=== PATIENT | female | born 1950 | race Caucasian/White ===

== ENCOUNTER 2022-06-04 13:02 | Outpatient (CLI) | payer MEDICARE, BC, SELFPAY ==
[2022-06-04 14:19] LABS: Chloride* 103 mmol/L (96-114)
[2022-06-04 14:20] LABS: Potassium* 5.5 mmol/L (3.6-5.1); Sodium* 141 mmol/L (135-149)
[2022-06-04 14:22] LABS: Cholesterol* 243 mg/dL (90-199); Creatinine* 0.8 mg/dL (0.5-1.5); Estimated Glomerular Filt Rate 78 ml/min
[2022-06-04 14:23] LABS: Blood Urea Nitrogen* 19 mg/dL (7-30); Calcium* 9.5 mg/dL (8.4-10.6); Carbon Dioxide* 29 mmol/L (20-32); Glucose* 107 mg/dL (60-115); HDL Cholesterol* 45 mg/dL (>=50); LDL Cholesterol Calculated 171 mg/dL (<100); Triglycerides* 137 mg/dL (40-149)
[2022-06-04 14:39] LABS: Vitamin D 25 Hydroxy* < 13 ng/mL (30-80)
== END 2022-06-04 13:03 | disposition home or self-care (01) ==
PROVIDERS: PCP Family Medicine; Visit Provider Family Medicine
DX: Z00.00 Encounter for general adult medical examination without abnormal findings (principal); E55.9 Vitamin D deficiency, unspecified; I10 Essential (primary) hypertension; E78.5 Hyperlipidemia, unspecified; F41.9 Anxiety disorder, unspecified; R73.09 Other abnormal glucose; M17.0 Bilateral primary osteoarthritis of knee
CPT/HCPCS: 80048; 80061; 82306

== ENCOUNTER 2023-04-15 13:49 | Outpatient (CLI) | payer BC, SELFPAY ==
--- NOTE | 2023-04-15 14:00 | CRLHL7_ITS ---
For Patients: As a result of the Century Cures Act, medical imaging exams and procedure reports are released immediately into your electronic medical record. You may view this report before your referring provider. If you have questions, please contact your health care provider. DXA BONE MINERAL DENSITY STUDY Reason for exam: Asymptomatic menopausal state. Current height (in): 64. Weight (lb): 230. Menopause age: 56. Ethnicity: White. 1. Have you had a previous hip or vertebral fracture? No. 2. Have you had any fractures during your adult life which did not result from significant trauma (e.g., auto accident)? No. 3. Did either of your parents have a hip fracture? No. 4. Do you smoke? No. 5. Have you ever taken Glucocorticoids? No. 6. Do you have rheumatoid arthritis? No. 7. Do you have secondary osteoporosis? No. 8. Do you drink 3 or more alcoholic drinks per day? No. 9. Are you being treated for osteoporosis? No. 10. Have you ever taken any of the following medications: Actonel, Evista, Fosamax, Miacalcin, Reclast, Boniva, Forteo, HRT (i.e., estrogen/hormone therapy), Protelos, Prolia, Vitamin D, Calcium, other ??? please specify. ANSWER: Yes, vitamin D. 11. Do you have any of the following medical conditions: Anorexia or bulimia, asthma or emphysema, end stage renal disease, hyperparathyroidism, any seizure disorders, cancer, inflammatory bowel diseases, hysterectomy, other ??? please specify. ANSWER: Yes, hysterectomy. 12. What was your maximum height (inches)? 64.5. 13. Do you perform weight bearing exercise regularly? No. 14. Do you regularly consume dairy products? Yes. 15. Do you drink caffeinated beverages? Yes. If female: 16. At what age did your period start? 13. 17. Are you premenopausal? No. 18. How many full-term pregnancies have you had? 3. 19. Have you ever missed your period for more than 6 months in a row (not including or menopause)? No. TECHNIQUE: Bone mineral density study was performed using the [employer]. FINDINGS: The results of the study expressed as bone mineral density (BMD) are as follows: Lumbar spine L1 to L2: BMD: 1.156 g/cm2. T-score: 1.6. Z-score: 3.8 Neck Left: BMD: 0.975 g/cm2. T-score: 1.1. Z-score: 3.2 Right: BMD: 0.883 g/cm2. T-score: 0.3. Z-score: 2.3 Total Left: BMD: 1.034 g/cm2. T-score: 0.8. Z-score: 2.5 Right: BMD: 0.870 g/cm2. T-score: -0.6. Z-score: 1.1 IMPRESSION: Normal bone density. Michael Patel M.D. Diagnostic Radiologist [email or web address] NAOMY/chucky jj/Dictated by: Michael Patel MD @ 04/15/2023 3:34:00 PM (Electronically Signed)
== END 2023-04-15 13:50 | disposition home or self-care (01) ==
LOC: RAD 13:51
PROVIDERS: PCP Family Medicine; Visit Provider Family Medicine
DX: Z78.0 Asymptomatic menopausal state (principal)
CPT/HCPCS: 77080

== ENCOUNTER 2023-04-27 15:15 | Outpatient (RCR) | payer BC, SELFPAY | END 2023-08-25 23:59 | disposition home or self-care (01) | PROVIDERS: PCP Family Medicine; Visit Provider Orthopaedic Surgery | DX: M17.11 Unilateral primary osteoarthritis, right knee (principal); Z96.651 Presence of right artificial knee joint; M25.561 Pain in right knee; Z51.89 Encounter for other specified aftercare; M25.661 Stiffness of right knee, not elsewhere classified | CPT/HCPCS: 97110; 97161 ==

== ENCOUNTER 2023-06-10 12:56 | Outpatient (CLI) | payer BC, SELFPAY ==
--- NOTE | 2023-06-10 13:00 | CRLHL7_ITS ---
For Patients: As a result of the Century Cures Act, medical imaging exams and procedure reports are released immediately into your electronic medical record. You may view this report before your referring provider. If you have questions, please contact your health care provider. INDICATION: Cholesteatoma. TECHNIQUE: Noncontrast CT images acquired through the temporal bones. COMPARISON: CT brain 11/03/2021. FINDINGS: Right side: The external auditory canal is widely patent and contains minimal soft tissue attenuation suggestive of cerumen. The tympanic membrane is faintly visualized. The middle ear cavity is clear. The ossicles and scutum are intact. No evidence for otosclerosis. Normal morphology of the inner ear structures. No semicircular canal dehiscence. The mastoid air cells are clear. Left Side: The external auditory canal is widely patent. Mild tympanic membrane thickening. Moderate opacification of the epitympanum, including Prussak`s space. Lobulated soft tissue attenuation severely opacifies the mastoid antrum. There is mild opacification of the mesotympanum, including the sinus tympani. The scutum is blunted. No ossicular erosion. No evidence for otosclerosis. Normal morphology of the inner ear structures. No semicircular canal dehiscence. The mastoid air cells are underpneumatized and partially opacified. IMPRESSION: Left Side: 1. Moderate opacification of the epitympanum, including Prussak space. Lobulated soft tissue attenuation severely opacifies the mastoid antrum. The scutum is blunted. This constellation of findings is highly concerning for cholesteatoma. 2. The mastoid air cells are underpneumatized and partially opacified. 3. Mild tympanic membrane thickening. Right side: 1. Unremarkable. Please note that all CT scans at this facility use dose modulation, iterative reconstruction, and/or weight-based dosing when appropriate to reduce radiation dose to as low as reasonably achievable. Dictated by Filiberto Rocha MD @ 06/10/2023 8:12:55 PM (Electronically Signed)
== END 2023-06-10 12:57 | disposition home or self-care (01) ==
PROVIDERS: PCP Family Medicine; Visit Provider Otolaryngology
DX: H71.90 Unspecified cholesteatoma, unspecified ear (principal)
CPT/HCPCS: 70480

== ENCOUNTER 2023-08-11 13:47 | Outpatient (RCR) | payer BC, SELFPAY ==
--- NOTE | 2023-08-12 07:42 | PT.OPEX ---
PT [place] [facility] Eval PT [facility] Outpatient Eval Start: 08/11/23 08:42 Freq: Status: Active Protocol: Document 08/11/23 08:42 AMS (Rec: 08/11/23 16:52 AMS [id number]) E-signed By Inna Johnson PT Physical Therapy Outpatient Evaluation Insurance Information Recert Due Date 11/04/23 Insurance Name Medicare B,Other; See Comments Insurance Information/Comments [employer] Secure Medical Diagnosis Right knee osteoarthritis Presence of artificial knee joint Right total knee replacement 08/18/23 pre-op only Treating Diagnosis Right knee pain Muscle weakness Difficulty walking Referring MD Davis Subjective Subjective Caron is a new patient in my office today. She is a pleasant 73yr old female. Previous Dr. Gee patient. Referred to me by Dr. Townsend . Presents with pain in both knees. She is accompanied by her daughter. She reports anterior pain in both knees right equals left for the past several years. Her knees are fine when she sits. However she has pain when she walks. She has modified her activities and tried over-the- counter medications. She has not had an injections or therapy. She does not have diabetes, does not smoke cigarettes and is not on blood thinners. She is a Latter day. -Dr. Davsi, , confirmed by patient Patient reports to physical therapy one week prior to right TKA surgery. Per EMR, pt attended two sessions of physical therapy in April for her knee, and her knee surgery was rescheduled from 05/19/23 to 08/18/23. It was rescheduled one other time as well. She states she isn't sure she will have it next week either, as she just had ear surgery last week and is feeling nauseous since then. She is going to go talk to orthopedics after today's session about this. Additionally, her daughter will be available appliance parts counter clerk to assist her after surgery, but not dental services director. She just moved to [place] from [place], but she thinks she could ask some friends and neighbors about staying with her after surgery. Her first choice would be to be placed [place] a [place] [facility] [place] after surgery, and she is not worried about the cost that may be associated with this. She plans to call and investigate this possibility. See pre-op note for home set up details. She does own a two -wheeled walker as well and a cane. Patient's right knee has been worsening in terms of pain for several years. Denies previous injury or numbness/ tingling. She localizes pain to the anterior knee and states it is worse when walking, standing, and performing ADLs around her apartment. X-rays showed advanced osteoarthritis. Her baseline mobility is modified independent with 4WW for all but short distances due to quick fatigue, lumbar stenosis , and knee pain. 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 Functional limitations/ aggravating factors include all weightbearing activities. Not currently exercising. She will be doing her post-op PT in [place] closer to home. PMHx significant for knee arthroscopy on left side, fibromyalgia, heart murmur, hyperlipidemia, hypertension, and pre-diabetes. Pain Comments 7/10 at worst 0/10 at rest with sitting Date of Last Physician Visit 08/10/23 Date of Surgery (If applicable) 08/18/23 Current Work Status Retired Precautions Treatment Precautions/Contraindications Pre-diabetes, hyperlipidemia, hypertension, lumbar stenosis, Hx of pre-cancerous lesion of uterus w/ hysterectomy, heart murmur, fibromyalgia Weight Bearing Status Weight Bear as Tolerated Objective Other/Pertinent Objective Knee ROM L 0-0-115 R 0-0-98* pain end range Hip ROM Not assessed due to intolerance to supine position Strength: Hip flexors: R 4/5 L 4/5 Knee extensors: R 4/5 L 4/5 Gait/balance: Ambulates with increased genu varum on right, decreased angie, antalgic gait on right, flexed forward posture, mild postural sway/ instability. Pt did not bring her 4WW this visit. Palpation/joint mobility: Mild TTP over medial joint line, palpable cyst behind knee ( known by Dr. Davis) Swelling/observation: Increased genu varum R > L, no visible swelling Assessment Assessment/Impression Patient is a 73 year old female presenting for pre- operative visit prior to right total knee arthroplasty scheduled for 08/18/23. Notably, pt may be rescheduling this surgery a third time. Per patient report , she will also be having a cyst removed from behind her right knee potentially. Upon assessment, patient demonstrates decreased knee ROM, decreased proximal hip force output, and antalgic gait pattern. These impairments lead to difficulties with walking short distances, squatting, getting in and out of bed, climbing stairs, standing for longer periods, and sleeping. Patient's baseline function is ambulation with 4WW for all but short distances, as she did not bring it today. Patient will be seen post operatively in [place] to reassess impairments that will be addressed with skilled care. Caron would greatly benefit from skilled PT in order to progress strength, ROM, and ambulation post operatively in order to perform all household and work duties without significant difficulty or discomfort. Primary Functional Limitations walking short distances, squatting, getting in and out of bed, climbing stairs, standing for longer periods, and sleeping Plan of Care Rehabilitation Potential Good Physical Therapy Goals After pre-op visit: ALL MET ? Patient will be independent with HEP ? Patient will verbalize knowledge of stair navigation and proper sequencing ? Patient will have knowledge on home adaptations and use of assistive devices post operatively ? Patient will have knowledge of edema management Coordination/Communication With Referral Source Treatment Plan/Direct Interventions Therapeutic Exercises Frequency/Duration Frequency/duration: ? 1x visit prior to surgery on 08/18/23. Patient will start outpatient PT s/p TKA on in [place]. Patient Will Be Discharged From Therapy Completion of LTG(s), Independent w/HEP, Independently Progressing Evaluation Billing Untimed Code Treatment Minutes 25 Complexity Moderate Certification Information Initial Certification Date 08/11/23 Ending Certification Date 11/04/23 Provider Signature Shows Agreement With POC & Medical Necessity Physician Signature & Date Requested Please Sign/Date Here Physician Comment/Change : Physician NPI Number #
== END 2023-08-21 16:18 | disposition home or self-care (01) ==
PROVIDERS: PCP Family Medicine; Visit Provider Orthopaedic Surgery
DX: M17.11 Unilateral primary osteoarthritis, right knee (principal); Z96.651 Presence of right artificial knee joint; Z51.89 Encounter for other specified aftercare
CPT/HCPCS: 97110; 97162

== ENCOUNTER 2023-08-19 15:16 | Inpatient (IN) | payer BC, SELFPAY ==
[2023-08-18] VITALS (23 sets, daily range): BP systolic 97–171; BP diastolic 47–101; PULSE 57–73; RESP 14–21; TEMP 35.9–36.8; O2SAT 90–98; BMI 39.4
[2023-08-18] MEDS: SODIUM CHLORIDE 0.9 % (FLUSH) 10 ML SYRINGE IVF (11:00)
[2023-08-18] MEDS: LACTATED RINGERS 1000 ML 1,000 ML 100 ML IV ×2 (11:00→12:12)
[2023-08-18] MEDS: ACETAMINOPHEN 500 MG TABLET 1000 MG PO ×3 (11:05→23:12)
[2023-08-18] MEDS: OXYCODONE (CR) 10 MG TAB.ER.12H PO (11:05)
[2023-08-18] MEDS: CELECOXIB 200 MG CAPSULE PO (11:05)
[2023-08-18] MEDS: fentaNYL 100 MCG/2 ML inj IVP (11:43)
[2023-08-18] MEDS: MIDAZOLAM HCL 1 MG/ML inj IVP (11:43)
[2023-08-18] MEDS: TRANEXAMIC ACID 100 MG/ML INJ 1000 MG IV (12:11)
[2023-08-18] MEDS: CEFAZOLIN 2 GM INJ IVP (12:11)
--- NOTE | 2023-08-18 12:33 | P.NB_ITS ---
Nerve Block Nerve Block Time Seen by Provider: 11:44 Date Seen: 08/18/23 Type of block requested by surgeon for post-operative analgesia: adductor canal Side: right Time out performed: Yes Verification of patient name: Yes Verification of date of : Yes Site marking: site marked Name of person performing procedure: Sahil Continuous monitoring Was continuous monitoring of O2 sat, B/P, cardiac catheterization technician, recorded every 15 minutes?: Yes Procedure Checklist: sterile prep, needles and gloves Ultrasound guided. Images saved: Yes Medications given in 5ml increments after negative aspiration: Ropivicaine %: 0.5 mL: 20 Needle gauge: 20 Decadron (mg): 10 Precedex (mcg): 25 Patient tolerated procedure well: Yes Additional comments: Needle noted adjacent to nerve Block Charges Block Charge (with Pro Fee): Femoral Nerve Use of Ultrasound Machine for Block: Yes- US Guidance/pain block
--- NOTE | 2023-08-18 12:34 | W.PM.NB ---
Nerve Block Nerve Block Time Seen by Provider: 11:44 Date Seen: 08/18/23 Type of block requested by surgeon for post-operative analgesia: geniculars Side: right Time out performed: Yes Verification of patient name: Yes Verification of date of : Yes Site marking: site marked Name of person performing procedure: Sahil Continuous monitoring Was continuous monitoring of O2 sat, B/P, naval architect, recorded every 15 minutes?: Yes Procedure Checklist: sterile prep, needles and gloves Medications given in 5ml increments after negative aspiration: Ropivicaine %: 0.5 mL: 9 Needle gauge: 25 Patient tolerated procedure well: Yes Block Charges Block Charge (with Pro Fee): Genicular Nerve Block Use of Ultrasound Machine for Block: No
--- NOTE | 2023-08-18 12:34 | W.ANESCHARGE ---
Anesthesia Charges Start Date/Time Anesthesia Start Date: 08/18/23 Anesthesia Start Time: 11:56 Stop Date/Time Anesthesia Stop Date: 08/18/23 Anesthesia Stop Time: 14:05 Summary Extremes of Age - Over 70 or under 1: MDA
--- NOTE | 2023-08-18 13:25 | CRLHL7_ITS ---
For Patients: As a result of the Cures Act, medical imaging exams and procedure reports are released immediately into your electronic medical record. You may view this report before your referring provider. If you have questions, please contact your health care provider. Indication: post op TKA Technique: Two views right knee Findings/Impression: Hardware from a right total knee arthroplasty is in satisfactory position. Bone alignment is normal. No sign of acute fracture. Postop changes are within normal limits. Dictated by Michael Patel MD @ 08/19/2023 8:23:02 AM (Electronically Signed)
--- NOTE | 2023-08-18 13:31 | PM.ORPRC ---
Procedure Note Date of procedure: 08/18/23 Procedure: PREOPERATIVE DIAGNOSIS: Right knee osteoarthritis POSTOPERATIVE DIAGNOSIS: Right knee osteoarthritis NAME OF OPERATION: Right total knee arthroplasty SURGEON: Narciso Davis MD TUBE BENDER HAND: STAN Benito ANESTHESIA: Spinal ESTIMATED BLOOD LOSS: 0 mL COMPLICATIONS: None SPECIMENS: None DRAINS: None PREOPERATIVE ANTIBIOTICS: Ancef 2 grams, antibiotic impregnated cement IMPLANTS: 1. J&J Attune #4 revision posterior stabilized femur with a 14 mm x 50 mm cemented stem 2. #4 fixed-bearing revision tibia with a 14 mm x 50 mm cemented stem 3. #4 posterior stabilized, 5 mm fixed-bearing standard polyethylene 4. 35 patella INDICATIONS: The patient is a 73-year-old with a longstanding history of severe, unrelenting right knee pain secondary to end-stage (grade IV) right knee osteoarthritis. Despite appropriate nonoperative management, including activity modification, anti-inflammatories, [id number] pain medication, bracing, physical therapy, and injections they continue to have pain and disability. Operative intervention was offered. The risks, benefits and expected outcomes were discussed in detail. These included but were not limited to: Infection, bleeding, injury to blood vessel or nerve, venous thromboembolism. All questions were answered to their satisfaction. Use of an dental assistant teacher was necessary throughout the case for patient positioning and safety, soft tissue retraction, and closure. A modifier 22 should be added to this case. The patient's weight of 104 kg with a BMI of 39.4 kg/meter squared and a 50 mm layer of adipose over the extensor mechanism made exposure difficult. This required the use of stems on both side of the construct and more than doubled the time typically required to complete the case. PROCEDURE: Spinal anesthesia was administered. The patient was placed supine on the operating table. The dental assistant teacher made sure the patient was positioned appropriately. The lower extremity was prepped and draped in the usual sterile fashion. The limb was exsanguinated with the Herrera bandage. The pneumatic tourniquet was inflated to 300 mmHg. A standard anterior incision was made with the knee in flexion. Subcutaneous dissection was sharply taken through fascial layer #1. Full-thickness medial and lateral flaps were elevated. The dental assistant teacher retracted the soft tissues and protected them throughout the case. A standard medial parapatellar approach was made. The patella was everted. The infrapatellar fat pad was preserved. The menisci and cruciate ligaments were sharply d?brided. Marginal osteophytes were d?brided with the rongeur. The drill was used to penetrate the femoral canal. The canal was aspirated and irrigated with pulse lavage. The intramedullary femoral guide was placed for a 5-degree valgus cut, removing 10 mm off the distal femur. The saw was used to make the cut. Whitesides line and the trans epicondylar axis were marked. The femoral sizing guide was pinned onto the distal femur. Three degrees of external rotation nicely parallels the transepicondylar axis. Pins were placed for posterior referencing. The four-in-one cutting guide was pinned onto the distal femur. The anterior, posterior, and chamfer cuts were made. The dental assistant teacher protected the collateral ligaments. The revision femoral trial was placed. The box cuts were made. The drill was used x2. The stemmed, boxed trial was placed and was an excellent fit. Attention was then turned to the proximal tibia. The extramedullary tibial guide was placed for a neutral varus/valgus cut with 5 degrees of posterior slope, removing 2 mm based off the medial tibial surface. The dental assistant teacher protected the collateral ligaments and the neurovascular bundle. The saw was used to make the cut. Trial components were placed. The knee was nicely balanced in both flexion and extension. The trial components were removed. The tray was placed in appropriate rotation, parallel to our tibial cutting pins. It was pinned by the dental assistant teacher and the drill x2 was used. The stemmed tibial trial was placed. The punch was used. The tray was removed. The punch was used again. Attention was then turned to the patella. [place] patellar thickness was 21.5 mm. The lobster claw resection guide was used with the 7.5 mm grazyna. The saw was used to make the cut. Drill holes were made by the dental assistant teacher. The trial was placed and was an excellent fit. Cancellous surfaces were irrigated with pulse lavage and thoroughly dried by the dental assistant teacher. We cemented the tibial component, then the femoral component. We impacted the 5 mm polyethylene onto the tibial tray. The knee was brought into full extension. We then cemented the patellar component. Excessive cement was removed. The cement was allowed to harden. The knee was taken through a range of motion and was found to be nicely balanced in both flexion and extension. The patella tracks centrally. The dental assistant teacher did a three minute dilute Betadine solution soak. The dental assistant teacher irrigated the wound with 3 liters of normal saline via pulse lavage. The dental assistant teacher reapproximated the extensor mechanism with #1 Vicryl in an interrupted [id number] fashion. The dental assistant teacher then ran the extensor mechanism with a #1 PDO Stratafix. The dental assistant teacher closed the subcutaneous tissues with a 3-0 Stratafix and the skin with a running 3-0 Stratafix in a subcuticular fashion. Glue was used to seal the skin. The dental assistant teacher placed a dry dressing, SUJIT stocking, and Polar Care. Sponge and needle counts were correct x2. The patient tolerated the procedure well. There were no apparent complications. They were carefully transferred to the hospital bed and taken to the postanesthesia care unit in satisfactory condition. PLAN: The patient will be mobilized with physical therapy. Aspirin will be used for DVT prophylaxis. They will be discharged to home once medically appropriate.
--- NOTE | 2023-08-18 14:07 | W.ANESCHARGE ---
Anesthesia Charges Start Date/Time Anesthesia Start Date: 08/18/23 Anesthesia Start Time: 11:56 Stop Date/Time Anesthesia Stop Date: 08/18/23 Anesthesia Stop Time: 14:05
--- NOTE | 2023-08-18 14:54 | SUR.PHASEI ---
patient met discharge criteria per anesthesia
[2023-08-18] MEDS: LACTATED RINGERS 1000 ML 1,000 ML 75 ML IV (16:17)
[2023-08-18] MEDS: CEFAZOLIN 2 GM in 0.9 % SODIUM CHLORIDE Mini-bag 100 ML IVPB (18:05)
--- NOTE | 2023-08-18 18:15 | PC.SOCIAL ---
Discharge planning: workers compensation administrator spoke with dtdaiana Saini who requested short term rehab placement in a facility in [facility] or [place]. Left message for [facility], Called [facility] in [place] and faxed information for evaluation. Faxed information to [facility] in [place]. At this time, only the face sheet and Pre-op H&P is available to fax. workers compensation administrator to follow up tomorrow with additional PT/OT and hospitalist note for assessment for admit to [place] [facility] [place] [facility].
--- NOTE | 2023-08-18 18:21 | PC.NURSE ---
PATIENT PLEASANT AND COOPERATIVE, ALERT AND ORIENTED, UP A1 WITH WALKER AND BELT, SLIGHT BUCKLE OF RIGHT KNEE NOTED, DRESSING TO RIGHT KNEE CDI, TOLERATING REGULAR DIET NO NAUSEA NOTED, DECLINING PAIN IN RIGHT KNEE, DTR PRESENT AT BEDSIDE AND VERY SUPPORTIVE.
--- NOTE | 2023-08-18 19:05 | PM.IMCN1 ---
Date of Consult Patient: [facility] Patient Consult date: 08/18/23 Requesting Physician: Orthopedics Primary Care Provider: Michael Townsend MD Consult Narrative Reason for consult: Postop medical management Narrative: Caron Mittal is a 73 year old female seen in consultation for medical problems following surgery. Consultation is requested by Dr. Davis for management after uncomplicated right total knee arthroplasty today. Patient reports generally doing fairly well postoperatively. She specifically denies nausea or knee pain. Her block is just wearing off when I see her. Preoperatively she reports generally doing well. There were no significant issues identified under preop physical. Patient, family and other providers have suggested that she would benefit from [facility] facility for rehab following surgery. She lives alone in apartment without stairs. It is not adequately handicapped for her to manage there. She has other disabilities that she thinks will impair her recovery including her other knee arthritis, spinal stenosis, shoulder pain/rotator cuff problems left greater than right, fibromyalgia. Two weeks ago she underwent surgery at [facility] for a cholesteatoma in her left ear. She initially did have some difficulties after that surgery with profound fatigue and sleepiness. She reports no other complications. She is still using antibiotic drops in that ear. Review of Systems Narrative: No recent illness or injury. Ongoing chronic medical problems requiring ongoing management as discussed below. 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 - Presbycusis, unspecified ear (ICD-10) Mixed hyperlipidemia ?E78.2 - Mixed hyperlipidemia (ICD-10) Primary hypertension ?I10 - Essential (primary) hypertension (ICD-10) Pre-diabetes ?R73.03 - Prediabetes (ICD-10) Vitamin D deficiency ?E55.9 - Vitamin D deficiency, unspecified (ICD-10) Spinal stenosis of lumbar region with neurogenic claudication ?M48.062 - Spinal stenosis, lumbar region with neurogenic claudication (ICD-10) Recurrent major depressive disorder (07/26/08) ?F33.9 - Major depressive disorder, recurrent, unspecified (ICD-10) Paroxysmal atrial fibrillation ?I48.0 - Paroxysmal atrial fibrillation (ICD-10) Osteoarthritis of both knees ?M17.0 - Bilateral primary osteoarthritis of knee (ICD-10) Obstructive sleep apnea syndrome ?G47.33 - Obstructive sleep apnea (adult) (pediatric) (ICD-10) History of adenomatous polyp of colon (06/06/10) ?Z86.010 - Personal history of colonic polyps (ICD-10) Surgical History (Updated 08/18/23 @ 19:15 by Hector Elizabeth MD) History of arthroplasty of right knee ?Z96.651 - Presence of right artificial knee joint (ICD-10) History of cholesteatoma ?Z86.69 - Personal history of other diseases of the nervous system and sense organs (ICD-10) Status post total abdominal hysterectomy and bilateral salpingo-oophorectomy (12/2016) ?Z90.710 - Acquired absence of both cervix and uterus (ICD-10) ?Z90.722 - Acquired absence of ovaries, bilateral (ICD-10) ?Z90.79 - Acquired absence of other genital organ(s) (ICD-10) Status post laparoscopic cholecystectomy (1993) ?Z90.49 - Acquired absence of other specified parts of digestive tract (ICD-10) History of suburethral sling procedure (12/01/16) ?Z98.890 - Other specified postprocedural states (ICD-10) History of colonoscopy with polypectomy (11/2019) ?Z98.890 - Other specified postprocedural states (ICD-10) ?Z86.010 - Personal history of colonic polyps (ICD-10) History of arthroscopy of right knee (1995) ?Z98.890 - Other specified postprocedural states (ICD-10) Family History Mother Breast cancer, Onset Age: 45 Maternal Grandmother Breast cancer, Onset Age: 40 Aunt Breast cancer Father Type 2 diabetes mellitus Social History (Updated 08/18/23 @ 19:12 by Hector Elizabeth MD) Narrative: She recently moved to an apartment in [place] from [place]. She moved there to be closer to her daughter and to her who is an assisted living facility there. Her apartment has no stairs but is not otherwise handicap assessable. 3 kids, retired, 2 drinks/months, has Alzheimer's , non-smoker, Sabianism sedentary lifestyle What is your current living situation?: I presently have a place to live Problems where you live: no known problems Problems where you live details: none In the past 12 months, utilities in danger of being shut off: no In past 12 months, lack of transportation kept you from medical appts, meetings, work, or getting things needed for daily living: no In the past 12 mos, have been you worried that your food would run out before you had money to buy more?: never true In the past 12 mos, the food you bought just didn't last and you didn't have money to buy more?: never true Smoking Status: Never smoker How often do you have a drink containing alcohol: monthly or less AUDIT-C Alcohol total score: 1 Non-prescribed substance use: denies use Caffeine: Yes (coffee) How often does anyone, including family, friends and others, physically hurt you: never How often does anyone, including family, friends and others, insult or talk down to you: never How often does anyone, including family, friends and others, threaten you with harm: never How often does anyone, including family, friends and others, scream or curse at you: never Little interest or pleasure in doing things: several days Feeling down, depressed, or hopeless: several days Meds Home Medications and Allergies Home Medications Medication Instructions Recorded Confirmed Type acetaminophen 325 mg tablet 650 mg PO Q6H PRN 08/10/23 08/17/23 History (Tylenol) ciprofloxacin HCl 0.3 % eye drops See Rx Instructions .Route .COMPLEX 08/18/23 08/18/23 History Allergies Allergy/AdvReac Type Severity Reaction Status Date / Time fluoxetine Allergy Intermediate clicking Verified 08/10/23 14:31 in brain sertraline Allergy Mild watery eyes Verified 08/10/23 14:31 Exam Narrative: Exam Narrative: She is alert and appears in no distress. She is oriented to her circumstances. Oropharynx with small airway. Neck is supple without mass or adenopathy. Respirations are clear to auscultation. Cardiovascular: S1, S2, regular rate and rhythm. No murmur gallop or rub. Abdomen: Bowel sounds active. Abdomen is soft without tenderness or mass. She is just beginning to regain sensation and motion and strength in her lower extremities bilaterally. Intact pedal pulses. Const: Vital Signs, click to edit/add: Vital Signs - 24 hr 08/18/23 11:28 08/18/23 11:43 08/18/23 11:49 Temperature 97.8 F 97.8 F Pulse Rate 61 66 59 L Pulse Rate [Left P ulse Oximeter] Respiratory Rate 16 16 16 Blood Pressure 171/68 H 151/69 H 137/66 Blood Pressure [Le ft Arm] Pulse Oximetry 98 95 98 Oxygen Delivery Me thod Room Air Nasal Cannula Nasal Cannula Oxygen Flow Rate 2 2 08/18/23 14:00 08/18/23 14:05 08/18/23 14:10 Temperature 97.6 F 97.6 F 97.6 F Pulse Rate 69 64 66 Pulse Rate [Left P ulse Oximeter] Respiratory Rate 16 20 20 Blood Pressure 97/47 L 103/47 L 120/54 L Blood Pressure [Le ft Arm] Pulse Oximetry 97 96 96 Oxygen Delivery Me thod Nasal Cannula OxyMask OxyMask Oxygen Flow Rate 6 6 6 08/18/23 14:15 08/18/23 14:20 08/18/23 14:25 Temperature 97.6 F 97.6 F 97.6 F Pulse Rate 67 69 63 Pulse Rate [Left P ulse Oximeter] Respiratory Rate 20 21 20 Blood Pressure 106/62 120/58 L 125/58 L Blood Pressure [Le ft Arm] Pulse Oximetry 97 95 96 Oxygen Delivery Me thod OxyMask OxyMask Room Air Oxygen Flow Rate 6 6 0 08/18/23 14:30 08/18/23 14:35 08/18/23 14:40 Temperature 97.3 F L 97.3 F L 97.3 F L Pulse Rate 69 68 66 Pulse Rate [Left P ulse Oximeter] Respiratory Rate 20 20 20 Blood Pressure 142/67 H 145/71 H 139/66 Blood Pressure [Le ft Arm] Pulse Oximetry 92 94 94 Oxygen Delivery Me thod Room Air Room Air Room Air Oxygen Flow Rate 0 0 0 08/18/23 14:40 08/18/23 15:00 08/18/23 15:00 Temperature 96.6 F L Pulse Rate 59 L Pulse Rate [Left P ulse Oximeter] 60 Respiratory Rate 14 16 Blood Pressure Blood Pressure [Le ft Arm] 139/73 141/58 H Pulse Oximetry 92 93 Oxygen Delivery Me thod Room Air Room Air Oxygen Flow Rate 08/18/23 15:15 08/18/23 15:30 08/18/23 15:45 Temperature 97.0 F L Pulse Rate Pulse Rate [Left P ulse Oximeter] 60 57 L 58 L Respiratory Rate 14 16 16 Blood Pressure Blood Pressure [Le ft Arm] 159/77 H 153/73 H 152/101 H Pulse Oximetry 90 92 92 Oxygen Delivery Me thod Room Air Room Air Room Air Oxygen Flow Rate 0 0 0 08/18/23 16:00 08/18/23 16:30 08/18/23 17:00 Temperature 97.0 F L Pulse Rate Pulse Rate [Left P ulse Oximeter] 61 58 L 70 Respiratory Rate 16 16 16 Blood Pressure Blood Pressure [Le ft Arm] 152/76 H 167/83 H 150/78 H Pulse Oximetry 91 90 92 Oxygen Delivery Me thod Room Air Room Air Room Air Oxygen Flow Rate 0 0 0 08/18/23 18:00 Temperature Pulse Rate Pulse Rate [Left P ulse Oximeter] 73 Respiratory Rate 16 Blood Pressure Blood Pressure [Le ft Arm] 127/57 L Pulse Oximetry 92 Oxygen Delivery Me thod Room Air Oxygen Flow Rate 0 Documenting provider has reviewed patient's vital signs: yes Assessment and Plan Assessment and plan (1) History of arthroplasty of right knee: Problem comment: Dr. Davis, without complications, 08/18/2023 Status: Acute (2) Osteoarthritis of both knees: Status: Acute (3) Presbyacusis: Status: Acute (4) Obstructive sleep apnea syndrome: Problem comment: Not using CPAP. It apparently causes her to have nasal congestion and postnasal drainage. Status: Acute (5) Spinal stenosis of lumbar region with neurogenic claudication: Status: Acute (6) Fibromyalgia: Status: Acute (7) Bilateral shoulder pain: Problem comment: Left greater than right which she attributes to rotator cuff injury. Status: Acute (8) Obesity (BMI 30-39.9): Status: Acute (9) Sedentary lifestyle: Status: Acute (10) Need for discharge planning: Problem comment: Patient and family hope she can get rehab at a [facility] facility before returning home. Status: Acute Plan 73-year-old female seen in consultation for management of medical problems following right knee arthroplasty. Patient is generally doing well but is already anticipating a great deal of difficulty with mobility, pain control, rehabilitation. She is expecting and need for [facility] facility to help with these issues for the short term. At this point will provide routine management of pain, therapy, chronic medical management. Further discussion about discharge planning to continue tomorrow. Total time spent today is 60 minutes, 40 minutes in coordination of care and discussing with patient and family and other providers rehab from knee surgery and discharge planning
[2023-08-18] MEDS: OXYCODONE 5 MG TABLET PO (19:11)
[2023-08-18] MEDS: SENNOSIDES 1 TAB TABLET 2 TAB PO (20:25)
[2023-08-18] MEDS: ASPIRIN 81 MG TABLET EC PO (20:25)
[2023-08-18] MEDS: CIPROFLOXACIN 0.3% OPHTH 4 DROP EAR-LEFT (20:26)
[2023-08-19] MEDS: OXYCODONE 5 MG TABLET PO ×4 (02:20→18:57)
[2023-08-19] MEDS: CEFAZOLIN 2 GM in 0.9 % SODIUM CHLORIDE Mini-bag 100 ML IVPB (02:23)
[2023-08-19 03:00] VITALS: BP 140/58; PULSE 65; RESP 16; TEMP 36.6; O2SAT 92
--- NOTE | 2023-08-19 04:32 | PC.NURSE ---
Shift note: Pt is post operative day 1. Doing well ambulating with A1, walker and GB. Pain rated between 3 and 6. Tolerated regular diet very well. Dressing appears clean and dry. Cryocuff applied. Pt is hard of hearing. Had adequate sleep.
[2023-08-19] MEDS: ACETAMINOPHEN 500 MG TABLET 1000 MG PO ×4 (05:18→23:45)
[2023-08-19 06:55] LABS: Basophils Percent Auto 0.1 % (0.0-3.0); Hematocrit 32.2 % (33.0-51.0); Hemoglobin* 10.1 gm/dL (12.0-16.0); Immature Granulocytes Pct Auto 0.4 %; Lymphocytes Percent Auto 9.4 % (20-44); Mean Corpuscular HGB Conc 31 gm/dL (32-36); Mean Corpuscular Hemoglobin 30 pg (26-34); Mean Corpuscular Volume 94 fL (80-100); Monocytes Percent Auto 6.8 % (0.0-11.0); Neutrophils Percent Auto 83.3 % (42.0-72.0); Platelet Count* 230 K/uL (140-440); RDW Coefficient of Variation % 13.3 % (11.5-15.5); Red Blood Count 3.41 m/uL (4.00-5.20); White Blood Count* 12.83 K/uL (4.50-11.00)
[2023-08-19 07:00] VITALS: BP 143/60; PULSE 71; RESP 16; TEMP 36.2; O2SAT 95
[2023-08-19 07:04] LABS: Slide Review Reflex No
[2023-08-19 07:15] LABS: Prothrombin Time 14.9 Seconds
[2023-08-19 07:16] LABS: Potassium* 4.2 mmol/L (3.6-5.1); Sodium* 138 mmol/L (135-149)
[2023-08-19 07:18] LABS: Creatinine* 0.7 mg/dL (0.5-1.5); Est. Creatinine Clearance* 42.62; Estimated Glomerular Filt Rate 91 ml/min
[2023-08-19 07:19] LABS: Blood Urea Nitrogen* 13 mg/dL (7-30)
--- NOTE | 2023-08-19 08:21 | P.ORPN_ITS ---
Subjective Subjective Time Seen by Provider: 07:10 Date Seen: 08/19/23 Principal diagnosis: Status post right knee replacement Interval history: Caron is comfortable is morning. She wishes to go to a [facility] postoperatively. Electric Dolly Operator is assisting her. Ortho Exam Narrative Exam Narrative: Alert and oriented x3. Patient is in no acute distress. Converses without labored breathing. Hearing is grossly intact. Ambulates with a walker. Examination of the right knee shows the dressing is intact. No erythema or warmth or sign of infection. Mild ecchymosis. CMS intact right lower extremity. Bilateral calves are soft and nontender. Const Vital Signs, click to edit/add: Vital Signs - 24 hr 08/18/23 11:28 08/18/23 11:43 08/18/23 11:49 Temperature 97.8 F 97.8 F Pulse Rate 61 66 59 L Pulse Rate [Left Pulse Oximeter] Respiratory Rate 16 16 16 Blood Pressure 171/68 H 151/69 H 137/66 Blood Pressure [Left Arm] Pulse Oximetry 98 95 98 Oxygen Delivery Method Room Air Nasal Cannula Nasal Cannula Oxygen Flow Rate 2 2 08/18/23 14:00 08/18/23 14:05 08/18/23 14:10 Temperature 97.6 F 97.6 F 97.6 F Pulse Rate 69 64 66 Pulse Rate [Left Pulse Oximeter] Respiratory Rate 16 20 20 Blood Pressure 97/47 L 103/47 L 120/54 L Blood Pressure [Left Arm] Pulse Oximetry 97 96 96 Oxygen Delivery Method Nasal Cannula OxyMask OxyMask Oxygen Flow Rate 6 6 6 08/18/23 14:15 08/18/23 14:20 08/18/23 14:25 Temperature 97.6 F 97.6 F 97.6 F Pulse Rate 67 69 63 Pulse Rate [Left Pulse Oximeter] Respiratory Rate 20 21 20 Blood Pressure 106/62 120/58 L 125/58 L Blood Pressure [Left Arm] Pulse Oximetry 97 95 96 Oxygen Delivery Method OxyMask OxyMask Room Air Oxygen Flow Rate 6 6 0 08/18/23 14:30 08/18/23 14:35 08/18/23 14:40 Temperature 97.3 F L 97.3 F L 97.3 F L Pulse Rate 69 68 66 Pulse Rate [Left Pulse Oximeter] Respiratory Rate 20 20 20 Blood Pressure 142/67 H 145/71 H 139/66 Blood Pressure [Left Arm] Pulse Oximetry 92 94 94 Oxygen Delivery Method Room Air Room Air Room Air Oxygen Flow Rate 0 0 0 08/18/23 14:40 08/18/23 15:00 08/18/23 15:00 Temperature 96.6 F L Pulse Rate 59 L Pulse Rate [Left Pulse Oximeter] 60 Respiratory Rate 14 16 Blood Pressure Blood Pressure [Left Arm] 139/73 141/58 H Pulse Oximetry 92 93 Oxygen Delivery Method Room Air Room Air Oxygen Flow Rate 08/18/23 15:15 08/18/23 15:30 08/18/23 15:45 Temperature 97.0 F L Pulse Rate Pulse Rate [Left Pulse Oximeter] 60 57 L 58 L Respiratory Rate 14 16 16 Blood Pressure Blood Pressure [Left Arm] 159/77 H 153/73 H 152/101 H Pulse Oximetry 90 92 92 Oxygen Delivery Method Room Air Room Air Room Air Oxygen Flow Rate 0 0 0 08/18/23 16:00 08/18/23 16:30 08/18/23 17:00 Temperature 97.0 F L Pulse Rate Pulse Rate [Left Pulse Oximeter] 61 58 L 70 Respiratory Rate 16 16 16 Blood Pressure Blood Pressure [Left Arm] 152/76 H 167/83 H 150/78 H Pulse Oximetry 91 90 92 Oxygen Delivery Method Room Air Room Air Room Air Oxygen Flow Rate 0 0 0 08/18/23 18:00 08/18/23 19:00 08/18/23 20:00 Temperature 98.2 F 98.2 F Pulse Rate Pulse Rate [Left Pulse Oximeter] 73 70 66 Respiratory Rate 16 16 16 Blood Pressure Blood Pressure [Left Arm] 127/57 L 152/70 H 152/74 H Pulse Oximetry 92 94 94 Oxygen Delivery Method Room Air Room Air Room Air Oxygen Flow Rate 0 0 0 08/18/23 23:00 08/18/23 23:00 08/19/23 03:00 Temperature 98 F 98 F Pulse Rate Pulse Rate [Left Pulse Oximeter] 67 65 Respiratory Rate 16 16 Blood Pressure Blood Pressure [Left Arm] 133/62 140/58 H Pulse Oximetry 92 92 92 Oxygen Delivery Method Room Air Room Air Oxygen Flow Rate 0 0 08/19/23 07:00 08/19/23 07:00 Temperature 97.2 F L Pulse Rate Pulse Rate [Left Pulse Oximeter] 71 Respiratory Rate 16 Blood Pressure Blood Pressure [Left Arm] 143/60 H Pulse Oximetry 95 95 Oxygen Delivery Method Room Air Oxygen Flow Rate Assessment and Plan Assessment and plan (1) History of arthroplasty of right knee: Problem details: Dr. Davis, without complications, 08/18/2023 Status: Acute Assessment and Plan: Plan for discharge is today to [facility] when she meets discharge criteria. DVT prophylaxis includes aspirin 81 mg twice daily x1 month, Hi stockings x1 month may remove for 1 hr per day, frequent ambulation Remove dressing in 1 week. Observe wound and phone Orthopedics with any questions or concerns Return to clinic in 1 week for a wound check Return to clinic in 6 weeks with surgeon Minimize narcotic use. Wean off and discontinue soon as possible. Activities as tolerated. No strenuous activity. Outpatient physical therapy when discharged from [facility]. OT and PT daily at [facility]. Ice and elevate the operative extremity. No restriction on ice. Orthopedic meds will be sent to her pharmacy once her [facility] is known. (2) Presbyacusis: Status: Acute (3) Obstructive sleep apnea syndrome: Problem details: Not using CPAP. It apparently causes her to have nasal congestion and postnasal drainage. Status: Acute (4) Spinal stenosis of lumbar region with neurogenic claudication: Status: Acute (5) Fibromyalgia: Status: Acute (6) Bilateral shoulder pain: Problem details: Left greater than right which she attributes to rotator cuff injury. Status: Acute (7) Obesity (BMI 30-39.9): Status: Acute (8) Sedentary lifestyle: Status: Acute (9) Need for discharge planning: Problem details: Patient and family hope she can get rehab at a [facility] before returning home. Status: Acute
[2023-08-19] MEDS: ASPIRIN 81 MG TABLET EC PO ×2 (08:44→20:52)
[2023-08-19] MEDS: METOPROLOL SUCCINATE (XL) 50 MG TAB PO (08:45)
[2023-08-19] MEDS: buPROPion XL 150 MG TABLET 300 MG PO (08:45)
[2023-08-19] MEDS: SENNOSIDES 1 TAB TABLET 2 TAB PO ×2 (08:45→20:52)
--- NOTE | 2023-08-19 09:57 | SUR.PREOP ---
TIME?OUT:?1143 08/18/23 PT/RN/MDA?VERIFICATION?OF?SURGICAL?SITE,?PROCEDURE,?AND?CONSENT OBTAINED?PRIOR?TO?INVASIVE?PROCEDURE. all in agreement.
[2023-08-19] MEDS: CIPROFLOXACIN 0.3% OPHTH 4 DROP EAR-LEFT ×2 (10:37→20:53)
[2023-08-19 11:20] VITALS: BP 142/62; PULSE 62; RESP 16; TEMP 36.6; O2SAT 946
--- NOTE | 2023-08-19 13:32 | P.IMPN_ITS ---
Progress Note: A&P Assessment and plan (1) History of arthroplasty of right knee: Problem details: Dr. Davis, without complications, 08/18/2023 Status: Acute (2) Osteoarthritis of right knee: Status: Acute (3) Osteoarthritis of left knee: Status: Acute (4) Fibromyalgia: Status: Acute (5) Bilateral shoulder pain: Problem details: Left greater than right which she attributes to rotator cuff injury. Status: Acute (6) Obesity (BMI 30-39.9): Status: Acute (7) Sedentary lifestyle: Status: Acute (8) Need for discharge planning: Problem details: Patient and family hope she can get rehab at a residential facility before returning home. Status: Acute Plan Continue with therapy evaluation and treatment. Continue to work with r[facility] social services to determine optimal discharge planning. Time Spent With Patient Total time spent: Total time spent today is 20 minutes, all of it in coordination of care and discussing with patient other providers ongoing evaluation management of chronic medical problems and postoperative care Subjective Date Seen: 08/19/23 Interval history: 73-year-old female seen in followup of right knee arthroplasty. Patient reports moderate pain with fair control. She is up walking with a walker with therapy. She reports moving slowly but effectively with this. Still contemplating residential facility for rehab prior to returning home. Exam Narrative: Exam Narrative: She is alert and appears in no distress. Ambulating in the hallway with therapy. Breathing is unlabored. Const: Vital Signs, click to edit/add: Vital Signs - 24 hr 08/18/23 14:00 08/18/23 14:05 08/18/23 14:10 Temperature 97.6 F 97.6 F 97.6 F Pulse Rate 69 64 66 Pulse Rate [Left P ulse Oximeter] Respiratory Rate 16 20 20 Blood Pressure 97/47 L 103/47 L 120/54 L Blood Pressure [Le ft Arm] Pulse Oximetry 97 96 96 Oxygen Delivery Me thod Nasal Cannula OxyMask OxyMask Oxygen Flow Rate 6 6 6 08/18/23 14:15 08/18/23 14:20 08/18/23 14:25 Temperature 97.6 F 97.6 F 97.6 F Pulse Rate 67 69 63 Pulse Rate [Left P ulse Oximeter] Respiratory Rate 20 21 20 Blood Pressure 106/62 120/58 L 125/58 L Blood Pressure [Le ft Arm] Pulse Oximetry 97 95 96 Oxygen Delivery Me thod OxyMask OxyMask Room Air Oxygen Flow Rate 6 6 0 08/18/23 14:30 08/18/23 14:35 08/18/23 14:40 Temperature 97.3 F L 97.3 F L 97.3 F L Pulse Rate 69 68 66 Pulse Rate [Left P ulse Oximeter] Respiratory Rate 20 20 20 Blood Pressure 142/67 H 145/71 H 139/66 Blood Pressure [Le ft Arm] Pulse Oximetry 92 94 94 Oxygen Delivery Me thod Room Air Room Air Room Air Oxygen Flow Rate 0 0 0 08/18/23 14:40 08/18/23 15:00 08/18/23 15:00 Temperature 96.6 F L Pulse Rate 59 L Pulse Rate [Left P ulse Oximeter] 60 Respiratory Rate 14 16 Blood Pressure Blood Pressure [Le ft Arm] 139/73 141/58 H Pulse Oximetry 92 93 Oxygen Delivery Me thod Room Air Room Air Oxygen Flow Rate 08/18/23 15:15 08/18/23 15:30 08/18/23 15:45 Temperature 97.0 F L Pulse Rate Pulse Rate [Left P ulse Oximeter] 60 57 L 58 L Respiratory Rate 14 16 16 Blood Pressure Blood Pressure [Le ft Arm] 159/77 H 153/73 H 152/101 H Pulse Oximetry 90 92 92 Oxygen Delivery Me thod Room Air Room Air Room Air Oxygen Flow Rate 0 0 0 08/18/23 16:00 08/18/23 16:30 08/18/23 17:00 Temperature 97.0 F L Pulse Rate Pulse Rate [Left P ulse Oximeter] 61 58 L 70 Respiratory Rate 16 16 16 Blood Pressure Blood Pressure [Le ft Arm] 152/76 H 167/83 H 150/78 H Pulse Oximetry 91 90 92 Oxygen Delivery Me thod Room Air Room Air Room Air Oxygen Flow Rate 0 0 0 08/18/23 18:00 08/18/23 19:00 08/18/23 20:00 Temperature 98.2 F 98.2 F Pulse Rate Pulse Rate [Left P ulse Oximeter] 73 70 66 Respiratory Rate 16 16 16 Blood Pressure Blood Pressure [Le ft Arm] 127/57 L 152/70 H 152/74 H Pulse Oximetry 92 94 94 Oxygen Delivery Me thod Room Air Room Air Room Air Oxygen Flow Rate 0 0 0 08/18/23 23:00 08/18/23 23:00 08/19/23 03:00 Temperature 98 F 98 F Pulse Rate Pulse Rate [Left P ulse Oximeter] 67 65 Respiratory Rate 16 16 Blood Pressure Blood Pressure [Le ft Arm] 133/62 140/58 H Pulse Oximetry 92 92 92 Oxygen Delivery Me thod Room Air Room Air Oxygen Flow Rate 0 0 08/19/23 07:00 08/19/23 07:00 08/19/23 11:20 Temperature 97.2 F L 97.8 F Pulse Rate Pulse Rate [Left P ulse Oximeter] 71 62 Respiratory Rate 16 16 Blood Pressure Blood Pressure [Le ft Arm] 143/60 H 142/62 H Pulse Oximetry 95 95 946 H Oxygen Delivery Me thod Room Air Room Air Oxygen Flow Rate Documenting provider has reviewed patient's vital signs: yes Labs Labs: Laboratory Results - last 24 hr 08/19/23 06:12 WBC 12.83 H RBC 3.41 L Hgb 10.1 L Hct 32.2 L MCV 94 MCH 30 MCHC 31 L RDW Coeff of [place]ona 13.3 Plt Count 230 Neut % (Auto) 83.3 H Lymph % (Auto) 9.4 L [place] % (Auto) 6.8 Eos % (Auto) 0.0 Baso % (Auto) 0.1 Neut # (Auto) 10.70 H Lymph # (Auto) 1.20 [place] # (Auto) 0.90 Eos # (Auto) 0.00 Baso # (Auto) 0.00 Abs Immat Gran (auto) 0.10 Imm/Tot Granulo (auto) 0.4 INR 1.10 Sodium 138 Potassium 4.2 BUN 13 Creatinine 0.7 Estimated Creat Clear 42.62 Estimated GFR 91
--- NOTE | 2023-08-19 14:22 | PC.SOCIAL ---
Discharge planning. Follow up phone calls to the following SNF's for possible placement. 1. [facility])- Phone call to Carissa in admissions at [phone]. Requested updated fax number for [facility]. [facility] requests updated MD progress note and therapy notes. There is openings for rehab. Faxed information to [phone]. 2. [facility] [place])- Phone call to Christa in admissions at [phone]. There are openings. [facility] requests updated MD progress note and therapy notes. Faxed information to [phone]. 3. [facility]- No openings. Phone call to pt and provided her with an update on placement. Social work will follow up as needed.
[2023-08-19 14:59] VITALS: BP 102/82; PULSE 64; RESP 20; TEMP 36.7; O2SAT 95
--- NOTE | 2023-08-19 18:28 | PC.NURSE ---
Shift note [id number]: Patient's pain to R knee has been controlled with rest, cryo cuff, scheduled Tylenol and PRN throughout the shift today. LS Clear and Bowel sounds active x 4. VSS and patient has been afebrile. She has been transferring with assist of 1 using FWW and gait belt and did ambulate in hallway this afternoon. Patient hard of hearing at baseline. Patient has been continent of bladder. Dressing covering surgical incision to anterior R knee noted to be clean, dry and intact with CMS to RLE noted to be intact. Patient has been using call light appropriately and is awaiting discharge to SNF for rehab. Patient is aware she will not be discharging today. No N/V or c/o CP throughout the shift. Patient alert & oriented x 4 and has been ambulating to and from bathroom for toileting. TEDs and bilateral plexipulses worn.
[2023-08-19 19:00] VITALS: BP 113/54; PULSE 68; RESP 20; TEMP 36.6; O2SAT 96
[2023-08-19] MEDS: SODIUM CHLORIDE 0.9 % (FLUSH) 10 ML SYRINGE 5 ML IVF (20:52)
[2023-08-19 23:00] VITALS: BP 125/39; PULSE 66; RESP 20; TEMP 37; O2SAT 92; O2SAT 96
[2023-08-20] VITALS (7 sets, daily range): BP systolic 124–162; BP diastolic 55–83; PULSE 20–77; RESP 16–20; TEMP 36.6–36.9; O2SAT 90–97
[2023-08-20] MEDS: OXYCODONE 5 MG TABLET PO ×4 (01:49→19:54)
--- NOTE | 2023-08-20 04:35 | PC.NURSE ---
Shift note: Pt is doing well with ambulation with A1, walker and GB. Move slow but able to keep balance and stability. 1 time Oxycodone was given at 0140for pain level of 7. Alert and oriented and hard of hearing. Pt had adequate sleep ands vitally stable.
[2023-08-20 06:36] LABS: Hematocrit 29.8 % (33.0-51.0); Hemoglobin* 9.3 gm/dL (12.0-16.0); Red Blood Count 3.11 m/uL (4.00-5.20); White Blood Count* 9.82 K/uL (4.50-11.00)
[2023-08-20 06:37] LABS: Basophils Absolute Auto 0.02 K/uL (0.00-0.30); Basophils Percent Auto 0.2 % (0.0-3.0); Eosinophils Absolute Auto 0.18 K/uL (0.00-0.50); Eosinophils Percent Auto 1.8 % (0.0-7.0); Immature Granulocytes Abs Auto 0.03 K/uL (0.00-0.30); Immature Granulocytes Pct Auto 0.3 %; Lymphocytes Absolute Auto 3.21 K/uL (0.90-2.90); Lymphocytes Percent Auto 32.7 % (20-44); Mean Corpuscular HGB Conc 31 gm/dL (32-36); Mean Corpuscular Hemoglobin 30 pg (26-34); Mean Corpuscular Volume 96 fL (80-100); Monocytes Percent Auto 9.8 % (0.0-11.0); Neutrophils Absolute Auto 5.42 K/uL (1.7-7.0); Neutrophils Percent Auto 55.2 % (42.0-72.0); Platelet Count* 197 K/uL (140-440); RDW Coefficient of Variation % 13.7 % (11.5-15.5); Slide Review Reflex No
[2023-08-20 07:00] LABS: Sodium* 139 mmol/L (135-149)
[2023-08-20 07:03] LABS: Creatinine* 0.8 mg/dL (0.5-1.5); Est. Creatinine Clearance* 42.62; Estimated Glomerular Filt Rate 77 ml/min
[2023-08-20 07:04] LABS: Blood Urea Nitrogen* 15 mg/dL (7-30)
[2023-08-20 07:12] LABS: INR 1.04 (0.91-1.10); Prothrombin Time 14.2 Seconds
[2023-08-20] MEDS: ACETAMINOPHEN 500 MG TABLET 1000 MG PO ×3 (07:52→19:55)
--- NOTE | 2023-08-20 08:00 | PM.ORPN ---
Subjective Subjective Time Seen by Provider: 08:00 Date Seen: 08/20/23 Principal diagnosis: Status post right knee replacement Interval history: Caron is comfortable. She is awaiting retirement home facility placement. She is ambulating well with a walker. Ortho Exam Narrative Exam Narrative: Alert and oriented x3. Patient is in no acute distress. Converses without labored breathing. Hearing is grossly intact. Ambulates with a walker. Examination of right lower extremity shows the dressing is intact. No erythema or warmth or sign of infection. Mild edema. Mild effusion. Mild ecchymosis. Calf is soft and nontender. CMS intact right lower extremity. Const Vital Signs, click to edit/add: Vital Signs - 24 hr 08/19/23 11:20 08/19/23 14:59 08/19/23 14:59 Temperature 97.8 F 98.1 F Pulse Rate [Left Pulse Oximeter] 62 64 Respiratory Rate 16 20 Blood Pressure [Left Arm] 142/62 H 102/82 Pulse Oximetry 946 H 95 95 Oxygen Delivery Method Room Air Room Air Oxygen Flow Rate 08/19/23 19:00 08/19/23 23:00 08/19/23 23:00 Temperature 98 F 98.6 F Pulse Rate [Left Pulse Oximeter] 68 66 Respiratory Rate 20 20 Blood Pressure [Left Arm] 113/54 L 125/39 L Pulse Oximetry 96 96 92 Oxygen Delivery Method Room Air Room Air Oxygen Flow Rate 0 08/20/23 03:00 Temperature 97.9 F Pulse Rate [Left Pulse Oximeter] 66 Respiratory Rate 20 Blood Pressure [Left Arm] 131/55 L Pulse Oximetry 92 Oxygen Delivery Method Room Air Oxygen Flow Rate 0 Assessment and Plan Assessment and plan (1) History of arthroplasty of right knee: Problem details: Dr. Davis, without complications, 08/18/2023 Status: Acute Assessment and Plan: Plan for discharge is to retirement facility when administrator social welfare finds placement and when she meets discharge criteria. DVT prophylaxis includes aspirin 81 mg twice daily x1 month, Hi stockings x1 month may remove for 1 hr per day, frequent ambulation Remove dressing in 1 week. Observe wound and phone Orthopedics with any questions or concerns Return to clinic in 1 week for a wound check Return to clinic in 6 weeks with surgeon Minimize narcotic use. Wean off and discontinue soon as possible. Activities as tolerated. No strenuous activity. Outpatient physical therapy after retirement facility discharge Daily OT and PT at retirement facility Ice and elevate the operative extremity. No restriction on ice. Orthopedic medications will be sent to pharmacy once this is known.
[2023-08-20] MEDS: buPROPion XL 150 MG TABLET 300 MG PO (08:31)
[2023-08-20] MEDS: ASPIRIN 81 MG TABLET EC PO ×2 (08:31→19:55)
[2023-08-20] MEDS: CIPROFLOXACIN 0.3% OPHTH 4 DROP EAR-LEFT ×2 (08:33→19:55)
[2023-08-20] MEDS: METOPROLOL SUCCINATE (XL) 50 MG TAB PO (08:33)
[2023-08-20] MEDS: SODIUM CHLORIDE 0.9 % (FLUSH) 10 ML SYRINGE 5 ML IVF ×2 (08:57→19:56)
--- NOTE | 2023-08-20 10:44 | PC.NURSE ---
Patient refused shower this morning when encouraged by both OT and nursing staff. Patient aware she is scheduled to be discharged to [facility] tomorrow.
[2023-08-20] MEDS: MAG HYDROX/ALUMINUM HYD/SIMETH 30 ML ORAL.SUSP PO (10:57)
--- NOTE | 2023-08-20 14:25 | PC.SOCIAL ---
Discharge planning- Received a phone call from Christa in admissions at [facility] in [place] at [phone]. Christa informs that they are able to accept pt for admission for tomorrow (08/21) pending prior authorization from insurance by hospital. Phone call to Meredith Neal at [facility] Utilization Review to provide update. Meredith will submit paperwork for prior authorization. Received a phone call from Meredith informing that insurance authorized 21 days for pt. Insurance authorization # is [id number]. Provided update to charge nurse, admissions worker Christa at [facility], pt, and pt's daughter. Pt's daughter will locate transportation for pt. Received a phone call back from pt's daughter informing that pt's son, Clayton Mittal, will transport pt and he will be at [facility] by 9:00 am. Provided update to charge nurse and Christa at [facility]. Completed preadmission screening. Confirmation #[id number]. Social work will follow up as needed.
--- NOTE | 2023-08-20 19:46 | PC.NURSE ---
Shift note [id number]: Patient's pain has been controlled with ice, rest, repositioning, scheduled Tylenol and PRN Oxycodone throughout the shift. Dressing to R knee surgical incision remains C/D/I. Bowel sounds active x 4 and LS clear to all lobes bilaterally. IV remains SL and patent when flushed. Patient continues to transfer with SBA using FWW and GB. Pt aware that she will be discharging to [facility] tomorrow. She c/o indigestion earlier in the shift though this was treated with PRN Maalox. VSS and pt has been afebrile. Hgb noted to be 9.3 today though pt has had no c/o dizziness or lightheadedness. CMS to RLE remains intact.
[2023-08-21] MEDS: ACETAMINOPHEN 500 MG TABLET 1000 MG PO ×2 (02:12→08:00)
[2023-08-21 02:48] VITALS: BP 162/78; RESP 18; TEMP 36.6; O2SAT 94
[2023-08-21 06:23] LABS: Basophils Absolute Auto 0.03 K/uL (0.00-0.30); Basophils Percent Auto 0.3 % (0.0-3.0); Eosinophils Percent Auto 7.9 % (0.0-7.0); Hematocrit 30.4 % (33.0-51.0); Hemoglobin* 9.6 gm/dL (12.0-16.0); Immature Granulocytes Abs Auto 0.03 K/uL (0.00-0.30); Immature Granulocytes Pct Auto 0.3 %; Lymphocytes Absolute Auto 2.59 K/uL (0.90-2.90); Lymphocytes Percent Auto 25.7 % (20-44); Mean Corpuscular HGB Conc 32 gm/dL (32-36); Mean Corpuscular Hemoglobin 30 pg (26-34); Mean Corpuscular Volume 95 fL (80-100); Monocytes Percent Auto 9.9 % (0.0-11.0); Neutrophils Absolute Auto 5.64 K/uL (1.7-7.0); Neutrophils Percent Auto 55.9 % (42.0-72.0); Platelet Count* 188 K/uL (140-440); RDW Coefficient of Variation % 13.9 % (11.5-15.5); Red Blood Count 3.21 m/uL (4.00-5.20); White Blood Count* 10.09 K/uL (4.50-11.00)
[2023-08-21 06:38] LABS: Potassium* 3.8 mmol/L (3.6-5.1); Sodium* 137 mmol/L (135-149)
[2023-08-21 06:41] LABS: Creatinine* 0.6 mg/dL (0.5-1.5); Est. Creatinine Clearance* 42.62; Estimated Glomerular Filt Rate 94 ml/min
[2023-08-21 06:42] LABS: Blood Urea Nitrogen* 11 mg/dL (7-30)
--- NOTE | 2023-08-21 06:59 | PC.NURSE ---
19-: pleasant and cooperative. SBA with walker. VSS. Dressing to knee CDI, cryocuff on.
[2023-08-21 07:04] LABS: Slide Review Reflex No
[2023-08-21 07:52] VITALS: BP 149/60; PULSE 65; RESP 18; TEMP 36.8; O2SAT 96
[2023-08-21 07:53] VITALS: O2SAT 96
[2023-08-21] MEDS: SENNOSIDES 1 TAB TABLET 2 TAB PO (08:00)
[2023-08-21] MEDS: ASPIRIN 81 MG TABLET EC PO (08:01)
[2023-08-21] MEDS: CIPROFLOXACIN 0.3% OPHTH 4 DROP EAR-LEFT (08:01)
[2023-08-21] MEDS: buPROPion XL 150 MG TABLET 300 MG PO (08:01)
[2023-08-21] MEDS: METOPROLOL SUCCINATE (XL) 50 MG TAB PO (08:05)
--- NOTE | 2023-08-21 08:47 | P.DS_ITS ---
DS: Providers Provider Date Seen: 08/21/23 Date of admission: 08/18/23 10:43 Primary care physician: Michael Townsend MD Admitting Clinician: Narciso Davis MD Attending Physician on discharge: Narciso Davis MD Date of Discharge: 08/21/23 DS: Diagnosis Discharge Diagnosis (1) History of arthroplasty of right knee: Status: Acute Problem details: Dr. Davis, without complications, 08/18/2023 (2) Spinal stenosis of lumbar region with neurogenic claudication: Status: Acute (3) Obesity (BMI 30-39.9): Status: Acute (4) Sedentary lifestyle: Status: Acute (5) Bilateral shoulder pain: Status: Acute Problem details: Left greater than right which she attributes to rotator cuff injury. (6) Fibromyalgia: Status: Acute (7) Osteoarthritis of left knee: Status: Acute (8) Osteoarthritis of right knee: Status: Acute (9) Presbyacusis: Status: Acute (10) Primary hypertension: Status: Acute DS: Summary Hospital Course Hospital Course: 73-year-old female admitted to the hospital for right total knee arthroplasty. Procedures performed on the day of admission by Dr. Davis. There were no operative complications. Postoperatively she has made good progress with pain control and mobility. No postoperative complications. Status at Discharge Functional status at discharge: uses cane/walker Overall status at discharge: patient is progressing back to baseline Time Spent with Patient Time attestation: Total time spent providing and/or coordinating discharge services: Exam Narrative: Exam Narrative: She is alert and appears in no distress. Respirations are unlabored. She ambul ates with a walker fairly well. Trace edema bilaterally Const: Vital Signs, click to edit/add: Vital Signs - 24 hr 08/20/23 11:00 08/20/23 15:00 08/20/23 15:00 Temperature 98.4 F 98.1 F Pulse Rate [Left P ulse Oximeter] 20 L Pulse Rate [Right Dorsalis Pedis] 60 64 Respiratory Rate 18 20 Blood Pressure [Le ft Arm] 124/83 140/56 H Pulse Oximetry 97 90 90 Oxygen Delivery Me thod Room Air Room Air Oxygen Flow Rate 08/20/23 19:00 08/20/23 22:52 08/20/23 23:00 Temperature 98 F 98.3 F Pulse Rate [Left P ulse Oximeter] 70 77 Pulse Rate [Right Dorsalis Pedis] Respiratory Rate 20 18 Blood Pressure [Le ft Arm] 162/68 H 144/60 H Pulse Oximetry 92 91 91 Oxygen Delivery Me thod Room Air Room Air Oxygen Flow Rate 0 0 08/20/23 23:00 08/21/23 02:48 08/21/23 07:52 Temperature 98 F 98.3 F Pulse Rate [Left P ulse Oximeter] 65 Pulse Rate [Right Dorsalis Pedis] Respiratory Rate 18 18 18 Blood Pressure [Le ft Arm] 162/78 H 149/60 H Pulse Oximetry 94 96 Oxygen Delivery Me thod Room Air Room Air Oxygen Flow Rate 08/21/23 07:53 Temperature Pulse Rate [Left P ulse Oximeter] Pulse Rate [Right Dorsalis Pedis] Respiratory Rate Blood Pressure [Le ft Arm] Pulse Oximetry 96 Oxygen Delivery Me thod Oxygen Flow Rate Documenting provider has reviewed patient's vital signs: yes DS: Data Data Completed and Pending Labs on day of discharge: Labs from last 24 hours 08/21/23 06:12 WBC 10.09 RBC 3.21 L Hgb 9.6 L Hct 30.4 L MCV 95 MCH 30 MCHC 32 RDW Coeff of Ramona 13.9 Plt Count 188 Neut % (Auto) 55.9 Lymph % (Auto) 25.7 [place] % (Auto) 9.9 Eos % (Auto) 7.9 H Baso % (Auto) 0.3 Neut # (Auto) 5.64 Lymph # (Auto) 2.59 [place] # (Auto) 1.00 H Eos # (Auto) 0.80 H Baso # (Auto) 0.03 Abs Immat Gran (auto) 0.03 Imm/Tot Granulo (auto) 0.3 INR Pending Sodium 137 Potassium 3.8 BUN 11 Creatinine 0.6 Estimated Creat Clear 42.62 Estimated GFR 94 Discharge Plan Discharge Disposition: [facility] Date of Admission: 08/18/23 10:43 Attending Provider on Discharge: Narciso Davis Consulting Providers: Josephine Piedra; Physician,IN; Ren Gant; David Martin; Shayla Purcell; Philomena Victoria; Sia Mann; Jermaine Christianson; Bere Ruth; Ignacio Rossi; Hector Elizabeth; Mile Sifuentes; Colin Vazquez; Jennifer Loco; Andrea Astorga; Surjit Edwards; Checo Helton; Antony Johnson; Elie Jade; Moses Navas Primary Care Provider: Micahel Townsend Discharge Medications: New sennosides [Senna Lax] 8.6 mg Tablet 17.2 mg PO BID PRN (Reason: constipation) Qty: 100 0RF aspirin [Aspirin Childrens] 81 mg tablet,chewable 81 mg PO BID 30 Days Qty: 60 0RF oxycodone 5 mg Tablet 2.5 - 5 mg PO Q4-6H MDD 6 tabs per day PRN (Reason: Pain) Qty: 42 0RF Rx Instructions: Minimize. Discontinue as soon as possible Continued acetaminophen [Tylenol] 325 mg tablet 650 mg PO Q6H PRN ciprofloxacin HCl 0.3 % drops See Rx Instructions .ROUTE .COMPLEX Patient Comments: [NO ORIGINAL SIG] Rx Instructions: 4 drops to affected EAr twice a day bupropion HCl 300 mg tablet extended release 24 hr 300 mg PO QAM Qty: 90 0RF metoprolol succinate 50 mg tablet extended release 24 hr 50 mg PO DAILY Qty: 90 0RF Changed celecoxib 200 mg capsule 200 mg PO DAILY Qty: 180 3RF Discharge Orders: Discharge Order (Routine); Ordered 08/21/23 Ordered By: Hector Elizabeth Consulting provider completed their portion of the discharge: Yes Activity Level: Activity as Tolerated and No strenuous activity Activity Detail: OT and PT daily at custodial facility Discharge Diet: Regular Follow Up Appointments: Michael Townsend MD [Primary Care Provider] - Forms: MyHealth Info Instructions Admit to: SNF Discharge Potential: Good Length of Stay: <30 days Can use facility standing orders?: Yes Code Status: Full Code TEDs: Bilateral Knee Rehab Potential: Good Therapy: Physical Therapy and Occupational Therapy Therapy Orders: Evaluate and Treat Oxygen: No
[2023-08-21 09:18] LABS: INR 1.06 (0.91-1.10); Prothrombin Time 14.5 Seconds
--- NOTE | 2023-08-21 10:17 | PC.NURSE ---
Discharge note: The patient discharged to [facility] ( [place], [place]) this AM @900 with her son. Discharge paperwork was reviewed with the patient regarding Dressing care and bathing, as well as follow up if needed due to signs of infection. Packet was sent with the patient as well that is to be given to the SNF upon arrival. Nurse to nurse report was given to [facility] prior to the patients arrival. All belongings were sent with the patient as well. Poor appetite... only wanted jello this morning do to malaise.
--- OUTSIDE RECORDS SUMMARY | 2023-08-23 18:39 | XMS_ITS | Continuity of Care Document ---
Author Name Unknown Organization [facility] Address [address] [place] [address] Phone Care Team Providers Care Media Planner Name Role Phone Jem Lemos MD Unavailable Unavailable Allergies, Adverse Reactions, Alerts Substance Reaction Status Criticality DULOXETINE HCL Active No Informatio n SERTRALINE HCL Active No Informatio n FLUOXETINE HCL Active No Informatio n Medications Medication Instructions Dosage Effective Dates (start - stop) Status Comments Vitamin D3 10 mcg (400 unit) tablet - Active ASPIRIN (unknown strength) Not Available - Active METOPROLOL SUCCINATE (unknown strength) Not Available - Active ALEVE (unknown strength) Not Available - Active Procedures Procedure Date Office/Outpatient Visit,[facility] 2019 Office/Outpatient Visit,[facility] 2012 Advance Directives Directive Yes / No Effective Date File Name No Information Encounters Encounter Description Practice Location Reason(s) For Visit Diagnoses Date Provider Providers Copied on Encounter [facility], [address], [place], [place], [id number], [place] tel:[phone] [facility] No Information 0 Mehbod Amir. [facility] [place], [address], [id number] , [place]. [phone] Office/Outpat ient Visit,[facility], [address], [place], [id number], tel:[phone] [facility] No Information 0 Mehbod Amir. [facility], [address], [place], [place], [id number] , [place]. tel:[phone] Referring Provider: Michael Townsend, [facility] [address], [address]. tel:[phone] Office/Outpat ient Visit,[place], [place] [facility], [address], [place], [address], [place] tel:[phone] [facility] Depression 3 Mehbod Amir. [facility], [address], [place], [place], [id number] , [place]. tel:[phone] Family History Family Member Type Diagnosis Age At Onset Problem (finding) Problem (finding) Problem (finding) Problem (finding) Problem (finding) Problem (finding) Problem (finding) Problem (finding) Payers Payer name Insurance type Covered libertarian ID Chuyita galeana(s) [facility] [id number] Medicare [facility] [id number] Social History Type Description Quantity Date Captured Comments Sex Female Smoking Status No Information Chief Complaint And Reason For Visit No Information Reason For Referral Reason For Referral No Information History Of Present Illness Encounter Date Complaint History Of Prese nt Illness No Information Functional Status Date Functional Assessmen t No Information Instructions Date Instruction Additional Infor mation No Information Assessments Type Assessment Date No Information Patient Care Teams Name Effective Dates (start - stop) Status Members No Information
== END 2023-08-21 09:20 | DRG 302 ==
LOC: MEDSURG 08-21 09:03 → SS 08-23 18:38 → MEDSURG 08-23 18:39 → SS 08-23 18:41 → MEDSURG 08-23 18:41
PROVIDERS: Admitting Provider Orthopaedic Surgery; PCP Family Medicine; Visit Provider Orthopaedic Surgery
PROC: 0SRC0J9 Replacement of Right Knee Joint with Synthetic Substitute, Cemented, Open Approach (ICD-10-PCS; CPT 27447; principal; 2023-08-18 12:30)
DX: M17.11 Unilateral primary osteoarthritis, right knee (principal); G89.18 Other acute postprocedural pain; E66.9 Obesity, unspecified; I10 Essential (primary) hypertension; R73.03 Prediabetes; M48.062 Spinal stenosis, lumbar region with neurogenic claudication; G47.33 Obstructive sleep apnea (adult) (pediatric); H91.10 Presbycusis, unspecified ear; M79.7 Fibromyalgia; M25.512 Pain in left shoulder; M25.511 Pain in right shoulder; E78.2 Mixed hyperlipidemia; Z68.39 Body mass index [BMI] 39.0-39.9, adult; I48.0 Paroxysmal atrial fibrillation; F33.9 Major depressive disorder, recurrent, unspecified
CPT/HCPCS: 01402; 36415; 64447; 64454; 73560; 76942; 82565; 84132; 84295; 84520; 85025; 85610; 97110; 97116; 97162; 97165; 97530; 97535; 99100; A9270; C1776; J0690; J1100; J2250; J2405; J2704; J2795; J3010; J7120

== ENCOUNTER 2023-11-02 12:35 | Outpatient (CLI) | payer BC, SELFPAY ==
--- OUTSIDE RECORDS SUMMARY | 2023-11-02 12:40 | XMS_ITS | Clinical Summary ---
Author Name Unknown Organization [facility] Address [address] [place] [address] Care Team Providers Care 911 Emergency Services Dispatcher Name Role Phone Naomi, Gin Stone APRN, C.N.P., D.N.P. Primary Ca re Provider Source Comments Patient records contain information from all sites at [facility]. For routine questions regarding patient records, call [phone] during business hours, M-F 8:00 AM - 5:00 PM Central Time. Record requests for emergency care only can be directed to [phone] at any time.[facility] Allergies Active Allergy Reactions Criticality Noted Date Comments Ciprofloxacin Other (see comments) High 06/17/2023 Duloxetine Rash 07/26/2008 Watery eyes Fluoxetine Rash High 01/20/2007 watery eyes Sertraline Itching Low 06/17/2023 Medications Medication Sig Dispensed Refills Start Date End Date Status aspirin 81 mg chewable tablet Chew 81 mg. 0 04/05/2018 Active metoprolol succinate (TOPROL-XL) 50 mg 24 hr tablet Take 50 mg by mouth daily. 0 Active celecoxib (CeleBREX) 200 mg capsule 0 12/13/2021 Active buPROPion XL (WELLBUTRIN XL) 300 mg 24 hr tablet Take 300 mg by mouth every morning. 0 Active acetaminophen (TYLENOL) 325 mg tablet Take 325 mg by mouth every 4 (four) hours as needed for pain. 0 Active ibuprofen (ADVIL,MOTRIN) 200 mg tablet Take 3 tablets (600 mg total) by mouth every 6 (six) hours as needed for pain. 0 08/03/2023 Active GaviLyte-G 236-22.74-6.74 -5.86 gram solution 0 10/22/2023 Active cholecalciferol (VITAMIN D3) 125 mcg (5,000 Unit) capsule Take 125 mcg by mouth once a week. 0 Active oxyCODONE (ROXICODONE) 5 mg immediate release tabletIndications :Acute Pain Take 1 tablet (5 mg total) by mouth every 4 (four) hours as needed for severe pain or score 7-10 of 10 Indication: Acute Pain. 10 tablet 0 08/03/2023 10/27/2023 Discontinued amoxicillin-pot clavulanate (AUGMENTIN) 875-125 mg per tablet Take 1 tablet by mouth 2 (two) times a day. 14 tablet 0 08/03/2023 10/27/2023 Discontinued cefdinir (OMNICEF) 300 mg capsule Take 1 capsule (300 mg total) by mouth 2 (two) times a day for 10 days. 20 capsule 0 10/03/2023 10/13/2023 Active Problems Problem Noted Date Diagnosed Date Morbid Obesity Body Mass Index 40.0-44.9 Adult 0 10/27/2023 Deficiency Vitamin D 10/27/2023 Obesity Body Mass Index 30-39.9 Adult 10/27/2023 PreDiabetes 10/27/2023 Primary Osteoarthritis Knee Bilateral 10/27/2023 Regurgitation Mitral 10/27/2023 Restless Leg Syndrome 10/27/2023 Insomnia 10/27/2023 Presence Of Right Artificial Knee Joint 08/18/20 23 Cholesteatoma Attic Bilateral 06/30/2023 Fibromyalgia 06/30/2023 Hyperlipidemia Mixed 06/30/2023 Hypertension Essential Primary 06/30/2023 Atrial Fibrillation Paroxysmal 06/25/2013 Overview: Diagnosed 2012, resolved with treatment of ANDERSON and beta stephnaie. Stenosis Spinal Lumbar With Neurogenic Claudicat ion 03/10/2013 Polyp Colon Personal History 06/06/2010 Depression Major Recurrent 07/26/2008 Apnea Sleep Obstructive 07/03/2008 Chronic Fatigue Syndrome 01/20/2007 Resolved Problems Problem Noted Date Diagnosed Date Resolved Date Hyperplasia Endometrial Benign 02/20/2017 10/27/2023 Encounters Date Type Department Care Team Description 10/29/2023 9:29 AM INTELLIGENCE DIRECTOR - 10/29/2023 11:59 PM INTELLIGENCE DIRECTOR Hospital Encounter Department of Radiology in [address] [phone] Gin Salgado APRN C.N.P., D.N.P. Screening Mammogram Breast Cancer Discharge Disposition: Home or Self Care 10/27/2023 3:07 PM INTELLIGENCE DIRECTOR - 10/27/2023 11:59 PM INTELLIGENCE DIRECTOR Hospital Encounter Department of Radiology in [address] [phone] Gin Salgado APRN C.N.P., D.N.P. Change In Bowel Habit Discharge Disposition: Home or Self Care 10/27/2023 2:20 PM INTELLIGENCE DIRECTOR Comprehensive Visit Department of Internal Medicine in [address] [phone] Gin Salgado APRN C.N.P., D.N.P. Change In Bowel Habit (Primary Dx); Polyp Colon Personal History; Screening Cancer Colon; Numbness Hand; Atrial Fibrillation Paroxysmal (HCC); Regurgitation Mitral; Hypertension Essential Primary; Apnea Sleep Obstructive; Chronic Fatigue Syndrome; Insomnia; Restless Leg Syndrome; Depression Major Recurrent (HCC); PreDiabetes Discharge Disposition: Home or Self Care 10/27/2023 Clinical Communication Department of Gastroenterology in [address] [phone] Gin Salgado APRN C.N.P., D.N.P. Colonoscopy 10/15/2023 Nurse Triage Department of Family Medicine, [facility], in [address] [phone] Beti Whitman R.N. Diarrhea 10/05/2023 1:00 PM INTELLIGENCE DIRECTOR Clinical Support Department of Physical Medicine and Rehabilitation in [address] [phone] Narciso Davis M.D. Helmus, Kimberly M, P.T. Aftercare Total Knee Arthroplasty 10/03/2023 12:15 PM INTELLIGENCE DIRECTOR Office Visit Express [facility] in [address] [phone] Andree Hazel P.A.-C. Cystitis Unspecified With Hematuria (Primary Dx) Discharge Disposition: Home or Self Care 10/02/2023 Nurse Triage Department of Internal Medicine in [address] [phone] Priyanka Hsu R.N. Urinary Problem 09/30/2023 10:00 AM INTELLIGENCE DIRECTOR Clinical Support Department of Physical Medicine and Rehabilitation in [address] [phone] Narciso Davis M.D. Diercks, Ellie, P.T.A. Aftercare Total Knee Arthroplasty 09/21/2023 2:30 PM INTELLIGENCE DIRECTOR Clinical Support Department of Physical Medicine and Rehabilitation in [address] [phone] Narciso Davis M.D. Helmus, Kimberly M, P.T. Aftercare Total Knee Arthroplasty 09/09/2023 1:00 PM INTELLIGENCE DIRECTOR Clinical Support Department of Physical Medicine and Rehabilitation in [address] [phone] Narciso Davis M.D. Diercks, Ellie, Caryn.T.A. Aftercare Total Knee Arthroplasty 09/07/2023 3:00 PM INTELLIGENCE DIRECTOR Clinical Support Department of Physical Medicine and Rehabilitation in [address] [phone] Narciso Davis M.D. Helmus, Kimberly M, P.T. Aftercare Total Knee Arthroplasty 09/02/2023 2:30 PM INTELLIGENCE DIRECTOR Clinical Support Department of Physical Medicine and Rehabilitation in [address] [phone] Narciso Davis M.D. Helmus, Kimberly M P.T. Aftercare Total Knee Arthroplasty 08/31/2023 2:30 PM INTELLIGENCE DIRECTOR Comprehensive Visit Department of Physical Medicine and Rehabilitation in [address] [phone] Narciso Davis M.D. Helmus, Kimberly M P.T. Aftercare Total Knee Arthroplasty (Primary Dx) 08/25/2023 9:30 AM INTELLIGENCE DIRECTOR Office Visit Department of Otorhinolaryngology in [place], [place] [address] [place] [phone] Filiberto Rojas M.D. Loss Hearing Sensorineural Asymmetrical (Primary Dx) 08/05/2023 Clinical Communication Department of Otorhinolaryngology in [place], [place] [address] [place] [phone] Filiberto Rojas M.D. 08/04/[address] [phone] Provider, Historical 08/03/2023 11:40 AM CDT - 08/03/2023 4:40 PM CDT Surgery [facility] OR [address] [place] [phone] Filiberto Rojas M.D. TYMPANOMASTOIDECTO MY. 08/03/2023 10:47 AM CDT Anesthesia Event [facility] OR [address] [place] [phone] HandlogRosie akbar M.D. Eneh, Peace N, M.D., M.P.H. 08/03/2023 8:56 AM CDT - 08/03/2023 5:27 PM CDT Hospital Encounter [facility] OR [address] [place] [phone] Filiberto Rojas M.D. Discharge Disposition: Home or Self Care from Last 3 Months Immunizations Name Administration Dates Next Due HZV (ZOSTAVAX) 09/15/2013 Influenza high dose QV(65 years or older) (PF) 1 12/07/2021 Influenza, Unspecified 08/09/2020 SARS-COV-2 (COVID-19) - MODE RNA (12 YEARS AND OLDER) [id number] 10/27/2023 Td Preservative Free (TENIVAC, DECAVAC) 05/08/20 08 Tdap 02/03/2017 Family History Medical History Relation Name Comments Breast cancer Mother Lucille Breast cancer Mother's Sister A few sisters Relation Name Status Comments Mother Lucille Mother's Sister A few sisters Social History Tobacco Use Types Packs/Day Years Used Date Smoking Tobacco: Never Passive Smoke Exposure: Never Smokeless Tobacco: Never Alcohol Use Standard Drinks/Week Comments Yes 0 (1 standard drink = 0.6 oz pure alcohol) Not every week, occassionally a glass of wine, or beer Overall Financial Resource Strain (CARDIA) Answe r Date Recorded How hard is it for you to pa y for the very basics like food, housing, medical care, and heating? Not hard at all 06/29/2023 PHQ-2 Answer Date Recorded PHQ-2 Score 2 10/27/2023 Exercise Vital Sign Answer Date Recorde d On average, how many days pe r week do you engage in moderate to strenuous exercise (like a brisk walk)? 0 days 06/29/2023 On average, how many minutes do you engage in exercise at this level? 0 min 06/29/2023 Hunger Vital Sign Answer Date Recorded Within the past 12 months, y ou worried that your food would run out before you got the money to buy more. Never true 06/29/20 23 Within the past 12 months, t he food you bought just didn't last and you didn't have money to get more. Never true 06/29/2023 PRAPARE - Transportation Answer Date Re corded In the past 12 months, has l ack of transportation kept you from medical appointments or from getting medications? No 06/19 In the past 12 months, has l ack of transportation kept you from meetings, work, or from getting things needed for daily living? No 06/29/2023 Depression Answer Date Recor ded PHQ-9 Total Score (max 27) 2 10/27 Nutrition Answer Date Recorded Nutrition: EVOO Fat Source Unknown 06/29 On average, how many serving s of fruits and vegetables do you eat per day (serving size is equal to 1 cup or approximately the size of a tennis ball)? 0-2 06/29/2023 Dental Answer Date Recorded Dental: Regular Dentist No 06/30/20 Employment Answer Date Recorded Employment status Retired 06/29/2023 Housing Stability Answer Date Recorded What is your living situation today? I have a [facility] place to live 06/29/2023 Sex and Gender Information Value Date Recorded Sex Assigned at Female 06/29/2023 9:11 PM CDT Gender Identity Female 06/29/2023 9:11 PM CDT Sexual Orientation Straight 06/29/2023 9: 11 PM CDT Last Filed Vital Signs Vital Sign Reading Time Taken Comments Blood Pressure 133/82 10/27/2023 2:15 PM INTELLIGENCE DIRECTOR Pulse 70 10/27/2023 2:15 PM INTELLIGENCE DIRECTOR Temperature 35.7 ??C (96.3 ??F) 10/27/2023 2:15 PM CS T Respiratory Rate 15 08/03/2023 4:50 PM CDT Oxygen Saturation 95% 08/03/2023 5:15 PM CDT Inhaled Oxygen Concentration - - Weight 98.9 kg (218 lb 0.6 oz) 10/27/2023 2:15 P M INTELLIGENCE DIRECTOR Height 163 cm (5' 4.17) 10/27/2023 2:15 PM INTELLIGENCE DIRECTOR Body Mass Index 37.22 10/27/2023 2:15 PM INTELLIGENCE DIRECTOR Plan of Treatment Upcoming Encounters Date Type Department Care Team (Latest Contact Info) Description 11/19/2023 11:30 AM INTELLIGENCE DIRECTOR Diagnostic Department of Neurology in [address] [phone] Alex Poole M.D. [address] [place] [phone] Discharge Disposition: Home or Self Care 12/07/2023 4:20 PM INTELLIGENCE DIRECTOR Office Visit Department of Internal Medicine in [address] [phone] Gin Salgado APRN, C.N.P., D.N.P. [address] [place] [phone] Discharge Disposition: Home or Self Care 12/08/2023 2:30 PM INTELLIGENCE DIRECTOR Diagnostic Department of Otorhinolaryngology in [place], [place] [address] [place] [phone] Filiberto Rojas M.D. [address] [place] [phone] Sandra Cloud Au.D. [address] [place] [phone] 12/08/2023 3:15 PM INTELLIGENCE DIRECTOR Office Visit Department of Otorhinolaryngology in [place], [place] [address] [place] [phone] Filiberto Rojas M.D. [address] [place] [phone] Health Maintenance Due Date Last Done Comments Bone Density Scan (Osteoporo sis Screen) 1949 CT Colonography 1949 Cologuard 1950 Colonoscopy 1949 Colorectal Cancer Surveillance 1950 Hepatitis C Screening 1949 Lipid (Cholesterol) Screening 1949 Zoster Vaccines (2 of 3) 11/10/2013 09/15/2013 Pneumococcal vaccine (65+ ye ars) (1 of 1 - PCV) 2014 Influenza Vaccine (#1) 2023 10/06/2022, 2019 Depression Monitoring (PHQ-9) 02/25/2024 10/27/2023 Fasting Glucose for Diabetes Screening 07/31/2024 07/31/2023 Office Visit for Blood Press ure Check / Re-check 10/27/2024 10/27/2023 Visit: Chronic Disease, age 18+ 10/27/2024 Mammogram 10/29/2024 10/29/2023, 12/17, 11/21/2019, Additional history exists DTaP,Tdap,and Td Vaccines (2 - Td or Tdap) 02/03/2027 02/03/2017, 05/08/2008 COVID-19 Vaccine Completed 10/27/2023, 07/2022, 09/10/2021, Additional history exists Fall Risk Screen (Annual) Completed 10/27/2023 Procedures Procedure Name Priority Date/Time Associated Diagnosis Comments BI BREAST SCREENING BILATERAL WITH TOMOSYNTHESIS RAD - Routine (most inpatients and all outpatients) 10/29/2023 11:43 AM INTELLIGENCE DIRECTOR Screening Mammogram Breast Cancer DX ABDOMEN 1 VIEW RAD - Routine (most inpatients and all outpatients) 10/27/2023 3:26 PM INTELLIGENCE DIRECTOR Change In Bowel Habit HC URINALYSIS AUTO WO MICRO STAT 10/03/2023 12:06 PM INTELLIGENCE DIRECTOR URINALYSIS WITH MICROSCOPIC IF INDICATED, U STAT 10/03/2023 12:06 PM INTELLIGENCE DIRECTOR Cystitis Unspecified With Hematuria BACTERIAL CULTURE, AEROBIC + SUSC, URINE STAT 10/03/2023 12:00 PM INTELLIGENCE DIRECTOR Cystitis Unspecified With Hematuria LDA ANE ENDOTRACHEAL AIRWAY Routine 08/03/2023 11:00 AM CDT TYMPANOMASTOIDECTOMY 08/03/2023 10:31 AM CDT Cholesteatoma Attic Bilateral Case Notes APPLICATION SUPPORT LEAD 859, tpu 11 from Last 3 Months Results * BI Breast Screening Bilateral with Tomosynthesis (10/29/2023 11:43 AM INTELLIGENCE DIRECTOR) Anatomical Region Laterality Modality Breast, Breast Imaging RST L OS, Breast Imaging ARZ LOS, Breast Imaging FLA LOS Bilateral Mammography Impressions 10/30/2023 1:31 PM INTELLIGENCE DIRECTOR Negative. RECOMMENDATION: ??Annual Screening Mammogram ASSESSMENT: ??BI-RADS: 1: Negative. Narrative 10/30/2023 1:31 PM INTELLIGENCE DIRECTOR EXAM: ??BI BREAST SCREENING BILATERAL WITH TOMOSYNTHESIS Current study was evaluated with a Computer Aided Detection (CAD) system. INDICATION: ??Screening mammogram. COMPARISON: ??Prior exam(s) were available and reviewed for comparison. DENSITY: ??b. There are scattered areas of fibroglandular density. FINDINGS: ??No mammographic findings of malignancy. Procedure Note Kannan Bauer M.D. - 10/30/2023 EXAM: BI BREAST SCREENING BILATERAL WITH TOMOSYNTHESIS Current study was evaluated with a Computer Aided Detection (CAD) system. INDICATION: Screening mammogram. COMPARISON: Prior exam(s) were available and reviewed for comparison. DENSITY: b. There are scattered areas of fibroglandular density. FINDINGS: No mammographic findings of malignancy. IMPRESSION: Negative. RECOMMENDATION: Annual Screening Mammogram ASSESSMENT: BI-RADS: 1: Negative. Gin Salgado APRN, C.N.P., D.N.P. IMG BI PROCEDURES * DX Abdomen 1 View (10/27/2023 3:26 PM INTELLIGENCE DIRECTOR) Anatomical Region Laterality Modality Abdomen, Abdominal RST LOS, Abdominal ARZ LOS, Abdominal FLA LOS N/A Digital Radiography Impressions 10/27/2023 3:37 PM INTELLIGENCE DIRECTOR Nonobstructive bowel gas pattern. Mild colonic stool burden. Surgical clips right upper quadrant. Slight lumbar curvature with degenerative changes of the spine. The visualized lungs are clear. Narrative 10/27/2023 3:37 PM INTELLIGENCE DIRECTOR EXAM: DX ABDOMEN 1 VIEW Procedure Note Ignacio Smith M.D. - 10/27/2023 EXAM: DX ABDOMEN 1 VIEW IMPRESSION: Nonobstructive bowel gas pattern. Mild colonic stool burden. Surgicalclips right upper quadrant. Slight lumbar curvature with degenerativechanges of the spine. The visualized lungs are clear. Gin Salgado APRN, C.N.P., D.N.P. IMG DIAGNOSTIC IMAGING PROCEDURES * (ABNORMAL) Urinalysis with Microscopic if Indicated (10/03/2023 12:06 PM INTELLIGENCE DIRECTOR) Source Urine, Urine, Midstream 10/03/2023 12:10 PM INTELLIGENCE DIRECTOR RDW[facility] Clarity Turbid(A) Clear 10/03/2023 12:10 PM INTELLIGENCE DIRECTOR R[facility] Color Yellow 10/03/2023 12:10 PM INTELLIGENCE DIRECTOR R[facility] Comment: ----REFERENCE VALUE---- Colorless Yellow Yeny Blood Trace(A) Negative 10/03/2023 12:10 PM INTELLIGENCE DIRECTOR R[facility] Nitrite Positive(A) Negative 10/03/2023 12:10 PM INTELLIGENCE DIRECTOR R[facility] Leukocyte Esterase Moderate(A) Negative 10/03/2023 12:10 PM INTELLIGENCE DIRECTOR RDW[facility] Protein Negative mg/dL 10/03/2023 12:10 PM INTELLIGENCE DIRECTOR RDW[facility] Comment: ----REFERENCE VALUE---- Negative Trace Glucose Negative Negative mg/dL 10/03/2023 12:10 PM INTELLIGENCE DIRECTOR RDWG Ketone Negative Negative mg/dL 10/03/2023 12:10 PM INTELLIGENCE DIRECTOR RDWG Bilirubin Negative Negative 10/03/2023 12:10 PM INTELLIGENCE DIRECTOR RDW[facility] pH 5.5 5.0 - 8.0 10/03/2023 12:10 PM INTELLIGENCE DIRECTOR R[facility] Specific [place] 1.017 1.001 - 1.035 10/03/2023 12:10 PM INTELLIGENCE DIRECTOR RDWG Urobilinogen 0.2 0.2 - 1.0 mg/dL 10/03/2023 12:10 PM INTELLIGENCE DIRECTOR RDWG Urine (Urine, Midstream) 10/03/2023 12:06 PM INTELLIGENCE DIRECTOR 10/03/2023 12:06 PM INTELLIGENCE DIRECTOR Andree Hazel P.A.-C. LAB URINE FARHEEN ROSAS [facility] [address] [facility] [place] [address], [facility] RDWG [facility] [place] [address] [place] [phone] * (ABNORMAL) Microscopic Automated (10/03/2023 12:06 PM INTELLIGENCE DIRECTOR) White Blood Cells >100(A) /hpf 10/03/2023 12:13 PM INTELLIGENCE DIRECTOR RDWG Comment: ----REFERENCE VALUE---- Males: 0-3 Females: 0-10 Unknown: 0-10 Red Blood Cells Occ-2 0 - 2 /hpf 10/03/2023 12:13 PM INTELLIGENCE DIRECTOR R[facility] Hyaline Casts 4-10 /lpf 10/03/2023 12:13 PM INTELLIGENCE DIRECTOR R[facility] Squamous Cells 21-30 /hpf 10/03/2023 12:13 PM INTELLIGENCE DIRECTOR R[facility] Bacteria Present(A) None Seen 10/03/2023 12:13 PM INTELLIGENCE DIRECTOR R[facility] Urine 10/03/2023 12:0 6 PM INTELLIGENCE DIRECTOR 10/03/2023 12:06 PM INTELLIGENCE DIRECTOR Andree Hazel P.A.-C. LAB URINE ORDE RABLES [facility] [address] [place] [address], [facility]DW[facility] [place] [address] [place] [phone] * (ABNORMAL) Bacterial Culture, Aerobic + Susceptibility, Urine (10/03/2023 12:00 PM INTELLIGENCE DIRECTOR) Urine Culture ESCHERICHIA COLI >100,000 cfu/mL (A) 10/05/2023 10:43 AM INTELLIGENCE DIRECTOR ECLR Urine (Urine, Midstream) 10/03/2023 12:00 PM INTELLIGENCE DIRECTOR 10/03/2023 9:12 PM INTELLIGENCE DIRECTOR Comment:Specimen Source Site : Urine Narrative Organism Antibiotic Method Susceptibility Escherichia coli Ampicillin SUSCEPTIBILITY, CARMELITA (MCG/ML) <=2 mcg/mL: Susceptible Escherichia coli Piperacillin + Tazobactam SUSCE PTIBILITY, CARMELITA (MCG/ML) <=4 mcg/mL: Susceptible Escherichia coli Cefazolin SUSCEPTIBILITY, CARMELITA (MCG/ML) <=4 mcg/mL: Susceptible Comment: The interpretation applies to uncomplicated urinary tract infections only. It also applies to these oral cephalosporins: cefuroxime, cephalexin, and cefprozil. Escherichia coli Ceftazidime SUSCEPTIBILITY, CARMELITA (MCG/ML) <=1 mcg/mL: Susceptible Escherichia coli Ceftriaxone SUSCEPTIBILITY, CARMELITA (MCG/ML) <=1 mcg/mL: Susceptible Escherichia coli Cefepime SUSCEPTIBILITY, CARMELITA (MCG/ML) <=1 mcg/mL: Susceptible Escherichia coli Aztreonam SUSCEPTIBILITY, CARMELITA (MCG/ML) <=1 mcg/mL: Susceptible Escherichia coli Ertapenem SUSCEPTIBILITY, CARMELITA (MCG/ML) <=0.5 mcg/mL: Susceptible Escherichia coli Meropenem SUSCEPTIBILITY, CARMELITA (MCG/ML) <=0.25 mcg/mL: Susceptible Escherichia coli Gentamicin SUSCEPTIBILITY, CARMELITA (MCG/ML) <=1 mcg/mL: Susceptible Escherichia coli Tobramycin SUSCEPTIBILITY, CARMELITA (MCG/ML) <=1 mcg/mL: Susceptible Escherichia coli Levofloxacin SUSCEPTIBILITY, CARMELITA (MCG/ML) <=0.12 mcg/mL: Susceptible Escherichia coli Nitrofurantoin SUSCEPTIBILITY, CARMELITA (MCG/ML) <=16 mcg/mL: Susceptible Escherichia coli Trimethoprim + Sulfamethoxazole SUSCEPTIBILITY, CARMELITA (MCG/ML) <=20 mcg/mL: Susceptible Andree Hazel P.A.-C. LAB MICROBIOLO GY - GENERAL ORDERABLES Performing Organization Address City/State/[facility] Co de Phone Number [facility] [address] [place] [address], [facility] ECLR [place] [address] * LDA ANE ENDOTRACHEAL AIRWAY (08/03/2023 11:00 AM CDT) Narrative Joanne Kramer M.B.A., R.N. - 08/03/2023 11:00 AM CDT Joanne Kramer M.B.A., R.N. ? 08/03/2023 11:23 AM Airway Date/Time: 08/03/2023 11:00 AM Performed by: Joanne Kramer M.B.A., R.N. Authorized by: Rebeca Barr M.D., M.P.H. ?? Patient location during procedure: OR / Procedure Area PROCEDURE DETAILS: Mask difficulty assessment: easy mask Final airway type: video laryngoscope Laryngeal Manipulation: no ?? Final best view of glottic structures - Cormack/Lehane Score: grade 1 ETT location: oral VL device: glide scope [place] scope blade size: 3 Tube size: 7 ETT distance at teeth/gum: 20 Oral tube type: standard ETT Cuffed: yes Number of attempt to successful placement: 1 Airway confirmation: bilateral breath sounds, positive ETCO2 and bilateral chest rise Other previous techniques attempted: none PRE PROCEDURE DETAILS: Pre evaluation for airway management: procedure Urgency: elective Preop assessment of probable difficulty: questionable / suspicious difficult airway Preoxygenation: bag valve mask SEDATION / ANESTHESIA Anesthesia method: anesthesia POST PROCEDURE DETAILS: ? Procedure outcome: successful ?? Airway event: no complications Rebeca Barr M.D., M.P.H. ANESTHESIA ORD ERABLES from Last 3 Months Advance Directives For more information, please contact: [phone] Documents on File Type Date Recorded Patient Lab Director Expl anation Advance Directives 08/03/2023 8:40 AM Yeny Mittal HCPOA/ADVOCATE/AGENT/ IMPORT EXPORT CLERK/SURROG ATE Healthcare Agents on File Name Relationship Healthcare Agent Relationship Communication Yeny Jordan Daughter Health Care Agent Clayton Mittal Son First Alternate Health Care Agent Care Teams [address] Emergency Services Dispatcher Relationship Specialty Start Date End Date Gin Salgado APRN, C.N.P., D.N.P. [address] [place] [phone] PCP - General Internal Medicine 10/26/23
--- OUTSIDE RECORDS SUMMARY | 2023-11-02 12:40 | XMS_ITS | Encounter Summary ---
Author Name Unknown Organization [facility] Address [address] [place] [address] Care Team Providers Care Bottle Feeder Name Role Phone Gin Salgado APRN, C.N.P., D.N.P. Primary Ca re Provider Reason for Referral * Outpatient (Routine) - Closed Specialty Diagnoses / Procedures Referred By Kimberly chiang Referred To Contact Diagnoses Screening Mammogram Breast Cancer Procedures BI Breast Screening Bilateral with Tomosynthesis Gin Salgado APRN, C.N.P., D.N.P. [address] [place] [phone] [facility] Region Referral ID Status Reason Start Date Expiration Date Visits Re quested Visits Authorized [id number] Closed 10/26/2023 10/25/2024 1 1 UNT CONSULTANT Reason for Visit * Outpatient (Routine) - Closed Specialty Diagnoses / Procedures Referred By Kimberly chiang Referred To Contact Diagnoses Screening Mammogram Breast Cancer Procedures BI Breast Screening Bilateral with Tomosynthesis Gin Salgado APRN C.N.P., D.N.P. [address] [place] [phone] [facility] Referral ID Status Reason Start Date Expiration Date Visits Re quested Visits Authorized [id number] Closed 10/26/2023 10/25/2024 1 1 Encounter Details Date Type Department Care Team (Latest Contact Info) Description 10/29/2023 9:29 AM ACCOUNT CONSULTANT - 10/29/2023 11:59 PM ACCOUNT CONSULTANT Hospital Encounter Department of Radiology in [place], [place] [address] [place] [phone] Gin Salgado APRN, C.N.P., D.N.P. [address] [place] [phone] Screening Mammogram Breast Cancer Discharge Disposition: Home or Self Care Social History Tobacco Use Types Packs/Day Years [...] your living situation today? I have a [facility] place to live 06/29/2023 Sex and Gender Information Value Date Recorded Sex Assigned at Female 06/29/2023 9:11 PM CDT Gender Identity Female 06/29/2023 9:11 PM CDT Sexual Orientation Straight 06/29/2023 9: 11 PM CDT documented as of this encounter Medications at Time of Discharge Medication Sig Dispensed Refills Start Date End Date acetaminophen (TYLENOL) 325 mg tablet Take 325 mg by mouth every 4 (four) hours as needed for pain. 0 aspirin 81 mg chewable tablet Chew 81 mg. 0 04/05/2018 buPROPion XL (WELLBUTRIN XL) 300 mg 24 hr tablet Take 300 mg by mouth every morning. 0 celecoxib (CeleBREX) 200 mg capsule 0 12/13/2021 cholecalciferol (VITAMIN D3) 125 mcg (5,000 Unit) capsule Take 125 mcg by mouth once a week. 0 GaviLyte-G 236-22.74-6.74 -5.86 gram solution 0 10/22/2023 ibuprofen (ADVIL,MOTRIN) 200 mg tablet Take 3 tablets (600 mg total) by mouth every 6 (six) hours as needed for pain. 0 08/03/2023 metoprolol succinate (TOPROL-XL) 50 mg 24 hr tablet Take 50 mg by mouth daily. 0 documented as of this encounter Plan of Treatment Upcoming Encounters Date Type Department Care Team (Latest Contact Info) Description 11/19/2023 11:30 AM ACCOUNT CONSULTANT Diagnostic Department of Neurology in [place], [place] [address] [place] [phone] Alex Poole M.D. [address] [place] [phone] Discharge Disposition: Home or Self Care 12/07/2023 4:20 PM ACCOUNT CONSULTANT Office Visit Department of Internal Medicine in [place], [place] [address] [place] [phone] Gin Salgado APRN, C.N.P., D.N.P. [address] [place] [phone] Discharge Disposition: Home or Self Care 12/08/2023 2:30 PM ACCOUNT CONSULTANT Diagnostic Department of Otorhinolaryngology in [place], [place] [address] [place] [phone] Filiberto Rojas M.D. [address] [place] [phone] Sandra Cloud Au.D. [address] [place] [phone] 12/08/2023 3:15 PM ACCOUNT CONSULTANT Office Visit Department of Otorhinolaryngology in [place], [place] [address] [place] [phone] Filiberto Rojas M.D. [address] [place] [phone] documented as of this encounter Procedures Procedure Name Priority Date/Time Associated Diagnosis Comments BI BREAST SCREENING BILATERAL WITH TOMOSYNTHESIS RAD - Routine (most inpatients and all outpatients) 10/29/2023 11:43 AM ACCOUNT CONSULTANT Screening Mammogram Breast Cancer documented in this encounter Results * BI Breast Screening Bilateral with Tomosynthesis (10/29/2023 11:43 AM ACCOUNT CONSULTANT) Anatomical Region Laterality Modality Breast, Breast Imaging RST L OS, Breast Imaging ARZ LOS, Breast Imaging FLA LOS Bilateral Mammography Impressions 10/30/2023 1:31 PM ACCOUNT CONSULTANT Negative. RECOMMENDATION: ??Annual Screening Mammogram ASSESSMENT: ??BI-RADS: 1: Negative. Narrative 10/30/2023 1:31 PM ACCOUNT CONSULTANT EXAM: ??BI BREAST SCREENING BILATERAL WITH TOMOSYNTHESIS [...] Salgado APRN, C.N.P., D.N.P. IMG BI PROCEDURES documented in this encounter Visit Diagnoses Diagnosis Screening Mammogram Breast Cancer documented in this encounter Additional Health Concerns Assessment Noted Time PHQ-9 Depression Total Score: 2 10/27/19 2:15 PM ACCOUNT CONSULTANT documented as of this encounter Care Teams Bottle Feeder Relationship Specialty Start Date End Date Gin Salgado APRN, C.N.P., D.N.P. [address] [place] [phone] PCP - General Internal Medicine 10/26/23 documented as of this encounter
--- OUTSIDE RECORDS SUMMARY | 2023-11-02 12:40 | XMS_ITS | Referral Summary ---
Author Name Unknown Organization [facility] Address [address] [place] [address] Care Team Providers Care Pot Press Operator Name Role Phone Gin Salgado APRN C.N.P., D.N.P. Primary Ca re Provider Source Comments Patient records contain information from all sites at [facility]. For routine questions regarding patient records, call [phone] during business hours, M-F 8:00 AM - 5:00 PM Central Time. Record requests for emergency care only can be directed to [phone] at any time.[facility] Encounters Date Type Department Care Team Description 10/29/2023 9:29 AM RUBBER TUBING SPLICER - 10/29/2023 11:59 PM RUBBER TUBING SPLICER Hospital Encounter Department of Radiology in [address] [phone] Gin Salgado APRN C.N.P., D.N.P. Screening Mammogram Breast Cancer Discharge Disposition: Home or Self Care 10/27/2023 Clinical Communication Department of Gastroenterology in [address] [phone] Gin Salgado APRN C.N.P., D.N.P. Colonoscopy 10/27/2023 3:07 PM RUBBER TUBING SPLICER - 10/27/2023 11:59 PM RUBBER TUBING SPLICER Hospital Encounter Department of Radiology in [address] [phone] Gin Salgado APRN C.N.PSaul, D.N.P. Change In Bowel Habit Discharge Disposition: Home or Self Care 10/27/2023 2:20 PM RUBBER TUBING SPLICER Comprehensive Visit Department of Internal Medicine in [address] [phone] Gin Salgado APRN C.N.PSaul, D.N.P. Change In Bowel Habit (Primary Dx); Polyp Colon Personal History; Screening Cancer Colon; Numbness Hand; Atrial Fibrillation Paroxysmal (HCC); Regurgitation Mitral; Hypertension Essential Primary; Apnea Sleep Obstructive; Chronic Fatigue Syndrome; Insomnia; Restless Leg Syndrome; Depression Major Recurrent (HCC); PreDiabetes Discharge Disposition: Home or Self Care 10/15/2023 Nurse Triage Department of Family Medicine, [facility], in [address] [phone] Beti Whitman R.N. Diarrhea 10/05/2023 1:00 PM RUBBER TUBING SPLICER Clinical Support Department of Physical Medicine and Rehabilitation in [address] [phone] Narciso Davis M.D. Helmus, Kimberly M, P.T. Aftercare Total Knee Arthroplasty 10/03/2023 12:15 PM RUBBER TUBING SPLICER Office Visit Express [facility] in [address] [phone] Andree Hazel P.ALorena Cystitis Unspecified With Hematuria (Primary Dx) Discharge Disposition: Home or Self Care 10/02/2023 Nurse Triage Department of Internal Medicine in [address] [phone] Priyanka Hsu R.N. Urinary Problem 09/30/2023 10:00 AM RUBBER TUBING SPLICER Clinical Support Department of Physical Medicine and Rehabilitation in [address] [phone] Narciso Davis M.D. Diercks, Ellie, P.T.Aakash. Aftercare Total Knee Arthroplasty 09/21/2023 2:30 PM RUBBER TUBING SPLICER Clinical Support Department of Physical Medicine and Rehabilitation in [address] [phone] Narciso Davis M.D. Helmus, Kimberly M, P.T. Aftercare Total Knee Arthroplasty 09/09/2023 1:00 PM RUBBER TUBING SPLICER Clinical Support Department of Physical Medicine and Rehabilitation in [address] [phone] Narciso Davis M.D. Diercks, Ellie, P.T.Aakash. Aftercare Total Knee Arthroplasty 09/07/2023 3:00 PM RUBBER TUBING SPLICER Clinical Support Department of Physical Medicine and Rehabilitation in [address] [phone] Narciso Davis M.D. Helmus, Kimberly M, P.T. Aftercare Total Knee Arthroplasty 09/02/2023 2:30 PM RUBBER TUBING SPLICER Clinical Support Department of Physical Medicine and Rehabilitation in [address] [phone] Narciso Davis M.D. Helmus, Kimberly M, P.T. Aftercare Total Knee Arthroplasty 08/31/2023 2:30 PM RUBBER TUBING SPLICER Comprehensive Visit Department of Physical Medicine and Rehabilitation in [address] [phone] Narciso Davis M.D. Helmus, Kimberly M, P.T. Aftercare Total Knee Arthroplasty (Primary Dx) 08/25/2023 9:30 AM RUBBER TUBING SPLICER Office Visit Department of Otorhinolaryngology in [address] [phone] Filiberto Rojas M.D. Loss Hearing Sensorineural Asymmetrical (Primary Dx) 08/05/2023 Clinical Communication Department of Otorhinolaryngology in [address] [phone] Filiberto Rojas M.D. 08/04/2023 Abstract [facility] [address] [place] [phone] Provider, Historical 08/03/2023 10:47 AM CDT [facility] [address] [place] [phone] HandlogtenRosie M.D. Eneh, Peace N, M.D., M.P.H. 08/03/2023 11:40 AM CDT - 08/03/2023 4:40 PM CDT Surgery RST [facility] OR [address] [place] [phone] Filiberto Rojas M.D. TYMPANOMASTOIDECTO MY. 08/03/2023 8:56 AM CDT - 08/03/2023 5:27 PM CDT Hospital En[facility] [address] [place] [phone] Filiberto Rojas M.D. Discharge Disposition: Home or Self Care from Last 3 Months Allergies Active Allergy Reactions Criticality Noted Date [...] Presence Of Right Artificial Knee Joint 08/18/20 Cholesteatoma Attic Bilateral 06/30/2023 Fibromyalgia 06/30/2023 Hyperlipidemia Mixed 06/30/2023 Hypertension Essential Primary 06/30/2023 Atrial Fibrillation Paroxysmal 06/25/2013 Overview: Diagnosed 2012, resolved with treatment of ANDERSON and beta stephanie. Stenosis Spinal Lumbar With Neurogenic Claudicat ion 03/10/2013 Polyp Colon Personal History 06/06/2010 Depression Major Recurrent 07/26/2008 Apnea Sleep Obstructive 07/03/2008 Chronic Fatigue Syndrome 01/20/2007 Resolved Problems Problem Noted Date Diagnosed Date Resolved Date Hyperplasia Endometrial Benign 02/20/2017 10/27/2023 Immunizations Name Administration Dates Next Due HZV (ZOSTAVAX) 09/15/2013 Influenza high dose QV(65 years or older) (PF) 1 12/07/2021 Influenza, Unspecified 08/09/2020 SARS-COV-2 (COVID-19) - MODE RNA (12 YEARS AND OLDER) [id number] 10/27/2023 Td Preservative Free (TENIVAC, DECAVAC) 05/08/20 08 Tdap 02/03/2017 Social History Tobacco Use Types Packs/Day Years [...] your living situation today? I have a [facility] place to live 06/29/2023 Sex and Gender Information Value Date Recorded Sex Assigned at Female 06/29/2023 9:11 PM CDT Gender Identity Female 06/29/2023 9:11 PM CDT Sexual Orientation Straight 06/29/2023 9: 11 PM CDT Last Filed Vital Signs Vital Sign Reading Time Taken Comments Blood Pressure 133/82 10/27/2023 2:15 PM RUBBER TUBING SPLICER Pulse 70 10/27/2023 2:15 PM RUBBER TUBING SPLICER Temperature 35.7 ??C (96.3 ??F) 10/27/2023 2:15 PM CS T Respiratory Rate 15 08/03/2023 4:50 PM CDT Oxygen Saturation 95% 08/03/2023 5:15 PM CDT Inhaled Oxygen Concentration - - Weight 98.9 kg (218 lb 0.6 oz) 10/27/2023 2:15 P M RUBBER TUBING SPLICER Height 163 cm (5' 4.17) 10/27/2023 2:15 PM RUBBER TUBING SPLICER Body Mass Index 37.22 10/27/2023 2:15 PM RUBBER TUBING SPLICER Plan of Treatment Upcoming Encounters Date Type Department Care Team (Latest Contact Info) Description 11/19/2023 11:30 AM RUBBER TUBING SPLICER Diagnostic Department of Neurology in [address] [phone] Alex Poole M.D. [address] [place] [phone] Discharge Disposition: Home or Self Care 12/07/2023 4:20 PM RUBBER TUBING SPLICER Office Visit Department of Internal Medicine in [address] [phone] Gin Salgado APRN, C.N.P., D.N.P. [address] [place] [phone] Discharge Disposition: Home or Self Care 12/08/2023 2:30 PM RUBBER TUBING SPLICER Diagnostic Department of Otorhinolaryngology in [place], [place] [address] [place] [phone] Filiberto Rojas M.D. [address] [place] [phone] Sandra Cloud Au.D. [address] [place] [phone] 12/08/2023 3:15 PM RUBBER TUBING SPLICER Office Visit Department of Otorhinolaryngology in [place], [place] [address] [place] [phone] Filiberto Rojas M.D. [address] [place] [phone] Procedures Procedure Name Priority Date/Time Associated Diagnosis Comments BI BREAST SCREENING BILATERAL WITH TOMOSYNTHESIS RAD - Routine (most inpatients and all outpatients) 10/29/2023 11:43 AM RUBBER TUBING SPLICER Screening Mammogram Breast Cancer DX ABDOMEN 1 VIEW RAD - Routine (most inpatients and all outpatients) 10/27/2023 3:26 PM RUBBER TUBING SPLICER Change In Bowel Habit HC URINALYSIS AUTO WO MICRO STAT 10/03/2023 12:06 PM RUBBER TUBING SPLICER URINALYSIS WITH MICROSCOPIC IF INDICATED, U STAT 10/03/2023 12:06 PM RUBBER TUBING SPLICER Cystitis Unspecified With Hematuria BACTERIAL CULTURE, AEROBIC + SUSC, URINE STAT 10/03/2023 12:00 PM RUBBER TUBING SPLICER Cystitis Unspecified With Hematuria LDA ANE ENDOTRACHEAL AIRWAY Routine 08/03/2023 11:00 AM CDT TYMPANOMASTOIDECTOMY 08/03/2023 10:31 AM CDT Cholesteatoma Attic Bilateral Case Notes CATERING COOK 859, tpu 11 from Last 3 Months Results * BI Breast Screening Bilateral with Tomosynthesis (10/29/2023 11:43 AM RUBBER TUBING SPLICER) Anatomical Region Laterality Modality Breast, Breast Imaging RST L OS, Breast Imaging ARZ LOS, Breast Imaging FLA LOS Bilateral Mammography Impressions 10/30/2023 1:31 PM RUBBER TUBING SPLICER Negative. RECOMMENDATION: ??Annual Screening Mammogram ASSESSMENT: ??BI-RADS: 1: Negative. Narrative 10/30/2023 1:31 PM RUBBER TUBING SPLICER EXAM: ??BI BREAST SCREENING BILATERAL WITH TOMOSYNTHESIS [...] DX Abdomen 1 View (10/27/2023 3:26 PM RUBBER TUBING SPLICER) Anatomical Region Laterality Modality Abdomen, Abdominal RST LOS, Abdominal ARZ LOS, Abdominal FLA LOS N/A Digital Radiography Impressions 10/27/2023 3:37 PM RUBBER TUBING SPLICER Nonobstructive bowel gas pattern. Mild colonic stool burden. Surgical clips right upper quadrant. Slight lumbar curvature with degenerative changes of the spine. The visualized lungs are clear. Narrative 10/27/2023 3:37 PM RUBBER TUBING SPLICER EXAM: DX ABDOMEN 1 VIEW Procedure Note Ignacio Smith M.D. - 10/27/2023 EXAM: DX ABDOMEN 1 VIEW IMPRESSION: Nonobstructive bowel gas pattern. Mild colonic stool burden. Surgicalclips right upper quadrant. Slight lumbar curvature with degenerativechanges of the spine. The visualized lungs are clear. Gary Forman APRNN.PSaul, ChaceNSaulP. IMG DIAGNOSTIC IMAGING PROCEDURES * (ABNORMAL) Urinalysis with Microscopic if Indicated (10/03/2023 12:06 PM RUBBER TUBING SPLICER) Source Urine, Urine, Midstream 10/03/2023 12:10 PM RUBBER TUBING SPLICER RDWG Clarity Turbid(A) Clear 10/03/2023 12:10 PM RUBBER TUBING SPLICER RDW[facility] Color Yellow 10/03/2023 12:10 PM RUBBER TUBING SPLICER RDWG Comment: ----REFERENCE VALUE---- Colorless Yellow Yeny Blood Trace(A) Negative 10/03/2023 12:10 PM RUBBER TUBING SPLICER RDWG Nitrite Positive(A) Negative 10/03/2023 12:10 PM RUBBER TUBING SPLICER RDWG Leukocyte Esterase Moderate(A) Negative 10/03/2023 12:10 PM RUBBER TUBING SPLICER RDWG Protein Negative mg/dL 10/03/2023 12:10 PM RUBBER TUBING SPLICER RDWG Comment: ----REFERENCE VALUE---- Negative Trace Glucose Negative Negative mg/dL 10/03/2023 12:10 PM RUBBER TUBING SPLICER RDWG Ketone Negative Negative mg/dL 10/03/2023 12:10 PM RUBBER TUBING SPLICER RDWG Bilirubin Negative Negative 10/03/2023 12:10 PM RUBBER TUBING SPLICER RDW[facility] pH 5.5 5.0 - 8.0 10/03/2023 12:10 PM RUBBER TUBING SPLICER RDW[facility] Specific [place] 1.017 1.001 - 1.035 10/03/2023 12:10 PM RUBBER TUBING SPLICER RDWG Urobilinogen 0.2 0.2 - 1.0 mg/dL 10/03/2023 12:10 PM RUBBER TUBING SPLICER RDWG Urine (Urine, Midstream) 10/03/2023 12:06 PM RUBBER TUBING SPLICER 10/03/2023 12:06 PM RUBBER TUBING SPLICER Andree Hazel P.A.-C. LAB URINE ORDE RALPH Performing Organization Address [facility] Co de Phone Number [facility] [address] [facility] [place] [address], [facility] RDWG [facility] in [place] [phone] * (ABNORMAL) Microscopic Automated (10/03/2023 12:06 PM RUBBER TUBING SPLICER) White Blood Cells >100(A) /hpf 10/03/2023 12:13 PM RUBBER TUBING SPLICER RDW[facility] Comment: ----REFERENCE VALUE---- Males: 0-3 Females: 0-10 Unknown: 0-10 Red Blood Cells Occ-2 0 - 2 /hpf 10/03/2023 12:13 PM RUBBER TUBING SPLICER RDWG Hyaline Casts 4-10 /lpf 10/03/2023 12:13 PM RUBBER TUBING SPLICER RDWG Squamous Cells 21-30 /hpf 10/03/2023 12:13 PM RUBBER TUBING SPLICER RDWG Bacteria Present(A) None Seen 10/03/2023 12:13 PM RUBBER TUBING SPLICER RDW[facility] Urine 10/03/2023 12:0 6 PM RUBBER TUBING SPLICER 10/03/2023 12:06 PM RUBBER TUBING SPLICER Andree Hazel P.A.-C. LAB URINE ORDIsra ROSAS Performing Organization Address [facility] Co de Phone Number [facility] [address] [place] [phone], [facility] RDWG [facility] in [address] [phone] * (ABNORMAL) Bacterial Culture, Aerobic + Susceptibility, Urine (10/03/2023 12:00 PM RUBBER TUBING SPLICER) Urine Culture ESCHERICHIA COLI >100,000 cfu/mL (A) 10/05/2023 10:43 AM RUBBER TUBING SPLICER ECLR Urine (Urine, Midstream) 10/03/2023 12:00 PM RUBBER TUBING SPLICER 10/03/2023 9:12 PM RUBBER TUBING SPLICER Comment:Specimen Source Site : Urine Narrative Organism [...] P.A.-C. LAB MICROBIOLO GY - GENERAL ORDERABLES [facility] [address] [place] [phone], [facility] ECLR [facility] in [address] [address] * LDA ANE ENDOTRACHEAL AIRWAY (08/03/2023 11:00 [...] ETT location: oral VL device: glide scope [place] scope blade size: 3 Tube size: 7 [...] Advance Directives For more information, please contact: [phone] Documents on File Type Date Recorded Patient Mirror Framer Expl anation Advance Directives 08/03/2023 8:40 AM Yeny Mittal HCPOA/ADVOCATE/AGENT/ COAL INSPECTOR/SURROG ATE Healthcare Agents on File Name Relationship Healthcare Agent Relationship Communication Yeny Jordan Daughter Health Care Agent Clayton Mittal Son First Alternate Health Care Agent Care Teams Pot Press Operator Relationship Specialty Start Date End Date Gin Salgado APRN, C.N.P., D.N.P. [address] [place] [phone] PCP - General Internal Medicine 10/26/23
--- OUTSIDE RECORDS SUMMARY | 2023-11-02 12:40 | XMS_ITS ---
Author Name Unknown Organization [facility] Address [address] [place] [address] Care Team Providers Care Sales Market Leader Name Role Phone Unavailable Unavailable Unavailable Surgery Details Not on file Complications Check Surgery Details section. Procedure Estimated Blood Loss Check Surgery Details section. Procedure Findings Check Surgery Details section. Procedure Specimens Taken Check Surgery Details section.
--- OUTSIDE RECORDS SUMMARY | 2023-11-02 12:41 | XMS_ITS | Encounter Summary ---
Author Name Unknown Organization [facility] Address [address] [place] [address] Care Team Providers Care Administrative Officer Name Role Phone Unavailable Primary Care Provider Unavailabl e Reason for Visit * Physical Therapy (Routine) - Closed Specialty Diagnoses / Procedures Referred By Kimberly chiang Referred To Contact Diagnoses Aftercare Total Knee Arthroplasty Procedures PT Ongoing treatment Narciso Davis M.D. [address] [place] [address] [facility] Region Referral ID Status Reason Start Date Expiration Date Visits Re quested Visits Authorized [id number] Closed 08/31/2023 10/18/2023 99 99 Encounter Details Date Type Department Care Team (Latest Contact Info) Description 10/05/2023 1:00 PM SEAFOOD FARMER Clinical Support Department of Physical Medicine and Rehabilitation in [address] [phone] Narciso Davis M.D. [address] [place] [address] Marily Grey PSaulT. [address] [place] [phone] Aftercare Total Knee Arthroplasty Social History Tobacco Use Types Packs/Day Years Used Date Smoking Tobacco: Never Smokeless Tobacco: Never Alcohol Use Standard Drinks/Week Comments Yes 0 (1 standard drink = 0.6 oz pure alcohol) Not every week, occassionally a glass of wine, or beer Overall Financial Resource Strain (CARDIA) Answe r Date Recorded How hard is it for you to pa y for the very basics like food, housing, medical care, and heating? Not hard at all 06/29/2023 Exercise Vital Sign Answer Date Recorde d [...] money to buy more. Never true 06/29/20 Within the past 12 months, t he [...] things needed for daily living? No 06/29/2023 Nutrition Answer Date Recorded Nutrition: EVOO Fat [...] your living situation today? I have a [facility] place to live 06/29/2023 Sex and Gender Information Value Date Recorded Sex Assigned at Female 06/29/2023 9:11 PM CDT Gender Identity Female 06/29/2023 9:11 PM CDT Sexual Orientation Straight 06/29/2023 9: 11 PM CDT documented as of this encounter Progress Notes * Marily Grey, P.T. - 10/05/2023 1:00 PM CST Physical Therapy Outpatient Treatment Note SUBJECTIVE Patient's Name: Caron Mittal Referring Provider: Narciso Davis M.D. Visit Diagnosis: 1. Aftercare Total Knee Arthroplasty Payor: [facility] / Plan: [facility] SECURE BLUE DUAL HMO / Product Type: HMO / PT Next Certification Date: 11/23/23 [facility] Visit Count: 7 POC: 08/31/23-11/23/23 Clinical Impression: Patient presents to physical therapy with signs and symptoms consistent with s/p right TKA. Impairments: decreased quad strength, edema, decreased knee flexion/extension ROM, impaired gait Functional deficits: standing, walking, stairs, lifting leg limiting community ambulation, household activities, getting in/out of bed and car, dressing and bathing Patient comments: Patient reports decreased back and leg pain compared to last week when she experienced flare up of pain after going to the chiropractor for her back pain. She is able to walk aroundher home without gait aide, but does continue to use a walker in the community because she feels unsteady. States that she has not been working on her HEP as much as previously after flare up of symptoms, but now is resuming her exercises as she was before. She had a follow up with her surgeon and he was very pleased with her ROM and mobility. OBJECTIVE Pain Assessment Pain Assessment: 0-10 Numeric Pain Intensity Scale Pain Score: 1 Gait: Demonstrates step through heel-toe gait with front wheeled walker Strength: Demonstrates good quad activation with sufficient strength to perform SLR but fatigues quickly Knee ROM: 0-123 degrees TREATMENT Treatment today consisted of: Therapeutic Exercise: Therapeutic Exercise: Performed with the intent to improve strength and endurance, range of motion,flexibility, joint mobility, joint stability, and/or reduce edema/lymphedema. Therapist is present,providing one-on-one verbal and tactile cues for correct completion of exercises, facilitation of appropriate muscle activation/ recruitment and patient safety. Reviewed supine towel assisted knee flexion stretch 10 sec x 10 reps Encouraged patient to continue to perform step ups and step downs at home Reviewed sit back squat Reviewed extension stretch Manual therapy: Grade III-IV AP tibia on femur joint mobilizations into flexion in sitting Home Exercise Program/Education: Seated knee flexion stretch 10 sec x 10 reps, 3x/day Seated or supine knee extension stretch 3x/day Supine SLR x 10-15 reps, 2x/day Squats x 10-15 reps, 1x/day Step up 2 x 10-15 reps, 1x/day Step down 2 x 10-15 reps, 1x/day Patient reports fair HEP compliance. Assessment Clinical Impression: Knee ROM remains excellent. Quad strength improving. Patient feels unsteady due to exacerbation of back pain and is therefore using a walker just in the community for safety. Patient has met all goals and is appropriate to continue with independent HEP after today. Functional Goals and Timeframes: PT Goal #1: Patient will be able to ambulate community and household distances without gait aide PT Goal #1 Date: 11/23/23 PT Goal #1 Status: Achieved PT Goal #2: Patient will be able to get in/out of bed and the car without difficulty PT Goal #2 Date: 11/23/23 PT Goal #2 Status: Achieved PT Goal #3: Patient will demonstrate at least 0-115 degrees of knee ROM PT Goal #3 Date: 11/23/23 PT Goal #3 Status: Achieved PT Goal #4: Patient will be independent with HEP PT Goal #4 Date: 11/23/23 PT Goal #4 Status: Achieved Plan Plan: Discontinue PT Plan for next session: No further appointments scheduled. Patient's chart will be held open for 1 month, if we do not hear from her within that time she will be discharged from therapy. Patient encouraged to contact therapist with questions or concerns. Time Spent with Patient Therapeutic Interventions Manual Therapy (min): 8 min Therapeutic Exercise (min): 15 min Time Tracking Total Timed Units (min): 23 min Total Treatment Time (min): 23 min OOD FARMER documented in this encounter Plan of Treatment Upcoming Encounters Date Type Department Care Team (Latest Contact Info) Description 11/19/2023 11:30 AM SEAFOOD FARMER Diagnostic Department of Neurology in [address] [phone] Alex Poole M.D. [address] [place] [phone] Discharge Disposition: Home or Self Care 12/07/2023 4:20 PM SEAFOOD FARMER Office Visit Department of Internal Medicine in [place], [place] [address] [place] [phone] Gin Salgado APRN, C.N.P., D.N.P. [address] [place] [phone] Discharge Disposition: Home or Self Care 12/08/2023 2:30 PM SEAFOOD FARMER Diagnostic Department of Otorhinolaryngology in [place], [place] [address] [place] [phone] Filiberto Rojas M.D. [address] [place] [phone] Sandra Cloud Au.D. [address] [place] [phone] 12/08/2023 3:15 PM SEAFOOD FARMER Office Visit Department of Otorhinolaryngology in [place], [place] [address] [place] [phone] Filiberto Rojas M.D. [address] [place] [phone] documented as of this encounter Visit Diagnoses Diagnosis Aftercare Total Knee Arthroplasty documented in this encounter
--- OUTSIDE RECORDS SUMMARY | 2023-11-02 12:41 | XMS_ITS | Encounter Summary ---
Author Name Unknown Organization [facility] Address [address] [place] [address] Care Team Providers Care Motel Front Desk Clerk Name Role Phone Unavailable Primary Care Provider Unavailabl e Reason for Visit * Reason Onset Date Comments Diarrhea 10/15/2023 Encounter Details Date Type Department Care Team (Late st Contact Info) Description 10/15/2023 Nurse Triage Department of Family Medicine, [facility], in [place], [place] [address] [place] [phone] Beti Whitman R.N. [address] [place] [phone] Diarrhea Social History Tobacco Use Types Packs/Day Years [...] your living situation today? I have a [facility] place to live 06/29/2023 Sex and Gender Information Value Date Recorded Sex Assigned at Female 06/29/2023 9:11 PM CDT Gender Identity Female 06/29/2023 9:11 PM CDT Sexual Orientation Straight 06/29/2023 9: 11 PM CDT documented as of this encounter Miscellaneous Notes * Telephone Encounter - Beti Whitman R.N. - 10/15/2023 11:39 AM PROPOSAL ANALYST Chief Complaint / Reason for Call Patient is a 73 y.o. female calling regarding Diarrhea. Assessment Concern: Has been experiencing loose stools since 09/30. Around that time was also seen and diagnosed with UTI and started on antibiotic. UTI symptoms improved. Continues to have loose stools, sometimes they are smaller in size, but this morning has gone 8 times already. Denies any other symptoms. States she had contacted her PCP office and they recommended that she be seen today. Has been tryinga liquid diet as well to see if that helps, but has not made a difference. Calling to request: Appointment The recommended disposition is See a health care provider within 24 hours (overriding See a health care provider within 4 hours). Patient was warm transferred toShannan Patient Appointment Table Assembler at the clinic forfurther assistance. and If clinic appointment is not available in the next 24 hours, caller is advised to be seen in urgent care. Reason for Disposition [1] SEVERE diarrhea (e.g., 7 or more times / day more than normal) AND [2] age > 60 years Protocols used: Luouolab-[id number]-AY Care Advice Patient/Caregiver understands and will follow care advice?: Yes, able to teach back CALL BACK IF: * You become worse OSAL ANALYST documented in this encounter Plan of Treatment Upcoming Encounters Date Type Department Care Team (Latest Contact Info) Description 11/19/2023 11:30 AM PROPOSAL ANALYST Diagnostic Department of Neurology in [address] [phone] Alex Poole M.D. [address] [place] [phone] Discharge Disposition: Home or Self Care 12/07/2023 4:20 PM PROPOSAL ANALYST Office Visit Department of Internal Medicine in [address] [phone] Gin Salgado APRN, C.N.P., D.N.P. [address] [place] [phone] Discharge Disposition: Home or Self Care 12/08/2023 2:30 PM PROPOSAL ANALYST Diagnostic Department of Otorhinolaryngology in [place], [place] [address] [place] [phone] Filiberto Rojas M.D. [address] [place] [phone] Sandra Cloud Au.D. [address] [place] [phone] 12/08/2023 3:15 PM PROPOSAL ANALYST Office Visit Department of Otorhinolaryngology in [place], [place] [address] [place] [phone] Filiberto Rojas M.D. [address] [place] [phone] documented as of this encounter Visit Diagnoses Not on filedocumented in this encounter
--- OUTSIDE RECORDS SUMMARY | 2023-11-02 12:41 | XMS_ITS | Encounter Summary ---
Author Name Unknown Organization [facility] Address [address] [place] [address] Care Team Providers Care Gang Bore Operator Name Role Phone Gin Salgado APRN, C.N.P., D.N.P. Primary Ca re Provider Reason for Referral * Outpatient (Routine) - Authorized Specialty Diagnoses / Procedures Referred By Kimberly chiang Referred To Contact Community Internal Medicine Diagnoses Atrial Fibrillation Paroxysmal (HCC) Gin Salgado APRN, C.N.P., D.N.P. [address] [place] [phone] [facility] Referral ID Status Reason Start Date Expiration Date V isits Requested Visits Authorized [id number] Authorized 10/27/2023 10/26/2026 1 1 D SALES MANAGER * Outpatient (Routine) - Authorized Specialty Diagnoses / Procedures Referred By Kimberly chiang Referred To Contact Cardiovascular Diseases / Cardiovascular Disease Diagnoses Atrial Fibrillation Paroxysmal (HCC) Regurgitation Mitral Gin Salgado APRN, C.N.P., D.N.P. [address] [place] [phone] [facility] Region Referral ID Status Reason Start Date Expiration Date V isits Requested Visits Authorized [id number] Authorized 10/27/2023 10/26/2024 1 1 D SALES MANAGER * Cardiovascular-Diagnostic (Routine) - Pending Review Specialty Diagnoses / Procedures Referred By Contac t Referred To Contact Diagnoses Regurgitation Mitral Procedures Echo Transthoracic (TTE) Gin Salgado APRN, C.N.P., D.N.P. [address] [place] [address] [facility] Referral ID Status Reason Start Date Expiration Date V isits Requested Visits Authorized [id number] Pending Review 10/27/2023 10/26/2024 1 1 D SALES MANAGER * Outpatient (Routine) - Authorized Specialty Diagnoses / Procedures Referred By Contac t Referred To Contact Diagnoses Numbness Hand Procedures EMG Gin Salgado APRN, C.N.P., D.N.P. [address] [place] [phone] [facility] Region Referral ID Status Reason Start Date Expiration Date V isits Requested Visits Authorized [id number] Authorized 10/27/2023 10/26/2024 1 1 D SALES MANAGER * Outpatient (Routine) - Closed Specialty Diagnoses / Procedures Referred By Contac t Referred To Contact Diagnoses Diarrhea Procedures DX Abdomen 1 View Gin Salgado APRN C.N.P., D.N.P. [address] [place] [address] [facility] Region Referral ID Status Reason Start Date Expiration Date Visits Re quested Visits Authorized [id number] Closed 10/27/2023 10/26/2024 1 1 D SALES MANAGER * Outpatient (Routine) - Pending Review Specialty Diagnoses / Procedures Referred By Contac t Referred To Contact Diagnoses Screening Cancer Colon Polyp Colon Personal History Procedures Colonoscopy Gin Salgado APRN, C.N.P., D.N.P. [address] [place] [phone] [facility] Referral ID Status Reason Start Date Expiration Date V isits Requested Visits Authorized [id number] Pending Review 10/27/2023 10/26/2024 1 1 D SALES MANAGER Reason for Visit * Reason Comments Establish Care Annual Exam * Appointment Request (Routine) - Closed Specialty Diagnoses / Procedures Referred By Contac t Referred To Contact [facility] Referral ID Status Reason Start Date Expiration Date Visits Re quested Visits Authorized [id number] Closed 10/26/2023 10/25/2024 1 1 Encounter Details Date Type Department Care Team (Latest Contact Info) Description 10/27/2023 2:20 PM FIELD SALES MANAGER Comprehensive Visit Department of Internal Medicine in [address] [phone] Gin Salgado APRN, C.N.P., D.N.P. [address] [place] [phone] Change In Bowel Habit (Primary Dx); Polyp Colon Personal History; Screening Cancer Colon; Numbness Hand; Atrial Fibrillation Paroxysmal (HCC); Regurgitation Mitral; Hypertension Essential Primary; Apnea Sleep Obstructive; Chronic Fatigue Syndrome; Insomnia; Restless Leg Syndrome; Depression Major Recurrent (HCC); PreDiabetes Discharge Disposition: Home or Self Care Social [...] your living situation today? I have a [facility] place to live 06/29/2023 Sex and Gender Information Value Date Recorded Sex Assigned at Female 06/29/2023 9:11 PM CDT Gender Identity Female 06/29/2023 9:11 PM CDT Sexual Orientation Straight 06/29/2023 9: 11 PM CDT documented as of this encounter Last Filed Vital Signs Vital Sign Reading Time Taken Comments Blood Pressure 133/82 10/27/2023 2:15 PM FIELD SALES MANAGER Pulse 70 10/27/2023 2:15 PM FIELD SALES MANAGER Temperature 35.7 ??C (96.3 ??F) 10/27/2023 2:15 PM CS T Respiratory Rate - - Oxygen Saturation - - Inhaled Oxygen Concentration - - Weight 98.9 kg (218 lb 0.6 oz) 10/27/2023 2:15 P M FIELD SALES MANAGER Height 163 cm (5' 4.17) 10/27/2023 2:15 PM FIELD SALES MANAGER Body Mass Index 37.22 10/27/2023 2:15 PM FIELD SALES MANAGER documented in this encounter Progress Notes * Gin Salgado APRN, C.N.P., D.N.P. - 10/27/2023 2:20 PM CST SUBJECTIVE CHIEF COMPLAINT/REASON FOR VISIT Establish Care and Annual Exam. HISTORY OF PRESENT ILLNESS Caron is a very pleasant 73 y.o. female who presents for evaluation of Establish Care and Annual Exam. Caron is here today to establish care with a new primary care provider. she previously received care from [place] . Acute concerns: Oriental orthodox. Wants documentation that she does not want blood products Caron has concerns today about diarrhea Onset: 10/18/2023 Progression: frequency has decreased Number of bowel movements daily: 3-4 times daily Consistency of bowel movements: Soft, rarely watery Current diet: Has been trying a liquid diet. Triggers: Treatments tried: Fluid status: No issues with this Recent antibiotics: Was on Augmentin in July Last colonoscopy: Did prep for colonoscopy on Thursday. Prep was not successful so she had to cancel.Has an appointment next Thursday for a colonoscopy in [place]. Previous work up: remote history of several polyps removed. History of diarrhea: None Family history of GI disorders: Status post cholecystectomy: yes Associated symptoms- Fevers: None Blood in the stool: None Abdominal pain/cramping: None Weight loss: has los a few lbs Numbness: In both hands. Left worse than right. Was intermittent but now is more constant. Was triggered by sleeping. Left had feels weaker. Not dropping things. She has a lot of neck issues. Chronic conditions: Atrial Fibrillation -Paroxysmal. Diagnosed in 2012. Was seen by Cardiology at a line on. She had been admitted to the hospital with an episode of atrial fibrillation at the age of 63. Converted aftershort time with monitoring. Patient has a known history of atrial fibrillation that has been stable. We reviewed symptoms/treatments today Heart rate: 70 Palpitations/symptoms of tachycardia: has symptoms off and on. Shortness of breath/chest pain: No new symptoms Rate/rhythm control: Metoprolol Anticoagulation: None Bleeding: EKG: Last EKG showed NSR with 1st degree AV block [id number]: 3 today [id number] VASc Risk Age: 65-74 Sex: Female History of CHF: No History of Hypertension: Yes Previous Symptoms of TIA or Stroke: No Vascular Disease History: No History of Diabetes: No [id number] Vasc Score: 3 Last Echo: 2016. Showed moderate mitral valve regurgitation Bmd: done 06/29/2018 Hypertension Blood pressure today: BP 133/82 (BP Location: Left arm, Patient Position: Sitting, Cuff Size: Regular) Medication adherence: metoprolol Renal function: Normal 07/31/2023 Depression/anxiety Medications: Wellbutrin Side effects: Mood symptoms: Chronic pain: On Celebrex Sleep apnea CPAP: Not using. Did not tolerate the masks. Frequently wakes up gasping Impaired fasting blood sugar Fasting blood sugar/A1c: 79 Diet: Exercise: BMI: Body mass index is 37.22 kg/m??. Barriers: Health maintenance needs: Colon cancer screening: History of polyps. Due for repeat colonoscopy Mammogram: Scheduled 10/29/2023 - history of breast cancer SOCIAL HISTORY Denies tobacco use. No concern for excessive alcohol use. Lives independently ALLERGIES/CONTRAINDICATIONS Allergies Allergen Reactions Ciprofloxacin Other (see comments) Fluoxetine Rash watery eyes Duloxetine Rash Watery eyes Sertraline Itching REVIEW OF SYSTEMS REVIEW OF SYSTEMS Pertinent positives as per HPI. Otherwise, comprehensive review of systems performed and negative. OBJECTIVE VITAL SIGNS BP 133/82 (BP Location: Left arm, Patient Position: Sitting, Cuff Size: Regular) Pulse 70 Temp (!) 35.7 ??C (Temporal) Ht 163 cm Wt 98.9 kg BMI 37.22 kg/m?? PHYSICAL EXAMINATION Constitutional General: She is not in acute distress. Appearance: She is well-developed. She is not diaphoretic. HENT Head: Normocephalic and atraumatic. Eyes Pupils: Pupils are equal, round, and reactive to light. Cardiovascular Rate and Rhythm: Normal rate and regular rhythm. Heart sounds: Normal heart sounds. No murmur heard. No friction rub. No gallop. Pulmonary Effort: Pulmonary effort is normal. No respiratory distress. Breath sounds: Normal breath sounds. No wheezing or rales. Musculoskeletal General: Normal range of motion. Cervical back: Normal range of motion. Skin General: Skin is warm and dry. Neurological Mental Status: She is alert and oriented to person, place, and time. Psychiatric Behavior: Behavior normal. ASSESSMENT / PLAN #1 Change In Bowel Habit #2 Polyp Colon Personal History #3 Screening Cancer Colon She reports a change in bowel habits since September. Initially started as diarrhea and loose stools. She was scheduled for colonoscopy a couple of weeks ago. Did the full prep and was having clear stools but developed more formed stools throughout the evening so colonoscopy was ultimately canceled.Reports she has been continuing with a clear liquid diet since then. Continues to have very loose runny stools. Denies any abdominal pain, fevers or signs or symptoms of infection. No blood in the stool. She does have a history of numerous polyps being removed with her last colonoscopy and is long overdue for colon cancer screening. She is primarily concerned about a bowel obstruction. Recommended we get an abdominal x-ray today to assess for stool burden. If she does have significant stool burden it may benefit her to start MiraLax now. She is scheduled for colonoscopy on Thursday in [place] but this may be logistically difficult for her to get to. I put in an order for a colonoscopy herein case she would like to pursue it more locally. - Colonoscopy; Future; Expected date: 10/27/2023 - DX Abdomen 1 View; Future; Expected date: 10/27/2023 #4 Numbness Hand She reports slow progressive numbness developing in her left tips of her fingers primarily to a lesser degree the right. Initially was positional but has become more constant. Reports some minor weakness without dropping things. Has not tried any treatments. Recommended we get an EMG for further evaluation. - EMG; Future; Expected date: 10/27/2023 #5 Atrial Fibrillation Paroxysmal (HCC) Paroxysmal atrial fibrillation diagnosed in 2012 after hospitalization. [place] to be secondary to sleep apnea and at that time she was using her CPAP more regularly. Since then she has stopped using her CPAP. She reports that she has short episodes of feeling like her heart is fluttering but otherwise no tachycardia. Heart rate is in good range today and managed on metoprolol. At the time of initial evaluation for her AFib they did not recommend anticoagulation as she was wearing her CPAP but at this point she has not. We reviewed that are chads 2 Vasc score today is 3 and that she likely wouldbenefit from anticoagulation especially if she is having symptomatic episodes of atrial fibrillation. She is very reluctant to consider anticoagulation and would like to speak with the office admin first. I put in a cardiology referral for her to meet with them. 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 - [facility] office visit (clinic); Future; Expected date: 11/27/2023 #6 Regurgitation Mitral She has a history of mitral regurgitation. Last echocardiogram was done in 2017. Reports she has had a murmur for most of her life. Recommended we get an updated echocardiogram to evaluate for progression of regurgitation. - Echo Transthoracic (TTE); Future; Expected date: 10/27/2023 - Cardiovascular Disease - General cardiology consult (clinic); Future; Expected date: 10/27/2023 #7 Hypertension Essential Primary Blood pressure is in good range today. Continue with current dose of metoprolol. #8 Apnea Sleep Obstructive Reports she would difficulty tolerating several different masks of her CPAP. She does reports she continues to be symptomatic with this. Frequently wakes up gasping. Reports daytime fatigue. She may be willing to retry the CPAP in the future and we will discuss this further future appointments. #9 Chronic Fatigue Syndrome #10 Insomnia #11 Restless Leg Syndrome Reports ongoing chronic fatigue, insomnia restless leg symptoms. Not using her CPAP which I think is a significant trigger. Again we are going to work on potentially getting her back on her CPAP at her next visit. Could consider starting something like gabapentin or Requip in the evening if she hasnot already tried these. She also history of fibromyalgia. Could consider something like Cymbalta especially with her concurrent depression as well. #12 Depression Major Recurrent (HCC) Maintained on Wellbutrin. #13 PreDiabetes Last blood sugar done in July was in normal range. We may want to consider getting an A1c with next set of labs. - SARS-COV-2 (COVID-19) - MODERNA (12 years and older) [id number] Recommended Caron follow up in 1 month. Follow up sooner for any new or worsening symptoms. Caron verbalized understanding of the plan of care and was in agreement. All questions were answered today. Total time spent on visit: 62 minutes D SALES MANAGER documented in this encounter Plan of Treatment Upcoming Encounters Date Type Department Care Team (Latest Contact Info) Description 11/19/2023 11:30 AM FIELD SALES MANAGER Diagnostic Department of Neurology in [address] [phone] Alex Poole M.D. [address] [place] [phone] Discharge Disposition: Home or Self Care 12/07/2023 4:20 PM FIELD SALES MANAGER Office Visit Department of Internal Medicine in [address] [phone] Gin Salgado APRN, C.N.P., D.N.P. [address] [place] [phone] Discharge Disposition: Home or Self Care 12/08/2023 2:30 PM FIELD SALES MANAGER Diagnostic Department of Otorhinolaryngology in [place], [place] [address] [place] [phone] Filiberto Rojas M.D. [address] [place] [phone] Sandra Cloud Au.D. [address] [place] [phone] 12/08/2023 3:15 PM FIELD SALES MANAGER Office Visit Department of Otorhinolaryngology in [place], [place] [address] [place] [phone] Filiberto Rojas M.D. [address] [place] [phone] Scheduled Orders Name Type Priority Associated Diagnoses Order Schedule Colonoscopy GI Routine Screening Cancer Colon Polyp Colon Personal History Expected: 10/27/2023 (Approximate), Expires: 01/25/2025 EMG Neurology Routine Numbness Hand Expected: 10/27/2023 (Approximate), Expires: 01/25/2025 Echo Transthoracic (TTE) Echocardiography Routine Regurgitation Mitral Expected: 10/27/2023 (Approximate), Expires: 01/25/2025 Scheduled Referrals Name Type Priority Associated Diagnoses Orde r Schedule Cardiovascular Disease - General cardiology consult (clinic) Outpatient Referral Routine Atrial Fibrillation Paroxysmal (HCC) Regurgitation Mitral Expected: 10/27/2023 (Approximate), Expires: 01/25/2025 [facility] office visit (clinic) Outpatient Referral Routine Atrial Fibrillation Paroxysmal (HCC) Expected: 11/27/2023 (Approximate), Expires: 01/25/2025 documented as of this encounter Results * DX Abdomen 1 View (10/27/2023 3:26 PM FIELD SALES MANAGER) Anatomical Region Laterality Modality Abdomen, Abdominal RST LOS, Abdominal ARZ LOS, Abdominal FLA LOS N/A Digital Radiography Impressions 10/27/2023 3:37 PM FIELD SALES MANAGER Nonobstructive bowel gas pattern. Mild colonic stool burden. Surgical clips right upper quadrant. Slight lumbar curvature with degenerative changes of the spine. The visualized lungs are clear. Narrative 10/27/2023 3:37 PM FIELD SALES MANAGER EXAM: DX ABDOMEN 1 VIEW Procedure Note Ignacio Smith M.D. - 10/27/2023 EXAM: DX ABDOMEN 1 VIEW IMPRESSION: Nonobstructive bowel gas pattern. Mild colonic stool burden. Surgicalclips right upper quadrant. Slight lumbar curvature with degenerativechanges of the spine. The visualized lungs are clear. Gin Salgado APRN C.N.P., Carlos.N.P. [facility]G DIAGNOSTIC IMAGING PROCEDURES documented in this encounter Visit Diagnoses Diagnosis Change In Bowel Habit- Primary Polyp Colon Personal History Screening Cancer Colon Numbness Hand Atrial Fibrillation Paroxysmal (HCC) Regurgitation Mitral Hypertension Essential Primary Apnea Sleep Obstructive Chronic Fatigue Syndrome Insomnia Restless Leg Syndrome Depression Major Recurrent (HCC) PreDiabetes Change In Bowel Habit documented in this encounter Additional Health Concerns Assessment Noted Time PHQ-9 Depression Total Score: 2 10/27/19 24 2:15 PM FIELD SALES MANAGER documented as of this encounter Care Teams Gang Bore Operator Relationship Specialty Start Date End Date Gin Salgado APRN, C.N.P., D.N.P. [address] [place] [phone] PCP - General Internal Medicine 10/26/23 documented as of this encounter
--- OUTSIDE RECORDS SUMMARY | 2023-11-02 12:41 | XMS_ITS | Encounter Summary ---
Author Name Unknown Organization [facility] Address [address] [place] [address] Care Team Providers Care Thermal Technician Name Role Phone Unavailable Primary Care Provider Unavailabl e Reason for Visit * Physical Therapy (Routine) - Closed Specialty Diagnoses / Procedures Referred By Kimbelry chiang Referred To Contact Diagnoses Aftercare Total Knee Arthroplasty Procedures PT Ongoing treatment Narciso Davis M.D. [address] [place] [address] [facility] Region Referral ID Status Reason Start Date Expiration Date Visits Re quested Visits Authorized [id number] Closed 08/31/2023 10/18/2023 99 99 Encounter Details Date Type Department Care Team (Latest Contact Info) Description 09/07/2023 3:00 PM BIOCHEMICAL DEVELOPMENT ENGINEER Clinical Support Department of Physical Medicine and Rehabilitation in [address] [phone] Narciso Davis M.D. [address] [place] [address] Marily Grey PSaulT. [address] [place] [phone] Aftercare Total Knee Arthroplasty Social History Tobacco [...] your living situation today? I have a [facility] place to live 06/29/2023 Sex and Gender Information Value Date Recorded Sex Assigned at Female 06/29/2023 9:11 PM CDT Gender Identity Female 06/29/2023 9:11 PM CDT Sexual Orientation Straight 06/29/2023 9: 11 PM CDT documented as of this encounter Progress Notes * Marily Grey, P.T. - 09/07/2023 3:00 PM CST Physical Therapy Outpatient Treatment Note SUBJECTIVE Patient's Name: Caron Mittal Referring Provider: Narciso Davis M.D. Visit Diagnosis: 1. Aftercare Total Knee Arthroplasty Payor: [facility] [place] [facility] / Plan: [facility] SECURE BLUE DUAL HMO / Product Type: HMO / PT Next Certification Date: 11/23/23 [facility] Visit Count: 3 POC: 08/31/23-11/23/23 Clinical Impression: Patient presents to physical therapy with signs and symptoms consistent with s/p right TKA. Impairments: decreased quad strength, edema, decreased knee flexion/extension ROM, impaired gait Functional deficits: standing, walking, stairs, lifting leg limiting community ambulation, household activities, getting in/out of bed and car, dressing and bathing Patient comments: Patient reports minimal knee pain today. She did not take any Oxycodone today andreports pain 10/28. She has been compliant with exercises. OBJECTIVE Pain Assessment Pain Assessment: 0-10 Numeric Pain Intensity Scale Pain Score: 1 Gait: Demonstrates step through heel-toe gait with front wheeled walker, decreased stance time and weight shift to right. Strength: Demonstrates good quad activation with sufficient strength to perform SLR Knee ROM: 0-110 degrees TREATMENT Treatment today consisted of: Therapeutic Exercise: Therapeutic Exercise: Performed with the intent to improve strength and endurance, range of motion,flexibility, joint mobility, joint stability, and/or reduce edema/lymphedema. Therapist is present,providing one-on-one verbal and tactile cues for correct completion of exercises, facilitation of appropriate muscle activation/ recruitment and patient safety. NuStep level 3 x 5 minutes for knee ROM Supine SLR x 10 reps Seated end-range knee flexion stretching Supine knee extension with heel prop Blue TB resisted TKE 2 x 15 reps- added to HEP Manual therapy: Manual Therapy: Performed with the intent to improve, joint mobility, soft tissue mobility, pain, neural mobility, and/or edema/lymphedema. Therapist is present, providing one-on-one verbal and tactile cues for correct completion of exercises, application of skilled hands-on techniques and patient safety. Grade III-IV AP tibia on femur joint mobilizations into flexion in sitting Gait training: Single point cane on level surfaces- cues for step through gait, and correct use and sequencing with the cane Home Exercise Program/Education: Seated knee flexion stretch 10 sec x 10 reps, 3x/day Seated LAQ x 10-15 reps, 2x/day Seated or supine knee extension stretch 3x/day Supine quad set 5 sec x 10-15 reps, 3x/day Supine SAQ x 10-15 reps, 2x/day Supine SLR x 10-15 reps, 2x/day Blue TB resisted TKE x 15-20 reps, 1x/day Patient reports good HEP compliance. Assessment Clinical Impression: Knee ROM improved to 0-110 degrees. Quad strength and ambulation improving. Advised patient to progress to cane, but to still use walker for longer distances or icy conditions. Patient demonstrates good understanding of HEP. Patient would benefit from continued skilled therapy to address decreased quad strength, edema, decreased knee flexion/extension ROM, impaired gait. Functional Goals and Timeframes: PT Goal #1: Patient will be able to ambulate community and household distances without gait aide PT Goal #1 Date: 11/23/23 PT Goal #1 Status: Progressing PT Goal #2: Patient will be able to get in/out of bed and the car without difficulty PT Goal #2 Date: 11/23/23 PT Goal #2 Status: Progressing PT Goal #3: Patient will demonstrate at least 0-115 degrees of knee ROM PT Goal #3 Date: 11/23/23 PT Goal #3 Status: Progressing PT Goal #4: Patient will be independent with HEP PT Goal #4 Date: 11/23/23 PT Goal #4 Status: Progressing Plan Plan: Continue with current plan Plan for next session: NuStep, stair knee flexion stretch or supine towel stretch, sit to stand or squat, mobilizations and stretching Time Spent with Patient Therapeutic Interventions Gait Training (min): 4 min Manual Therapy (min): 8 min Therapeutic Exercise (min): 16 min Time Tracking Total Timed Units (min): 28 min Total Treatment Time (min): 28 min HEMICAL DEVELOPMENT ENGINEER documented in this encounter Plan of Treatment Upcoming Encounters Date Type Department Care Team (Latest Contact Info) Description 11/19/2023 11:30 AM BIOCHEMICAL DEVELOPMENT ENGINEER Diagnostic Department of Neurology in [address] [phone] Alex Poole M.D. [address] [place] [phone] Discharge Disposition: Home or Self Care 12/07/2023 4:20 PM BIOCHEMICAL DEVELOPMENT ENGINEER Office Visit Department of Internal Medicine in [address] [phone] Gin Salgado APRN, C.N.P., D.N.P. [address] [place] [phone] Discharge Disposition: Home or Self Care 12/08/2023 2:30 PM BIOCHEMICAL DEVELOPMENT ENGINEER Diagnostic Department of Otorhinolaryngology in [place], [place] [address] [place] [phone] Fiilberto Rojas M.D. [address] [place] [phone] Sandra Cloud Au.D. [address] [place] [phone] 12/08/2023 3:15 PM BIOCHEMICAL DEVELOPMENT ENGINEER Office Visit Department of Otorhinolaryngology in [place], [place] [address] [place] [phone] Filiberto Rojas M.D. [address] [place] [phone] documented as of this encounter Visit Diagnoses Diagnosis Aftercare Total Knee Arthroplasty documented in this encounter
--- OUTSIDE RECORDS SUMMARY | 2023-11-02 12:41 | XMS_ITS | Encounter Summary ---
Author Name Unknown Organization [facility] Address [address] [place] [address] Care Team Providers Care Second Miller Name Role Phone Gin Salgado APRN, C.N.P., D.N.P. Primary Ca re Provider Reason for Visit * Reason Onset Date Comments Colonoscopy 10/27/2023 Encounter Details Date Type Department Care Team (Latest Contact Info) Description 10/27/2023 Clinical Communication Department of Gastroenterology in [place], [place] [address] [place] [phone] Gin Salgado APRN, C.N.P., D.N.P. [address] [place] [phone] Colonoscopy Social History Tobacco Use Types Packs/Day Years [...] your living situation today? I have a [facility] place to live 06/29/2023 Sex and Gender Information Value Date Recorded Sex Assigned at Female 06/29/2023 9:11 PM CDT Gender Identity Female 06/29/2023 9:11 PM CDT Sexual Orientation Straight 06/29/2023 9: 11 PM CDT documented as of this encounter Plan of Treatment Upcoming Encounters Date Type Department Care Team (Latest Contact Info) Description 11/19/2023 11:30 AM REGISTERED NURSE HH CASE MANAGER Diagnostic Department of Neurology in [place], [place] [address] [place] [phone] Alex Poole M.D. [address] [place] [phone] Discharge Disposition: Home or Self Care 12/07/2023 4:20 PM REGISTERED NURSE HH CASE MANAGER Office Visit Department of Internal Medicine in [place], [place] [address] [place] [phone] Gin Salgado APRN, C.N.P., D.N.P. [address] [place] [phone] Discharge Disposition: Home or Self Care 12/08/2023 2:30 PM REGISTERED NURSE HH CASE MANAGER Diagnostic Department of Otorhinolaryngology in [place], [place] [address] [place] [phone] Filiberto Rojas M.D. [address] [place] [phone] Sandra Cluod Au.D. [address] [place] [phone] 12/08/2023 3:15 PM REGISTERED NURSE HH CASE MANAGER Office Visit Department of Otorhinolaryngology in [place], [place] [address] [place] [phone] Filiberto Rojas M.D. [address] [place] [phone] documented as of this encounter Visit Diagnoses Not on filedocumented in this encounter Additional Health Concerns Assessment Noted Time PHQ-9 Depression Total Score: 2 10/27/19 2:15 PM REGISTERED NURSE HH CASE MANAGER documented as of this encounter Care Teams Second Miller Relationship Specialty Start Date End Date Gin Salgado APRN, C.N.P., D.N.P. [address] [place] [phone] PCP - General Internal Medicine 10/26/23 documented as of this encounter
--- OUTSIDE RECORDS SUMMARY | 2023-11-02 12:41 | XMS_ITS | Encounter Summary ---
Author Name Unknown Organization [facility] Address [address] [place] [address] Care Team Providers Care Auto Fleet Manager Name Role Phone Unavailable Primary Care Provider Unavailabl e Reason for Referral * Outpatient (Routine) - Pending Review Specialty Diagnoses / Procedures Referred By Kimberly chiang Referred To Contact Otorhinolaryngology Filiberto Rojas M.D. [address] [place] [phone] [facility] Referral ID Status Reason Start Date Expiration Date V isits Requested Visits Authorized [id number] Pending Review 08/25/2023 08/24/2026 1 1 Scheduling Instructions After audio ENT ANALYST Reason for Visit * Outpatient (Routine) - Closed Specialty Diagnoses / Procedures Referred By Kimberly chiang Referred To Contact Otorhinolaryngology Chantelle Allen M.D. [address] [place] [phone] Filiberto Rojas M.D. [address] [place] [phone] Referral ID Status Reason Start Date Expiration Date Visits Re quested Visits Authorized [id number] Closed 08/03/2023 08/02/2026 1 1 Encounter Details Date Type Department Care Team (Latest Contact Info) Description 08/25/2023 9:30 AM PAYMENT ANALYST Office Visit Department of Otorhinolaryngology in [place], [place] [address] [place] [phone] Filiberto Rojas M.D. [address] [place] [phone] Loss Hearing Sensorineural Asymmetrical (Primary Dx) Social History Tobacco Use Types Packs/Day Years [...] your living situation today? I have a [facility] place to live 06/29/2023 Sex and Gender Information Value Date Recorded Sex Assigned at Female 06/29/2023 9:11 PM CDT Gender Identity Female 06/29/2023 9:11 PM CDT Sexual Orientation Straight 06/29/2023 9: 11 PM CDT documented as of this encounter Consult Notes * Filiberto Rojas M.D. - 08/25/2023 9:30 AM CST Otology/Neurotology Consult Visit CHIEF COMPLAINT/PURPOSE OF VISIT: Follow-up after intact canal wall tympanomastoidectomy without ossicular chain reconstruction HISTORY OF PRESENT ILLNESS: Ms. Caron Mittal is a 73 y.o. female who presents after undergoing left-sided intact canal wall tympanomastoidectomy on 08/03/2023 for cholesteatoma. Postoperatively she has done well without specific concerns. ROS: Pertinent items are noted in HPI; all other review of systems were negative. CURRENT MEDICATIONS: Current Outpatient Medications: acetaminophen (TYLENOL) 325 mg tablet, Take 325 mg by mouth every 4 (four) hours as needed for pain., Disp: , Rfl: amoxicillin-pot clavulanate (AUGMENTIN) 875-125 mg per tablet, Take 1 tablet by mouth 2 (two) timesa day., Disp: 14 tablet, Rfl: 0 aspirin 81 mg chewable tablet, Chew 81 mg., Disp: , Rfl: buPROPion XL (WELLBUTRIN XL) 300 mg 24 hr tablet, Take 300 mg by mouth every morning., Disp: , Rfl: celecoxib (CeleBREX) 200 mg capsule, , Disp: , Rfl: ciprofloxacin (CILOXAN) 0.3 % ophthalmic solution, Administer 4 drops into the left ear 2 (two) times a day for 7 days. Please start these ear drops one week before your follow-up appointment with Dr. Rojas., Disp: 10 mL, Rfl: 0 ibuprofen (ADVIL,MOTRIN) 200 mg tablet, Take 3 tablets (600 mg total) by mouth every 6 (six) hours as needed for pain., Disp: , Rfl: metoprolol succinate (TOPROL-XL) 50 mg 24 hr tablet, Take 50 mg by mouth daily., Disp: , Rfl: oxyCODONE (ROXICODONE) 5 mg immediate release tablet, Take 1 tablet (5 mg total) by mouth every 4 (four) hours as needed for severe pain or score 7-10 of 10 Indication: Acute Pain., Disp: 10 tablet, Rfl: 0 ALLERGIES: Allergies Allergen Reactions Ciprofloxacin Other (see comments) Fluoxetine Rash watery eyes Duloxetine Rash Watery eyes Sertraline Itching PAST MEDICAL HISTORY: Past Medical History: Diagnosis Date Apnea Sleep Obstructive Depressive Disorder Fibromyalgia Hyperlipidemia Obesity Body Mass Index 30-39.9 Adult Sleep Apnea SURGICAL HISTORY: Past Surgical History: Procedure Laterality Date GALLBLADDER SURGERY OOPHORECTOMY, PARTIAL OR TOTAL, UNILATERAL OR BILATERAL;.. TYMPANOMASTOIDECTOMY Left 08/03/2023 Procedure: TYMPANOMASTOIDECTOMY.; Surgeon: Filiberto Rojas M.D.; Location: [facility] SOCIAL HISTORY: Social History Socioeconomic History Marital status: Single Spouse name: Not on file Number of children: Not on file Years of education: Not on file Highest education level: Not on file Occupational History Not on file Tobacco Use Smoking status: Never Smokeless tobacco: Never Substance and Sexual Activity Alcohol use: Yes Comment: Not every week, occassionally a glass of wine, or beer Drug use: Never Sexual activity: Not Currently Partners: Male control/protection: None Other Topics Concern Not on file Social History Narrative Not on file Social Determinants of Health Financial Resource Strain: Low Risk (06/29/2023) Overall Financial Resource Strain (CARDIA) Difficulty of Paying Living Expenses: Not hard at all Food Insecurity: No Food Insecurity (06/29/2023) Hunger Vital Sign Worried About Running Out of Food in the Last Year: Never true Ran Out of Food in the Last Year: Never true Transportation Needs: No Transportation Needs (06/29/2023) PRAPARE - Transportation Lack of Transportation (Medical): No Lack of Transportation (Non-Medical): No Physical Activity: Inactive (06/29/2023) Exercise Vital Sign Days of Exercise per Week: 0 days Minutes of Exercise per Session: 0 min Intimate Partner Violence: Not on file Housing Stability: Low Risk (06/29/2023) Housing Stability Housing: Living Situation: I have a steady place to live FAMILY HISTORY: Family History Problem Relation Age of Onset Breast cancer Mother Breast cancer Mother's Sister PHYSICAL EXAM: General: 73 y.o. year old female, in no acute distress. Ambulates to and from the exam chair without difficulty. Head: Normocephalic atraumatic Eyes: Extraocular muscles are intact. No spontaneous or gaze-evoked nystagmus. Ears: The left ear demonstrates a normal shaped pinnae, the external auditory canal has a small amount of packing that was removed, the tympanic membrane appears intact and the middle ear demonstrates expected postoperative effusion. Cranial nerve examination: House-Brackmann grade 1 of 6 bilaterally Assessment/Plan: 1. Status post left-sided intact canal wall tympanomastoidectomy without ossicular chain reconstruction Ms. Mittal is doing well following surgery. The surgical site is healing well. We discussed postoperative care. Ms. Mittal willl contact us if any signs or symptoms of infection develop and she will will plan to see him back at the 3- month ramin. Based upon operative findings, plan for radiologic second-look using MRI DWI in approximately 18 months to 2 years from date of surgery. I have asked her to have a low threshold to contact us should any questions or concerns arise. I am grateful to have the opportunity to contribute to Ms. Mittal's care. PATIENT EDUCATION Ready to learn, no apparent learning barriers were identified; learning preferences include listening. Explained diagnosis and treatment plan; patient expressed understanding of the content. ENT ANALYST documented in this encounter Plan of Treatment Upcoming Encounters Date Type Department Care Team (Latest Contact Info) Description 11/19/2023 11:30 AM PAYMENT ANALYST Diagnostic Department of Neurology in [address] [phone] Alex Poole M.D. [address] [place] [phone] Discharge Disposition: Home or Self Care 12/07/2023 4:20 PM PAYMENT ANALYST Office Visit Department of Internal Medicine in [address] [phone] Gin Salgado APRN, C.N.P., D.N.P. [address] [place] [phone] Discharge Disposition: Home or Self Care 12/08/2023 2:30 PM PAYMENT ANALYST Diagnostic Department of Otorhinolaryngology in [place], [place] [address] [place] [phone] Filiberto Rojas M.D. [address] [place] [phone] Sandra Cloud Au.D. [address] [place] [phone] 12/08/2023 3:15 PM PAYMENT ANALYST Office Visit Department of Otorhinolaryngology in [place], [place] [address] [place] [phone] Filiberto Rojas M.D. [address] [place] [phone] Scheduled Orders Name Type Priority Associated Diagnoses Orde r Schedule Audiogram Audiology Routine Loss Hearing Sensorineural Asymmetrical Expected: 11/03/2023 (Approximate), Expires: 11/25/2024 Scheduled Referrals Name Type Priority Associated Diagnoses Order Schedule Otorhinolaryngology office visit (clinic) Outpatient Referral Routine Expected: 11/03/2023 (Approximate), Expires: 11/25/2024 documented as of this encounter Visit Diagnoses Diagnosis Loss Hearing Sensorineural Asymmetrical- Primary documented in this encounter
--- OUTSIDE RECORDS SUMMARY | 2023-11-02 12:41 | XMS_ITS | Encounter Summary ---
Author Name Unknown Organization [facility] Address [address] [place] [address] Care Team Providers Care Die Setter Name Role Phone Unavailable Primary Care Provider Unavailabl e Reason for Visit * Reason Onset Date Comments Urinary Problem 10/02/2023 Encounter Details Date Type Department Care Team (Late st Contact Info) Description 10/02/2023 Nurse Triage Department of Internal Medicine in [place], [place] [address] [place] [phone] Priyanka Hsu, RSaulN. Urinary Problem Social History Tobacco Use Types Packs/Day Years [...] your living situation today? I have a [facility] place to live 06/29/2023 Sex and Gender Information Value Date Recorded Sex Assigned at Female 06/29/2023 9:11 PM CDT Gender Identity Female 06/29/2023 9:11 PM CDT Sexual Orientation Straight 06/29/2023 9: 11 PM CDT documented as of this encounter Miscellaneous Notes * Telephone Encounter - Priyanka Hsu R.N. - 10/02/2023 11:17 AM BROADCAST MAINTENANCE ENGINEER Chief Complaint / Reason for Call Patient is a 73 y.o. female calling regarding Urinary Problem. Assessment Concern: bladder infection Cloudy urine with an odor - denies frequency or burning - denies fevers - has history of back pain and has spinal stenosis Present for: 1 week Home cares tried: cranberry juice Calling to request: appointment The recommended disposition is See a health care provider within 24 hours. Patient was provided scheduling phone number, plan of care, and transferred to scheduling per current regional process. If clinic appointment is not available in the next 24 hours, caller is advised to be seen in emergency department or same day clinic. Endpoint: 24 hours. Reason for Visit: Urinarytract infection symptoms . Video Visit: not recommended Reason for Disposition Side (flank) or lower back pain present Protocols used: Urinary Obxqsoeo-DIEFA-WX Care Advice Patient/Caregiver understands and will follow care advice?: Yes, able to teach back PAIN MEDICINES: * For pain relief, you can take either acetaminophen, * They are zmbp-jlj-rwsggrr (OTC) pain drugs. You can buy them at the drugstore. * ACETAMINOPHEN - REGULAR STRENGTH TYLENOL: Take 650 mg (two 325 mg pills) by mouth every 4 to 6 hours as needed. Each Regular Strength Tylenol pill has 325 mg of acetaminophen. The most you should take is 10 pills a day (3,250 mg total). Note: In [place], the maximum is 12 pills a day (3,900 mg total). * ACETAMINOPHEN - EXTRA STRENGTH TYLENOL: Take 1,000 mg (two 500 mg pills) every 6 to 8 hours as needed. Each Extra Strength Tylenol pill has 500 mg of acetaminophen. The most you should take is 6 pills a day (3,000 mg total). Note: In [place], the maximum is 8 pills a day (4,000 mg total). * Use the lowest amount of medicine that makes your pain better. PAIN MEDICINES - EXTRA NOTES AND WARNINGS: * Follow these dosing instructions unless your doctor (or PAINTING MANAGER/PA) has told you to take a different dose. * Acetaminophen is thought to be safer than ibuprofen or naproxen in people over 65 years old. Acetaminophen is in many OTC and prescription medicines. It might be in more than one medicine that you are taking. You need to be careful and not take an overdose. An acetaminophen overdose can hurt the liver. * [employer], the company that makes Tylenol, has different maximum dosage instructions for Tylenol in [place] than in the [place]. [employer], the company that makes Aleve, has different dosage maximum instructions for Aleve in [place] and the [place]. * CAUTION: Do not take acetaminophen if you have liver disease. * CAUTION: Do not take ibuprofen or naproxen if you have stomach problems, kidney disease, are , or have been told by your doctor to avoid this type of anti-inflammatory drug. Do not take ibuprofen or naproxen for more than 7 days without consulting your doctor. If you take blood thinners, ibuprofen and naproxen can increase the risk of bleeding. * Before taking any medicine, read all the instructions on the package. DRINK PLENTY OF LIQUIDS: * Drink plenty of liquids. It is important to stay well-hydrated. * A healthy adult should drink 8 cups (240 ml) or more of liquid each day. * How can you tell if you are drinking enough liquids? The goal is to keep the urine clear or light-yellow in color. If your urine is bright yellow or dark yellow, you are probably not drinking enough liquids. * Caution: Some medical problems require fluid restriction. CALL BACK IF: * Fever occurs * Unable to urinate and bladder feels full * You become worse CARE ADVICE given per Urinary Symptoms (Adult) guideline. DCAST MAINTENANCE ENGINEER documented in this encounter Plan of Treatment Upcoming Encounters Date Type Department Care Team (Latest Contact Info) Description 11/19/2023 11:30 AM BROADCAST MAINTENANCE ENGINEER Diagnostic Department of Neurology in [address] [phone] Alex Poole M.D. [address] [place] [phone] Discharge Disposition: Home or Self Care 12/07/2023 4:20 PM BROADCAST MAINTENANCE ENGINEER Office Visit Department of Internal Medicine in [address] [phone] Gin Salgado APRN, C.N.P., D.N.P. [address] [place] [phone] Discharge Disposition: Home or Self Care 12/08/2023 2:30 PM BROADCAST MAINTENANCE ENGINEER Diagnostic Department of Otorhinolaryngology in [place], [place] [address] [place] [phone] Filiberto Rojas M.D. [address] [place] [phone] Sandra Cloud Au.D. [address] [place] [phone] 12/08/2023 3:15 PM BROADCAST MAINTENANCE ENGINEER Office Visit Department of Otorhinolaryngology in [place], [place] [address] [place] [phone] Filiberto Rojas M.D. [address] [place] [phone] documented as of this encounter Visit Diagnoses Not on filedocumented in this encounter
--- OUTSIDE RECORDS SUMMARY | 2023-11-02 12:41 | XMS_ITS | Encounter Summary ---
Author Name Unknown Organization [facility] Address [address] [place] [address] Care Team Providers Care Slot Key Person Name Role Phone Unavailable Primary Care Provider Unavailabl e Reason for Referral * Physical Therapy (Routine) - Closed Specialty Diagnoses / Procedures Referred By Kimberly chiang Referred To Contact Diagnoses Aftercare Total Knee Arthroplasty Procedures PT Ongoing treatment Narciso Davis M.D. [address] [place] [address] [facility] Referral ID Status Reason Start Date Expiration Date Visits Re quested Visits Authorized [id number] Closed 08/31/2023 10/18/2023 99 99 UNT CONTACT ASSOCIATE Reason for Visit * Appointment Request (Routine) - Closed Specialty Diagnoses / Procedures Referred By Kimberly chiang Referred To Contact Physical Therapy Diagnoses Primary Osteoarthritis Knee Right Arthroplasty Total Knee Replacement Status Post Right Narciso Davis M.D. [address] [place] [address] Referral ID Status Reason Start Date Expiration Date Visits Re quested Visits Authorized [id number] Closed 08/28/2023 08/27/2024 1 1 Encounter Details Date Type Department Care Team (Latest Contact Info) Description 08/31/2023 2:30 PM ACCOUNT CONTACT ASSOCIATE Comprehensive Visit Department of Physical Medicine and Rehabilitation in [address] [place] [phone] Narciso Davis M.D. [address] [place] [address] Marily Grey P.T. [address] [place] [phone] Aftercare Total Knee Arthroplasty (Primary Dx) Social History Tobacco Use Types [...] your living situation today? I have a [facility] place to live 06/29/2023 Sex and Gender Information Value Date Recorded Sex Assigned at Female 06/29/2023 9:11 PM CDT Gender Identity Female 06/29/2023 9:11 PM CDT Sexual Orientation Straight 06/29/2023 9: 11 PM CDT documented as of this encounter Consult Notes * Marily Grey PJoesph. - 08/31/2023 2:30 PM CST Consults Physical Therapy Outpatient Evaluation/Treatment By co-signing this note, the provider certifies the therapy being provided to this patient is reasonable and necessary for the diagnosis or treatment of this patient. SUBJECTIVE Patient's Name: Caron Mittal Referring Provider: Narciso Davis M.D. Visit Diagnosis: 1. Aftercare Total Knee Arthroplasty Reason for Referral: S/p right TKA Onset Date: 08/18/23 Payor: [employer] / Plan: Offsite Care Resources HMO / Product Type: HMO / Vend Visit Count: 1 PERTINENT MEDICAL / SURGICAL HISTORY: Patient Active Problem List Diagnosis Cholesteatoma Attic Bilateral Apnea Sleep Obstructive Atrial Fibrillation Paroxysmal (HCC) Chronic Fatigue Syndrome Depression Major Recurrent (HCC) Fibromyalgia Hyperlipidemia Mixed Hypertension Essential Primary Past Surgical History: Procedure Laterality Date GALLBLADDER SURGERY OOPHORECTOMY, PARTIAL OR TOTAL, UNILATERAL OR BILATERAL;.. TYMPANOMASTOIDECTOMY Left 08/03/2023 Procedure: TYMPANOMASTOIDECTOMY.; Surgeon: Filiberto Rojas M.D.; Location: [facility] Patient presents to outpatient physical therapy for evaluation of symptoms including: S/p right TKA Overall patient reports status is improving . History of Present Illness:Patient underwent right TKA at [facility] with [facility] before discharge home. Pain is well controlled with medication. Her back pain and sciatica is more problematic than her knee following surgery. Aggravating Factors: standing, walking, stairs, lifting leg Relieving Factors: pain medication, ice Previous Treatments: Surgery Prior Function/Occupational Profile: retired Current limitations: community ambulation, dressing, bathing, driving, household activities, getting in/out of car and bed Family/Caregiver Present: No Patient goals:decrease pain, be able to walk Fall Risk (65 and older) Fall in the last 12 months: No Are you fearful of falling?: No OBJECTIVE REVIEW OF SYSTEMS History obtained from chart review and the patient General ROS: negative for - chills, fatigue, fever, hot flashes, malaise, night sweats, sleep disturbance, weight gain, or weight loss PHYSICAL EXAM Pain Assessment Pain Assessment: 0-10 Numeric Pain Intensity Scale Pain Score: 2 Pain Type: Surgical pain Pain Location: Knee Pain Orientation: Right Pain Descriptors: Aching, Shooting, Sharp, Dull Pain Onset: Ongoing Pain Frequency: Constant/continuous Clinical Progression: Gradually improving FOTO will be performed next visit. Observation/Inspection: Patient presents in no acute distress. Range of Motion: Knee flexion 92 degrees actively/100 degrees passively, Knee extension 0 degrees Strength: MMT not performed. Patient demonstrates fair quad activation with active quad set and sufficient strength to perform independent LAQ, SAQ and SLR with mild extensor lag Palpation: not performed Joint Mobility: tibiofemoral hypomobility, patellofemoral hypomobility Ambulation/Balance: Demonstrates step through heel toe gait with front wheeled walker, decreased stance time and weight shift to right, lacks terminal knee extension Special Tests: not performed TREATMENT Treatment today consisted of: Therapeutic Exercise: Therapeutic Exercise: Performed with the intent to improve strength and endurance, range of motion, flexibility, joint mobility, joint stability, and/or reduce edema/lymphedema.Therapist is present, providing one-on-one verbal and tactile cues for correct completion of exercises, facilitation of appropriate muscle activation/ recruitment and patient safety. Seated knee flexion stretch 10 sec x 10 reps, 3x/day Seated LAQ x 10-15 reps, 2x/day Seated or supine knee extension stretch 3x/day Supine quad set 5 sec x 10-15 reps, 3x/day Supine SAQ x 10-15 reps, 2x/day Supine SLR x 10-15 reps, 2x/day Patient is also performing standing hamstring curl and hip abduction at home as instructed by therapist in shelter Patient has compression stockings for edema control. Offered ice pack and Game Ready, however patient declined and will ice at home. Home Exercise Program/Education: as above Assessment Clinical Impression: Patient presents to physical therapy with signs and symptoms consistent with s/p right TKA. Impairments: decreased quad strength, edema, decreased knee flexion/extension ROM, impaired gait Functional deficits: standing, walking, stairs, lifting leg limiting community ambulation, household activities, getting in/out of bed and car, dressing and bathing Rehab Potential: Patient has Good potential to achieve established physical therapy goals within the time frame outlined below, provided active participation in the physical therapy treatment plan and home program. Comorbid Conditions: Arthritis Clinical Presentation: Stable Clinical Decision Making: Low complexity clinical decision making Functional Goals and Timeframes: PT Outpatient Goals PT Goal #1: Patient will be able to ambulate community and household distances without gait aide PT Goal #1 Date: 11/23/23 PT Goal #2: Patient will be able to get in/out of bed and the car without difficulty PT Goal #2 Date: 11/23/23 PT Goal #3: Patient will demonstrate at least 0-115 degrees of knee ROM PT Goal #3 Date: 11/23/23 PT Goal #4: Patient will be independent with HEP PT Goal #4 Date: 11/23/23 Plan Patient was educated regarding evaluative findings, diagnosis, prognosis, potential risks and benefits of rehabilitation interventions. A collaborative effort was used to establish goals and plan of care. The patient was informed of the right to make decisions regarding care, including refusal of examination or treatment or selection of services from another provider if desired. The treatment plan may be progressed or modified based upon the patient's response to treatment. Physical Therapy Attestation Statement: Patient agrees with the plan of care and goals. Treatment Plan: Plan: Plan of care initiated Start of Plan of Care: 08/31/2023 PT Next Certification Date: 11/23/23 Number of Visits:18 visits PT Duration: 84 days PT Frequency: Treatment interventions may include: Treatment/Interventions: Therapeutic exercise, Gait training, Therapeutic modalities as needed, Manual therapy, Self-care/home management, Neuromuscular re-education Plan for next session: NuStep, joint mobilizations and flexion/extension stretching, TKE, stair knee flexion stretch Time Spent with Patient Evaluations PT Eval - Low Complexity: 10 min Therapeutic Interventions Therapeutic Exercise (min): 24 min Time Tracking Total Timed Units (min): 24 min Total Treatment Time (min): 34 min UNT CONTACT ASSOCIATE documented in this encounter Plan of Treatment Upcoming Encounters Date Type Department Care Team (Latest Contact Info) Description 11/19/2023 11:30 AM ACCOUNT CONTACT ASSOCIATE Diagnostic Department of Neurology in [address] [phone] Alex Poole M.D. [address] [place] [phone] Discharge Disposition: Home or Self Care 12/07/2023 4:20 PM ACCOUNT CONTACT ASSOCIATE Office Visit Department of Internal Medicine in [address] [phone] Gin Salgado APRN, C.N.P., D.N.P. [address] [place] [phone] Discharge Disposition: Home or Self Care 12/08/2023 2:30 PM ACCOUNT CONTACT ASSOCIATE Diagnostic Department of Otorhinolaryngology in [place], [place] [address] [place] [phone] Filiberto Rojas M.D. [address] [place] [phone] Sandra Cloud Au.D. [address] [place] [phone] 12/08/2023 3:15 PM ACCOUNT CONTACT ASSOCIATE Office Visit Department of Otorhinolaryngology in [place], [place] [address] [place] [phone] Filiberto Rojas M.D. [address] [place] [phone] documented as of this encounter Visit Diagnoses Diagnosis Aftercare Total Knee Arthroplasty- Primary documented in this encounter
--- OUTSIDE RECORDS SUMMARY | 2023-11-02 12:41 | XMS_ITS | Encounter Summary ---
Author Name Unknown Organization [facility] Address [address] [place] [address] Care Team Providers Care Production Broaching Machine Operator Name Role Phone Unavailable Primary Care Provider Unavailabl e Reason for Visit * Appointment Request (Routine) - Closed Specialty Diagnoses / Procedures Referred By Kimberly t Referred To Contact Express or Urgent Care Referral ID Status Reason Start Date Expiration Date Visits Re quested Visits Authorized [id number] Closed 10/02/2023 10/01/2024 1 1 Encounter Details Date Type Department Care Team (Late st Contact Info) Description 10/03/2023 12:15 PM BOOM STICK WORKER Office Visit Express Care in [place], [place] [address] [place] [phone] Andree Hazel, PSaulASaul-C. [address] [place] [phone] Cystitis Unspecified With Hematuria (Primary Dx) Discharge Disposition: Home or Self Care Social [...] your living situation today? I have a [facility] place to live 06/29/2023 Sex and Gender Information Value Date Recorded Sex Assigned at Female 06/29/2023 9:11 PM CDT Gender Identity Female 06/29/2023 9:11 PM CDT Sexual Orientation Straight 06/29/2023 9: 11 PM CDT documented as of this encounter Patient Instructions * Attachments The following attachments cannot be sent through Care Everywhere. * Urinary Tract Infection and Kidney Infection (Venezuelan) documented in this encounter Progress Notes * Andree Hazel P.A.-C. - 10/03/2023 12:15 PM CST SUBJECTIVE Caron Mittal is a 73 y.o. female who presents to the clinic today with symptoms of cloudy urine, urinary frequency, and urinary urgency for 1 week(s). Symptoms continue despite pushing fluids. Patient denies nausea/vomiting, fever, flank pain or vaginal discharge/bleeding. History of recent UTI:no. No LMP recorded. Patient is postmenopausal. Patient Active Problem List Diagnosis Cholesteatoma Attic Bilateral Apnea Sleep Obstructive Atrial Fibrillation Paroxysmal (HCC) Chronic Fatigue Syndrome Depression Major Recurrent (HCC) Fibromyalgia Hyperlipidemia Mixed Hypertension Essential Primary Current Outpatient Medications Medication Sig Dispense Refill acetaminophen (TYLENOL) 325 mg tablet Take 325 mg by mouth every 4 (four) hours as needed for pain. amoxicillin-pot clavulanate (AUGMENTIN) 875-125 mg per tablet Take 1 tablet by mouth 2 (two) times a day. 14 tablet 0 aspirin 81 mg chewable tablet Chew 81 mg. buPROPion XL (WELLBUTRIN XL) 300 mg 24 hr tablet Take 300 mg by mouth every morning. cefdinir (OMNICEF) 300 mg capsule Take 1 capsule (300 mg total) by mouth 2 (two) times a day for 10days. 20 capsule 0 celecoxib (CeleBREX) 200 mg capsule ibuprofen (ADVIL,MOTRIN) 200 mg tablet Take 3 tablets (600 mg total) by mouth every 6 (six) hours as needed for pain. metoprolol succinate (TOPROL-XL) 50 mg 24 hr tablet Take 50 mg by mouth daily. oxyCODONE (ROXICODONE) 5 mg immediate release tablet Take 1 tablet (5 mg total) by mouth every 4 (four) hours as needed for severe pain or score 7-10 of 10 Indication: Acute Pain. 10 tablet 0 No current facility-administered medications for this visit. Allergies Allergen Reactions Ciprofloxacin Other (see comments) Fluoxetine Rash watery eyes Duloxetine Rash Watery eyes Sertraline Itching ROS: negative other than as above OBJECTIVE There were no vitals taken for this visit. General Appearance: Alert, no distress Heart: Regular rate and rhythm without murmur Lungs: Clear to auscultation with normal respiratory effort Abdomen: Normal bowel sounds. Soft, non-tender. No CVA tenderness. Results from last 7 days Lab Units 10/03/23 1206 URINE SOURCE Urine, Urine, Midstream CLARITY U Turbid* COLOR U Yellow NITRITE U Positive* LEUKOCYTES U2 Moderate* PROTEIN UR mg/dL Negative GLUCOSE U mg/dL Negative KETONES U MG DL2 mg/dL Negative BILIRUBIN U Negative PH URINE 5.5 SPEC GRAV 1.017 UROBILINOGEN U MG/DL mg/dL 0.2 Microbiology Results (last 72 hours) No results found for the last 72 hours. Culture pending: Yes ASSESSMENT / PLAN #1 Cystitis Unspecified With Hematuria - Urinalysis with Microscopic if Indicated - Bacterial Culture, Aerobic + Susceptibility, Urine Other orders - Microscopic Automated - cefdinir (OMNICEF) 300 mg capsule; Take 1 capsule (300 mg total) by mouth 2 (two) times a day for10 days., Starting 10/03/2023, Until 10/13/2023, Normal Side effects of the medication discussed and understood. Discussed need to push fluids. Urine culture is pending and She will be contacted if urine culture is positive or if treatment needs to be changed. She is to recheck if symptoms not resolved in 3 days or sooner if symptoms worsen. STICK WORKER documented in this encounter Plan of Treatment Upcoming Encounters Date Type Department Care Team (Latest Contact Info) Description 11/19/2023 11:30 AM BOOM STICK WORKER Diagnostic Department of Neurology in [address] [phone] Alex Poole M.D. [address] [place] [phone] Discharge Disposition: Home or Self Care 12/07/2023 4:20 PM BOOM STICK WORKER Office Visit Department of Internal Medicine in [address] [phone] Gin Salgado APRN, C.N.P., D.N.P. [address] [place] [phone] Discharge Disposition: Home or Self Care 12/08/2023 2:30 PM BOOM STICK WORKER Diagnostic Department of Otorhinolaryngology in [place], [place] [address] [place] [phone] Filiberto Rojas M.D. [address] [place] [phone] Sandra Cloud Au.D. [address] [place] [phone] 12/08/2023 3:15 PM BOOM STICK WORKER Office Visit Department of Otorhinolaryngology in [place], [place] [address] [place] [phone] Filiberto Rojas M.D. [address] [place] [phone] documented as of this encounter Procedures Procedure Name Priority Date/Time Associated Diagnosis Comments URINALYSIS WITH MICROSCOPIC IF INDICATED, U STAT 10/03/2023 12:06 PM BOOM STICK WORKER Cystitis Unspecified With Hematuria HC URINALYSIS AUTO WO MICRO STAT 10/03/2023 12:06 PM BOOM STICK WORKER BACTERIAL CULTURE, AEROBIC + SUSC, URINE STAT 10/03/2023 12:00 PM BOOM STICK WORKER Cystitis Unspecified With Hematuria documented in this encounter Results * (ABNORMAL) Microscopic Automated (10/03/2023 12:06 PM BOOM STICK WORKER) White Blood Cells >100(A) /hpf 10/03/2023 12:13 PM BOOM STICK WORKER RDWG Comment: ----REFERENCE VALUE---- Males: 0-3 Females: 0-10 Unknown: 0-10 Red Blood Cells Occ-2 0 - 2 /hpf 10/03/2023 12:13 PM BOOM STICK WORKER RDWG Hyaline Casts 4-10 /lpf 10/03/2023 12:13 PM BOOM STICK WORKER RDWG Squamous Cells 21-30 /hpf 10/03/2023 12:13 PM BOOM STICK WORKER RDWG Bacteria Present(A) None Seen 10/03/2023 12:13 PM BOOM STICK WORKER RDWG Urine 10/03/2023 12:0 6 PM BOOM STICK WORKER 10/03/2023 12:06 PM BOOM STICK WORKER Andree Hazel P.A.-C. LAB URINE FARHEEN HUERTATREV[facility] [address] [place] [address], [facility] RDWG [facility] in [place] [address], [place] [phone] * (ABNORMAL) Urinalysis with Microscopic if Indicated (10/03/2023 12:06 PM BOOM STICK WORKER) Source Urine, Urine, Midstream 10/03/2023 12:10 PM BOOM STICK WORKER RDWG Clarity Turbid(A) Clear 10/03/2023 12:10 PM BOOM STICK WORKER RDWG Color Yellow 10/03/2023 12:10 PM BOOM STICK WORKER RDWG Comment: ----REFERENCE VALUE---- Colorless Yellow Yeny Blood Trace(A) Negative 10/03/2023 12:10 PM BOOM STICK WORKER RDWG Nitrite Positive(A) Negative 10/03/2023 12:10 PM BOOM STICK WORKER RDWG Leukocyte Esterase Moderate(A) Negative 10/03/2023 12:10 PM BOOM STICK WORKER RDWG Protein Negative mg/dL 10/03/2023 12:10 PM BOOM STICK WORKER RDWG Comment: ----REFERENCE VALUE---- Negative Trace Glucose Negative Negative mg/dL 10/03/2023 12:10 PM BOOM STICK WORKER RDWG Ketone Negative Negative mg/dL 10/03/2023 12:10 PM BOOM STICK WORKER RDWG Bilirubin Negative Negative 10/03/2023 12:10 PM BOOM STICK WORKER RDWG pH 5.5 5.0 - 8.0 10/03/2023 12:10 PM BOOM STICK WORKER RDWG Specific [place] 1.017 1.001 - 1.035 10/03/2023 12:10 PM BOOM STICK WORKER RDWG Urobilinogen 0.2 0.2 - 1.0 mg/dL 10/03/2023 12:10 PM BOOM STICK WORKER RDWG Urine (Urine, Midstream) 10/03/2023 12:06 PM BOOM STICK WORKER 10/03/2023 12:06 PM BOOM STICK WORKER Andree Hazel P.A.-C. LAB URINE FARHEEN ROSAS [facility] [address] [place] [address], [facility] RDWG [facility] in [place] [address] [place], [place] [phone] * (ABNORMAL) Bacterial Culture, Aerobic + Susceptibility, Urine (10/03/2023 12:00 PM BOOM STICK WORKER) Urine Culture ESCHERICHIA COLI >100,000 cfu/mL (A) 10/05/2023 10:43 AM BOOM STICK WORKER ECLR Urine (Urine, Midstream) 10/03/2023 12:00 PM BOOM STICK WORKER 10/03/2023 9:12 PM BOOM STICK WORKER Comment:Specimen Source Site : Urine Narrative Organism [...] P.A.-C. LAB MICROBIOLO GY - GENERAL ORDERABLES [facility] [address] [place] [address], [facility] ECLR [facility] in [place] [address] [place] [phone] documented in this encounter Visit Diagnoses Diagnosis Cystitis Unspecified With Hematuria- Primary documented in this encounter
--- OUTSIDE RECORDS SUMMARY | 2023-11-02 12:41 | XMS_ITS | Encounter Summary ---
Author Name Unknown Organization [facility] Address [address] [place] [address] Care Team Providers Care Regional Retail Sales Manager Name Role Phone Unavailable Primary Care Provider Unavailabl e Reason for Visit * Physical Therapy (Routine) - Closed Specialty Diagnoses / Procedures Referred By Kimberly chiang Referred To Contact Diagnoses Aftercare Total Knee Arthroplasty Procedures PT Ongoing treatment Narciso [place] M.D. [address] [place] [address] [facility] Region Referral ID Status Reason Start Date Expiration Date Visits Re quested Visits Authorized [id number] Closed 08/31/2023 10/18/2023 99 99 Encounter Details Date Type Department Care Team (Latest Contact Info) Description 09/09/2023 1:00 PM FIBERGLASS BONDING MACHINE TENDER Clinical Support Department of Physical Medicine and Rehabilitation in [place], [place] [address] [place] [phone] Narciso [place] M.D. [address] [place] [address] Aishwarya Fernandez P.T.A. [address] [place] [phone] Aftercare Total Knee Arthroplasty Social History Tobacco [...] your living situation today? I have a [facility] place to live 06/29/2023 Sex and Gender Information Value Date Recorded Sex Assigned at Female 06/29/2023 9:11 PM CDT Gender Identity Female 06/29/2023 9:11 PM CDT Sexual Orientation Straight 06/29/2023 9: 11 PM CDT documented as of this encounter Progress Notes * Aishwarya Fernandez, PSaulT.Aakash. - 09/09/2023 1:00 PM CST Physical Therapy Outpatient Treatment Note SUBJECTIVE Patient's Name: Caron Mittal Referring Provider: Narciso [place] M.D. Visit Diagnosis: 1. Aftercare Total Knee Arthroplasty Payor: [employer] Com / Plan: [employer] SECURE BLUE DUAL HMO / Product Type: HMO / PT Next Certification Date: 11/23/23 [facility] Visit Count: 4 POC: 08/31/23-11/23/23 Clinical Impression: Patient presents to physical therapy with signs and symptoms consistent with s/p right TKA. Impairments: decreased quad strength, edema, decreased knee flexion/extension ROM, impaired gait Functional deficits: standing, walking, stairs, lifting leg limiting community ambulation, household activities, getting in/out of bed and car, dressing and bathing Patient comments: Patient reports minimal knee pain today. Reports overall improvement. She has been compliant with exercises. Has ortho follow up at 4 weeks post op. OBJECTIVE Gait: Demonstrates step through heel-toe gait with front wheeled walker, decreased stance time and weight shift to right. Strength: Demonstrates good quad activation with sufficient strength to perform SLR Knee ROM: 0-116 degrees TREATMENT Treatment today consisted of: Therapeutic Exercise: Therapeutic Exercise: Performed with the intent to improve strength and endurance, range of motion,flexibility, joint mobility, joint stability, and/or reduce edema/lymphedema. Therapist is present,providing one-on-one verbal and tactile cues for correct completion of exercises, facilitation of appropriate muscle activation/ recruitment and patient safety. Sci Fit stepper level 1 x 5 minutes for knee ROM Supine SLR x 10 reps Supine SAQ x 10 reps Seated end-range knee flexion stretching Supine knee extension with heel prop Reviewed Blue TB resisted TKE Sit to stand from 19 x 10 reps without UE push off Home Exercise Program/Education: Seated knee flexion stretch [...] Assessment Clinical Impression: Knee ROM improved to 0-116 degrees. Improvement noted improvement in strength today as well. Patient would benefit from continued skilled therapy [...] 11/23/23 PT Goal #4 Status: Progressing Plan Physical Therapy Attestation Statement: Patient agrees with the plan of care and goals. Plan: Continue with current plan PT Plan Comments: PT POC reviewed and unchanged Plan for next session: NuStep, stair knee flexion stretch or supine towel stretch, squats, mobilizations and stretching Time Spent with Patient Therapeutic Interventions Therapeutic Exercise (min): 23 min Time Tracking Total Timed Units (min): 23 min Total Treatment Time (min): 23 min RGLASS BONDING MACHINE TENDER documented in this encounter Plan of Treatment Upcoming Encounters Date Type Department Care Team (Latest Contact Info) Description 11/19/2023 11:30 AM FIBERGLASS BONDING MACHINE TENDER Diagnostic Department of Neurology in [address] [phone] [place] [phone] Discharge Disposition: Home or Self Care 12/07/2023 4:20 PM FIBERGLASS BONDING MACHINE TENDER Office Visit Department of Internal Medicine in [address] [phone] Gin Salgado APRN, C.N.P., D.N.P. [address] [place] [phone] Discharge Disposition: Home or Self Care 12/08/2023 2:30 PM FIBERGLASS BONDING MACHINE TENDER Diagnostic Department of Otorhinolaryngology in [place], [place] [address] [place] [phone] Filiberto Rojas M.D. [address] [place] [phone] Sandra Cloud Au.D. [address] [place] [phone] 12/08/2023 3:15 PM FIBERGLASS BONDING MACHINE TENDER Office Visit Department of Otorhinolaryngology in [place], [place] [address] [place] [phone] Filiberto Rojas M.D. [address] [place] [phone] documented as of this encounter Visit Diagnoses Diagnosis Aftercare Total Knee Arthroplasty documented in this encounter
--- OUTSIDE RECORDS SUMMARY | 2023-11-02 12:41 | XMS_ITS | Encounter Summary ---
Author Name Unknown Organization [facility] Address [address] [place] [address] Care Team Providers Care Finger Buffs Assembler Name Role Phone Unavailable Primary Care Provider Unavailabl e Reason for Visit * Physical Therapy (Routine) - Closed Specialty Diagnoses / Procedures Referred By Kimberly chiang Referred To Contact Diagnoses Aftercare Total Knee Arthroplasty Procedures PT Ongoing treatment Narciso [place] M.D. [address] [place] [address] [facility] Region Referral ID Status Reason Start Date Expiration Date Visits Re quested Visits Authorized [id number] Closed 08/31/2023 10/18/2023 99 99 Encounter Details Date Type Department Care Team (Latest Contact Info) Description 09/02/2023 2:30 PM BELT BUILDER Clinical Support Department of Physical Medicine and Rehabilitation in [address] [phone] Narciso [place] M.D. [address] [place] [address] Marily Grey PSaulT. [address] [place] [phone] Aftercare Total Knee Arthroplasty Social History Tobacco [...] your living situation today? I have a [facility] place to live 06/29/2023 Sex and Gender Information Value Date Recorded Sex Assigned at Female 06/29/2023 9:11 PM CDT Gender Identity Female 06/29/2023 9:11 PM CDT Sexual Orientation Straight 06/29/2023 9: 11 PM CDT documented as of this encounter Progress Notes * Marily Grey, P.T. - 09/02/2023 2:30 PM CST Physical Therapy Outpatient Treatment Note SUBJECTIVE Patient's Name: Caron Mittal Referring Provider: Narciso [place] M.D. Visit Diagnosis: 1. Aftercare Total Knee Arthroplasty Payor: [facility] [employer] [facility] / Plan: [facility] SECURE BLUE DUAL HMO / Product Type: HMO / PT Next Certification Date: 11/23/23 [facility] Visit Count: 2 POC: 08/31/23-11/23/23 Clinical Impression: Patient presents to physical therapy with signs and symptoms consistent with s/p right TKA. Impairments: decreased quad strength, edema, decreased knee flexion/extension ROM, impaired gait Functional deficits: standing, walking, stairs, lifting leg limiting community ambulation, household activities, getting in/out of bed and car, dressing and bathing Patient comments: Patient reports minimal knee pain today. She had an Ortho follow up in [facility] the doctor was pleased with her progress. She has been compliant with exercises. OBJECTIVE Pain Assessment Pain Assessment: 0-10 Numeric Pain Intensity Scale Pain Score: 2 Gait: Demonstrates step through heel-toe gait with front wheeled walker, decreased stance time and weight shift to right. Strength: Demonstrates good quad activation with sufficient strength to perform SLR Knee ROM: 0-106 degrees TREATMENT Treatment today consisted of: Therapeutic Exercise: Therapeutic Exercise: Performed with the intent to improve strength and endurance, range of motion,flexibility, joint mobility, joint stability, and/or reduce edema/lymphedema. Therapist is present,providing one-on-one verbal and tactile cues for correct completion of exercises, facilitation of appropriate muscle activation/ recruitment and patient safety. NuStep level 1 x 5 minutes for knee ROM Supine SLR x 10 reps Seated end-range knee flexion stretching Supine knee extension with heel prop Manual therapy: Manual Therapy: Performed with the [...] Supine SLR x 10-15 reps, 2x/day Patient reports good HEP compliance. Assessment Clinical Impression: Knee ROM improved to 0-106 degrees. Quad strength and ambulation improving. Heathern demonstrates good understanding of HEP. Patient would [...] for next session: NuStep, stair knee flexion stretch, hamstring and calf stretch, TKE, sit to stand, mobilizations and stretching, gait training with cane Time Spent with Patient Therapeutic Interventions Manual Therapy (min): 8 min Therapeutic Exercise (min): 16 min Time Tracking Total Timed Units (min): 24 min Total Treatment Time (min): 24 min BUILDER documented in this encounter Plan of Treatment Upcoming Encounters Date Type Department Care Team (Latest Contact Info) Description 11/19/2023 11:30 AM BELT BUILDER Diagnostic Department of Neurology in [address] [phone] [place] [phone] Discharge Disposition: Home or Self Care 12/07/2023 4:20 PM BELT BUILDER Office Visit Department of Internal Medicine in [place] [address] [place] [phone] Gin Salgado APRN, C.N.P., D.N.P. [address] [place] [phone] Discharge Disposition: Home or Self Care 12/08/2023 2:30 PM BELT BUILDER Diagnostic Department of Otorhinolaryngology in [place], [place] [address] [place] [phone] Filiberto Rojas M.D. [address] [place] [phone] Sandra Cloud Au.D. [address] [place] [phone] 12/08/2023 3:15 PM BELT BUILDER Office Visit Department of Otorhinolaryngology in [place], [place] [address] [place] [phone] Filiberto Rojas M.D. [address] [place] [phone] documented as of this encounter Visit Diagnoses Diagnosis Aftercare Total Knee Arthroplasty documented in this encounter
--- OUTSIDE RECORDS SUMMARY | 2023-11-02 12:41 | XMS_ITS | Encounter Summary ---
Author Name Unknown Organization [facility] Address [address] [place] [address] Care Team Providers Care Cafeteria Clerk Name Role Phone Unavailable Primary Care Provider Unavailabl e Reason for Visit * Physical Therapy (Routine) - Closed Specialty Diagnoses / Procedures Referred By Kimberly chiang Referred To Contact Diagnoses Aftercare Total Knee Arthroplasty Procedures PT Ongoing treatment Narciso Davis M.D. [address] [place] [address] [facility] Region Referral ID Status Reason Start Date Expiration Date Visits Re quested Visits Authorized [id number] Closed 08/31/2023 10/18/2023 99 99 Encounter Details Date Type Department Care Team (Latest Contact Info) Description 09/30/2023 10:00 AM INCIDENT RESPONSE COORDINATOR Clinical Support Department of Physical Medicine and Rehabilitation in [place], [place] [address] [place] [phone] Narciso Davis M.D. [address] [place] [address] Aishwarya Fernandez P.T.A. [address] [place] [phone] Aftercare Total Knee Arthroplasty Social History Tobacco [...] living situation today? I have a [facility] place to live 06/29/2023 Sex and Gender Information Value Date Recorded Sex Assigned at Female 06/29/2023 9:11 PM CDT Gender Identity Female 06/29/2023 9:11 PM CDT Sexual Orientation Straight 06/29/2023 9: 11 PM CDT documented as of this encounter Progress Notes * Aishwarya Fernandez, PSaulTAna María. - 09/30/2023 10:00 AM CST Physical Therapy Outpatient Treatment Note SUBJECTIVE Patient's Name: Caron Mittal Referring Provider: Narciso Davis M.D. Visit Diagnosis: 1. Aftercare Total Knee Arthroplasty Payor: [employer] / Plan: [employer] SECURE [employer] DUAL HMO / Product Type: HMO / PT Next Certification Date: 11/23/23 [facility] Visit Count: 6 POC: 08/31/23-11/23/23 Clinical Impression: Patient presents to physical therapy with signs and symptoms consistent with s/p right TKA. Impairments: decreased quad strength, edema, decreased knee flexion/extension ROM, impaired gait Functional deficits: standing, walking, stairs, lifting leg limiting community ambulation, household activities, getting in/out of bed and car, dressing and bathing Patient comments: Patient reports some increased knee pain today. Patient also reports a feeling ofbeing unsteady. States she went to the chiropractor and had an adjustment and has been unsteady andmore painful since. States that she has not been working on her HEP as much as previous because of these changes. Has a follow up with surgeon today and will try to return to HEP as tolerated. OBJECTIVE Gait: Demonstrates step through heel-toe gait with front wheeled walker Strength: Demonstrates good quad activation with sufficient strength to perform SLR but fatigues quickly Knee ROM: 0-121 degrees TREATMENT Treatment today consisted of: Therapeutic Exercise: Therapeutic Exercise: Performed with the intent to improve strength and endurance, range of motion,flexibility, joint mobility, joint stability, and/or reduce edema/lymphedema. Therapist is present,providing one-on-one verbal and tactile cues for correct completion of exercises, facilitation of appropriate muscle activation/ recruitment and patient safety. NuStep level 4 x 5 minutes for knee ROM Seated ex: end-range knee flexion stretching active and assisted with end range holds Supine ex: QS x 20, SAQ x 20, SLR x 15 Standing ex: 4 step ups x 10, step downs x 4 with UE support, squats x 5 Home Exercise Program/Education: Seated knee flexion stretch 10 sec x 10 reps, 3x/day Seated LAQ x 10-15 reps, 2x/day Seated or supine knee extension stretch 3x/day Supine quad set 5 sec x 10-15 reps, 3x/day Supine SAQ x 10-15 reps, 2x/day Supine SLR x 10-15 reps, 2x/day Blue TB resisted TKE x 15-20 reps, 1x/day Squats x 10-15 reps, 1x/day Patient reports fair HEP compliance. Assessment Clinical Impression: Knee ROM remains excellent. Decreased gait ability without device and decreased strength since last session. Patient would benefit from continued skilled therapy [...] and unchanged Plan for next session: NuStep, supine towel stretch, squats, steps Time Spent with Patient Therapeutic Interventions Therapeutic Exercise (min): 25 min Time Tracking Total Timed Units (min): 25 min Total Treatment Time (min): 25 min DENT RESPONSE COORDINATOR documented in this encounter Plan of Treatment Upcoming Encounters Date Type Department Care Team (Latest Contact Info) Description 11/19/2023 11:30 AM INCIDENT RESPONSE COORDINATOR Diagnostic Department of Neurology in [address] [phone] [place] [phone] Discharge Disposition: Home or Self Care 12/07/2023 4:20 PM INCIDENT RESPONSE COORDINATOR Office Visit Department of Internal Medicine in [address] [phone] Gin Salgado APRN, C.N.P., D.N.P. [address] [place] [phone] Discharge Disposition: Home or Self Care 12/08/2023 2:30 PM INCIDENT RESPONSE COORDINATOR Diagnostic Department of Otorhinolaryngology in [place], [place] [address] [place] [phone] Filiberto Rojas M.D. [address] [place] [phone] Sandra Cloud Au.D. [address] [place] [phone] 12/08/2023 3:15 PM INCIDENT RESPONSE COORDINATOR Office Visit Department of Otorhinolaryngology in [place], [place] [address] [place] [phone] Filiberto Rojas M.D. [address] [place] [phone] documented as of this encounter Visit Diagnoses Diagnosis Aftercare Total Knee Arthroplasty documented in this encounter
--- OUTSIDE RECORDS SUMMARY | 2023-11-02 12:41 | XMS_ITS | Encounter Summary ---
Author Name Unknown Organization [facility] Address [address] [place] [address] Care Team Providers Care Director Of Research Name Role Phone Gin Salgado APRN, C.N.P., D.N.P. Primary Ca re Provider Reason for Referral * Outpatient (Routine) - Closed Specialty Diagnoses / Procedures Referred By Kimberly chiang Referred To Contact Diagnoses Diarrhea Procedures DX Abdomen 1 View Gin Salgado APRN, C.N.P., D.N.P. [address] [place] [phone] [facility] Region Referral ID Status Reason Start Date Expiration Date Visits Re quested Visits Authorized [id number] Closed 10/27/2023 10/26/2024 1 1 NESS ETHICS PROFESSOR Reason for Visit * Outpatient (Routine) - Closed Specialty Diagnoses / Procedures Referred By Kimberly chiang Referred To Contact Diagnoses Diarrhea Procedures DX Abdomen 1 View Gin Salgado APRN C.N.P., D.N.P. [address] [place] [phone] [facility] Region Referral ID Status Reason Start Date Expiration Date Visits Re quested Visits Authorized [id number] Closed 10/27/2023 10/26/2024 1 1 Encounter Details Date Type Department Care Team (Latest Contact Info) Description 10/27/2023 3:07 PM BUSINESS ETHICS PROFESSOR - 10/27/2023 11:59 PM BUSINESS ETHICS PROFESSOR Hospital Encounter Department of Radiology in [place], [place] [address] [place] [phone] Gin Salgado APRN, C.N.P., D.N.P. [address] [place] [phone] Change In Bowel Habit Discharge Disposition: Home or Self Care Social [...] your living situation today? I have a [facility] place to live 06/29/2023 Sex and [...] (Latest Contact Info) Description 11/19/2023 11:30 AM [facility] Diagnostic Department of Neurology in [address] [phone] Alex Poole M.D. [address] [place] [phone] Discharge Disposition: Home or Self Care 12/07/2023 4:20 PM BUSINESS ETHICS PROFESSOR Office Visit Department of Internal Medicine in [place], [place] [address] [place] [phone] Gin Salgado APRN, C.N.P., D.N.P. [address] [place] [phone] Discharge Disposition: Home or Self Care 12/08/2023 2:30 PM BUSINESS ETHICS PROFESSOR Diagnostic Department of Otorhinolaryngology in [place], [place] [address] [place] [phone] Filiberto Rojas M.D. [address] [place] [phone] Sandra Cloud Au.D. [address] [place] [phone] 12/08/2023 3:15 PM BUSINESS ETHICS PROFESSOR Office Visit Department of Otorhinolaryngology in [place], [place] [address] [place] [phone] Filiberto Rojas M.D. [address] [place] [phone] documented as of this encounter Procedures Procedure Name Priority Date/Time Associated Diagnosis Comments DX ABDOMEN 1 VIEW RAD - Routine (most inpatients and all outpatients) 10/27/2023 3:26 PM BUSINESS ETHICS PROFESSOR Change In Bowel Habit documented in this encounter Results * DX Abdomen 1 View (10/27/2023 3:26 PM BUSINESS ETHICS PROFESSOR) Anatomical Region Laterality Modality Abdomen, Abdominal RST LOS, Abdominal ARZ LOS, Abdominal FLA LOS N/A Digital Radiography Impressions 10/27/2023 3:37 PM BUSINESS ETHICS PROFESSOR Nonobstructive bowel gas pattern. Mild colonic stool burden. Surgical clips right upper quadrant. Slight lumbar curvature with degenerative changes of the spine. The visualized lungs are clear. Narrative 10/27/2023 3:37 PM BUSINESS ETHICS PROFESSOR EXAM: DX ABDOMEN 1 VIEW Procedure Note Ignacoi Smith M.D. - 10/27/2023 EXAM: DX ABDOMEN 1 VIEW IMPRESSION: Nonobstructive bowel gas pattern. Mild colonic stool burden. Surgicalclips right upper quadrant. Slight lumbar curvature with degenerativechanges of the spine. The visualized lungs are clear. Gin Salgado APRN, C.N.P., D.N.P. IMG DIAGNOSTIC IMAGING PROCEDURES documented in this encounter Visit Diagnoses Diagnosis Change In Bowel Habit documented in this encounter Additional Health Concerns Assessment Noted Time PHQ-9 Depression Total Score: 2 10/27/19 2:15 PM BUSINESS ETHICS PROFESSOR documented as of this encounter Care Teams Director Of Research Relationship Specialty Start Date End Date Gin Salgado APRN, C.N.P., D.N.P. [address] [place] [phone] PCP - General Internal Medicine 10/26/23 documented as of this encounter
--- OUTSIDE RECORDS SUMMARY | 2023-11-02 12:41 | XMS_ITS | Encounter Summary ---
Author Name Unknown Organization [facility] Address [address] [place] [address] Care Team Providers Care Industrial Pipefitter Journeyman Name Role Phone Unavailable Primary Care Provider Unavailabl e Reason for Visit * Physical Therapy (Routine) - Closed Specialty Diagnoses / Procedures Referred By Kimberly chiang Referred To Contact Diagnoses Aftercare Total Knee Arthroplasty Procedures PT Ongoing treatment Narciso Davis M.D. [address] [place] [address] [facility] Region Referral ID Status Reason Start Date Expiration Date Visits Re quested Visits Authorized [id number] Closed 08/31/2023 10/18/2023 99 99 Encounter Details Date Type Department Care Team (Latest Contact Info) Description 09/21/2023 2:30 PM REHABILITATION TEAM LEAD Clinical Support Department of Physical Medicine and Rehabilitation in [address] [phone] Narciso Davis M.D. [address] [place] [address] Marily Grey PSaulT. [address] [place] [phone] Aftercare Total Knee Arthroplasty Social History Tobacco [...] living situation today? I have a [facility] place to live 06/29/2023 Sex and Gender Information Value Date Recorded Sex Assigned at Female 06/29/2023 9:11 PM CDT Gender Identity Female 06/29/2023 9:11 PM CDT Sexual Orientation Straight 06/29/2023 9: 11 PM CDT documented as of this encounter Progress Notes * Marily Grey, P.T. - 09/21/2023 2:30 PM CST Physical Therapy Outpatient Treatment Note SUBJECTIVE Patient's Name: Caron Mittal Referring Provider: Narciso Davis M.D. Visit Diagnosis: 1. Aftercare Total Knee Arthroplasty Payor: [facility] [employer] [facility] / Plan: [facility] SECURE BLUE DUAL HMO / Product Type: HMO / PT Next Certification Date: 11/23/23 [facility] Visit Count: 5 POC: 08/31/23-11/23/23 Clinical Impression: Patient presents to physical therapy with signs and symptoms consistent with s/p right TKA. Impairments: decreased quad strength, edema, decreased knee flexion/extension ROM, impaired gait Functional deficits: standing, walking, stairs, lifting leg limiting community ambulation, household activities, getting in/out of bed and car, dressing and bathing Patient comments: Patient reports minimal knee pain today. Reports overall improvement in pain, mobility, strength and walking. She is able to stand for the entire singing portion at her mandaeism service. She is no longer walking with a cane or walker. She is able to go up stairs and up/down curbswithout difficulty. She has been compliant with exercises. Patient was 10 minutes late for appointment, and therefore treatment time was decreased. OBJECTIVE Pain Assessment Pain Assessment: 0-10 Numeric Pain Intensity Scale Pain Score: 1 Gait: Demonstrates step through heel-toe gait with front wheeled walker, decreased stance time and weight shift to right. Strength: Demonstrates good quad activation with sufficient strength to perform SLR Knee ROM: 0-120 degrees TREATMENT Treatment today consisted of: Therapeutic Exercise: Therapeutic Exercise: Performed with the intent to improve strength and endurance, range of motion,flexibility, joint mobility, joint stability, and/or reduce edema/lymphedema. Therapist is present,providing one-on-one verbal and tactile cues for correct completion of exercises, facilitation of appropriate muscle activation/ recruitment and patient safety. NuStep level 4 x 4 minutes for knee ROM Supine towel assisted knee flexion stretch 10 sec x 10 reps Seated end-range knee flexion stretching Manual therapy: Manual Therapy: Performed with the [...] Assessment Clinical Impression: Knee ROM improved to 0-120 degrees. Ambulation improving without gait aide. Quad strength improving. Patient would benefit from continued skilled therapy [...] current plan Plan for next session: NuStep, supine towel stretch, squats, steps, mobilizations and stretching Time Spent with Patient Therapeutic Interventions Manual Therapy (min): 5 min Therapeutic Exercise (min): 12 min Time Tracking Total Timed Units (min): 17 min Total Treatment Time (min): 17 min BILITATION TEAM LEAD documented in this encounter Plan of Treatment Upcoming Encounters Date Type Department Care Team (Latest Contact Info) Description 11/19/2023 11:30 AM REHABILITATION TEAM LEAD Diagnostic Department of Neurology in [address] [phone] Alex Poole M.D. [address] [place] [phone] Discharge Disposition: Home or Self Care 12/07/2023 4:20 PM REHABILITATION TEAM LEAD Office Visit Department of Internal Medicine in [place], [place] [address] [place] [phone] Gin Salgado APRN, C.N.P., D.N.P. [address] [place] [phone] Discharge Disposition: Home or Self Care 12/08/2023 2:30 PM REHABILITATION TEAM LEAD Diagnostic Department of Otorhinolaryngology in [place], [place] [address] [place] [phone] Filiberto Rojas M.D. [address] [place] [phone] Sandra Cloud Au.D. [address] [place] [phone] 12/08/2023 3:15 PM REHABILITATION TEAM LEAD Office Visit Department of Otorhinolaryngology in [place], [place] [address] [place] [phone] Filiberto Rojas M.D. [address] [place] [phone] documented as of this encounter Visit Diagnoses Diagnosis Aftercare Total Knee Arthroplasty documented in this encounter
--- OUTSIDE RECORDS SUMMARY | 2023-11-02 12:42 | XMS_ITS | Encounter Summary ---
Author Name Unknown Organization [facility] Address [address] [place] [address] Care Team Providers Care Utilities Operator Name Role Phone Unavailable Primary Care Provider Unavailabl e Encounter Details Date Type Department Care Team (Late st Contact Info) Description 06/30/2023 Orders Only Preoperative Evaluation Center in [place], [place] [address] [place] [phone] Dean Shields, JUANA, C.N.P., M.S.N. [address] [place] [phone] Preanesthetic Medical Exam (Primary Dx) Social History Tobacco Use Types Packs/Day Years Used Date Smoking Tobacco: Never Assessed Overall Financial Resource Strain (CARDIA) Answe r [...] your living situation today? I have a [facility] place to live 06/29/2023 Sex and Gender Information Value Date Recorded Sex Assigned at Female 06/29/2023 9:11 PM CDT Gender Identity Female 06/29/2023 9:11 PM CDT Sexual Orientation Straight 06/29/2023 9: 11 PM CDT documented as of this encounter Plan of Treatment Upcoming Encounters Date Type Department Care Team (Latest Contact Info) Description 11/19/2023 11:30 AM RETAIL MERCHANDISING SPECIALIST Diagnostic Department of Neurology in [address] [phone] [place] [phone] Discharge Disposition: Home or Self Care 12/07/2023 4:20 PM RETAIL MERCHANDISING SPECIALIST Office Visit Department of Internal Medicine in [address] [phone] Gin Salgado APRN, C.N.P., D.N.P. [address] [place] [phone] Discharge Disposition: Home or Self Care 12/08/2023 2:30 PM RETAIL MERCHANDISING SPECIALIST Diagnostic Department of Otorhinolaryngology in [place], [place] [address] [place] [phone] Filiberto Rojas M.D. [address] [place] [phone] Sandra Cloud Au.D. [address] [place] [place] [phone] 12/08/2023 3:15 PM RETAIL MERCHANDISING SPECIALIST Office Visit Department of Otorhinolaryngology in [place], [place] [address] [place] [phone] Filiberto Rojas M.D. [address] [place] [place] [phone] documented as of this encounter Results * Basic Metabolic Panel (07/31/2023 1:21 PM CDT) [facility] Potassium, S 5.1 3.6 - 5.2 mmol/L 07/31/2023 2:37 PM CDT DTL Sodium, S 140 135 - 145 mmol/L 07/31/2023 2:37 PM CDT DTL Chloride, S 102 98 - 107 mmol/L 07/31/2023 2:37 PM CDT DTL Bicarbonate, S 28 22 - 29 mmol/L 07/31/2023 2:44 PM CDT DTL Anion Gap 10 7 - 15 07/31/2023 2:44 PM CDT DTL BUN (Blood Urea Nitrogen), S 16 6 - 21 mg/dL 07/31/2023 2:37 PM CDT DTL Creatinine 0.95 0.59 - 1.04 mg/dL 07/31/2023 2:37 PM CDT DTL Estimated GFR (eGFR) 63 >=60 mL/min/BSA 07/31/2023 2:37 PM CDT DTL Comment: Estimated GFR calculated using the 2020 CKD_EPI creatinine equation. Calcium, Total, S 9.8 8.8 - 10.2 mg/dL 07/31/2023 2:37 PM CDT DTL Glucose, S 79 70 - 140 mg/dL 07/31/2023 2:37 PM CDT DTL Blood (Blood, Venous) 07/31/2023 1:21 PM CDT 07/31/2023 2:02 PM CDT Gary Carrillo APRNNSaulP., M.S.N. [place] B BLOOD ADD-ON [facility] [address] [place] [address], [facility] DTL [facility] [address] [place] [address] documented in this encounter Visit Diagnoses Diagnosis Preanesthetic Medical Exam- Primary documented in this encounter
--- OUTSIDE RECORDS SUMMARY | 2023-11-02 12:42 | XMS_ITS | Encounter Summary ---
Author Name Unknown Organization [facility] Address [address] [place] [address] Care Team Providers Care Consolidator Name Role Phone Unavailable Primary Care Provider Unavailabl e Reason for Referral * Outpatient (Routine) - Closed Specialty Diagnoses / Procedures Referred By Kimberly chiang Referred To Contact Otorhinolaryngology Diagnoses Cholesteatoma Attic Bilateral Stone Posada M.D. [address] [place] [phone] [facility] Referral ID Status Reason Start Date Expiration Date Visits Re quested Visits Authorized [id number] Closed 06/18/2023 06/17/2024 1 1 Encounter Details Date Type Department Care Team (Latest Contact Info) Description 06/18/2023 [facility] [address] [place] [address] Stone Posada M.D. [address] [place] [phone] Cholesteatoma Attic Bilateral (Primary Dx) Social History Tobacco Use Types Packs/Day Years Used Date Smoking Tobacco: Never Assessed Nutrition Answer Date Recorded Nutrition: EVOO Fat Source Unknown 06/18 Nutrition: Servings of Fruits/Vegetables per Day Not on file 06/18/2023 Dental Answer Date Recorded Dental: Regular Dentist Unknown 06/18/20 23 Sex and Gender Information Value Date Recorded Sex Assigned at Female 06/29/2023 9:11 PM CDT Gender Identity Female 06/29/2023 9:11 PM CDT Sexual Orientation Straight 06/29/2023 9: 11 PM CDT documented as of this encounter Plan of Treatment Upcoming Encounters Date Type Department Care Team (Latest Contact Info) Description 11/19/2023 11:30 AM [facility] Diagnostic Department of Neurology in [address] [phone] Alex Poole M.D. [address] [place] [phone] Discharge Disposition: Home or Self Care 12/07/2023 4:20 PM [facility] Office Visit Department of Internal Medicine in [address] [phone] Gin Salgado APRN, C.N.P., D.N.P. [address] [place] [phone] Discharge Disposition: Home or Self Care 12/08/2023 2:30 PM [facility] Diagnostic Department of Otorhinolaryngology in [place], [place] [address] [place] [phone] Filiberto Rojas M.D. [address] [place] [phone] Sandra Cloud Au.D. [address] [place] [phone] 12/08/2023 3:15 PM [facility] Office Visit Department of Otorhinolaryngology in [place], [place] [address] [place] [phone] Filiberto Rojas M.D. [address] [place] [phone] Scheduled Referrals Name Type Priority Associated Diagnoses Order Schedule Otolaryngology Referral Outpatient Referral Routine Cholesteatoma Attic Bilateral Expected: 06/18/2023 (Approximate), Expires: 09/17/2024 documented as of this encounter Visit Diagnoses Diagnosis Cholesteatoma Attic Bilateral- Primary documented in this encounter
--- OUTSIDE RECORDS SUMMARY | 2023-11-02 12:42 | XMS_ITS | Encounter Summary ---
Author Name Unknown Organization [facility] Address [address] [place] [address] Care Team Providers Care Assessment Director Name Role Phone Unavailable Primary Care Provider Unavailabl e Reason for Visit * Outpatient (Routine) - Closed Specialty Diagnoses / Procedures Referred By Kimberly chiang Referred To Contact Anesthesiology Diagnoses Cholesteatoma Attic Bilateral Filiberto Rojas M.D. [address] [place] [phone] [facility] Referral ID Status Reason Start Date Expiration Date Visits Re quested Visits Authorized [id number] Closed 06/30/2023 06/29/2024 1 1 Encounter Details Date Type Department Care Team (Latest Contact Info) Description 07/31/2023 2:00 PM CDT Comprehensive Visit Preoperative Evaluation Center in [place], [place] [address] [place] [phone] Filiberto Rojas M.D. [address] [place] [address] [phone] Dean Shields APRN, C.N.P., M.S.N. [address] [place] [address] [phone] Preanesthetic Medical Exam (Primary Dx); Cholesteatoma Attic Bilateral; Atrial Fibrillation Paroxysmal (HCC); Hypertension Essential Primary; Hyperlipidemia Mixed; Apnea Sleep Obstructive; Chronic Fatigue Syndrome; Fibromyalgia; Depression Major Recurrent (HCC); Morbid Obesity Body Mass Index 40.0-44.9 Adult (FORMERLY [facility]) Social History Tobacco Use Types Packs/Day Years [...] your living situation today? I have a [facility] place to live 06/29/2023 Sex and Gender Information Value Date Recorded Sex Assigned at Female 06/29/2023 9:11 PM CDT Gender Identity Female 06/29/2023 9:11 PM CDT Sexual Orientation Straight 06/29/2023 9: 11 PM CDT documented as of this encounter Last Filed Vital Signs Vital Sign Reading Time Taken Comments Blood Pressure 125/77 07/31/2023 1:50 PM CDT Pulse 64 07/31/2023 1:50 PM CDT Temperature 36.5 ??C (97.7 ??F) 07/31/2023 1:43 PM CD T Respiratory Rate - - Oxygen Saturation 97% 07/31/2023 1:50 PM CDT Inhaled Oxygen Concentration - - Weight 104 kg (229 lb 0.9 oz) 07/31/2023 1:43 PM CDT Height 156.1 cm (5' 1.46) 07/31/2023 1:43 PM CD T Body Mass Index 42.64 07/31/2023 1:43 PM CDT documented in this encounter H&P Notes * Dean Shields APRN, C.N.P., M.S.N. - 07/31/2023 2:00 PM CDT REASON FOR VISIT: Preoperative Medical Evaluation REFERRING PHYSICIAN: Filiberto Rojas M.D. 08/03/2023: TYMPANOMASTOIDECTOMY; Filiberto Rojas M.D. Surgery Specific Risk Classification: Intermediate Risk SUBJECTIVE HISTORY OF PRESENT ILLNESS Caron Mittal is a 73 y.o. female who is here for preanesthetic medical examination prior to the planned procedure as listed above. REVIEW OF SYSTEMS The following systems were negative: Constitutional, Respiratory, Cardiovascular, Neurological Cardiac Risk Scoring: DASI Calculations Flowsheet Row Comprehensive Visit from 07/31/2023 in Preoperative Evaluation Center in [place], [place] DASI Total Score 15.45 Estimated V02 Peak 16.24 Estimated MET Level 4.64 OBJECTIVE OBJECTIVE PHYSICAL EXAMINATION General/Constitutional Constitutional Assessment: Normal General State of Health: Healthy appearing Airway (HEENT) Mallampati: III TM Distance: >3 FB Neck ROM: Full Mouth Opening: > 3 cm Upper Lip Bite Test: I Dental Assessment: Upper dentures Cardiovascular Rhythm: Regular Rate: Normal Cardiovascular Assessment: Normal Pulmonary Pulmonary Assessment: Clear and non labored Neurological Neurologic Assessment: Alert and oriented X 3 Musculoskeletal MSK Assessment: Normal Gait: Normal Ambulate with: None Psychiatric Psychiatric Assessment: Calm Dermatology Skin Assessment: normal ASSESSMENT / PLAN Anesthesia: Patient denies previous anesthesia related complications. Airway Hx: None available. LAB: Lab Results Component Value Date NA 140 07/31/2023 KSERUM 5.1 07/31/2023 CREATININE 0.95 07/31/2023 EGFR 63 07/31/2023 ECG: ECG 12 Lead Result Date: 07/31/2023 Normal sinus rhythm with 1st degree A-V block Low anterior forces No previous ECGs available Reviewed by ANJELICA Last ECHO: 09/25/17 (Care Everywhere) - 1. Technically limited exam. 2. Grade 1 pattern of LV diastolic filling. 3. Normal left ventricular size, borderline wall thickness, normal global systolic function, calculated EF of 70 %. 4. The mitral valve is sclerotic, moderate mitral regurgitation. #1 Preanesthetic Medical Exam Very pleasant 73-year-old non-smoking female presents for JULIETA with daughter. She denies regular cardiovascular activity. She reports her activity is limited due to knee pain. She utilizes a wheelchair while at [facility] and walker at home. She is able to walk 1 block and climb 1 flight of stairs. Deniescardiopulmonary symptoms at rest or with activity. NPO and medication instructions reviewed with patient. #2 Cholesteatoma Attic Bilateral Surgery scheduled 08/03/23. Please see [facility] notes for details. She was instructed to hold NSAIDs and aspirin containing products. Tylenol okay for pain. #3 Atrial Fibrillation Paroxysmal (HCC) Longstanding history. She reports occasional episodes at night. Managed with metoprolol which she was instructed to take morning of surgery. No anticoagulation. ECG as prescribed above. #4 Hypertension Essential Primary Managed with metoprolol which he was instructed to take morning of surgery. #5 Hyperlipidemia Mixed Managed without medications at this time. #6 Apnea Sleep Obstructive No CPAP due to intolerance. Denies waking. #7 Chronic Fatigue Syndrome #8 Fibromyalgia Diagnosed approximately 39 years ago. Managed with Celebrex which she was instructed to hold 3 daysprior to surgery. #9 Depression Major Recurrent (HCC) Managed with bupropion which she was instructed to continue as prescribed. #10 Morbid Obesity Body Mass Index 40.0-44.9 Adult (HCC) BMI 42.64 with associated hypertension, hyperlipidemia, and obstructive sleep apnea. PATIENT EDUCATION: Reviewed Checklist for Surgical Patients 32993-08 rev 0920. Written and verbal instructions given on medication management before surgery. Reviewed instructions on avoiding aspirin, ibuprofen-containing medications, and supplements one week before surgery. Patient may take ac etaminophen as needed for pain. RECOMMENDATIONS: Patient medically optimized for planned procedure: Yes Further Recommendations: None Caprini Total Score: Caprini not calculated. VTE prophylaxis per surgery provider documented in this encounter Plan of Treatment Upcoming Encounters Date Type Department Care Team (Latest Contact Info) Description 11/19/2023 11:30 AM GAMBLING DEALER Diagnostic Department of Neurology in [address] [phone] Alex Poole M.D. [address] [place] [phone] Discharge Disposition: Home or Self Care 12/07/2023 4:20 PM GAMBLING DEALER Office Visit Department of Internal Medicine in [address] [phone] Gin Salgado APRN, C.N.P., D.N.P. [address] [place] [address] [phone] Discharge Disposition: Home or Self Care 12/08/2023 2:30 PM GAMBLING DEALER Diagnostic Department of Otorhinolaryngology in [place], [place] [address] [place] [phone] Filiberto Rojas M.D. [address] [place] [address] [phone] Sandra Cloud Au.D. [address] [place] [phone] 12/08/2023 3:15 PM GAMBLING DEALER Office Visit Department of Otorhinolaryngology in [place], [place] [address] [place] [phone] Filiberto Rojas M.D. [address] [place] [phone] documented as of this encounter Visit Diagnoses Diagnosis Preanesthetic Medical Exam- Primary Cholesteatoma Attic Bilateral Atrial Fibrillation Paroxysmal (HCC) Hypertension Essential Primary Hyperlipidemia Mixed Apnea Sleep Obstructive Chronic Fatigue Syndrome Fibromyalgia Depression Major Recurrent (HCC) Morbid Obesity Body Mass Index 40.0-44.9 Adult (HCC) documented in this encounter
--- OUTSIDE RECORDS SUMMARY | 2023-11-02 12:42 | XMS_ITS | Encounter Summary ---
Author Name Unknown Organization [facility] Address [address] [place] [address] Care Team Providers Care Information Technology Program Manager Name Role Phone Unavailable Primary Care Provider Unavailabl e Encounter Details Date Type Department Care Team (Latest Contact Info) Description 08/05/2023 Clinical Communication Department of Otorhinolaryngology in [place], [place] [address] [place] [phone] Filiberto Rojas M.D. [address] [place] [phone] Social History Tobacco Use Types Packs/Day Years [...] your living situation today? I have a [facility] place to live 06/29/2023 Sex and Gender Information Value Date Recorded Sex Assigned at Female 06/29/2023 9:11 PM CDT Gender Identity Female 06/29/2023 9:11 PM CDT Sexual Orientation Straight 06/29/2023 9: 11 PM CDT documented as of this encounter Miscellaneous Notes * Telephone Encounter - America Chris - 08/05/2023 8:21 AM CDT Caron calls in today because she has some questions post operatively. She would like to know if it is normal to have some swelling behind her ear? She states that it is pretty puffy but is not warmto the touch. Caron would also like to know if and how she should be cleaning behind her ear because it seems like there is some dried blood. Please call Caron at [phone] to discuss. Last Surgery: 08/03/2023 Tympanomastoidectomy Left Thank you, America documented in this encounter Plan of Treatment Upcoming Encounters Date Type Department Care Team (Latest Contact Info) Description 11/19/2023 11:30 AM MATERNAL CHILD NURSE Diagnostic Department of Neurology in [address] [phone] Alex Poole M.D. [address] [place] [phone] Discharge Disposition: Home or Self Care 12/07/2023 4:20 PM MATERNAL CHILD NURSE Office Visit Department of Internal Medicine in [address] [phone] Gin Salgado APRN, C.N.P., D.N.P. [address] [place] [phone] Discharge Disposition: Home or Self Care 12/08/2023 2:30 PM MATERNAL CHILD NURSE Diagnostic Department of Otorhinolaryngology in [place], [place] [address] [place] [phone] Filiberto Rojas M.D. [address] [place] [phone] Sandra Cloud Au.D. [address] [place] [phone] 12/08/2023 3:15 PM MATERNAL CHILD NURSE Office Visit Department of Otorhinolaryngology in [place], [place] [address] [place] [phone] Filiberto Rjoas M.D. [address] [place] [phone] documented as of this encounter Visit Diagnoses Not on filedocumented in this encounter
--- OUTSIDE RECORDS SUMMARY | 2023-11-02 12:42 | XMS_ITS | Encounter Summary ---
Author Name Unknown Organization [facility] Address [address] [place] [address] Care Team Providers Care Hatchery Helper Name Role Phone Unavailable Primary Care Provider Unavailabl e Reason for Referral * Outpatient (Routine) - Closed Specialty Diagnoses / Procedures Referred By Kimberly chiang Referred To Contact Anesthesiology Diagnoses Cholesteatoma Attic Bilateral Filiberto Rojas M.D. 200 [place] [phone] [facility] Referral ID Status Reason Start Date Expiration Date Visits Re quested Visits Authorized [id number] Closed 06/30/2023 06/29/2024 1 1 Reason for Visit * Outpatient (Routine) - Closed Specialty Diagnoses / Procedures Referred By Kimberly chiang Referred To Contact Otorhinolaryngology Diagnoses Cholesteatoma Attic Bilateral Stone Posada M.D. [address] [place] [phone] [facility] Referral ID Status Reason Start Date Expiration Date Visits Re quested Visits Authorized [id number] Closed 06/18/2023 06/17/2024 1 1 Encounter Details Date Type Department Care Team (Latest Contact Info) Description 06/30/2023 11:00 AM CDT Comprehensive Visit Department of Otorhinolaryngology in [place], [place] [address] [place] [phone] Filiberto Rojas M.D. [address] [place] [phone] Cholesteatoma Attic Bilateral Social History Tobacco Use Types Packs/Day Years [...] your living situation today? I have a [facility] place to live 06/29/2023 Sex and Gender Information Value Date Recorded Sex Assigned at Female 06/29/2023 9:11 PM CDT Gender Identity Female 06/29/2023 9:11 PM CDT Sexual Orientation Straight 06/29/2023 9: 11 PM CDT documented as of this encounter Progress Notes * Colin Alston M.D. - 06/30/2023 11:00 AM CDT Images from the original note were not included. Otology/Neurotology Consult Visit CHIEF COMPLAINT/PURPOSE OF VISIT: Left-sided cholesteatoma HISTORY OF PRESENT ILLNESS: Ms. Caron Mittal is a 73 y.o. female who presents for evaluation of a previously diagnosed left-sided cholesteatoma. She notes that she has had a history of multiple tympanostomy tubes placed in her 20s for unknown reasons. Has not had any otologic issues for several years. She notes that her primary care physician examined her ears this past winter and he removed cerumen from her tympanic membrane which was very uncomfortable. Subsequently developed otorrhea which would intermittently respond to topical drops, was evaluated by local ENT who removed in external auditory canal polyp and was concerned for a cholesteatoma. She is not noticed any significant changes in her hearing. Denies tinnitus, otalgia, active otorrhea, facial weakness, dizziness. Does not wear hearing aids. Has never hadany otologic surgery outside of her prior tympanostomy tube placements. Of note, she does have a knee replacement surgery scheduled for this upcoming July and is concerned that if this issue requires operative intervention, she will likely have to delay her knee replacement as this should be treated first. ROS: Pertinent items are noted in HPI; all other review of systems were negative. CURRENT MEDICATIONS: No current outpatient medications on file. ALLERGIES: Not on File PAST MEDICAL HISTORY: No past medical history on file. SURGICAL HISTORY: No past surgical history on file. SOCIAL HISTORY: Social History Socioeconomic History Marital status: Single Spouse name: Not on file Number of children: Not on file Years of education: Not on file Highest education level: Not on file Occupational History Not on file Tobacco Use Smoking status: Not on file Smokeless tobacco: Not on file Substance and Sexual Activity Alcohol use: Not on file Drug use: Not on file Sexual activity: Not on file Other Topics Concern Not on file Social [...] a steady place to live FAMILY HISTORY: No family history on file. PHYSICAL EXAM: General: 73 y.o. year old female, in no acute distress. Ambulates to and from the exam chair without difficulty. Head: Normocephalic atraumatic Eyes: Extraocular muscles are intact. No spontaneous or gaze-evoked nystagmus. ENT: Right ear demonstrates normal shaped pinna, external auditory canal is patent, and tympanic membrane is intact. Left ear demonstrates normal shaped pinna, external auditory canal is patent, parsflacida retraction pocket with cholesteatoma, and clot along posterior superior external auditory canal obstructing view of entirety of retraction pocket . House-Brackmann grade 1 of 6 bilaterally. Audiogram: Imagin06/10/23 Assessment/Plan: #1. Left-sided primarily epitympanic/antral cholesteatoma I reviewed the relevant anatomy, pathophysiology and natural history of cholesteatoma. We discussedthe benefits and drawbacks of observation, medical management and surgery. After reviewing this, Ms. Mittal wishes to proceed with surgery. We discussed the risks, goals, benefits, alternatives, and team approach. We will select a surgical date and proceed accordingly. She will discuss this with the orthopedic surgeon to determine appropriate timing for her knee replacement surgery, as it will likely need to be delayed until after the surgery. PATIENT EDUCATION Ready to learn, no apparent learning barriers were identified; learning preferences include listening. Explained diagnosis and treatment plan; patient expressed understanding of the content. Associated attestation - Filiberto Rojas M.D. - 07/01/2023 2:53 PM CDT I have personally interviewed and examined Ms. Mittal. I reviewed the history, physical exam findings, and impression of Dr. Colin Alston and agree. documented in this encounter Plan of Treatment Upcoming Encounters Date Type Department Care Team (Latest Contact Info) Description 11/19/2023 11:30 AM CLERICAL ASSISTANT Diagnostic Department of Neurology in [address] [phone] Alex Poole M.D. [address] [place] [phone] Discharge Disposition: Home or Self Care 12/07/2023 4:20 PM CLERICAL ASSISTANT Office Visit Department of Internal Medicine in [address] [phone] Gin Salgado APRN, C.N.P., D.N.P. [address] [place] [phone] Discharge Disposition: Home or Self Care 12/08/2023 2:30 PM CLERICAL ASSISTANT Diagnostic Department of Otorhinolaryngology in [place], [place] [address] [place] [phone] Filiberto Rojas M.D. [address] [place] [phone] Sandra Cloud Au.D. [address] [place] [phone] 12/08/2023 3:15 PM CLERICAL ASSISTANT Office Visit Department of Otorhinolaryngology in [place], [place] [address] [place] [phone] Filiberto Rojas M.D. [address] [place] [phone] Scheduled Referrals Name Type Priority Associated Diagnoses Order Schedule Preoperative Evaluation JULIETA consult (clinic) Outpatient Referral Routine Cholesteatoma Attic Bilateral 1 Occurrences starting 06/30/2023 until 09/29/2024 documented as of this encounter Visit Diagnoses Diagnosis Cholesteatoma Attic Bilateral documented in this encounter
--- OUTSIDE RECORDS SUMMARY | 2023-11-02 12:42 | XMS_ITS | Encounter Summary ---
Author Name Unknown Organization [facility] Address [address] [place] [address] Care Team Providers Care Epic Ambulatory Analyst Name Role Phone Unavailable Primary Care Provider Unavailabl e Encounter Details Date Type Department Care Team (Late st Contact Info) Description 08/04/2023 Abstract [place], [place] [address] [place] [phone] Provider, Historical Social History Tobacco Use Types Packs/Day Years [...] your living situation today? I have a [facility] place to live 06/29/2023 Sex and Gender Information Value Date Recorded Sex Assigned at Female 06/29/2023 9:11 PM CDT Gender Identity Female 06/29/2023 9:11 PM CDT Sexual Orientation Straight 06/29/2023 9: 11 PM CDT documented as of this encounter Plan of Treatment Upcoming Encounters Date Type Department Care Team (Latest Contact Info) Description 11/19/2023 11:30 AM ADMINISTRATION CLERK Diagnostic Department of Neurology in [address] [phone] Alex Poole M.D. 200 [place] [phone] Discharge Disposition: Home or Self Care 12/07/2023 4:20 PM ADMINISTRATION CLERK Office Visit Department of Internal Medicine in [address] [phone] Gin Salgado APRN, C.N.P., D.N.P. [address] [place] [phone] Discharge Disposition: Home or Self Care 12/08/2023 2:30 PM ADMINISTRATION CLERK Diagnostic Department of Otorhinolaryngology in [place], [place] [address] [place] [phone] Filiberto Rojas M.D. [address] [place] [phone] Sandra Cloud Au.D. [address] [place] [address] [phone] 12/08/2023 3:15 PM ADMINISTRATION CLERK Office Visit Department of Otorhinolaryngology in [place], [place] [address] [place] [phone] Filiberto Rojas M.D. [address] [place] [address] [phone] documented as of this encounter Visit Diagnoses Not on filedocumented in this encounter
--- OUTSIDE RECORDS SUMMARY | 2023-11-02 12:42 | XMS_ITS | Encounter Summary ---
Author Name Unknown Organization [facility] Address [address] [place] [address] Care Team Providers Care Manager Photography Name Role Phone Unavailable Primary Care Provider Unavailabl e Reason for Visit * Reason Onset Date Comments Medical Information 06/18/2023 The Departme nt of Otorhinolaryngology (ENT) Encounter Details Date Type Department Care Team (Latest Contact Info) Description 3 Clinical Communication Department of Otorhinolaryngology in [place], [place] [address] [place] [phone] Provider, Unknown Medical Information (The Department of Otorhinolaryngology (ENT)) Social History Tobacco Use Types Packs/Day Years [...] your living situation today? I have a [facility] place to live 06/29/2023 Sex and Gender Information Value Date Recorded Sex Assigned at Female 06/29/2023 9:11 PM CDT Gender Identity Female 06/29/2023 9:11 PM CDT Sexual Orientation Straight 06/29/2023 9: 11 PM CDT documented as of this encounter Plan of Treatment Upcoming Encounters Date Type Department Care Team (Latest Contact Info) Description 11/19/2023 11:30 AM CUTTER BARREL DRUM Diagnostic Department of Neurology in [address] [phone] Alex Poole M.D. [address] [place] [address] [phone] Discharge Disposition: Home or Self Care 12/07/2023 4:20 PM CUTTER BARREL DRUM Office Visit Department of Internal Medicine in [address] [phone] Gin Salgado APRN, C.N.P., D.N.P. [address] [place] [phone] Discharge Disposition: Home or Self Care 12/08/2023 2:30 PM CUTTER BARREL DRUM Diagnostic Department of Otorhinolaryngology in [place], [place] [address] [place] [phone] Filiberto Rojas M.D. [address] [place] [address] [phone] Sandra Cloud Au.D. [address] [place] [address] [phone] 12/08/2023 3:15 PM CUTTER BARREL DRUM Office Visit Department of Otorhinolaryngology in [place], [place] [address] [place] [phone] Filiberto Rojas M.D. [address] [place] [address] [phone] documented as of this encounter Visit Diagnoses Not on filedocumented in this encounter
--- OUTSIDE RECORDS SUMMARY | 2023-11-02 12:42 | XMS_ITS | Encounter Summary ---
Author Name Unknown Organization [facility] Address [address] [place] [address] Care Team Providers Care Landscaper Helper Name Role Phone Unavailable Primary Care Provider Unavailabl e Reason for Visit * Reason Onset Date Comments Referral 06/23/2023 Encounter Details Date Type Department Care Team (Latest Contact Info) Description 06/23/2023 Clinical Communication Department of Otorhinolaryngology in [place], [place] [address] [place] [phone] Prescheduling, Provider Referral Social History Tobacco Use Types Packs/Day Years Used Date Smoking Tobacco: Never Assessed Nutrition Answer Date Recorded Nutrition: EVOO Fat Source Unknown 06/18 Nutrition: Servings of Fruits/Vegetables per Day Not on file 06/18/2023 Dental Answer Date Recorded Dental: Regular Dentist Unknown 06/18/20 Sex and Gender Information Value Date Recorded Sex Assigned at Female 06/29/2023 9:11 PM CDT Gender Identity Female 06/29/2023 9:11 PM CDT Sexual Orientation Straight 06/29/2023 9: 11 PM CDT documented as of this encounter Plan of Treatment Upcoming Encounters Date Type Department Care Team (Latest Contact Info) Description 11/19/2023 11:30 AM PAROLE DIRECTOR Diagnostic Department of Neurology in [place], [place] [address] [place] [phone] Alex Poole M.D. [address] [place] [phone] Discharge Disposition: Home or Self Care 12/07/2023 4:20 PM PAROLE DIRECTOR Office Visit Department of Internal Medicine in [place], [place] [address] [place] [phone] Gin Salgado APRN, C.N.P., D.N.P. [address] [place] [phone] Discharge Disposition: Home or Self Care 12/08/2023 2:30 PM PAROLE DIRECTOR Diagnostic Department of Otorhinolaryngology in [place], [place] [address] [place] [phone] Filiberto Rojas M.D. [address] [place] [phone] Sandra Cloud Au.D. [address] [place] [phone] 12/08/2023 3:15 PM PAROLE DIRECTOR Office Visit Department of Otorhinolaryngology in [place], [place] [address] [place] [phone] Filiberto Rojas M.D. [address] [place] [phone] documented as of this encounter Visit Diagnoses Not on filedocumented in this encounter
--- OUTSIDE RECORDS SUMMARY | 2023-11-02 12:42 | XMS_ITS | Encounter Summary ---
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 [address] [place] [phone] TYMPANOMASTOIDECTOMY. Social History Tobacco Use Types Packs/Day Years [...] your living situation today? I have a [facility] place to live 06/29/2023 Sex and Gender Information Value Date Recorded Sex Assigned at Female 06/29/2023 9:11 PM CDT Gender Identity Female 06/29/2023 9:11 PM CDT Sexual Orientation Straight 06/29/2023 9: 11 PM CDT documented as of this encounter Last Filed Vital Signs Vital Sign Reading Time Taken Comments Blood Pressure 151/75 08/03/2023 4:30 PM CDT Pulse 82 08/03/2023 4:40 PM CDT Temperature 36.9 ??C (98.4 ??F) 08/03/2023 10:12 AM C DT Respiratory Rate 12 08/03/2023 4:40 PM CDT Oxygen Saturation 92% 08/03/2023 4:40 PM CDT Inhaled Oxygen Concentration - - Weight 104 kg (228 lb 9.9 oz) 08/03/2023 10:12 A M CDT Height 163 cm (5' 4.17) 08/03/2023 10:12 AM CDT Body Mass Index 39.03 08/03/2023 10:12 AM CDT documented in this encounter Medications at Time of Discharge [...] celecoxib (CeleBREX) 200 mg capsule 0 12/13/2021 ibuprofen (ADVIL,MOTRIN) 200 mg tablet Take 3 tablets (600 mg total) by mouth every 6 (six) hours as needed for pain. 0 08/03/2023 metoprolol succinate (TOPROL-XL) 50 mg 24 hr tablet Take 50 mg by mouth daily. 0 ciprofloxacin (CILOXAN) 0.3 % ophthalmic solution Administer 4 drops into the left ear 2 (two) times a day for 7 days. Please start these ear drops one week before your follow-up appointment with Dr. Rojas. 10 mL 0 08/03/2023 08/28/2023 amoxicillin-pot clavulanate (AUGMENTIN) 875-125 mg per tablet Take 1 tablet by mouth 2 (two) times a day. 14 tablet 0 08/03/2023 10/27/2023 oxyCODONE (ROXICODONE) 5 mg immediate release tabletIndications:Acut e Pain Take 1 tablet (5 mg total) by mouth every 4 (four) hours as needed for severe pain or score 7-10 of 10 Indication: Acute Pain. 10 tablet 0 08/03/2023 10/27/2023 documented as of this encounter OR Notes * Op Note - Filiberto Rojas M.D. - 08/03/2023 11:30 AM CDT Pre-op Diagnosis Cholesteatoma Attic Bilateral Post-op Diagnosis Cholesteatoma Attic Bilateral A registered nurse first assistant actively participated and was necessary for one or more of the following: opening, exposure and visualization during the case, maintaining hemostasis, wound closure resulting in itssafe and expeditious completion. Findings As expected. Complications None Operative Note Narrative Summary Data: Extent of cholesteatoma: epitympanum, mastoid antrum, mastoid cavity Dehiscence or erosion: incus necrosis but with continuity of chain Reconstruction performed: ossicular chain intact and no reconstruction performed Need for second look procedure: plan for radiologic second-look using MRI DWI in approximately 18months to 2 years from date of surgery Operative Description: Ms. Caron Mittal was brought to the operating room and identified by name and clinic number. After an adequate plane of general endotracheal anesthesia was successfully obtained by the Anesthesia Service, the table was turned and the patient was prepped and draped in the usual fashion for intact canal wall tympanomastoidectomy. Bipolar orbicularis oculi and orbicularis long facial nerve monitoring electrodes were placed for continuous intraoperative seventh nerve monitoring. The ear canal was examined. An ear canal injection was performed using 1% lidocaine 1:100,000 with epinephrine. A canalincision was performed. Next, a postauricular incision was made through skin and subcutaneous tissue and elevated forward in a loose areolar plane. Temporalis fascia was then harvested, pressed and set aside for later use. A musculoperiosteal incision was made to the mastoid cortex and elevated forward in a subperiosteal plane until the ear canal was encountered. A self-retaining retractor was then placed. The ear canal skin was elevated. This granted good exposure of the tympanic membrane. Thetympanomeatal flap was elevated, and the middle ear space was entered. The chorda tympani nerve wasidentified and preserved. The ossicular chain was inspected and was found to be hypermobile, partially eroded, but in continuity. Cholesteatoma was seen filling the epitympanum, antrum, and mastoid. The diseased portion of the tympanic membrane was excised. Next, a cortical mastoidectomy with antrotomy was performed using a combination of cutting and armin drill bits and continuous irrigation. The tegmen mastoideum and the posterior ear canal were thinned without violation. The lateral semicircular canal and the incus were identified. Next, cholesteatoma was systematically removed. After all visible cholesteatoma was removed, we turned our attention towards reconstruction. A conchal cartilage graft was harvested in the usual fashion. Cartilage was cut to size. The fascia graft was laid under the remnant tympanic membrane. The middle ear space was filled with Gelfoam. Additional cartilage grafts were used to reinforce the auto-atticotomy defect. The reconstructed tympanic membrane was laid flat against the posterior ear canal. There was good overlap of the remnant tympanic membraneand fascia graft. Additional Gelfoam was placed lateral to the reconstruction as was Kos-House ointment. The vascular strip was laid flat in the ear canal. The postauricular incision was then closed in anatomical layers. A cotton ball was placed. A head wrap was secured. This marked the end of our procedure. Standard procedural protocols and universal precautions were utilized throughout the entire procedure. Filiberto Rojas M.D. documented in this encounter Miscellaneous Notes * Pre-Procedure Note - Chantelle Allen M.D. - 07/30/2023 3:42 PM CDT Images from the original note were not included. OTORHINOLARYNGOLOGY - HEAD AND NECK SURGERY BRIEFING NOTE Caron Mittal is a 73 y.o. female who has PMH significant for LEFT-sided cholesteatoma who we will perform a left tympanomastoidectomy with possible OCR. Prior otologic surgery: multiple tympanostomy tubes placed in her 20s for unknown reasons PMHx: ANDERSON, atrial fibrillation, depression, fibromyalgia, HTN, HLD Smoking hx: not documented ANESTHESIA - ETT: taped off to the right (opposite of operative site) - Fio2: per anesthesia - Paralysis: no paralysis - Pressors: per anesthesia - Abx: ancef - Decadron: 10 mg - Pt position: supine - Arm tuck: both arms tucked - Bed position: 180 degree turn with feet adjacent to anesthesia machine - Estimated Time: 3 hours NURSING - Jimenes: no - Patient postop status/disposition: outpatient - Meds: 1% lido with 1:100,000 epi - Prep: prep left ear and mastoid region - Special equipment: 2-lead facial nerve monitoring - Closure: 3-0 vicryl pop-offs for deep dermal; 5-0 FAST for skin; vaseline, fluff gauze, kerlix wrap for headwrap - follow-up: 3 week f/up with no audio (ciprodex drops to start 1 week ahead), 3 month f/up with audiogram documented in this encounter Plan of Treatment Upcoming Encounters Date Type Department Care Team (Latest Contact Info) Description 11/19/2023 11:30 AM GLASS INSTALLER Diagnostic Department of Neurology in [address] [phone] Alex Poole M.D. [address] [place] [phone] Discharge Disposition: Home or Self Care 12/07/2023 4:20 PM GLASS INSTALLER Office Visit Department of Internal Medicine in [address] [phone] Gin Salgado APRN, C.N.P., D.N.P. [address] [place] [phone] Discharge Disposition: Home or Self Care 12/08/2023 2:30 PM GLASS INSTALLER Diagnostic Department of Otorhinolaryngology in [place], [place] [address] [place] [phone] Filiberto Rojas M.D. [address] [place] [phone] Sandra Cloud Au.D. [address] [place] [phone] 12/08/2023 3:15 PM GLASS INSTALLER Office Visit Department of Otorhinolaryngology in [place], [place] [address] [place] [phone] Filiberto Rojas M.D. [address] [place] [phone] Scheduled Referrals Name Type Priority Associated Diagnoses Order Schedule Otorhinolaryngology Post Op (clinic) Outpatient Referral Routine Expected: 08/24/2023 (Approximate), Expires: 11/03/2024 documented as of this encounter Procedures Procedure Name Priority Date/Time Associated Diagnosis Comments TYMPANOMASTOIDECTOMY 08/03/2023 10:31 AM CDT Cholesteatoma Attic Bilateral Case Notes [facility], tpu 11 documented in this encounter Visit Diagnoses Diagnosis Cholesteatoma Attic Bilateral- Primary Cholesteatoma Attic Bilateral documented in this encounter Admitting Diagnoses Diagnosis Cholesteatoma Attic Bilateral documented in this encounter Administered Medications Inactive Administered Medications - up to 3 most recent administrations Medication Order MAR Action Action Date Dose Rate Site acetaminophen tablet 1,000 mg (TYLENOL) 1,000 mg, oral, Once as needed, other, If patient has not received in the previous 6 hours, Starting on Thu08/03/23 at 1637, For 1 dose, PACU (only), Oral unless RASS less than -1 or nausea/vomiting. Do not use if given in last 6 hours Given 08/03/2023 4:37 PM CDT 1,000 mg chlorhexidine 0.12 % mouthwash 15 mL (PERIDEX) 15 mL, swish & spit, Once as needed, Chlorhexidine mouthwash (Peridex) should be given if patient did not complete oral care, if completion is greater than 4 hours prior to surgery or procedure start time and they do not have the opportunity to brush their teeth now (or at this time)., Starting on Thu08/03/23 at 0941, For 1 dose, Pre-Op, Instruct patient to swish entire content of Chlorhexidine 0.12% mouthwash (PERIDEX) 15 mL cup for 30 seconds, then spit, swish & spit. If patient is at risk for aspiration, apply Chlorhexidine 0.12% mouthwash to a swab and gently swab the patient's teeth and gums. Ensure swab is not oversaturated. gelatin sponge,absorb-porcine 12-7 mm sponge (GELFOAM) As needed, Starting on Thu08/03/23 at 1246, Intra-Op Given 08/03/2023 12:46 PM CDT 1 each Behind Left Ear ibuprofen tablet 400 mg (MOTRIN) 400 mg, oral, Every 6 hours PRN, moderate pain or score 4-6 of 10, Starting on Thu08/03/23 at 1637, PACU (only), Take with food or milk if GI disturbances occur with use. Given 08/03/2023 4:37 PM CDT 400 mg lidocaine-EPINEPHrine 1 %-1:100,000 injection (XYLOCAINE W/EPI) As needed, Starting on Thu08/03/23 at 1130, Intra-Op Given 08/03/2023 11:30 AM CDT 4.5 mL Behind Left Ear metoprolol tablet 12.5 mg (LOPRESSOR) 12.5 mg, oral, Once as needed, if patient did not take their last scheduled dose of beta stephanie prior to arrival, Starting on Thu08/03/23 at 0941, For 1 dose, Pre-Op, Do not give if patient does not take scheduled beta blockers, if patient is receiving intravenous vasopressors or inotropes, if heart rate is less than 50 beats per minute, if systolic blood pressure is less than 90 mmHg or if diastolic blood pressure is less than 40 mmHg, or if patient has an allergy to metoprolol. polyethylene glycols otic cream As needed, Starting on Thu08/03/23 at 1437, Intra-Op Given 08/03/2023 2:37 PM CDT 1 Application Left Ear sodium chloride 0.9 % injection 10 mL 10 mL, intravenous, As needed, line care, Starting on Thu08/03/23 at 0941, Pre-Op, Peripheral Intravenous Catheter and Rapid Infusion Catheter, prior to blood sampling, post blood transfusion or post blood sampling sodium chloride 0.9 % injection 3 mL 3 mL, intravenous, As needed, line care, Starting on Thu08/03/23 at 0941, Pre-Op, Prior to and following infusion and between multiple consecutive infusions: sodium chloride 0.9 % injection sodium chloride 0.9 % injection 3 mL 3 mL, intravenous, Every 12 hours scheduled, First dose on Thu08/03/23 at 2100, Pre-Op, Peripheral Intravenous Catheter and Rapid Infusion Catheter, when no infusion to maintain patency documented in this encounter Active and Recently Administered Medications Times are shown in CDT. Scheduled Medication Order 08/01/2023 08/02/2023 08/03/2023 acetaminophen tablet 1,000 mg (TYLENOL) 1,000 mg, oral, Once, On Thu08/03/23 at 1030, For 1 dose, Pre-Op 1030 (Not Given - Pr ovider: Brittney Mcclelland R.N. - Reason: Patient/family refused) sodium chloride 0.9 % injection 3 mL 3 mL, intravenous, Every 12 hours scheduled, First dose on Thu08/03/23 at 2100, Pre-Op, Peripheral Intravenous Catheter and Rapid Infusion Catheter, when no infusion to maintain patency Continuous Medication Order 08/01/2023 08/02/2023 08/03/2023 Lactated Ringer's 20 mL/hr, intravenous, Continuous, Starting on Thu08/03/23 at 1500, PACU & Post-Op 1500 (Due) PRN Medication Order 08/01/2023 08/02/2023 08/03/2023 acetaminophen tablet 1,000 mg (TYLENOL) (COMPLETED)(Linked Group 1) 1,000 mg, oral, Once as needed, other, If patient has not received in the previous 6 hours, Starting on Thu08/03/23 at 1637, For 1 dose, PACU (only), Oral unless RASS less than -1 or nausea/vomiting. Do not use if given in last 6 hours 1637 (Given - Provid er: Nehemias Anthony R.N.) chlorhexidine 0.12 % mouthwash 15 mL (PERIDEX) 15 mL, swish & spit, Once as needed, Chlorhexidine mouthwash (Peridex) should be given if patient did not complete oral care, if completion is greater than 4 hours prior to surgery or procedure start time and they do not have the opportunity to brush their teeth now (or at this time)., Starting on Thu08/03/23 at 0941, For 1 dose, Pre-Op, Instruct patient to swish entire content of Chlorhexidine 0.12% mouthwash (PERIDEX) 15 mL cup for 30 seconds, then spit, swish & spit. If patient is at risk for aspiration, apply Chlorhexidine 0.12% mouthwash to a swab and gently swab the patient's teeth and gums. Ensure swab is not oversaturated. fentaNYL injection 25 mcg (SUBLIMAZE) 25 mcg, intravenous, Every 2 min PRN, moderate pain or score 4-6 of 10, severe pain or score 7-10 of 10, Starting on Thu08/03/23 at 1539, PACU (only), Up to maximum total dose of 200 mcg fentaNYL injection 25 mcg (SUBLIMAZE) 25 mcg, intravenous, Every 2 min PRN, For pain 4 or greater (maximum 100 mcg). If max dose of Fentanyl is reached and if pain is greater than 4, discontinue Fentanyl: give Hydromorphone, Starting on Thu08/03/23 at 1637, PACU (only) gelatin sponge,absorb-porcine 12-7 mm sponge (GELFOAM) (CANCELED) As needed, Starting on Thu08/03/23 at 1246, Intra-Op 1246 (Given - Provid er: Olayinka Mukherjee M.D.) granisetron (PF) injection 1 mg (KYTRIL) 1 mg, intravenous, Once as needed, nausea, vomiting, Starting on Thu08/03/23 at 1539, For 1 dose, PACU (only), If patient does not respond to ondansetron or haloperidol. (order of antiemetic administration - ondansetron then haloperidol then granisetron) haloperidol lactate injection 1 mg (HALDOL) 1 mg, intravenous, Every 6 hours PRN, nausea, vomiting, Starting on Thu08/03/23 at 1539, PACU (only), Total of 3 doses in 24 hour period. RASS must be -2 or higher to administer. If nausea and vomiting persists, move to granisteron. (order of antiemetic administration - ondansetron then haloperidol then granisetron) HYDROmorphone (PF) injection 0.2 mg (DILAUDID) 0.2 mg, intravenous, Every 5 min PRN, moderate pain or score 4-6 of 10, severe pain or score 7-10 of 10, Starting on Thu08/03/23 at 1637, PACU (only), Up to maximum total dose of 2 mg ibuprofen tablet 400 mg (MOTRIN) 400 mg, oral, Every 6 hours PRN, moderate pain or score 4-6 of 10, Starting on Thu08/03/23 at 1637, PACU (only), Take with food or milk if GI disturbances occur with use. 1637 (Given - Provid er: Nehemias Anthony R.N.) lidocaine-EPINEPHrine 1 %-1:100,000 injection (XYLOCAINE W/EPI) (CANCELED) As needed, Starting on Thu08/03/23 at 1130, Intra-Op 1130 (Given - Provid er: Chantelle Allen M.D.) metoprolol tablet 12.5 mg (LOPRESSOR) 12.5 mg, oral, Once as needed, if patient did not take their last scheduled dose of beta stephanie prior to arrival, Starting on Thu08/03/23 at 0941, For 1 dose, Pre-Op, Do not give if patient does not take scheduled beta blockers, if patient is receiving intravenous vasopressors or inotropes, if heart rate is less than 50 beats per minute, if systolic blood pressure is less than 90 mmHg or if diastolic blood pressure is less than 40 mmHg, or if patient has an allergy to metoprolol. oxyBUTYnin tablet 5 mg (DITROPAN) 5 mg, oral, Once as needed, If patient is not required to void prior to dismissal, Starting on Thu08/03/23 at 1637, For 1 dose, PACU (only) polyethylene glycols otic cream (CANCELED) As needed, Starting on Thu08/03/23 at 1437, Intra-Op 1437 (Given - Provid er: Filiberto Rojas M.D.) sodium chloride 0.9 % injection 10 mL 10 mL, intravenous, As needed, line care, Starting on Thu08/03/23 at 0941, Pre-Op, Peripheral Intravenous Catheter and Rapid Infusion Catheter, prior to blood sampling, post blood transfusion or post blood sampling sodium chloride 0.9 % injection 3 mL 3 mL, intravenous, As needed, line care, Starting on Thu08/03/23 at 0941, Pre-Op, Prior to and following infusion and between multiple consecutive infusions: sodium chloride 0.9 % injection Linked Groups Order Group 1: acetaminophen tablet 1,000 mg (TYLENOL) (COMPLETED)Jump to med 1,000 mg, oral, Once as needed, other, If patient has not received in the previous 6 hours, Starting on Thu08/03/23 at 1637, For 1 dose, PACU (only), Oral unless RASS less than -1 or nausea/vomiting. Do not use if given in last 6 hours Or acetaminophen injection 1,000 mg (COMPLETED) 1,000 mg, intravenous, at 400 mL/hr, Administer over 15 Minutes, Once as needed, other, If patient has not received in previous 6 hours, Starting on Thu08/03/23 at 1637, For 1 dose, PACU (only), Oral unless RASS less than -1 or nausea/vomiting. Do not use if given in last 6 hours, Restriction Criteria (Pharmacy will review and approve if criteria met): Unable to take or tolerate medications administered via the enteral route or orally (not just NPO) documented in this encounter
--- OUTSIDE RECORDS SUMMARY | 2023-11-02 12:42 | XMS_ITS | Encounter Summary ---
Author Name Unknown Organization [facility] Address [address] [place] [address] Care Team Providers Care Job Site Superintendent Name Role Phone Unavailable Primary Care Provider Unavailabl e Reason for Visit * Appointment Request (Routine) - Closed Specialty Diagnoses / Procedures Referred By Kimberly chiang Referred To Contact Otorhinolaryngology Diagnoses Hearing Exam Referral ID Status Reason Start Date Expiration Date Visits Re quested Visits Authorized [id number] Closed 06/24/2023 06/23/2024 1 1 Encounter Details Date Type Department Care Team (Latest Contact Info) Description 06/30/2023 10:15 AM CDT Diagnostic Department of Otorhinolaryngology in [place], [place] [address] [place] [phone] Sandra Brown Au.D. [address] [place] [phone] Loss Hearing Sensorineural Asymmetrical (Primary Dx); Fullness Ear Left; Loss Hearing Sensorineural Bilateral Social History Tobacco Use Types Packs/Day [...] your living situation today? I have a [facility] place to live 06/29/2023 Sex and Gender Information Value Date Recorded Sex Assigned at Female 06/29/2023 9:11 PM CDT Gender Identity Female 06/29/2023 9:11 PM CDT Sexual Orientation Straight 06/29/2023 9: 11 PM CDT documented as of this encounter Procedure Notes * Sandra Brown Au.D. - 06/30/2023 9:55 AM CDT SUBJECTIVE CHIEF COMPLAINT / REASON FOR VISIT ?? Asymmetric hearing loss, left worse than right, externally evaluated 04/17/2022 ?? Concern for left cholesteatoma per outside MRI 06/10/2023 HISTORY OF PRESENT COMPLAINT Ms. Caron Mittal is a 73 year old patient who presents for an audiogram in conjunction with an otorhinolaryngology consultation accompanied by her daughter. She reports decreased hearing over the last year. She endorses a history of chronic ear infections as a child with P.E. tube placements. She no campos she had a polyp removed from her left ear last summer which temporarily improved her hearing and reduced the aural fullness. She has hearing aids but does not wear them as she does not perceive enough benefit. Today, the patient denied otalgia, otorrhea, tinnitus, vertigo, loudness sensitivity, family history of early onset hearing loss, history of head and/or neck radiation treatment, ototoxic medications, and history of noise exposure. OBJECTIVE See Audiological Evaluation Form ASSESSMENT/PLAN ?? Hearing is stable compared to 04/17/2022 ?? Right ear: mild to moderate sensorineural hearing loss 0.25-6 kHz sloping to severe sensorineural hearing loss at 8 kHz ?? Left ear: moderate to moderately severe sensorineural hearing loss 0.25-3 kHz sloping to profound sensorineural hearing loss through 8 kHz ?? Word recognition ability was assessed using recorded isophoneme stimuli, 20- word lists, and resulted in scores of 95% in the right ear and 80% in the left ear. ?? Tympanograms were Type A (normal) in the right ear and Type B (flat) with normal ear canal volume in the left CARE PLAN ?? Follow up with otorhinolaryngology department as scheduled ?? Resume consistent use of hearing aids. Follow up with local hearing aid provider for routine maintenance and adjustment of hearing aids. ?? Recommended the use of hearing protective devices in noisy environments. ?? Return for repeat audiograms as directed by medical management team, sooner if changes are noticed. documented in this encounter Plan of Treatment Upcoming Encounters Date Type Department Care Team (Latest Contact Info) Description 11/19/2023 11:30 AM ASSISTANT COMMUNITY MANAGER Diagnostic Department of Neurology in [place] [address] [place] [phone] Alex Poole M.D. [facility] [place] [phone] Discharge Disposition: Home or Self Care 12/07/2023 4:20 PM ASSISTANT COMMUNITY MANAGER Office Visit Department of Internal Medicine in [place] [address] [place] [phone] Gin Salgado APRN, C.N.P., D.N.P. [address] [place] [phone] Discharge Disposition: Home or Self Care 12/08/2023 2:30 PM ASSISTANT COMMUNITY MANAGER Diagnostic Department of Otorhinolaryngology in [place], [place] [address] [place] [phone] Filiberto Rojas M.D. [address] [place] [phone] Sandra Cloud Au.D. [address] [place] [phone] 12/08/2023 3:15 PM ASSISTANT COMMUNITY MANAGER Office Visit Department of Otorhinolaryngology in [place], [place] [address] [place] [phone] Filiberto Rojas M.D. [address] [place] [phone] documented as of this encounter Procedures Procedure Name Priority Date/Time Associated Diagnosis Comments AUDIOLOGY EVALUATION 06/30/2023 12:00 AM CDT documented in this encounter Results * AUDIOLOGY EVALUATION (06/30/2023 12:00 AM CDT) 06/30/2023 Sandra Alarcon AUDIOLOGY SERVICES ORDERABLES documented in this encounter Visit Diagnoses Diagnosis Loss Hearing Sensorineural Asymmetrical- Primary Fullness Ear Left Loss Hearing Sensorineural Bilateral documented in this encounter
--- OUTSIDE RECORDS SUMMARY | 2023-11-02 12:42 | XMS_ITS | Encounter Summary ---
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 [address] [place] [phone] Rebeca Barr M.D., M.P.H. [address] [place] [phone] Anesthesia Record Procedure Summary Procedure Name Responsible Anesthesiologist Anesthesia Start Time Anesthesia Stop Time TYMPANOMASTOIDECTOM Y. (Left: Head) Rosie Carter M.D. 08/03/23 1047 08/03/23 1520 Events Date Time Event Comment 08/03/2023 1047 An Start Machine/Equipme nt Checked Infection Precautions Followed Procedure/Site Verified NPO Status Verified Supine Standard ASA Monitors Applied 1053 An Induction 1053 Quick Note Regular cuff, l eft forearm 1056 Quick Note Large cuff, upp er left arm 1100 An Intubation 1101 Turnover to Proceduralist 1124 Anes CS Handoff I, Joanne john, M.B.A., R.N., attest that I have reconciled the controlled substances and that I have reviewed all the significant information with the next anesthesia provider assuming care of this patient. 1130 Proc Start 1155 Anes CS Handoff I, Nery Pitts te, SCHEDULE SUPERVISOR, CANOE INSPECTOR FINAL, attest that I have reconciled the controlled substances and that I have reviewed all the significant information with the next anesthesia provider assuming care of this patient. 1305 Anes CS Handoff I, Joanne john M.B.A., R.N., attest that I have reconciled the controlled substances and that I have reviewed all the significant information with the next anesthesia provider assuming care of this patient. 1428 Quick Note BP switched to leg 1457 Proc Fin 1512 Turnover to ANE Staff 1512 Airway Removal Criteria Met 1512 Extubation/Airway Removed 1512 an stop data 1520 An End I completed my handoff to the receiving staff during which we 1. Identified the patient 2. Identified the responsible provider 3. Reviewed the pertinent medical history 4. Discussed the surgical course 5. Reviewed intra-op anesthesia management and issues during anesthesia 6. Set expectations for post-procedure period 7. Allowed opportunity for questions and acknowledgement of understanding. Meds Name Total fentanyl injection 50 mcg/mL 100 mcg lidocaine 2% (mg) injection 80 mg succinylcholine 20 mg/mL injection 200 m g ePHEDrine PF 5 mg/mL syringe injection 3 5 mg ondansetron 4 mg/2 mL injection 4 mg propofol 10 mg/mL infusion 2,026.3 mg propofol 10 mg/mL injection 130 mg remifentaniL 20 mcg/mL in NaCl 0.9% 250 mL infusion (ULTIVA) 5.06 mg dexAMETHasone (DECADRON) injection 4 mg/ mL 10 mg phenylephrine 20 mg/250 mL infusion 8.17 mg ceFAZolin 4 g phenylephrine bolus from bag 100 mcg Lactated Ringers Free Drip 700 mL lactated ringers free drip 700 mL * Agents No agents on file. * Blood No blood administrations on file. Lines, Drains, and Airways Type Details Placement Removal Peripheral IV Placement Date: 07/19 04/10; Placement Time: 1006; Change Due: 08/10/23; Catheter Size: 20 G; Orientation: Right; Location: Antecubital; Site Prep: Chlorhexidine (Preferred); Technique: Anatomical landmarks; Inserted by: DONAL; Insertion Attempts: 1 08/03/23 1006 by Tommy Garduno T Wound 08/03/23; 1437; Ear; Left 1437 by July Mccurdy RSaulN. ETT Placement Date: 07/19 04/10; Placement Time: 1100 (created via procedure documentation); Mask Ventilation: Easy mask; Technique: Video laryngoscopy; Type: Standard ETT; Single Lumen Tube Size: 7 mm; Cuffed: Yes; Location: Oral; Grade View: Grade 1; Insertion Attempts: 1; Placement Verification: Bilateral breath sounds, Positive ETCO2, Symmetrical chest wall movement; Removal Date: 08/03/23; Removal Time: 1512 08/03/23 1100 by Joanne Kramer, M.B.ASaul, R.N. 08/03/23 1512 by Joanne Kramer, M.B.A., R.N. Indwelling Urinary Catheter Placement Date: 08/03/23; Placement Time: 1119; Inserted by: Aakash Mccurdy RN; Type: Temperature probe; Size: 16 Fr.; Balloon Size: 10 mL; Urine Returned: Yes; Removal Date: 08/03/23; Removal Time: 1308; Removal Reason: Per order 08/03/23 1119 by July Mccurdy R.NSaul 08/03/23 1308 by Sharon Richardson RSaulNSaul Peripheral IV Placement Date: 07/19 04/10; Placement Time: 1122; Catheter Size: 20 G; Orientation: Left; Location: Hand; Removal Date: 08/03/23; Removal Time: 171; Removal Reason: Completion of therapy 08/03/23 1122 by Joanne Kramer, M.B.ASaul, R.NSaul 08/03/23 1713 by Nehemias Anthony RSaulN. documented in this encounter Social History Tobacco Use Types Packs/Day Years [...] your living situation today? I have a [facility] place to live 06/29/2023 Sex and Gender Information Value Date Recorded Sex Assigned at Female 06/29/2023 9:11 PM CDT Gender Identity Female 06/29/2023 9:11 PM CDT Sexual Orientation Straight 06/29/2023 9: 11 PM CDT documented as of this encounter OR Notes * Anesthesia Postprocedure Evaluation - Rosie Carter M.D. - 08/03/2023 4:29 PM CDT Patient: Caron Mittal Procedure Summary Date: 08/03/23 Room / Location: [address] [address] / [facility] in [place], [place] Anesthesia Start: 1047 Anesthesia Stop: 1520 Procedure: TYMPANOMASTOIDECTOMY. 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 Responsible Provider: Rosie Carter M.D. Anesthesia Type: general ASA Status: 3 Anesthesia Type: general Last vitals Vitals Value Taken Time BP 157/66 08/03/23 1520 Temp Pulse 91 08/03/23 1527 Resp 14 08/03/23 1527 SpO2 90 % 08/03/23 1527 Vitals shown include unvalidated device data. Please reference Vitals flowsheet for most recent vital signs. Anesthesia Post Evaluation Patient Disposition: dismissal Cardiovascular status: hemodynamics (HR & BP) acceptable Respiratory status: patent airway with spontaneous effort Temperature: normothermic Oxygen requirements: room air Level of consciousness: awake Pain score: pain adequately controlled and/or at baseline Post Op nausea/vomiting: none Hydration status: euvolemic * Anesthesia Procedure Notes - Joanne Kramer M.B.A., R.N. - 08/03/2023 11:23 AM CDTAssociated Order(s): Airway Airway Date/Time: 08/03/2023 11:00 AM Performed by: Joanne Kramer M.B.A., R.N. Authorized by: Rebeca Barr M.D., M.P.H. Patient location during procedure: OR / Procedure Area PROCEDURE DETAILS: Mask difficulty assessment: easy mask Final airway type: video laryngoscope Laryngeal Manipulation: no Final best view of glottic structures - Cormack/Lehane Score: grade 1 ETT location: oral VL device: glide scope [place] scope blade size: 3 Tube size: 7 [...] ANESTHESIA Anesthesia method: anesthesia POST PROCEDURE DETAILS: Procedure outcome: successful Airway event: no complications * Anesthesia Preprocedure Evaluation - Rebeca Barr M.D., M.P.H. - 08/03/2023 10:37 AM CDT Preprocedure Anesthesia & H&P Assessment Procedure Summary Anesthesia Start Date/Time: 08/03/23 1047 Procedures: TYMPANOMASTOIDECTOMY. (Left: Head) RECONSTRUCTION OSSICLES, PROCEED INDICATED. 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 Location: [place] [address] / [facility] in [place], [place] Providers: Filiberto Rojas M.D. Pertinent components of the patient's history including current problem list, medical history, surgical history, family history, social history, medications and allergies were reviewed. Present illness and pre-op diagnosis were confirmed. The planned surgery / procedure was verified with the patient / legal guardian. The patient's general health condition remains unchanged RELEVANT COMORBID CONDITIONS CV (+) Atrial Fibrillation Paroxysmal (HCC) (+) Hypertension Essential Primary PSYCH (+) Depression Major Recurrent (HCC) Nervous (+) Chronic Fatigue Syndrome Musculoskeletal (+) Fibromyalgia Endocrine/Metabolic (+) Hyperlipidemia Mixed Sleep (+) Apnea Sleep Obstructive OBJECTIVE PHYSICAL EXAMINATION Airway (HEENT) Mallampati: II TM Distance: >3 FB Neck ROM: Full Mouth Opening: >3 cm Cardiovascular Rhythm: Regular Rate: Normal Cardiovascular Assessment: cardiovascular normal Functional Capacity: >4 METS Pulmonary Pulmonary Assessment: Clear and non labored General / Constitutional Constitutional Assessment: Obese Neurological Neurologic Assessment: alert and alert and oriented x 3 Dental Dental Assessment: upper dentures ASSESSMENT / PLAN ANESTHESIA PLAN ASA: 3 Anesthesia Plan: general Mrs Mittal is a 73 yo female, Jehova's witness, with Afib on metoprolol XR, ANDERSON (no CPAP due to nontolerance), HTN (managed with Metoprolol) BP elevated in Preop, and back pain. Plan for GETA with glidescope. Succinylcholine for induction. No long acting paralysis due to facial nerve monitoring TIVA with Prop and Hammad. PONV ppx with dexamethasone and Zofran, prop ggt. Patient seen and allergies reviewed, anesthesia plan and risks discussed directly with patient /legal guardian or through an tape recording machine operator. Risks/Benefits/Alternatives of Blood transfusion discussed with patient / legal guardian, includingan opportunity to ask questions and/or decline some or all transfusion therapies. The patient / legal guardian declined the use of blood products, except for those listed below. Blood Products Consent Exception: We had an extensive discussion about blood transfusion. She has an advance directives in the chart which lists the products she would accept in the case of a life threatening emergency. She does not want any whole blood or blood components (pRBC, Plasma, Platelet, Cryo) or any blood derived factor concentrates. She will accept Albumin, and synthetic factor concentrates. She is okay with Cell Saver if it stays in continuity with her. Her daughter and son are herdecision makers and she is fine with other decisions they make regarding other products. Approval to Proceed: approved for anesthesia documented in this encounter Plan of Treatment Upcoming Encounters Date Type Department Care Team (Latest Contact Info) Description 11/19/2023 11:30 AM CONCRETE FOREMAN Diagnostic Department of Neurology in [place] [address] [place] [phone] Alex Poole M.D. [address] [place] [phone] Discharge Disposition: Home or Self Care 12/07/2023 4:20 PM CONCRETE FOREMAN Office Visit Department of Internal Medicine in [place], [place] [address] [place] [phone] Gin Salgado APRN C.N.P., D.N.P. [address] [place] [phone] Discharge Disposition: Home or Self Care 12/08/2023 2:30 PM CONCRETE FOREMAN Diagnostic Department of Otorhinolaryngology in [place], [place] [address] [place] [phone] Filiberto Rojas M.D. [address] [place] [phone] Sandra Cloud Au.D. [address] [place] [phone] 12/08/2023 3:15 PM CONCRETE FOREMAN Office Visit Department of Otorhinolaryngology in [place], [place] [address] [place] [phone] Filiberto Rojas M.D. [address] [place] [phone] documented as of this encounter Procedures Procedure Name Priority Date/Time Associated Diagnosis Comments LDA ANE ENDOTRACHEAL AIRWAY Routine 08/03/2023 11:00 AM CDT documented in this encounter Results * LDA ANE ENDOTRACHEAL AIRWAY (08/03/2023 11:00 [...] ETT location: oral VL device: glide scope [place] scope blade size: 3 Tube size: 7 [...] Rebeca Barr M.D., M.P.H. ANESTHESIA ORD ERABLES documented in this encounter Visit Diagnoses Not on filedocumented in this encounter Administered Medications Inactive Administered Medications - up to 3 most recent administrations Medication Order MAR Action Action Date Dose Rate Site ceFAZolin injection (ANCEF) intravenous, As needed, Starting on Thu08/03/23 at 1122, Anesthesia Intra-op Given 08/03/2023 2:15 PM CDT 2 g Given 08/03/2023 11:22 AM CDT 2 g dexAMETHasone injection (DECADRON) intravenous, As needed, Starting on Thu08/03/23 at 1122, Anesthesia Intra-op Given 08/03/2023 11:22 AM CDT 10 mg ePHEDrine (PF) injection intravenous, As needed, Starting on Thu08/03/23 at 1116, Anesthesia Intra-op Given 08/03/2023 2:59 PM CDT 5 mg Given 08/03/2023 2:50 PM CDT 5 mg Given 08/03/2023 1:35 PM CDT 5 mg fentaNYL injection (SUBLIMAZE) intravenous, As needed, Starting on Thu08/03/23 at 1327, Anesthesia Intra-op Given 08/03/2023 2:08 PM CDT 50 mcg Given 08/03/2023 1:27 PM CDT 50 mcg Lactated Ringer's intravenous, Continuous Infusion: Per Instructions PRN, Starting on Thu08/03/23 at 1049, Anesthesia Intra-op New Bag 08/03/2023 10:49 AM CDT Lactated Ringer's intravenous, Continuous Infusion: Per Instructions PRN, Starting on Thu08/03/23 at 1118, Anesthesia Intra-op New Bag 08/03/2023 11:18 AM CDT lidocaine (PF) (cardiac) injection intravenous, As needed, Starting on Thu08/03/23 at 1054, Anesthesia Intra-op Given 08/03/2023 10:54 AM CDT 80 mg ondansetron (PF) injection (ZOFRAN) intravenous, As needed, Starting on Thu08/03/23 at 1409, Anesthesia Intra-op Given 08/03/2023 2:09 PM CDT 4 mg phenylephrine 80 mcg/mL in NaCl 0.9% 250 mL infusion intravenous, Continuous Infusion: Per Instructions PRN, Starting on Thu08/03/23 at 1058, Anesthesia Intra-op Rate/Dose Change 08/03/2023 2:40 PM CDT 0.2 mcg/kg/min 15.555 mL/hr Rate/Dose Change 08/03/2023 1:49 PM CDT 0.3 mcg/kg/min 23. 333 mL/hr Rate/Dose Change 08/03/2023 12:00 PM CDT 0.4 mcg/kg/min 31 .11 mL/hr phenylephrine bolus from bag (IRWIN-SYNEPHRINE) intravenous, As needed, Starting on Thu08/03/23 at 1129, Anesthesia Intra-op Given 08/03/2023 11:46 AM CDT 50 mc g Given 08/03/2023 11:29 AM CDT 50 mcg propofol 10 mg/mL infusion (DIPRIVAN) intravenous, Continuous Infusion: Per Instructions PRN, Starting on Thu08/03/23 at 1058, Anesthesia Intra-op Rate/Dose Change 08/03/2023 1:02 PM CDT 90 mcg/kg/min 55.998 mL/hr Rate/Dose Change 08/03/2023 11:46 AM CDT 100 mcg/kg/min 62 .22 mL/hr New Bag 08/03/2023 10:58 AM CDT 125 mcg/kg/min 77.775 m L/hr propofoL injection (DIPRIVAN) intravenous, As needed, Starting on Thu08/03/23 at 1055, Anesthesia Intra-op Given 08/03/2023 10:58 AM CDT 30 mg Given 08/03/2023 10:57 AM CDT 50 mg Given 08/03/2023 10:55 AM CDT 50 mg remifentaniL 20 mcg/mL in NaCl 0.9% 250 mL infusion (ULTIVA) intravenous, Continuous Infusion: Per Instructions PRN, Starting on Thu08/03/23 at 1058, Anesthesia Intra-op Rate/Dose Change 08/03/2023 2:43 PM CDT 0.15 mcg/kg/min 46.665 mL/hr Rate/Dose Change 08/03/2023 2:39 PM CDT 0.18 mcg/kg/min 55 .998 mL/hr New Bag 08/03/2023 10:58 AM CDT 0.2 mcg/kg/min 62.22 mL /hr succinylcholine (PF) injection (ANECTINE) intravenous, As needed, Starting on Thu08/03/23 at 1059, Anesthesia Intra-op Given 08/03/2023 10:59 AM CDT 200 m g documented in this encounter
--- OUTSIDE RECORDS SUMMARY | 2023-11-02 12:42 | XMS_ITS | Encounter Summary ---
Author Name Unknown Organization [facility] Address [address] [place] [address] Care Team Providers Care Power Ballast Machine Operator Name Role Phone Unavailable Primary Care Provider Unavailabl e Reason for Referral * Outpatient (Routine) - Closed Specialty Diagnoses / Procedures Referred By Kimberly chiang Referred To Contact Otorhinolaryngology Chantelle Allen M.D. 200 [place] [address] Filiberto Rojas M.D. 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 [address] [place] [address] Discharge Disposition: Home or Self Care Social [...] your living situation today? I have a st [facility] place to live 06/29/2023 Sex and Gender Information Value Date Recorded Sex Assigned at Female 06/29/2023 9:11 PM CDT Gender Identity Female 06/29/2023 9:11 PM CDT Sexual Orientation Straight 06/29/2023 9: 11 PM CDT documented as of this encounter Last Filed Vital Signs Vital Sign Reading Time Taken Comments Blood Pressure 151/75 08/03/2023 4:30 PM CDT Pulse 78 08/03/2023 5:15 PM CDT Temperature 36.9 ??C (98.4 ??F) 08/03/2023 5:05 PM CD T Respiratory Rate 15 08/03/2023 4:50 PM [...] Bilateral Post-op Diagnosis Cholesteatoma Attic Bilateral A veterinarian assistant actively participated and was necessary for [...] (Latest Contact Info) Description 11/19/2023 11:30 AM CLOTH GRADER Diagnostic Department of Neurology in [address] [phone] Alex Poole M.D. [address] [place] [phone] Discharge Disposition: Home or Self Care 12/07/2023 4:20 PM CLOTH GRADER Office Visit Department of Internal Medicine in [address] [phone] Gin Salgado APRN, C.N.P., D.N.P. [address] [place] [phone] Discharge Disposition: Home or Self Care 12/08/2023 2:30 PM CLOTH GRADER Diagnostic Department of Otorhinolaryngology in [place], [place] [address] [place] [address] Filiberto Rojas M.D. [address] [place] [address] Sandra Cloud Au.D. [address] [place] [address] 12/08/2023 3:15 PM CLOTH GRADER Office Visit Department of Otorhinolaryngology in [place], [place] [address] [place] [address] Filiberto Rojas M.D. 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 Ensure swab is not oversaturated. ibuprofen tablet 400 mg (MOTRIN) 400 mg, oral, Every 6 hours PRN, moderate pain or score 4-6 of 10, Starting on Thu08/03/23 at 1637, PACU (only), Take with food or milk if GI disturbances occur with use. Given 08/03/2023 4:37 PM CDT 400 mg metoprolol tablet 12.5 mg (LOPRESSOR) 12.5 mg, [...] if patient has an allergy to metoprolol. sodium chloride 0.9 % injection 10 mL [...] Pre-Op 1030 (Not Given - Pr ovider: Livia AlfredoN. - Reason: Patient/family refused) sodium chloride 0.9 [...] 6 hours 1637 (Given - Provid er: Livia PayneNSaul) chlorhexidine 0.12 % mouthwash 15 mL (PERIDEX) [...]
--- OUTSIDE RECORDS SUMMARY | 2023-11-02 12:42 | XMS_ITS | Encounter Summary ---
Author Name Unknown Organization [facility] Address [address] [place] [address] Care Team Providers Care Cigarette And Filter Chief Inspector Name Role Phone Unavailable Primary Care Provider Unavailabl e Encounter Details Date Type Department Care Team (Latest Contact Info) Description 07/31/2023 12:56 PM CDT - 07/31/2023 11:59 PM CDT Hospital Encounter Department of Laboratory Medicine and Pathology, [facility] in [place], [place] [address] [place] [phone] Dean Shields, JUANA, C.N.P., M.S.N. [address] [place] [phone] Preanesthetic Medical Exam Discharge Disposition: Home or Self Care Social [...] your living situation today? I have a [facility] place to live 06/29/2023 Sex and [...] 08/03/2023 10/27/2023 documented as of this encounter Plan of Treatment Upcoming Encounters Date Type Department Care Team (Latest Contact Info) Description 11/19/2023 11:30 AM WASHER CARCASS Diagnostic Department of Neurology in [address] [phone] Alex Poole M.D. 200 [place] [phone] Discharge Disposition: Home or Self Care 12/07/2023 4:20 PM WASHER CARCASS Office Visit Department of Internal Medicine in [address] [phone] Gin Salgado, JUANA, C.N.P., D.N.P. [address] [place] [phone] Discharge Disposition: Home or Self Care 12/08/2023 2:30 PM WASHER CARCASS Diagnostic Department of Otorhinolaryngology in [place], [place] [address] [place] [phone] Filiberto Rojas M.D. [address] [place] [phone] Sandra Cloud Au.D. [address] [place] [phone] 12/08/2023 3:15 PM WASHER CARCASS Office Visit Department of Otorhinolaryngology in [place], [place] [address] [place] [phone] Filiberto Rojas M.D. [address] [place] [phone] documented as of this encounter Procedures Procedure Name Priority Date/Time Associated Diagnosis Comments BASIC METABOLIC PANEL, S/P Routine 07/31/2023 1:21 PM CDT Preanesthetic Medical Exam documented in this encounter Results * Basic Metabolic Panel (07/31/2023 1:21 PM CDT) Potassium, S 5.1 3.6 - 5.2 mmol/L [...] CDT 07/31/2023 2:02 PM CDT Gary Carrillo APRNNRandy, M.S.N. [place] BLOOD ADD[facility] 200 [place] [address], [facility] D[facility] 200 [place] [address] documented in this encounter Visit Diagnoses Diagnosis Preanesthetic Medical Exam documented in this encounter
--- OUTSIDE RECORDS SUMMARY | 2023-11-02 12:43 | XMS_ITS | Continuity of Care Document ---
Author Name Unknown Organization [facility] Address [address] [place] [address] Phone Care Team Providers Care Wedding Transportation Driver Name Role Phone Jem Lemos MD Unavailable Unavailable Allergies, Adverse Reactions, Alerts Substance Reaction Status Criticality DULOXETINE HCL Active No Informatio n SERTRALINE HCL Active No Informatio n FLUOXETINE HCL Active No Informatio n Medications Medication Instructions Dosage Effective Dates (start - stop) Status Comments Vitamin D3 10 mcg (400 unit) tablet - Active METOPROLOL SUCCINATE (unknown strength) Not Available - Active ASPIRIN (unknown strength) Not Available - Active ALEVE (unknown strength) Not Available - Active Procedures Procedure Date Office/Outpatient Visit,[facility] 2019 Office/Outpatient Visit,[facility] 2012 Advance Directives Directive Yes / No Effective Date File Name No Information Encounters Encounter Description Practice Location Reason(s) For Visit Diagnoses Date Provider Providers Copied on Encounter [facility], [address], [place], [place], [id number], [place] tel:[phone] [facility] No Information 0 Mehbod Amir. [facility], [address], [id number] , [place]. [phone] Office/Outpat ient Visit,[facility], [address], [place], [id number], tel:[phone] [facility] No Information 0 Mehbod Amir. [facility], [address], [place], [place], [id number] , [place]. tel:[phone] Referring Provider: Michael Townsend, [facility] [address], [address]. tel:[phone] Office/Outpat ient Visit,[place], [place] [facility], [address], [place], [address], [place] tel:[phone] [facility] Depression 3 Mehbod Amir. [facility], [address], [place], [place], [id number] , [place]. tel:[phone] Family History Family Member Type Diagnosis Age At Onset Problem (finding) Problem (finding) Problem (finding) Problem (finding) Problem (finding) Problem (finding) Problem (finding) Problem (finding) Payers Payer name Insurance type Covered alliance party ID Chuyita galeana(s) [facility] [id number] Medicare [facility] BL [id number] 1 Social History Type Description Quantity Date [...]
--- OUTSIDE RECORDS SUMMARY | 2023-11-02 12:43 | XMS_ITS | Clinical Summary ---
Author Name Unknown Organization [facility] Address [place], [place] [address] Care Team Providers Care Distance Education Coordinator Name Role Phone Patricia Lindsey MD Unavailable + Michael Townsend MD Primary Care Provider + Allergies Active Allergy Reactions Criticality Noted Date Comments Ciprofloxacin Other - Describe In Comment Field High 06/17/2023 Duloxetine Other - Describe In Comment Field Watery eyes Fluoxetine Intolerance-Can't Take 01/20/2007 watery eyes Sertraline Itching Low 06/17/2023 Medications Medication Sig Dispensed Refills Start Date End Date Status CPAP autoCPAP, heated humidifier, mask, headgear, filters and tubing. Pressure: 4-15cm/H2O Length of Need: 99 1 Device 0 04/30/2015 Active aspirin chewable 81 mg chewable tablet Take 1 tablet by mouth once daily with a meal. 0 04/05/2018 Active metoprolol succinate (TOPROL XL) 50 mg sustained-release tabletIndications: HTN (hypertension) Take 1 tablet by mouth once daily. 30 tablet 0 10/07/2019 Active buPROPion (WELLBUTRIN XL) 300 mg Extended-Release tablet Take 300 mg by mouth once daily in the afternoon. 0 12/13/2021 Active celecoxib (CELEBREX) 200 mg capsule 0 12/13/2021 Active acetaminophen (TYLENOL) 325 mg tablet Take 2 Tablets (650 mg) by mouth every 4 hours if needed for Pain. Max acetaminophen dose: 4000mg in 24 hrs. 0 08/21/2023 Active ciprofloxacin-hydr ocortisone (CIPRO-HC) 0.2%-1% otic suspension Place 4 Drops into both ears two times daily. 0 08/21/2023 Active oxyCODONE (ROXICODONE) 5 mg immediate release tabletIndications: Acute pain of right knee Take 1 Tablet (5 mg) by mouth every 4 hours if needed for Pain. 15 Tablet 0 08/31/2023 Active Active Problems Patient Care Coordination No te Formatting of this note migh t be different from the original. HF/Structural/Prevention Research Eligibility Review Date: 12/07/19 Upcoming Visit Location: Outreach Age: 69 y.o. 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 Stenosis, spinal, lumbar 03/10/2013 Displacement of lumbar inter vertebral disc without myelopathy 03/10/2013 Colon adenoma 06/06/2010 Overview: Colonoscopy 05/2010 polyp repeat in 5 years Depression, recurrent 07/26/2008 sleep apnea 06/27/2008 AHI- 20, positional 008 Chronic fatigue syndrome 01/20/2007 Fibromyalgia Resolved Problems Problem Noted Date Diagnosed Date Resolved Date Depressive disorder, not elsewhere classified 01/21/20 07 07/26/2008 Encounters Date Type Department Care Team Description 11/01/2023 Nurse Triage [facility] [address] [place] [phone] Michael Townsend MD Screening (Colonoscopy prep) 08/28/2023 10:[address] [address] Tia Cartwright MD Transitional Care Visit ( initial & d/c ) 08/28/2023 Travel 08/27/[address] [address] Tia Cartwright MD Refill Request (Oxycodone) 08/24/2023 10:[address] [place] [address] Shelly Honeycutt NP Transitional Care Visit (PIGS FEET CLEANER admit ) 08/24/2023 Refill [facility] [address] [place] [address] Tia Cartwright MD Refill Request (Oxycodone) 08/24/2023 Travel 08/21/2023 Transcribe Orders [facility] [address] [place] [phone] Narciso Davis MD 08/21/2023 Orders Only [facility] [address] [place] [address] Shelly Honeycutt NP <No scans attached> from Last 3 Months Immunizations Name Administration Dates Next Due Influenza, High-dose Quadrivalent Inactivated Td, Preservative Free (age >= 7 Years) 8 Tdap 02/03/2017 Zoster (Zostavax-ZVL, live) 09/15/2013 Family History Medical History Relation Name Comments Hypertension Brother Diabetes Father Heart Disease Father [place] Alcohol/Drug Maternal Aunt 1 Alcohol/Drug Maternal Aunt 2 Cancer-breast Maternal Aunt 3 three Alcohol/Drug Maternal Grandfather Asthma Maternal Grandmother Cancer Mother uterine or ovar gabe, discovered along with the breast, uncertain primary Cancer-breast Mother 50's Heart failure Sister Relation Name Status Comments Brother Daughter 1 monika Alive Daughter 2 zak Alive Father Maternal Aunt 1 Maternal Aunt 2 Maternal Aunt 3 Maternal Grandfather Maternal Grandmother Mother Other clayton Alive spouse Sister Son clayton corley Alive Social History Tobacco Use Types Packs/Day Years Used Date Smoking Tobacco: Never Smokeless Tobacco: Never Tobacco Cessation:Counseling Given: Yes Alcohol Use Standard Drinks/Week Comments Not Currently 0 (1 standard drink = 0.6 oz pur e alcohol) 1 beer per month PHQ-2 Answer Date Recorded PHQ-2 TOTAL SCORE 4 03/21/2022 Social Connections Answer Date Recorded Frequency of Communication with Friends and Fami ly Not on file 02/16/2023 Alcohol Use Answer Date Recorded How often do you have a drink containing alcohol ? 1 03/21/2022 How many drinks containing a lcohol do you have on a typical day when you are drinking? 0 03/21/2022 How often do you have five or more drinks on one occasion? 0 03/21/2022 Financial Resource Strain Answer Date R ecorded Difficulty of Paying Living Expenses 3 01/28/2022 Difficulty of Paying Living Expenses Not on file 01/28/2022 Food Insecurity Answer Date Recorded Worried About Running Out of Food in the Last Ye ar 1 01/28/2022 Transportation Needs Answer Date Record ed Lack of Transportation (Medical) 1 01/28/2022 Housing Stability Answer Date Recorded Unable to Pay for Housing in the Last Year 1 01/28/2022 Sex and Gender Information Value Date Recorded Sex Assigned at Not on file Gender Identity Not on file Sexual Orientation Not on file Obstetrics History Para Term AB IAB SAB Ectopic Multiple Livin g Live Births 4 3 3 3 Date Outcome GA Total Labor Labor/2nd/3rd Weight Sex Delivery Anes PTL Desi A1 A5 Name Cl in Term Term Term Last Filed Vital Signs Vital Sign Reading Time Taken Comments Blood Pressure 108/66 03/21/2022 11:35 AM CDT Pulse 59 03/21/2022 11:35 AM CDT Temperature 36.6 ??C (97.9 ??F) 03/21/2022 1 1:35 AM CDT Respiratory Rate 20 02/20/2017 2:45 PM CDT Oxygen Saturation 97% 03/21/2022 11: 35 AM CDT Inhaled Oxygen Concentration - - Weight 106.3 kg (234 lb 6.4 oz) 022 11:35 AM CDT Height 161.8 cm (5' 3.7) 02/23/2019 1:10 PM CDT Body Mass Index 40.61 02/23/2019 1:10 PM CDT Plan of Treatment Health Maintenance Due Date Last Done Comments Hepatitis C screening for ag e 18-79 1967 Zoster (shingles) series for age 50+ (2 of 3) 11/10/2013 09/15/2013 Pneumococcal series for age 65+ (1 of 1 - PCV) 2014 Medicare Wellness for age 65+ 04/26/2016 04/27/2015 Mammogram for age 45-75 06/29/2019 06/29/20 18, 11/24/2016, 04/27/2015, Additional history exists BMI (ht and wt on same day) for age 18+ 02/24/2020 02/23/2019, 02/12/2019, 02/20/2018, Additional history exists Lipids for age 45-75 04/27/2020 04/27/2015, 03/20/2010, 08/04/2007 Colonoscopy through age 75 06/06/2020 06/06/2010, Depression screening for age 12+ 03/21/2023 03/21/2022, 11/12/2018, 08/10/2017 Influenza for age 65+ 06/19/2023 10/06/2022 Tetanus booster 02/03/2027 02/03/2017, 05/08/2008 Tdap Completed 02/03/2017 DEXA/DXA scan for age 65+ Completed 06/29/2018, 12/2009 COVID-19 vaccine series Completed 10/27/19 24, 08/28/2022, 09/10/2021, Additional history exists Advance Directives Latest Code Status on File Code Status Date Activated Date Inactivated Comments Full Code 02/20/2017 6:01 AM 02/20/2017 5:41 PM Care Teams Distance Education Coordinator Relationship Specialty Start Date End Date Michael Townsend MD [address] [place] [address] PCP - General Family Practice 01/28/22 Patricia Lindsey MD [address] [place] [address] Dermatology Dermatology 05/06/11
--- NOTE | 2023-11-02 14:16 | W.ANESCHARGE ---
Anesthesia Charges Start Date/Time Anesthesia Start Date: 11/02/23 Anesthesia Start Time: 14:01 Stop Date/Time Anesthesia Stop Date: 11/02/23 Anesthesia Stop Time: 14:23 Summary Extremes of Age - Over 70 or under 1: MDA
--- NOTE | 2023-11-02 14:23 | W.ANESCHARGE ---
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
== END 2023-11-02 12:36 | disposition home or self-care (01) ==
LOC: OP CLINIC 12:38
PROVIDERS: PCP Family Medicine; Visit Provider Internal Medicine
DX: Z12.11 Encounter for screening for malignant neoplasm of colon (principal); Z86.010 Personal history of colon polyps
CPT/HCPCS: 00811; 00812; 45378; 99100; J2704

== ENCOUNTER 2024-01-19 09:19 | Inpatient (IN) | payer BC, SELFPAY ==
[2024-01-19] VITALS (23 sets, daily range): BP systolic 97–164; BP diastolic 42–86; PULSE 62–80; RESP 16; TEMP 36.2–36.8; O2SAT 90–100; BMI 37.4
[2024-01-19] MEDS: ACETAMINOPHEN 500 MG TABLET 1000 MG PO ×2 (10:15→18:14)
[2024-01-19] MEDS: CELECOXIB 200 MG CAPSULE PO (10:15)
[2024-01-19] MEDS: OXYCODONE (CR) 10 MG TAB.ER.12H PO (10:15)
[2024-01-19] MEDS: SODIUM CHLORIDE 0.9 % (FLUSH) 10 ML SYRINGE IVF (10:34)
[2024-01-19] MEDS: LACTATED RINGERS 1000 ML 1,000 ML 100 ML IV ×2 (10:34→15:10)
--- NOTE | 2024-01-19 10:49 | SUR.PREOP ---
form signed for blood refusal d/t Анна Maravilla.
[2024-01-19] MEDS: fentaNYL 100 MCG/2 ML inj IVP (11:50)
[2024-01-19] MEDS: MIDAZOLAM HCL 1 MG/ML inj IVP (11:50)
--- NOTE | 2024-01-19 12:28 | P.NB_ITS ---
Nerve Block Nerve Block Time Seen by Provider: 12:15 Date Seen: 01/19/24 Type of block requested by surgeon for post-operative analgesia: adductor canal Side: left Time out performed: Yes Verification of patient name: Yes Verification of date of : Yes Site marking: site marked Name of person performing procedure: Mariusz Garcia Assistants, if any: Aleks Youssef Continuous monitoring Was continuous monitoring of O2 sat, B/P, monitoring coordinator, recorded every 15 minutes?: Yes Procedure Checklist: sterile prep, needles and gloves Ultrasound guided. Images saved: Yes Medications given in 5ml increments after negative aspiration: Ropivicaine %: 0.5 mL: 30 Needle gauge: 20 Decadron (mg): 10 Precedex (mcg): 25 Patient tolerated procedure well: Yes Additional comments: Injected in 5mL increments after negative aspiration Block Charges Block Charge (with Pro Fee): Femoral Nerve Use of Ultrasound Machine for Block: Yes- US Guidance/pain block
--- NOTE | 2024-01-19 12:32 | W.PM.NB ---
Nerve Block Nerve Block Time Seen by Provider: 12:15 Date Seen: 01/19/24 Type of block requested by surgeon for post-operative analgesia: geniculars Time out performed: Yes Verification of patient name: Yes Verification of date of : Yes Site marking: site marked Name of person performing procedure: Mariusz Garcia Assistants, if any: Aleks Youssef Continuous monitoring Was continuous monitoring of O2 sat, B/P, nuclear monitoring technician, recorded every 15 minutes?: Yes Procedure Checklist: sterile prep, needles and gloves Ultrasound guided. Images saved: Yes Medications given in 5ml increments after negative aspiration: Ropivicaine %: 0.5 mL: 12 Needle gauge: 25 Patient tolerated procedure well: Yes Additional comments: Injected in 4mL increments after negative aspirations Block Charges Block Charge (with Pro Fee): Genicular Nerve Block Use of Ultrasound Machine for Block: No
[2024-01-19] MEDS: TRANEXAMIC ACID 100 MG/ML INJ 1000 MG IV (13:30)
[2024-01-19] MEDS: CEFAZOLIN 2 GM INJ IVP (13:30)
--- NOTE | 2024-01-19 13:39 | PC.SOCIAL ---
Addendum entered by JENNIFER Mata 01/19/24 17:00: Faxed initial referral information to [facility], [facility], and [facility]. See below. Original Note: Discharge planning- Phone call to pt's daughter Yeny to discuss discharge plans. Pt's daughter informs that pt plans to go to SNF for rehab after surgery and had discussed this with her Ortho team. Discussed preferences on SNF placement. Pt's daughter informs that pt did not like the [facility] facility in [place] and does not want to go to [place]. First choice is a facility in [place], second choice is a facility in [place], and last choice would be [facility] in [place]. Pt would like to be close to [place], if possible. Contacted the following SNF's to discuss availability. 1. [facility] in [place]- Phone call to Carissa in admissions at [phone]. No answer, and voicemail is full. 2. [facility] in [place]- Phone call to admissions at [phone]. There are openings and they will accept a referral faxed to [phone]. 3. [facility] in [place]- Phone call to admissions at [phone], transferred to short-term rehab in [place]. There are no openings at this time. 4. [facility]- Phone call to admissions at [phone]. Left a voicemail with Joann inquiring on bed availability. 5. [facility] in [place]- Phone call to admissions at [phone]. Left a voicemail inquiring on bed availability. 6. [facility]- Phone call to Nemo Guillen in admissions at [phone]. There is an opening for a shared female room. [facility] will accept referral. Pt does not have H&P or therapy notes ready to send to facilities (Therapy assessment will be tomorrow morning). When documents are available, this worker will send information to the above facilities.
--- NOTE | 2024-01-19 14:53 | XR_ITS ---
Patient: GEE DACOSTA Facility:?[facility] Patient ID:?[id number] Site Patient ID:?[id number]. Site :?[id number] Study:?XRay-Extremity Left 2V KNEE-01/19/2024 4:18:41 PM Ordering Physician:?DR. MCFADDEN Final Report: INDICATION: Postop total left knee arthroplasty. TECHNIQUE: Two views of the left knee. FINDINGS: New left TKA. Components appear well seated. Adjacent postop soft tissue air. Dictated by Alex Mccartney MD @ 01/20/2024 11:25:50 AM Signed by:?Alex Mccartney MD @01/20/2024 11:25:50 AM (Electronic Signature)
--- NOTE | 2024-01-19 15:04 | PM.ORPRC ---
Procedure Note Date of procedure: 01/19/24 Procedure: PREOPERATIVE DIAGNOSIS: Left knee osteoarthritis POSTOPERATIVE DIAGNOSIS: Left knee osteoarthritis NAME OF OPERATION: Left total knee arthroplasty SURGEON: Narciso Davis MD SAP DATA ARCHITECT: Liliana Barbour PA-C ANESTHESIA: Spinal ESTIMATED BLOOD LOSS: 0 mL COMPLICATIONS: None SPECIMENS: None DRAINS: None PREOPERATIVE ANTIBIOTICS: Ancef 2 grams, antibiotic impregnated cement IMPLANTS: 1. J&J Attune # 5 revision CRS posterior stabilized femur, with a 14 mm x 50 mm cemented stem 2. #4 revision CRS fixed-bearing tibia, with a 14 mm x 50 mm cemented stem 3. # 5 posterior stabilized, 8 mm fixed-bearing polyethylene 4. 38 patella INDICATIONS: The patient is a 73-year-old with a longstanding history of severe, unrelenting left knee pain secondary to end-stage (grade IV) left knee osteoarthritis. Despite appropriate nonoperative management, including activity modification, anti-inflammatories, [id number] pain medication, bracing, physical therapy, and injections they continue to have pain and disability. Operative intervention was offered. The risks, benefits and expected outcomes were discussed in detail. These included but were not limited to: Infection, bleeding, injury to blood vessel or nerve, venous thromboembolism. All questions were answered to their satisfaction. Use of an administrative assistant office manager was necessary throughout the case for patient positioning and safety, soft tissue retraction, and closure. A modifier 22 should be added to this case. The patient weighs 100 kg with a BMI of 37. In order to reduce the risk of aseptic loosening, stemmed components were used on both sides. This added time and cost to complete the case. PROCEDURE: Spinal anesthesia was administered. The patient was placed supine on the operating table. The administrative assistant office manager made sure the patient was positioned appropriately. The lower extremity was prepped and draped in the usual sterile fashion. The limb was exsanguinated with the Herrera bandage. The pneumatic tourniquet was inflated to 300 mmHg. A standard anterior incision was made with the knee in flexion. Subcutaneous dissection was sharply taken through fascial layer #1. Full-thickness medial and lateral flaps were elevated. The administrative assistant office manager retracted the soft tissues and protected them throughout the case. A standard subvastus approach was made. The patella was everted. The infrapatellar fat pad was preserved. The menisci and cruciate ligaments were sharply d?brided. Marginal osteophytes were d?brided with the rongeur. The drill was used to penetrate the femoral canal. The canal was aspirated and irrigated with pulse lavage. The intramedullary femoral guide was placed for a 5-degree valgus cut, removing 10 mm off the distal femur. The saw was used to make the cut. Whitesides line and the trans epicondylar axis were marked. The femoral sizing guide was pinned onto the distal femur. Three degrees of external rotation nicely parallels the transepicondylar axis. Pins were placed for posterior referencing. The four-in-one cutting guide was pinned onto the distal femur. The anterior, posterior, and chamfer cuts were made. The administrative assistant office manager protected the collateral ligaments. The revision trial was placed. The box cuts were made. The drill was used x2. The stemmed, boxed trial was placed and was an excellent fit. Attention was then turned to the proximal tibia. The extramedullary tibial guide was placed for a neutral varus/valgus cut with 5 degrees of posterior slope, removing 0 mm based off the medial tibial surface. The administrative assistant office manager protected the collateral ligaments and the neurovascular bundle. The saw was used to make the cut. Trial components were placed. The knee was nicely balanced in both flexion and extension. The trial components were removed. The tray was placed in appropriate rotation, parallel to our tibial cutting pins. It was pinned by the administrative assistant office manager and the drill x2 was used. The stemmed tibial trial was placed. The punch was used. The tray was removed. The punch was used again. Attention was then turned to the patella. [place] patellar thickness was 24 mm. The lobster claw resection guide was used with the 7.5 mm grazyna. The saw was used to make the cut. Drill holes were made by the administrative assistant office manager. The trial was placed and was an excellent fit. Cancellous surfaces were irrigated with pulse lavage and thoroughly dried by the administrative assistant office manager. We cemented the tibial component, then the femoral component. We impacted the 8 mm polyethylene onto the tibial tray. The knee was brought into full extension. We then cemented the patellar component. Excessive cement was removed. The cement was allowed to harden. The knee was taken through a range of motion and was found to be nicely balanced in both flexion and extension. The patella tracks centrally. The administrative assistant office manager did a three minute dilute Betadine solution soak. The administrative assistant office manager irrigated the wound with 3 liters of normal saline via pulse lavage. The administrative assistant office manager reapproximated the extensor mechanism with #1 Vicryl in an interrupted [id number] fashion. The administrative assistant office manager then ran the extensor mechanism with a #1 PDO Stratafix. The administrative assistant office manager closed the subcutaneous tissues with a 3-0 Stratafix and the skin with a running 3-0 Stratafix in a subcuticular fashion. Glue was used to seal the skin. The administrative assistant office manager placed a dry dressing, SUJIT stocking, and Polar Care. Sponge and needle counts were correct x2. The patient tolerated the procedure well. There were no apparent complications. They were carefully transferred to the hospital bed and taken to the postanesthesia care unit in satisfactory condition. PLAN: The patient will be mobilized with physical therapy. Aspirin will be used for DVT prophylaxis. They will be discharged to a [facility] facility once medically appropriate.
--- NOTE | 2024-01-19 15:41 | PM.IMCN1 ---
Date of Consult Patient: Other Consult date: 01/19/24 Requesting Physician: Orthopedics Primary Care Provider: Not a Local Provider Consult Narrative Narrative: Caron Mittal is a 73 year old female with a history of hypertension, untreated obstructive sleep apnea, hyperlipidemia, obesity, and fibromyalgia who underwent an elective left total knee arthroplasty today by Dr. Davis. Postoperatively she is feeling well and has no complaints. Pain is well controlled. Review of Systems Status of ROS: Reports: 6 or more systems reviewed and unremarkable except as noted in History and below [facility] Medical History (Updated 01/20/24 @ 00:25 by Bere Ruth MD) Need for discharge planning Osteoarthritis of right knee ?M17.11 - Unilateral primary osteoarthritis, right knee (ICD-10) Sedentary lifestyle ?Z91.89 - Other specified personal risk factors, not elsewhere classified (ICD-10) Obesity (BMI 30-39.9) ?E66.9 - Obesity, unspecified (ICD-10) Bilateral shoulder pain ?M25.511 - Pain in right shoulder (ICD-10) ?M25.512 - Pain in left shoulder (ICD-10) Fibromyalgia ?M79.7 - Fibromyalgia (ICD-10) Presbyacusis ?H91.10 - Presbycusis, unspecified ear (ICD-10) Mixed hyperlipidemia ?E78.2 - Mixed hyperlipidemia (ICD-10) Primary hypertension ?I10 - Essential (primary) hypertension (ICD-10) Pre-diabetes ?R73.03 - Prediabetes (ICD-10) Vitamin D deficiency ?E55.9 - Vitamin D deficiency, unspecified (ICD-10) Spinal stenosis of lumbar region with neurogenic claudication ?M48.062 - Spinal stenosis, lumbar region with neurogenic claudication (ICD-10) Recurrent major depressive disorder (07/26/08) ?F33.9 - Major depressive disorder, recurrent, unspecified (ICD-10) Paroxysmal atrial fibrillation ?I48.0 - Paroxysmal atrial fibrillation (ICD-10) Osteoarthritis of both knees ?M17.0 - Bilateral primary osteoarthritis of knee (ICD-10) Obstructive sleep apnea syndrome ?G47.33 - Obstructive sleep apnea (adult) (pediatric) (ICD-10) History of adenomatous polyp of colon (06/06/10) ?Z86.010 - Personal history of colonic polyps (ICD-10) Surgical History (Updated 01/20/24 @ 00:23 by Bere Ruth MD) Status post total knee replacement, left ?Z96.652 - Presence of left artificial knee joint (ICD-10) Status post total knee replacement, right (08/18/23) ?Z96.651 - Presence of right artificial knee joint (ICD-10) History of cholesteatoma ?Z86.69 - Personal history of other diseases of the nervous system and sense organs (ICD-10) Status post total abdominal hysterectomy and bilateral salpingo-oophorectomy (12/2016) ?Z90.710 - Acquired absence of both cervix and uterus (ICD-10) ?Z90.722 - Acquired absence of ovaries, bilateral (ICD-10) ?Z90.79 - Acquired absence of other genital organ(s) (ICD-10) Status post laparoscopic cholecystectomy (1993) ?Z90.49 - Acquired absence of other specified parts of digestive tract (ICD-10) History of suburethral sling procedure (12/01/16) ?Z98.890 - Other specified postprocedural states (ICD-10) History of colonoscopy with polypectomy (11/2019) ?Z98.890 - Other specified postprocedural states (ICD-10) ?Z86.010 - Personal history of colonic polyps (ICD-10) History of arthroscopy of right knee (1995) ?Z98.890 - Other specified postprocedural states (ICD-10) Family History Mother Breast cancer, Onset Age: 45 Maternal Grandmother Breast cancer, Onset Age: 40 Aunt Breast cancer Father Type 2 diabetes mellitus Social History (Updated 01/20/24 @ 00:17 by Bere Ruth MD) Narrative: She lives in an apartment in [facility]. She moved there to be closer to her daughter and to her who is an assisted living facility there. Her apartment has no stairs but is not otherwise handicap assessable. 3 kids, retired, 2 drinks/months, has Alzheimer's , non-smoker, Restorationism sedentary lifestyle What is your current living situation?: I presently have a place to live Problems where you live: no known problems Problems where you live details: n/a In the past 12 months, utilities in danger of being shut off: no In past 12 months, lack of transportation kept you from medical appts, meetings, work, or getting things needed for daily living: no In the past 12 mos, have been you worried that your food would run out before you had money to buy more?: never true In the past 12 mos, the food you bought just didn't last and you didn't have money to buy more?: never true Smoking Status: Never smoker How often do you have a drink containing alcohol: monthly or less How many standard drinks containing alcohol do you have on a typical day: 1 or 2 How often do you have six or more drinks on one occasion: Never AUDIT-C Alcohol total score: 1 Non-prescribed substance use: denies use Caffeine: Yes (coffee 1c/day) How often does anyone, including family, friends and others, physically hurt you: never How often does anyone, including family, friends and others, insult or talk down to you: never How often does anyone, including family, friends and others, threaten you with harm: never How often does anyone, including family, friends and others, scream or curse at you: never Little interest or pleasure in doing things: several days Feeling down, depressed, or hopeless: several days service: No Meds Home Medications and Allergies Home Medications Medication Instructions Recorded Confirmed Type acetaminophen 325 mg tablet 650 mg PO Q6H PRN 08/10/23 01/19/24 History (Tylenol) Allergies Allergy/AdvReac Type Severity Reaction Status Date / Time fluoxetine Allergy Intermediate clicking Verified 01/19/24 09:57 in brain sertraline Allergy Mild watery eyes Verified 09/30/23 13:33 ciprofloxacin Allergy Verified 01/19/24 09:57 Exam Narrative: Exam Narrative: General: No acute distress. Awake alert oriented x3. HEENT: Normocephalic atraumatic, pupils equally round and reactive to light and accommodation. Oropharynx clear. Mucous membranes are moist. No cervical lymphadenopathy, thyromegaly or carotid bruits. No JVD. Cardiovascular: Regular rate and rhythm. No murmurs, gallops, or rubs. Chest: No increased work of breathing. Clear to auscultation bilaterally. No crackles or wheezes. Abdomen: Bowel sounds present. Soft, nondistended, nontender. No hepatosplenomegaly or masses. Extremities: Left knee bandage is clean, dry, and intact. Trace bilateral ankle edema, no cyanosis or clubbing. Skin: No jaundice, no pallor, no rashes. Const: Vital Signs, click to edit/add: Vital Signs - 24 hr 01/19/24 10:33 01/19/24 11:53 01/19/24 12:00 Temperature 98.3 F Pulse Rate 68 64 66 Respiratory Rate 16 16 16 Blood Pressure 148/61 H 148/63 H 160/77 H Pulse Oximetry 94 100 100 Oxygen Delivery Me thod Room Air Nasal Cannula Nasal Cannula Oxygen Flow Rate 2 2 01/19/24 12:05 01/19/24 12:15 Temperature Pulse Rate 68 62 Respiratory Rate 16 16 Blood Pressure 149/61 H 140/69 H Pulse Oximetry 100 100 Oxygen Delivery Me thod Nasal Cannula Nasal Cannula Oxygen Flow Rate 2 2 Assessment and Plan Assessment and plan (1) Status post total knee replacement, left: Problem comment: - 01/19/2024 Ryan - Routine post op cares - VTE prophylaxis with low dose aspirin BID, SCDs, Teds hose. Status: Acute (2) Osteoarthritis of left knee: Status: Acute (3) Obesity (BMI 30-39.9): Status: Acute (4) Fibromyalgia: Status: Acute (5) Spinal stenosis of lumbar region with neurogenic claudication: Problem comment: May complicate recovery from left total knee arthroplasty Status: Chronic (6) Obstructive sleep apnea syndrome: Problem comment: Not using CPAP. She reports that it caused frequent sinusitis. She mentioned that her primary care provider is trying to get her to undergo another sleep study to get CPAP again. We discussed potential cardia complications of sleep apnea and I encouraged her to continue the outpatient process of getting treated for sleep apnea. Status: Chronic (7) Primary hypertension: Problem comment: - Continue metoprolol for rate control (h/o afib) Status: Chronic (8) Paroxysmal atrial fibrillation: Problem comment: - Continue metoprolol for rate control Status: Chronic
--- NOTE | 2024-01-19 16:06 | W.ANESCHARGE ---
Anesthesia Charges Start Date/Time Anesthesia Start Date: 01/19/24 Anesthesia Start Time: 13:12 Stop Date/Time Anesthesia Stop Date: 01/19/24 Anesthesia Stop Time: 16:02
[2024-01-19] MEDS: OXYCODONE 5 MG TABLET PO ×2 (18:15→20:21)
[2024-01-19] MEDS: CEFAZOLIN 2 GM in 0.9 % SODIUM CHLORIDE Mini-bag 100 ML IVPB (19:16)
[2024-01-19] MEDS: SENNOSIDES 1 TAB TABLET 2 TAB PO (20:21)
[2024-01-19] MEDS: ASPIRIN 81 MG TABLET EC PO (20:22)
[2024-01-20] VITALS (7 sets, daily range): BP systolic 128–154; BP diastolic 58–67; PULSE 65–72; RESP 14–20; TEMP 35.6–36.9; O2SAT 89–97
--- NOTE | 2024-01-20 00:21 | PC.NURSE ---
End of Shift: Patient to 255 from PACU approx 1640. Patient pleasant and cooperative. Afebrile. Dressing to left knee C/D/I. CMS intact. Rating pain 2-6/10 and PRN Oxycodone given x2. Tolerating regular diet with no nausea. Up to bathroom with 1 assist, walker and gait belt.
[2024-01-20] MEDS: OXYCODONE 5 MG TABLET PO ×6 (00:57→23:11)
[2024-01-20] MEDS: ACETAMINOPHEN 500 MG TABLET 1000 MG PO ×4 (00:58→18:34)
[2024-01-20] MEDS: CEFAZOLIN 2 GM in 0.9 % SODIUM CHLORIDE Mini-bag 100 ML IVPB (03:27)
[2024-01-20 06:23] LABS: Basophils Percent Auto 0.1 % (0.0-3.0); Hematocrit 31.8 % (33.0-51.0); Immature Granulocytes Pct Auto 0.2 %; Lymphocytes Percent Auto 11.1 % (20-44); Mean Corpuscular HGB Conc 31 gm/dL (32-36); Mean Corpuscular Hemoglobin 29 pg (26-34); Mean Corpuscular Volume 91 fL (80-100); Monocytes Percent Auto 8.7 % (0.0-11.0); Neutrophils Percent Auto 79.9 % (42.0-72.0); Platelet Count* 310 K/uL (140-440); RDW Coefficient of Variation % 15.4 % (11.5-15.5); Red Blood Count 3.48 m/uL (4.00-5.20); White Blood Count* 14.81 K/uL (4.50-11.00)
[2024-01-20 06:34] LABS: Slide Review Reflex No
[2024-01-20 06:45] LABS: Prothrombin Time 13.8 Seconds
[2024-01-20 06:51] LABS: Potassium* 4.3 mmol/L (3.6-5.1); Sodium* 138 mmol/L (135-149)
[2024-01-20 06:54] LABS: Blood Urea Nitrogen* 16 mg/dL (7-30); Creatinine* 0.8 mg/dL (0.5-1.5); Est. Creatinine Clearance* 42.62; Estimated Glomerular Filt Rate 77 ml/min
--- NOTE | 2024-01-20 07:24 | PC.NURSE ---
End of shift note: pt pleasant and cooperative with cares. pt S[place]; hears best on right side. rates left knee pain 4/10; increased pain with activity. active ice to site. ambulates with SBA with walker.
[2024-01-20] MEDS: ASPIRIN 81 MG TABLET EC PO ×2 (08:08→21:24)
[2024-01-20] MEDS: METOPROLOL SUCCINATE (XL) 50 MG TAB PO (08:09)
[2024-01-20] MEDS: buPROPion XL 150 MG TABLET 300 MG PO (08:09)
[2024-01-20] MEDS: SENNOSIDES 1 TAB TABLET 2 TAB PO ×2 (08:09→21:24)
--- NOTE | 2024-01-20 08:28 | P.ORPN_ITS ---
Subjective Subjective Time Seen by Provider: 07:30 Date Seen: 01/20/24 Principal diagnosis: Status post left knee replacement Interval history: Caron is comfortable this morning. She is in a recliner. She plans to discharge to long term facility today if she qualifies. Ortho Exam Narrative Exam Narrative: Alert and oriented x3. Patient is in no acute distress. Converses without labored breathing. Hearing is grossly intact. Ambulates with a walker. Examination of the left lower extremity shows the dressing is intact. No e rythema or ecchymosis. No effusion is palpable. Quad strength 5/5. Bilateral calves are soft and nontender. No warmth. No sign of infection. She is able to straight leg raise. Const Vital Signs, click to edit/add: Vital Signs - 24 hr 01/19/24 10:33 01/19/24 11:53 01/19/24 12:00 Temperature 98.3 F Pulse Rate 68 64 66 Pulse Rate [Pulse Oximeter] Respiratory Rate 16 16 16 Blood Pressure 148/61 H 148/63 H 160/77 H Blood Pressure [Left Arm] Pulse Oximetry 94 100 100 Oxygen Delivery Method Room Air Nasal Cannula Nasal Cannula Oxygen Flow Rate 2 2 Fraction of Inspired Oxygen 01/19/24 12:05 01/19/24 12:15 01/19/24 16:00 Temperature 97.2 F L Pulse Rate 68 62 67 Pulse Rate [Pulse Oximeter] Respiratory Rate 16 16 16 Blood Pressure 149/61 H 140/69 H 101/42 L Blood Pressure [Left Arm] Pulse Oximetry 100 100 100 Oxygen Delivery Method Nasal Cannula Nasal Cannula Non Rebreather Mask Oxygen Flow Rate 2 2 6 Fraction of Inspired Oxygen 100 01/19/24 16:05 01/19/24 16:10 01/19/24 16:15 Temperature Pulse Rate 64 69 63 Pulse Rate [Pulse Oximeter] Respiratory Rate 16 16 16 Blood Pressure 114/61 115/58 L 110/48 L Blood Pressure [Left Arm] Pulse Oximetry 98 97 96 Oxygen Delivery Method Non Rebreather Mask Room Air Room Air Oxygen Flow Rate 6 Fraction of Inspired Oxygen 100 01/19/24 16:20 01/19/24 16:25 01/19/24 16:32 Temperature 97.3 F L Pulse Rate 65 65 72 Pulse Rate [Pulse Oximeter] Respiratory Rate 16 16 16 Blood Pressure 120/49 L 97/86 121/60 Blood Pressure [Left Arm] Pulse Oximetry 98 98 97 Oxygen Delivery Method Room Air Room Air Room Air Oxygen Flow Rate Fraction of Inspired Oxygen 01/19/24 16:40 01/19/24 17:00 01/19/24 17:15 Temperature 97.1 F L 97.5 F L Pulse Rate 68 67 66 Pulse Rate [Pulse Oximeter] Respiratory Rate 16 16 16 Blood Pressure 120/53 L 131/61 108/62 Blood Pressure [Left Arm] Pulse Oximetry 95 97 97 Oxygen Delivery Method Room Air Room Air Room Air Oxygen Flow Rate Fraction of Inspired Oxygen 01/19/24 17:30 01/19/24 17:45 01/19/24 18:15 Temperature Pulse Rate 65 64 78 Pulse Rate [Pulse Oximeter] Respiratory Rate 16 16 16 Blood Pressure 156/65 H 141/69 H 159/68 H Blood Pressure [Left Arm] Pulse Oximetry 94 95 96 Oxygen Delivery Method Room Air Room Air Room Air Oxygen Flow Rate Fraction of Inspired Oxygen 01/19/24 18:45 01/19/24 19:45 01/19/24 20:45 Temperature 97.3 F L Pulse Rate 80 72 73 Pulse Rate [Pulse Oximeter] Respiratory Rate 16 16 16 Blood Pressure 157/85 H 144/69 H 164/71 H Blood Pressure [Left Arm] Pulse Oximetry 96 94 95 Oxygen Delivery Method Room Air Room Air Room Air Oxygen Flow Rate Fraction of Inspired Oxygen 01/19/24 21:45 01/19/24 22:45 01/20/24 00:15 Temperature 97.1 F L 97.4 F L Pulse Rate 71 66 Pulse Rate [Pulse Oximeter] 67 Respiratory Rate 16 16 14 Blood Pressure 140/72 H 132/49 L Blood Pressure [Left Arm] Pulse Oximetry 93 90 Oxygen Delivery Method Room Air Room Air Oxygen Flow Rate Fraction of Inspired Oxygen 01/20/24 00:15 01/20/24 02:00 01/20/24 07:00 Temperature 96.1 F L 97.3 F L 97.1 F L Pulse Rate Pulse Rate [Pulse Oximeter] 67 68 72 Respiratory Rate 14 16 16 Blood Pressure Blood Pressure [Left Arm] 138/61 136/67 141/58 H Pulse Oximetry 89 96 96 Oxygen Delivery Method Room Air Room Air Room Air Oxygen Flow Rate Fraction of Inspired Oxygen Assessment and Plan Assessment and plan (1) Status post total knee replacement, left: Problem details: - 01/19/2024 Ryan Status: Acute Assessment and Plan: Plan for discharge is to long term facility if she qualifies and plan a location is available. DVT prophylaxis includes aspirin 81 mg twice daily x1 month, Hi stockings x1 month may remove for 1 hr per day, frequent ambulation Remove dressing in 1 week. Observe wound and phone Orthopedics with any questions or concerns Return to clinic in 1 week for a wound check Return to clinic in 6 weeks with surgeon Minimize narcotic use. Wean off and discontinue soon as possible. Activities as tolerated. No strenuous activity. PT and OT at long term facility than as outpatient. Ice and elevate the operative extremity. No restriction on ice.
--- NOTE | 2024-01-20 14:31 | PC.SOCIAL ---
Addendum entered by JENNIFER Mata 01/20/24 15:22: Completed preadmission screening for pt to admit to [facility] on 01/21/24. Confirmation #[id number]. Provided copy of PAS to [facility]. Original Note: Discharge planning- Received a phone call from Nemo Guillen at [facility] and they can accept pt for admission for tomorrow (01/21/24) anytime before 2:00 pm. [facility] is offering a shared room and asks that pt is aware she will need family to assist with admission paperwork and will need family to provide transportation to any scheduled follow up appointments. Met with pt in room and provided update. Pt would like to accept bed. Pt called her son and provided update. Pt's son and [id number] will provide transportation to [facility] at 11:30 am tomorrow. Pt's son can assist with paperwork as needed in regards to [facility] admission process. Pt's daughter is traveling to [facility] now to visit, so pt will update her daughter when she arrives. Provided update to MD and charge nurse. Sent e-mail to Nemo Guillen at [facility] providing update on discharge plan. Social work will continue to follow up as needed.
--- NOTE | 2024-01-20 15:26 | P.IMPN_ITS ---
Progress Note: A&P Assessment and plan (1) Status post total knee replacement, left: Problem details: - 01/19/2024 Ryan - routine postop cares - VTE prophylaxis: Twice a day low-dose aspirin, SCDs and Hi's hose Status: Acute (2) Obesity (BMI 30-39.9): Status: Chronic (3) Paroxysmal atrial fibrillation: Problem details: - Continue metoprolol for rate control, patient has not been on anticoagulation for this Status: Chronic (4) Obstructive sleep apnea syndrome: Problem details: Not using CPAP. She reports that it caused frequent sinusitis. She mentioned that her primary care provider is trying to get her to undergo another sleep study to get CPAP again. We discussed potential cardia complications of sleep apnea and I encouraged her to continue the outpatient process of getting treated for sleep apnea. Status: Chronic (5) Mixed hyperlipidemia: Status: Chronic (6) Primary hypertension: Problem details: - Continue metoprolol for rate control (h/o afib) Status: Chronic Plan She is accepted to [facility] for tomorrow morning's, the patient was hoping to go home instead. Daughter feels differently, but patient is her own decision maker. They are going to see what tonsacha drinks. Subjective Date Seen: 01/20/24 Interval history: Caron feels great. Her daughter, son-in-law, and were in the room. After I examined her, she got up with her walker and went to the bathroom all by herself. She wishes to go home instead of the alf facility. Her daughter would really like her to go to the alf facility. Her daughter is concerned that Caron will drive while on narcotic medications. She has not had a bowel movement yet. She denies chest pain or shortness of breath. Exam Narrative: Exam Narrative: General: No acute distress. Awake, alert, oriented. No pallor. No jaundice. Oropharynx: Clear. Mucous membranes moist. Cardiovascular: Regular rate and rhythm. No murmurs, gallops, or rubs. Respiratory: Clear to auscultation bilaterally. No wheezes or crackles. Abdomen: Bowel sounds present. Soft, nondistended, nontender. Extremities: Left knee bandage is clean, dry, and intact. No pedal edema. Const: Vital Signs, click to edit/add: Vital Signs - 24 hr 01/19/24 16:00 01/19/24 16:05 01/19/24 16:10 Temperature 97.2 F L Pulse Rate 67 64 69 Pulse Rate [Pulse Oximeter] Respiratory Rate 16 16 16 Blood Pressure 101/42 L 114/61 115/58 L Blood Pressure [Le ft Arm] Pulse Oximetry 100 98 97 Oxygen Delivery Me thod Non Rebreather Mas k Non Rebreather Mas k Room Air Oxygen Flow Rate 6 6 Fraction of Inspir ed Oxygen 100 100 01/19/24 16:15 01/19/24 16:20 01/19/24 16:25 Temperature Pulse Rate 63 65 65 Pulse Rate [Pulse Oximeter] Respiratory Rate 16 16 16 Blood Pressure 110/48 L 120/49 L 97/86 Blood Pressure [Le ft Arm] Pulse Oximetry 96 98 98 Oxygen Delivery Me thod Room Air Room Air Room Air Oxygen Flow Rate Fraction of Inspir ed Oxygen 01/19/24 16:32 01/19/24 16:40 01/19/24 17:00 Temperature 97.3 F L 97.1 F L 97.5 F L Pulse Rate 72 68 67 Pulse Rate [Pulse Oximeter] Respiratory Rate 16 16 16 Blood Pressure 121/60 120/53 L 131/61 Blood Pressure [Le ft Arm] Pulse Oximetry 97 95 97 Oxygen Delivery Me thod Room Air Room Air Room Air Oxygen Flow Rate Fraction of Inspir ed Oxygen 01/19/24 17:15 01/19/24 17:30 01/19/24 17:45 Temperature Pulse Rate 66 65 64 Pulse Rate [Pulse Oximeter] Respiratory Rate 16 16 16 Blood Pressure 108/62 156/65 H 141/69 H Blood Pressure [Le ft Arm] Pulse Oximetry 97 94 95 Oxygen Delivery Me thod Room Air Room Air Room Air Oxygen Flow Rate Fraction of Inspir ed Oxygen 01/19/24 18:15 01/19/24 18:45 01/19/24 19:45 Temperature 97.3 F L Pulse Rate 78 80 72 Pulse Rate [Pulse Oximeter] Respiratory Rate 16 16 16 Blood Pressure 159/68 H 157/85 H 144/69 H Blood Pressure [Le ft Arm] Pulse Oximetry 96 96 94 Oxygen Delivery Me thod Room Air Room Air Room Air Oxygen Flow Rate Fraction of Inspir ed Oxygen 01/19/24 20:45 01/19/24 21:45 01/19/24 22:45 Temperature 97.1 F L 97.4 F L Pulse Rate 73 71 66 Pulse Rate [Pulse Oximeter] Respiratory Rate 16 16 16 Blood Pressure 164/71 H 140/72 H 132/49 L Blood Pressure [Le ft Arm] Pulse Oximetry 95 93 90 Oxygen Delivery Me thod Room Air Room Air Room Air Oxygen Flow Rate Fraction of Inspir ed Oxygen 01/20/24 00:15 01/20/24 00:15 01/20/24 02:00 Temperature 96.1 F L 97.3 F L Pulse Rate Pulse Rate [Pulse Oximeter] 67 67 68 Respiratory Rate 14 14 16 Blood Pressure Blood Pressure [Le ft Arm] 138/61 136/67 Pulse Oximetry 89 96 Oxygen Delivery Me thod Room Air Room Air Oxygen Flow Rate Fraction of Inspir ed Oxygen 01/20/24 07:00 01/20/24 11:00 Temperature 97.1 F L 97.6 F Pulse Rate Pulse Rate [Pulse Oximeter] 72 65 Respiratory Rate 16 16 Blood Pressure Blood Pressure [Le ft Arm] 141/58 H 154/63 H Pulse Oximetry 96 96 Oxygen Delivery Me thod Room Air Room Air Oxygen Flow Rate Fraction of Inspir ed Oxygen Labs Labs: Laboratory Results - last 24 hr 01/20/24 05:51 WBC 14.81 H RBC 3.48 L Hgb 10.0 L Hct 31.8 L MCV 91 MCH 29 MCHC 31 L RDW Coeff of Ramona 15.4 Plt Count 310 Neut % (Auto) 79.9 H Lymph % (Auto) 11.1 L [place] % (Auto) 8.7 Eos % (Auto) 0.0 Baso % (Auto) 0.1 Neut # (Auto) 11.80 H Lymph # (Auto) 1.60 [place] # (Auto) 1.30 H Eos # (Auto) 0.00 Baso # (Auto) 0.00 Abs Immat Gran (auto) 0.00 Imm/Tot Granulo (auto) 0.2 INR 1.00 Sodium 138 Potassium 4.3 BUN 16 Creatinine 0.8 Estimated Creat Clear 42.62 Estimated GFR 77
--- NOTE | 2024-01-20 18:41 | PC.NURSE ---
End of Shift: The patient is pleasant and cooperative. VSS on RA. Reports mild-moderate pain throughout the day.. PRN oxy and scheduled Tylenol were given throughout the day. Tolerating a regular diet with no issues. SBA w/ RW. Moves well. Calls appropriately. The initial plan was for the patient to discharge to a short term rehab stay, but after further discussion with her family the patient feels comfortable going home with family support. The patient was feeling anxious about the change and I let her know that we would take care of the details regarding discharge. Darby CHAUDHRY BSN
[2024-01-21] MEDS: hydrOXYzine pamoate 25 MG CAPSULE PO (00:09)
[2024-01-21] MEDS: OXYCODONE 5 MG TABLET PO ×4 (01:21→10:50)
[2024-01-21] MEDS: ACETAMINOPHEN 500 MG TABLET 1000 MG PO ×2 (01:23→08:28)
[2024-01-21 06:27] LABS: Basophils Absolute Auto 0.02 K/uL (0.00-0.30); Basophils Percent Auto 0.2 % (0.0-3.0); Eosinophils Percent Auto 1.1 % (0.0-7.0); Hematocrit 29.3 % (33.0-51.0); Hemoglobin* 9.1 gm/dL (12.0-16.0); Immature Granulocytes Abs Auto 0.02 K/uL (0.00-0.30); Immature Granulocytes Pct Auto 0.2 %; Lymphocytes Absolute Auto 2.93 K/uL (0.90-2.90); Lymphocytes Percent Auto 32.3 % (20-44); Mean Corpuscular HGB Conc 31 gm/dL (32-36); Mean Corpuscular Hemoglobin 29 pg (26-34); Mean Corpuscular Volume 92 fL (80-100); Monocytes Percent Auto 12.2 % (0.0-11.0); Neutrophils Absolute Auto 4.89 K/uL (1.7-7.0); Platelet Count* 251 K/uL (140-440); RDW Coefficient of Variation % 15.8 % (11.5-15.5); Red Blood Count 3.18 m/uL (4.00-5.20); White Blood Count* 9.07 K/uL (4.50-11.00)
[2024-01-21 06:29] LABS: Slide Review Reflex No
[2024-01-21 06:42] LABS: Sodium* 139 mmol/L (135-149)
[2024-01-21 06:43] LABS: Potassium* 4.2 mmol/L (3.6-5.1)
[2024-01-21 06:45] LABS: Creatinine* 0.8 mg/dL (0.5-1.5); Est. Creatinine Clearance* 42.62; Estimated Glomerular Filt Rate 77 ml/min
[2024-01-21 06:46] LABS: Blood Urea Nitrogen* 18 mg/dL (7-30); INR 1.06 (0.91-1.10); Prothrombin Time 14.5 Seconds
--- NOTE | 2024-01-21 06:50 | PC.NURSE ---
End of shift report [id number]: Alert and oriented. Patient reporting pain to left knee with minimal relief of PRN oxycodone, at 2330 Dr. Ruth updated with patients continued reports of pain at 10/10, new one time order for hydroxyzine. Patient continued to report pain to knee, no redness noted and CMS intact. Patient received PRN oxycodone again at 0110 and had good pain control until 0515 when patient reports that knee is 10/10 pain with ambulation. PRN oxycodone given, ice pack replaced and settled.
[2024-01-21 07:00] VITALS: BP 151/58; PULSE 67; RESP 20; TEMP 36.8; O2SAT 95
[2024-01-21] MEDS: SENNOSIDES 1 TAB TABLET 2 TAB PO (08:27)
[2024-01-21] MEDS: METOPROLOL SUCCINATE (XL) 50 MG TAB PO (08:27)
[2024-01-21] MEDS: ASPIRIN 81 MG TABLET EC PO (08:28)
[2024-01-21] MEDS: buPROPion XL 150 MG TABLET 300 MG PO (08:29)
--- NOTE | 2024-01-21 10:10 | P.DS_ITS ---
DS: Providers Provider Date Seen: 01/21/24 Date of admission: 01/19/24 09:19 Primary care physician: Not a Local Provider Admitting Clinician: Narciso Davis MD Attending Physician on discharge: Narciso Davis MD Date of Discharge: 01/21/24 DS: Diagnosis Discharge Diagnosis (1) Status post total knee replacement, left: Status: Acute Problem details: - 01/19/2024 Ryan. No operative complications. - routine postop cares - VTE prophylaxis: Twice a day low-dose aspirin, SCDs and Hi's hose (2) Bilateral shoulder pain: Status: Acute Problem details: Left greater than right which she attributes to rotator cuff injury. (3) Obesity (BMI 30-39.9): Status: Chronic (4) Sedentary lifestyle: Status: Acute (5) Fibromyalgia: Status: Acute (6) Spinal stenosis of lumbar region with neurogenic claudication: Status: Chronic (7) Paroxysmal atrial fibrillation: Status: Chronic Problem details: - Continue metoprolol for rate control, patient has not been on anticoagulation for this (8) Obstructive sleep apnea syndrome: Status: Chronic Problem details: Quit using CPAP due to recurrent sinus infections. Now considering sleep study and re-evaluation of sleep apnea DS: Summary Hospital Course Hospital Course: 73-year-old female admitted to the hospital for left total knee arthroplasty. Procedure performed on the day of admission by Dr. Davis. There were no operative complications. Postoperatively she has done well. Today she is having increased pain presumably secondary to her nerve block wearing off. She is otherwise making good progress with physical therapy. No other apparent operative or postoperative complications. Status at Discharge Functional status at discharge: uses cane/walker Overall status at discharge: patient is progressing back to baseline Time Spent with Patient Time attestation: Total time spent providing and/or coordinating discharge services: Time spent: Less than 30 minutes Exam Narrative: Exam Narrative: She is alert and appears in some distress when I see her initially this morning and then much better later in the morning. Pain is poorly controlled initially and now better controlled. She has no significant edema bruising or swelling in her lower extremities. Intact pedal pulses. Intact strength and sensation in feet and ankles bilaterally. Const: Vital Signs, click to edit/add: Vital Signs - 24 hr 01/20/24 11:00 01/20/24 15:00 01/20/24 19:00 Temperature 97.6 F 98.5 F 97.0 F L Pulse Rate [Pulse Oximeter] 65 67 71 Respiratory Rate 16 18 18 Blood Pressure [Le ft Arm] 154/63 H 128/59 L 143/60 H Pulse Oximetry 96 97 94 Oxygen Delivery Me thod Room Air Room Air 01/20/24 23:00 01/20/24 23:00 01/21/24 07:00 Temperature 96.8 F L 98.2 F Pulse Rate [Pulse Oximeter] 66 71 67 Respiratory Rate 20 20 20 Blood Pressure [Le ft Arm] 150/63 H 151/58 H Pulse Oximetry 96 95 Oxygen Delivery Me thod Room Air Room Air Documenting provider has reviewed patient's vital signs: yes DS: Data Data Completed and Pending Completed studies during hospitalization: Procedures Replacement of Right Knee Joint with Synthetic Substitute, Cemented, Open Approach (08/19/23) Labs on day of discharge: Labs from last 24 hours 01/21/24 05:58 WBC 9.07 RBC 3.18 L Hgb 9.1 L Hct 29.3 L MCV 92 MCH 29 MCHC 31 L RDW Coeff of Ramona 15.8 H Plt Count 251 Neut % (Auto) 54.0 Lymph % (Auto) 32.3 [place] % (Auto) 12.2 H Eos % (Auto) 1.1 Baso % (Auto) 0.2 Neut # (Auto) 4.89 Lymph # (Auto) 2.93 H [place] # (Auto) 1.10 H Eos # (Auto) 0.10 Baso # (Auto) 0.02 Abs Immat Gran (auto) 0.02 Imm/Tot Granulo (auto) 0.2 INR 1.06 Sodium 139 Potassium 4.2 BUN 18 Creatinine 0.8 Estimated Creat Clear 42.62 Estimated GFR 77 Discharge Plan Discharge Disposition: Xfer SNF Discharge Location: [facility] Date of Admission: 01/19/24 09:19 Attending Provider on Discharge: Narciso Davis Consulting Providers: Josephine Piedra Primary Care Provider: Provider,Not a Local Discharge Medications: New sennosides [Senna Lax] 8.6 mg Tablet 17.2 mg PO BID PRN (Reason: constipation) Qty: 100 0RF oxycodone 5 mg Tablet 2.5 - 5 mg PO Q4-6H MDD 6 tabs per day PRN (Reason: Pain) Qty: 42 0RF Rx Instructions: Minimize. Discontinue as soon as possible Continued acetaminophen [Tylenol] 325 mg tablet 650 mg PO Q6H PRN celecoxib 200 mg capsule 200 mg PO DAILY Qty: 180 3RF aspirin [Aspirin Childrens] 81 mg tablet,chewable 81 mg PO BID 30 Days Qty: 60 0RF bupropion HCl 300 mg tablet extended release 24 hr 300 mg PO QAM Qty: 90 0RF metoprolol succinate 50 mg tablet extended release 24 hr 50 mg PO DAILY Qty: 90 0RF Discharge Orders: Discharge Order (Routine); Ordered 01/21/24 Ordered By: Hector Elizabeth Activity Level: Activity as Tolerated and No strenuous activity Activity Detail: Please schedule outpatient physical therapy at patients desired location Discharge Diet: Regular Follow Up Appointments: Luisana Blood PA-C [Physician Apparel Patternmaker] - 01/27/24 11:00 am ([facility] for follow-up.) Provider,Not a Local [Primary Care Provider] - Forms: Stion Info Instructions Admit to: SNF Discharge Potential: Good Length of Stay: <30 days Can use facility standing orders?: Yes Code Status: Full Code TEDs: Bilateral Knee Rehab Potential: Good Therapy: Physical Therapy and Occupational Therapy Therapy Orders: Total Knee Protocol Oxygen: No Urinary Catheter: No Orders are good >30 days: No
--- NOTE | 2024-01-21 12:57 | PC.SOCIAL ---
Discharge planning- Per MD, pt is in more pain today and having a hard time ambulating. Met with pt and she still plans to go to SNF today. Received a phone call from pt's daughter Yeny and confirmed that pt will go to [facility] today and family will transport at 11:30 am. Confirmed with Nemo Guillen at [facility] that pt will arrive shortly after 11:30 am today for admission. Social work will follow up as needed.
--- NOTE | 2024-01-21 13:05 | PC.NURSE ---
Discharge ? Pt alert, oriented, cooperative. Pt up with standby assistance, walker, gait belt. Continent of bowel and bladder. Tolerating RA, regular diet, fluids. Pt rated pain in L knee as 10/10 at start of shift and reported that movement increased pain. Medication given per MAR for pain management, pt reported improvement of pain. Discharge education given, nurse to nurse report provided to [facility]. Pt discharged at approximately 1200 via wheelchair to [facility] with son. ?
== END 2024-01-21 12:00 | DRG 302 ==
PROVIDERS: Admitting Provider Orthopaedic Surgery; Visit Provider Orthopaedic Surgery
PROC: 0SRD069 Replacement of Left Knee Joint with Oxidized Zirconium on Polyethylene Synthetic Substitute, Cemented, Open Approach (ICD-10-PCS; CPT 27447; principal; 2024-01-19 11:30)
DX: M17.12 Unilateral primary osteoarthritis, left knee (principal); G89.18 Other acute postprocedural pain; I10 Essential (primary) hypertension; G47.33 Obstructive sleep apnea (adult) (pediatric); E66.9 Obesity, unspecified; Z68.37 Body mass index [BMI] 37.0-37.9, adult; M79.7 Fibromyalgia; Z96.651 Presence of right artificial knee joint; I48.0 Paroxysmal atrial fibrillation; Z79.01 Long term (current) use of anticoagulants; M48.062 Spinal stenosis, lumbar region with neurogenic claudication; R73.03 Prediabetes; E78.2 Mixed hyperlipidemia; H91.10 Presbycusis, unspecified ear; Z91.89 Other specified personal risk factors, not elsewhere classified; M25.511 Pain in right shoulder; M25.512 Pain in left shoulder
CPT/HCPCS: 01402; 36415; 64447; 64454; 73560; 76942; 82565; 84132; 84295; 84520; 85025; 85610; 97110; 97116; 97161; 97165; 97530; 97535; A9270; C1776; J0690; J1100; J2250; J2704; J2795; J3010; J7120

== ENCOUNTER 2024-08-11 06:12 | Day surgery (SDC) | payer BC, SELFPAY ==
[2024-08-11] VITALS (9 sets, daily range): BP systolic 135–172; BP diastolic 57–79; PULSE 56–69; RESP 16–18; TEMP 36.4–36.6; O2SAT 94–99; BMI 37.8
--- OUTSIDE RECORDS SUMMARY | 2024-08-11 06:16 | XMS_ITS | Encounter Summary ---
Author Organization [facility] Address [address] [place] [address] Care Team Providers Care Ship Pilot Dispatcher Name Role Phone Gin Salgado APRN, C.N.P., D.N.P. Primary Ca re Provider Reason for Visit * Reason Comments Nurse Visit Blood pressure check * Outpatient (Routine) - Authorized Specialty Diagnoses / Procedures Referred By Contac t Referred To Contact Diagnoses Hypertension Essential Primary Gin Salgado APRN, C.N.P., D.N.P. [address] [place] [address] Phone: tel: fax: [facility] Region Referral ID Status Reason Start Date Expiration Date V isits Requested Visits Authorized [id number] Authorized 06/28/2024 12/28/2025 1 1 Encounter Details Date Type Department Care Team (Late st Contact Info) Description 07/12/2024 3:00 PM CDT Nurse Only Department of Family Medicine, [facility], in [place], [place] [address] [place] [address] Gin Salgado APRN C.N.P., D.N.P. [address] [place] [address] Kirstin Bartlett L.P.NSaul [address] [place] [address] Nurse Visit (Blood pressure check ) Discharge Disposition: Home or Self Care Social [...] 06/29/2023 PHQ-2 Answer Date Recorded PHQ-2 Score 4 03/10/2024 Exercise Vital Sign Answer Date Recorde d [...] Recor ded PHQ-9 Total Score (max 27) 10 03/10 Nutrition Answer Date Recorded On average, how many serving s of [...] living situation today? I have a [facility] place to live 06/29/2023 Comments No Sex and Gender Information Value Date Recorded Sex Assigned at Female 06/29/2023 9:11 PM CDT Legal Sex Female 7:02 AM CDT Gender Identity Female 06/29/2023 9:11 PM CDT Sexual Orientation Straight 06/29/2023 9: 11 PM CDT documented as of this encounter Last Filed Vital Signs Vital Sign Reading Time Taken Comments Blood Pressure 123/72 07/12/2024 3:10 PM CDT Pulse 63 07/12/2024 3:10 PM CDT Temperature - - Respiratory Rate - - Oxygen Saturation - - Inhaled Oxygen Concentration - - Weight - - Height - - Body Mass Index - - documented in this encounter Progress Notes * Kirstin Bartlett L.P.N. - 07/12/2024 3:00 PM CDT Caron is seen today for a blood pressure visit as ordered by Gin Salgado. Visit was conducted in clinic. Today's blood pressure reading and prior two readings: BP Readings from Last 3 Encounters: 07/12/24 123/72 06/28/24 145/77 04/28/24 (!) 182/73 . Medication list was reconciled, and patient is taking their blood pressure medication as prescribed. The patient reports no acute symptoms of hypertension Based on today's readings: The provider will be notified of today's visit and the patient was dismissed Home Blood Pressure Monitoring Status documented in this encounter Plan of Treatment Upcoming Encounters Date Type Department Care Team (Late st Contact Info) Description 08/16/2024 8:45 AM CDT Office Visit Department of Otorhinolaryngology in [place], [place] [address] [place] [address] Filiberto Rojas M.D. [address] [place] [address] 08/19/2024 12:00 PM CDT Appointment Department of Laboratory Medicine in [address] [place] [phone] Gin Salgado APRN, C.N.P., D.N.P. [address] [facility] [place] [phone] documented as of this encounter Visit Diagnoses Diagnosis Hypertension Essential Primary documented in this encounter Additional Health Concerns Assessment Noted Time PHQ-9 Depression Total Score: 10 024 12:59 PM CDT documented as of this encounter Care Teams Ship Pilot Dispatcher Relationship Specialty Start Date End Date Gin Salgado APRN, C.N.P., D.N.P. [address] [place] [phone] PCP - General Internal Medicine 10/26/23 documented as of this encounter
--- OUTSIDE RECORDS SUMMARY | 2024-08-11 06:16 | XMS_ITS | Encounter Summary ---
Author Organization [facility] Address [address] [place] [address] Care Team Providers Care Rv Technician Name Role Phone NaomiGin APRN, C.N.P., D.N.P. Primary Ca re Provider Encounter Details Date Type Department Care Team (Late st Contact Info) Description 07/24/2024 CPAP Download Remote Patient Monitoring [facility] [address] [place] [address] [facility], Provider, Social History Tobacco Use Types Packs/Day Years [...] your living situation today? I have a [facility] place to live 06/29/2023 Comments No Sex [...] CDT Office Visit Department of Otorhinolaryngology in [place], [place] [address] [place] [phone] Filiberto Rojas M.D. [address] [place] [phone] 08/19/2024 12:00 PM CDT Appointment Department of Laboratory Medicine in [address] [phone] Gin Salgado APRN, C.N.P., D.N.P. [address] [place] [phone] documented as of this encounter Visit Diagnoses Not on filedocumented in this encounter Additional Health Concerns Assessment Noted Time PHQ-9 Depression Total Score: 10 024 12:59 PM CDT documented as of this encounter Care Teams Rv Technician Relationship Specialty Start Date End Date Gin Salgado APRN, C.N.P., D.N.P. [address] [place] [phone] PCP - General Internal Medicine 10/26/23 documented as of this encounter
--- OUTSIDE RECORDS SUMMARY | 2024-08-11 06:16 | XMS_ITS | Encounter Summary ---
Author Organization [facility] Address [address] [place] [address] Care Team Providers Care Trimmer And Reinforcer Name Role Phone Gin Salgado APRN, C.N.P., D.N.P. Primary Ca re Provider Encounter Details Date Type Department Care Team (Late st Contact Info) Description 06/30/2024 Clinical Communication Department of Internal Medicine in [place], [place] [address] [place] [address] Gin Salgado APRN, C.N.P., D.N.P. [address] [place] [address] Social History Tobacco Use Types Packs/Day Years [...] your living situation today? I have a [facility] place to live 06/29/2023 Comments No Sex and Gender Information Value Date Recorded Sex Assigned at Female 06/29/2023 9:11 PM CDT Legal Sex Female 7:02 AM CDT Gender Identity Female 06/29/2023 9:11 PM CDT Sexual Orientation Straight 06/29/2023 9: 11 PM CDT documented as of this encounter Miscellaneous Notes * Telephone Encounter - Kirstie Johnson, R.M.A. - 06/30/2024 1:09 PM CDT Last read by Caron Mittal at 10:14 AM on 06/30/2024. But I did call her also to confirm. She will spanish moss picker the new antibiotic today. documented in this encounter Plan of Treatment Upcoming Encounters Date Type Department Care Team (Late st Contact Info) Description 08/16/2024 8:45 AM CDT Office Visit Department of Otorhinolaryngology in [place], [place] [address] [place] [address] Filiberto Rojas M.D. [address] [place] [address] 08/19/2024 12:00 PM CDT Appointment Department of Laboratory Medicine in [place], [place] [address] [place] [phone] Gin Salgado APRN, C.N.P., D.N.P. [address] [place] [phone] documented as of this encounter Visit Diagnoses Diagnosis Acute Cystitis Without Hematuria- Primary documented in this encounter Additional Health Concerns Assessment Noted Time PHQ-9 Depression Total Score: 10 024 12:59 PM CDT documented as of this encounter Care Teams Trimmer And Reinforcer Relationship Specialty Start Date End Date Gin Salgado APRN, C.N.P., D.N.P. [address] [place] [phone] PCP - General Internal Medicine 10/26/23 documented as of this encounter
--- OUTSIDE RECORDS SUMMARY | 2024-08-11 06:16 | XMS_ITS | Referral Summary ---
Author Organization [facility] Address [address] [place] [id number] Care Team Providers Care Commercial Journeyman Electrician Name Role Phone Gin Salgado APRN, C.N.PSaul, D.N.P. Primary Ca re Provider Source Comments Patient records contain information from all sites at [facility]. For routine questions regarding patient records, call [phone] during business hours, M-F 8:00 AM - 5:00 PM Central Time. Record requests for emergency care only can be directed to [phone] at any time.[facility] Encounters Date Type Department Care Team Description 07/24/2024 CPAP Download Remote Patient Monitoring [facility] [address] [place] [address] [facility], Provider, 07/12/2024 3:00 PM CDT Nurse Only Department of Family Medicine, [facility], in [address] [phone] Gin Salgado APRN, C.N.P., D.N.P. Kirstin Bartlett, L.P.N. Nurse Visit (Blood pressure check ) Discharge Disposition: Home or Self Care 07/05/2024 10:45 AM CDT Office Visit [facility] [place], [place] [address] [place] [phone] Orion Morrow D.O., M.S. Obstructive Sleep Apnea Adult (Primary Dx) 07/05/2024 10:45 AM CDT Telemedicine [facility] [place], [place] [address] [place] [phone] Lion Patricio APRN C.N.PSaul, M.SAbby Cochran R.N. Obstructive Sleep Apnea Adult (Primary Dx) 06/30/2024 Clinical Communication Department of Internal Medicine in [address] [phone] Gin Salgado APRN C.N.P., D.N.P. 06/28/2024 6:16 PM CDT - 06/28/2024 11:59 PM CDT Hospital Encounter Department of Laboratory Medicine in [address] [phone] Gin Salgado APRN, C.N.P., D.N.P. Anemia; Deficiency Vitamin D; PreDiabetes; Hypertension Essential Primary Discharge Disposition: Home or Self Care 06/28/2024 6:15 PM CDT Hospital Encounter Department of Laboratory Medicine in [address] [phone] Gin Salgado APRN, C.N.P., D.N.P. Frequency Urinary Discharge Disposition: Home or Self Care 06/28/2024 5:40 PM CDT Office Visit Department of Internal Medicine in [address] [phone] Gin Salgado APRN, C.N.P., D.N.P. Hypertension Essential Primary (Primary Dx); Hyperlipidemia; Apnea Sleep Obstructive; Frequency Urinary; Vertigo; Stenosis Spinal Lumbar With Neurogenic Claudication; Anemia; PreDiabetes; Carpal Tunnel Syndrome Bilateral; Deficiency Vitamin D; Atrial Fibrillation Paroxysmal (HCC); Maintenance Health Adult; Acute Cystitis Without Hematuria Discharge Disposition: Home or Self Care 06/23/2024 CPAP Download Remote Patient Monitoring [facility] [address] [place] [address] [facility], MD Sebastian 05/31/2024 Orders Only Department of Otorhinolaryngology in [place], [place] [address] [place] [phone] Beto Gamino M.D. 05/23/2024 CPAP Download Remote Patient Monitoring [facility] [address] [place] [address] [facility], MD Sebastian from Last 3 Months Allergies Active Allergy Reactions Criticality Noted Date Comments Ciprofloxacin Other (see comments) High 06/17/2023 Duloxetine Rash 07/26/2008 Watery eyes Fluoxetine Rash High 01/20/2007 watery eyes Sertraline Itching Low 06/17/2023 Medications * This document contains information received from the source organization and may not represent a complete record from that organization. aspirin 81 mg chewable tablet Chew 81 mg. 04/05/2018 A ctive acetaminophen (TYLENOL) 325 mg tablet Take 325 mg by mouth daily. Active cholecalciferol (VITAMIN D3) 125 mcg (5,000 Unit) capsule Take 125 mcg by mouth once a week. Active celecoxib (CeleBREX) 200 mg capsule Take 1 capsule (200 mg total) by mouth daily. 90 capsule 3 11/18/2023 Active buPROPion XL (WELLBUTRIN XL) 300 mg 24 hr tablet Take 1 tablet (300 mg total) by mouth every morning. 90 tablet 3 12/07/2023 Active senna 8.6 mg tablet Take 8.6 mg by mouth daily. 01/21/2024 Active DME CPAPIndications :Obstructive Sleep Apnea Adult DME Order 1 each 04/25/2024 Active metoprolol succinate (Toprol XL) 50 mg 24 hr tabletIndicatio ns:Hypertension Essential Primary Take 1.5 tablets (75 mg total) by mouth daily. 90 tablet 3 06/28/2024 Active rosuvastatin (Crestor) 5 mg tabletIndicatio ns:Hyperlipidem ia Take 1 tablet (5 mg total) by mouth daily. 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 Diagnosed 2012, resolved with treatment of ANDERSON and beta stephanie. Stenosis Spinal Lumbar With Neurogenic Claudicat ion 03/10/2013 Polyp Colon Personal History, Unspecified Type 0 06/06/2010 Major Depressive Disorder, Recurrent, Unspecifie d 07/26/2008 Apnea Sleep Obstructive 07/03/2008 Chronic Fatigue Syndrome 01/20/2007 Resolved Problems Problem Noted Date Diagnosed Date Resolved Date Obesity Body Mass Index 30-39.9 Adult 10/27/2023 06/28/2024 Hyperplasia Endometrial Benign 02/20/2017 10/27/2023 Immunizations Name Administration Dates Next Due HZV (ZOSTAVAX) 09/15/2013 Influenza high dose QV(65 years or older) (PF) 1 12/07/2021 Influenza, Unspecified 08/09/2020 SARS-COV-2 (COVID-19) - MODE RNA (12 YEARS AND OLDER) Fall Seasonal 10/27/2023 SARS-COV-2 (COVID-19) - MODERNA(Discontinued) Td Preservative Free (TENIVAC, DECAVAC) 05/08/20 08 Tdap 02/03/2017 Social History Tobacco Use Types Packs/Day Years Used Date Smoking Tobacco: Never Passive Smoke Exposure: Never Smokeless Tobacco: Never Tobacco Cessation:Counseling Given: Not Answered Alcohol Use Standard Drinks/Week Comments Yes 0 [...] PHQ-2 Answer Date Recorded PHQ-2 Score 2 08/05/2024 Exercise Vital Sign Answer Date Recorde d [...] ded PHQ-9 Total Score (max 27) 10 08/05 Nutrition Answer Date Recorded On average, how [...] your living situation today? I have a [facility] place to live 06/29/2023 Comments No [...] Pulse 63 07/12/2024 3:10 PM CDT Temperature 36.5 ??C (97.7 ??F) 06/28/2024 5:41 PM CD T Respiratory Rate 18 04/28/2024 3:16 PM CDT Oxygen Saturation 94% 04/28/2024 5:15 PM CDT Inhaled Oxygen Concentration - - Weight 101 kg (222 lb 10.6 oz) 06/28/2024 5:41 P M CDT Height 160.9 cm (5' 3.35) 03/10/2024 1:13 PM CD T Body Mass Index 39.01 03/10/2024 1:13 PM CDT Plan of Treatment Upcoming Encounters Date Type Department Care Team (Late st Contact Info) Description 08/16/2024 8:45 AM CDT Office Visit Department of Otorhinolaryngology in [place], [place] [address] [place] [address] Filiberto Rojas M.D. [address] [place] [address] 08/19/2024 12:00 PM CDT Appointment Department of Laboratory Medicine in [address] [phone] Gin Salgado, JUANA, C.N.P., D.N.P. [address] [place] [phone] Procedures Procedure Name Priority Date/Time Associated Diagnosis Comments HC URINALYSIS AUTO WO MICRO Routine 06/28/2024 6:29 PM CDT URINALYSIS WITH MICROSCOPIC IF INDICATED, U Routine 06/28/2024 6:29 PM CDT Frequency Urinary BACTERIAL CULTURE, AEROBIC + SUSC, URINE Routine 06/28/2024 6:29 PM CDT Frequency Urinary COMPREHENSIVE METABOLIC PANEL, S/P Routine 06/28/2024 6:24 PM CDT Hypertension Essential Primary HEMOGLOBIN A1C, B Routine 06/28/2024 6:2 4 PM CDT PreDiabetes VITAMIN D, IMMUNOASSAY, TOTAL, S Routine 06/28/2024 6:24 PM CDT Deficiency Vitamin D VITAMIN B12 ASSAY, S Routine 06/28/2024 6:24 PM CDT Anemia FERRITIN, S Routine 06/28/2024 6:24 PM CDT Anemia IRON AND TOT IRON-BINDING CAPACITY, S/P Routine 06/28/2024 6:24 PM CDT Anemia CBC WITH DIFFERENTIAL, B Routine 06/28/2024 6:24 PM CDT Anemia LIPID PANEL, S Routine 04/07/2024 12:57 PM CDT Hyperlipidemia Mixed COLONOSCOPY Routine 11/02/2023 BI BREAST SCREENING BILATERAL WITH TOMOSYNTHESIS RAD - Routine (most inpatients and all outpatients) 10/29/2023 11:43 AM SIGNALMAN Screening Mammogram Breast Cancer from Last 3 Months or Most Recently Relevant to Health Maintenance Results * (ABNORMAL) Urinalysis with Microscopic if Indicated (06/28/2024 6:29 PM CDT) Source Urine, Urine, Midstream 06/28/2024 6:39 PM CDT [facility] Clarity Cloudy(A) Clear 06/28/2024 6:39 PM CDT [facility] Color Yellow 06/28/2024 6:39 PM CDT [facility] Comment: ----REFERENCE VALUE---- Colorless Yellow Yeny Blood Trace(A) Negative 06/28/2024 6:39 PM CDT [facility] Nitrite Positive(A) Negative 06/28/2024 6:39 PM CDT [facility] Leukocyte Esterase Moderate(A) Negative 06/28/2024 6:39 PM CDT [facility] Protein Trace mg/dL 06/28/2024 6:39 PM CDT [facility] Comment: ----REFERENCE VALUE---- Negative Trace Glucose Negative Negative mg/dL 06/28/2024 6:39 PM CDT [facility] Ketone Negative Negative mg/dL 06/28/2024 6:39 PM CDT [facility] Bilirubin Negative Negative 06/28/2024 6:39 PM CDT [facility] pH 6.0 5.0 - 8.0 06/28/2024 6:39 PM CDT [facility] Specific [place] 1.022 1.001 - 1.035 06/28/2024 6:39 PM CDT [facility] Urobilinogen 1.0 0.2 - 1.0 mg/dL 06/28/2024 6:39 PM CDT [facility] Urine (Urine, Midstream) 06/28/2024 6:29 PM CDT 06/28/2024 6:29 PM CDT Gin Salgado APRN, C.N.P., D.N.P. LAB URINE O RDERABLES Final Result [facility] [address] [place] [address], [facility] [[email or web address]] [facility] in [address] [phone] * (ABNORMAL) Microscopic Automated (06/28/2024 6:29 PM CDT) White Blood Cells >100(A) /hpf 06/28/2024 6:59 PM CDT [facility] Comment: ----REFERENCE VALUE---- Males: 0-3 Females: 0-10 Unknown: 0-10 Red Blood Cells 3-10(A) 0 - 2 /hpf 6:59 PM CDT [facility] Dysmorphic Red Blood Cells <=25 <=25 % 06/28/2024 6:59 PM CDT [facility] Hyaline Casts None Seen /lpf 06/28/2024 6:59 PM CDT [facility] Squamous Cells Occ-3 /hpf 06/28/2024 6:59 PM CDT [facility] Bacteria Present(A) None Seen 06/28/2024 6:59 PM CDT [facility] Urine 06/28/2024 6:29 PM CDT 06/28/2024 6:29 PM CDT Gin Stone Naomi ARIAS, C.N.P., D.N.P. LAB URINE O RDERABLES Final Result [facility] [address] [place] [address], [facility] [[email or web address]] [facility] in [place] [address] [facility] [place] [address] * (ABNORMAL) Bacterial Culture, Aerobic + Susceptibility, Urine (06/28/2024 6:29 PM CDT) Urine Culture With urogenital microbiota, susceptibilities not performed per laboratory criteria. (A) 06/30/2024 9:40 AM CDT [facility] Urine Culture KLEBSIELLA PNEUMONIAE >100,000 cfu/mL (A) 06/30/2024 9:40 AM CDT [facility] Urine (Urine, Midstream) 06/28/2024 6:29 PM CDT 06/28/2024 9:01 PM CDT Comment:Specimen Source Site : Urine Narrative Organism Antibiotic Method Susceptibility Klebsiella pneumoniae Ampicillin + Sulbactam SUSCEPTIBILITY, CARMELITA (MCG/ML) 4 mcg/mL: Susceptible Klebsiella pneumoniae Piperacillin + Tazobactam SUSCEPTIBILITY, CARMELITA (MCG/ML) <=4 mcg/mL: Susceptible Klebsiella pneumoniae Cefazolin SUSCEPTIBILITY, CARMELITA (MCG/ML) <=4 mcg/mL: Susceptible Comment: The interpretation applies to uncomplicated urinary tract infections only. It also applies to these oral cephalosporins: cefuroxime, cephalexin, and cefprozil. Klebsiella pneumoniae Ceftazidime SUSCEPTIBILITY, CARMELITA (MCG/ML) <=1 mcg/mL: Susceptible Klebsiella pneumoniae Ceftriaxone SUSCEPTIBILITY, CARMELITA (MCG/ML) <=1 mcg/mL: Susceptible Klebsiella pneumoniae Cefepime SUSCEPTIBILITY, CARMELITA (MCG/ML) <=1 mcg/mL: Susceptible Klebsiella pneumoniae Aztreonam SUSCEPTIBILITY, CARMELITA (MCG/ML) <=1 mcg/mL: Susceptible Klebsiella pneumoniae Ertapenem SUSCEPTIBILITY, CARMELITA (MCG/ML) <=0.5 mcg/mL: Susceptible Klebsiella pneumoniae Meropenem SUSCEPTIBILITY, CARMELITA (MCG/ML) <=0.25 mcg/mL: Susceptible Klebsiella pneumoniae Gentamicin SUSCEPTIBILITY, CARMELITA (MCG/ML) <=1 mcg/mL: Susceptible Klebsiella pneumoniae Tobramycin SUSCEPTIBILITY, CARMELITA (MCG/ML) <=1 mcg/mL: Susceptible Klebsiella pneumoniae Levofloxacin SUSCEPTIBILITY, CARMELITA (MCG/ML) <=0.12 mcg/mL: Susceptible Klebsiella pneumoniae Nitrofurantoin SUSCEPTIBILITY, CARMELITA (MCG/ML) 64 mcg/mL: Intermediate Klebsiella pneumoniae Trimethoprim + Sulfamethoxazole SUSCEPTIBILITY, CARMELITA (MCG/ML) <=20 mcg/mL: Susceptible Gin Salgado APRN, C.N.P. , D.N.P. LAB MICROBIOLOGY - GENERAL ORDERABLES Final Result Performing Organization Address [facility] de Phone Number [facility] [address] [place] [address] [place] [address] * Vitamin D, Immunoassay, Total, Serum (06/28/2024 6:24 PM CDT) [facility] Vitamin D, Immunoassay, Total, S 24 20 - 80 ng/mL 06/29/2024 11:30 AM CDT ECLR Comment: Optimum levels within the healthy population are 20-50, patients with bone disease may benefit from high levels within this range Blood (Blood, Venous) 06/28/2024 6:24 PM CDT 06/29/2024 10:51 AM CDT Gin Salgado APRN, C.N.P., D.N.P. LAB BLOOD A DD-ON Final Result Performing Organization Address [facility] de Phone Number [facility] [address] [place] [id number] [place] [address] [address] * (ABNORMAL) Iron and Total Iron-Binding Capacity (06/28/2024 6:24 PM CDT) Pathologist [facility] Iron 47 35 - 145 mcg/dL 06/28/2024 8:12 PM CDT [facility] Total Iron Binding Capacity 372 250 - 400 mcg/dL 06/28/2024 8:12 PM CDT [facility] Percent Saturation 13(L) 14 - 50 % 06/28/2024 8:12 PM CDT [facility] Blood (Blood, Venous) 06/28/2024 6:24 PM CDT 06/28/2024 6:25 PM CDT Gin Salgado APRN, C.N.P., D.N.P. LAB BLOOD A DD-ON Final Result [facility] [address] [place] [address], [facility] [[email or web address]] [facility] in [place] [address] [place] [address] * (ABNORMAL) CBC with Differential, Blood (06/28/2024 6:24 PM CDT) [facility] Hemoglobin 10.5(L) 11.6 - 15.0 g/dL 06/28/2024 6:29 PM CDT [facility] Hematocrit 34.4(L) 35.5 - 44.9 % 06/28/2024 6:29 PM CDT [facility] Erythrocytes 3.83(L) 3.92 - 5.13 x10(12)/L 06/28/2024 6:29 PM CDT [facility] MCV 89.8 78.2 - 97.9 fL 06/28/2024 6:29 PM CDT [facility] RBC Distrib Width 17.9(H) 12.2 - 16.1 % 06/28/2024 6:29 PM CDT [facility] Platelet Count 264 157 - 371 x10(9)/L 06/28/2024 6:29 PM CDT [facility] Leukocytes 8.9 3.4 - 9.6 x10(9)/L 06/28/2024 6:29 PM CDT [facility] Neutrophils 4.69 1.56 - 6.45 x10(9)/L 06/28/2024 6:29 PM CDT [facility] Lymphocytes 3.02 0.95 - 3.07 x10(9)/L 06/28/2024 6:29 PM CDT [facility] Monocytes 0.90(H) 0.26 - 0.81 x10(9)/L 06/28/2024 6:29 PM CDT [facility] Eosinophils 0.24 0.03 - 0.48 x10(9)/L 06/28/2024 6:29 PM CDT [facility] Basophils <0.03 0.01 - 0.08 x10(9)/L 06/28/2024 6:29 PM CDT [facility] Blood (Blood, Venous) 06/28/2024 6:24 PM CDT 06/28/2024 6:25 PM CDT Gin Salgado APRN, C.N.P., D.N.P. LAB BLOOD A DD-ON Final Result [facility] [address] [facility] [place] [address], [facility] [[email or web address]] [facility] in [place] [address] [place] [address], [place] [address] * Hemoglobin A1c (06/28/2024 6:24 PM CDT) [facility] Hemoglobin A1c, B 5.3 4.2 - 5.6 % 06/28/2024 6:44 PM CDT [facility] Blood (Blood, Venous) 06/28/2024 6:24 PM CDT 06/28/2024 6:25 PM CDT Gin Salgado APRN, C.N.P., D.N.P. LAB BLOOD A DD-ON Final Result [facility] [address] [place] [address], [facility] [[email or web address]] [facility] in [place] [address] [place] [phone] * Ferritin (06/28/2024 6:24 PM CDT) Ferritin, S 25 11 - 328 mcg/L 06/28/2024 7:43 PM CDT [facility] Comment: Biotin has been identified by the lumber tallier as a potential interfering substance. Higher concentrations of biotin may be found in multivitamins, hair/nail supplements, and workout supplements. If the result does not match clinical observations, repeat testing after patient refrains from the use of supplements for at least 12 hours. Blood (Blood, Venous) 06/28/2024 6:24 PM CDT 06/28/2024 6:25 PM CDT Gin Salgado APRN, C.N.P., D.N.P. LAB BLOOD A DD-ON Final Result [facility] [address] [place] [address], [facility] [[email or web address]] [facility] [place] in [address] [phone] * Vitamin B12 Assay (06/28/2024 6:24 PM CDT) Pathologist [facility] Vitamin B12 Assay, S 705 232 - 1245 ng/L 06/29/2024 11:30 AM CDT [facility] Comment: Biotin has been identified by the lumber tallier as a potential interfering substance. Higher concentrations of biotin may be found in multivitamins, hair/nail supplements, and workout supplements. If the result does not match clinical observations, repeat testing after patient refrains from the use of supplements for at least 12 hours. Blood (Blood, Venous) 06/28/2024 6:24 PM CDT 06/29/2024 10:51 AM CDT us Gin Salgado APRN C.N.P., D.N.P. LAB BLOOD A DD-ON Final Result [facility] [address] [place] [address], [place] [facility] in [place] [address] [place] [address] * (ABNORMAL) Comprehensive Metabolic Panel (06/28/2024 6:24 PM CDT) Potassium, P 4.3 3.6 - 5.2 mmol/L 06/28/2024 6:55 PM CDT [facility] Sodium, P 143 135 - 145 mmol/L 06/28/2024 6:55 PM CDT [facility] Chloride, P 105 98 - 107 mmol/L 06/28/2024 6:55 PM CDT [facility] Bicarbonate, P 28 22 - 29 mmol/L 06/28/2024 6:55 PM CDT [facility] Anion Gap, P 10 7 - 15 06/28/2024 6:55 PM CDT [facility] BUN (Blood Urea Nitrogen), P 21 6 - 21 mg/dL 06/28/2024 6:55 PM CDT [facility] Creatinine 0.96 0.59 - 1.04 mg/dL 06/28/2024 6:55 PM CDT [facility] Estimated GFR (eGFR) 62 >=60 mL/min/BS A 06/28/2024 6:55 PM CDT [facility] Comment: Estimated GFR calculated using the 2020 CKD_EPI creatinine equation. Calcium, Total, P 9.3 8.8 - 10.2 mg/dL 06/28/2024 6:55 PM CDT [facility] Glucose, P 94 70 - 140 mg/dL 06/28/2024 6:55 PM CDT [facility] Protein, Total, P 8.0(H) 6.3 - 7.9 g/dL 06/28/2024 6:55 PM CDT [facility] Albumin, P 4.0 3.5 - 5.0 g/dL 06/28/2024 6:55 PM CDT [facility] Aspartate Aminotransferase (AST), P 21 8 - 43 U/L 06/28/2024 6:55 PM CDT [facility] Alkaline Phosphatase, P 113(H) 35 - 104 U/L 06/28/2024 6:55 PM CDT [facility] Alanine Aminotransferase (ALT), P 18 7 - 45 U/L 06/28/2024 6:55 PM CDT [facility] Bilirubin, Total, P <0.2 0.0 - 1.2 mg/dL 06/28/2024 6:55 PM CDT [facility] Blood (Blood, Venous) 06/28/2024 6:24 PM CDT 06/28/2024 6:25 PM CDT us Gni Salgado APRN, C.N.P., D.N.P. LAB BLOOD A DD-ON Final Result [facility] [address] [place] [address], [facility] [[email or web address]] [facility] in [place] [address] [place] [address] * (ABNORMAL) Lipid Panel (04/07/2024 12:57 PM CDT) Triglycerides 213(H) mg/dL 04/07/2024 1:28 PM CDT [facility] Comment: ----REFERENCE VALUE---- Normal: <150 mg/dL Borderline High: 150-199 mg/dL High: 200-499 mg/dL Very High: > or =500 mg/dL Cholesterol, Total 214(H) mg/dL 2023 1:28 PM CDT [facility] Comment: ----REFERENCE VALUE---- Desirable: < 200 mg/dL Borderline High: 200 - 239 mg/dL High: > or = 240 mg/dL Cholesterol, LDL, Calculated 136(H) mg/dL 04/07/2024 1:28 PM CDT [facility] Comment: ----REFERENCE VALUE---- Desirable: <100 mg/dL Above Desirable: 100-129 mg/dL Borderline High: 130-159 mg/dL High: 160-189 mg/dL Very High: >=190 mg/dL ----ADDITIONAL INFORMATION---- LDL cholesterol calculated using the Dubon/NIH equation. Cholesterol, HDL 40(L) >=50 mg/dL 04/07/20 1:28 PM CDT [facility] Cholesterol, Non-HDL, Calculated 174(H) mg/dL 04/07/2024 1:28 PM CDT [facility] Comment: ----REFERENCE VALUE---- Desirable: <130 mg/dL Above Desirable: 130-159 mg/dL Borderline High: 160-189 mg/dL High: 190-219 mg/dL Very High: > or =220 mg/dL Fasting (8 HR or more) No 04/07/2024 12:57 PM CDT [facility] Blood (Blood, Venous) 04/07/2024 12:57 PM CDT 04/07/2024 12:58 PM CDT Gin Salgado APRN, C.N.P., D.N.P. LAB BLOOD A DD-ON Final Result [facility] [address] [place] [address], [facility] [[email or web address]] [facility] [place] [address] [place] [address] * Colonoscopy (11/02/2023) EXT Colonoscopy Normal - See Scanned Report for Details Normal - See Scanned Report for Details, HIMS - Report Received and Scanned Historical Provider GI PROCEDURE ORDERABLES Taylor l Result * BI Breast Screening Bilateral with Tomosynthesis (10/29/2023 11:43 AM SIGNALMAN) Anatomical Region Laterality Modality Breast, Breast Imaging RST L OS, Breast Imaging ARZ LOS, Breast Imaging FLA LOS Bilateral Mammography Impressions 10/30/2023 1:31 PM SIGNALMAN Negative. RECOMMENDATION: ??Annual Screening Mammogram ASSESSMENT: ??BI-RADS: 1: Negative. Narrative 10/30/2023 1:31 PM SIGNALMAN EXAM: ??BI BREAST SCREENING BILATERAL WITH TOMOSYNTHESIS [...] Annual Screening Mammogram ASSESSMENT: BI-RADS: 1: Negative. Vanessa Forman APRN.N.P., D.N.P. IM BI PROC EDURES Final Result from Last 3 Months or Most Recently Relevant to Health Maintenance Insurance [facility] Advance Directives For more information, please contact: [phone] Documents on File Type Date Recorded Patient Ramp Supervisor Expl anation Advance Directives 08/03/2023 8:40 AM Yeny Mittal HCPOA/ADVOCATE/AGENT/ VIDEO OPERATOR/SURROG ATE Healthcare Agents on File Name Relationship Healthcare Agent Relationship Communication Yeny Carpiobellafernando Daughter Health Care Agent Clayton Mittal Son First Alternate Health Care Agent Care Teams Commercial Journeyman Electrician Relationship Specialty Start Date End Date Gin Salgado APRN, C.N.P., D.N.P. [address] [place] [phone] PCP - General Internal Medicine 10/26/23
--- OUTSIDE RECORDS SUMMARY | 2024-08-11 06:16 | XMS_ITS | Encounter Summary ---
Author Organization [facility] Address [address] [place] [address] Care Team Providers Care Seating And Mobility Technologist Name Role Phone Gin Salgado APRN, C.N.P., D.N.P. Primary Ca re Provider Encounter Details Date Type Department Care Team (Latest Contact Info) Description 06/28/2024 6:16 PM CDT - 06/28/2024 11:59 PM CDT Hospital Encounter Department of Laboratory Medicine in [place], [place] [address] [place] [address] Gin Salgado APRN, C.N.P., D.N.P. [address] [place] [address] Anemia; Deficiency Vitamin D; PreDiabetes; Hypertension Essential Primary Discharge Disposition: Home or Self Care Social [...] your living situation today? I have a [facility] place to live 06/29/2023 Comments No Sex and Gender Information Value Date Recorded Sex Assigned at Female 06/29/2023 9:11 PM CDT Legal Sex Female 7:02 AM CDT Gender Identity Female 06/29/2023 9:11 PM CDT Sexual Orientation Straight 06/29/2023 9: 11 PM CDT documented as of this encounter Medications at Time of Discharge acetaminophen (TYLENOL) 325 mg tablet Take 325 mg by mouth daily. aspirin 81 mg chewable tablet Chew 81 mg. 04/05/2018 buPROPion XL (WELLBUTRIN XL) 300 mg 24 hr tablet Take 1 tablet (300 mg total) by mouth every morning. 90 tablet 3 12/07/2023 celecoxib (CeleBREX) 200 mg capsule Take 1 capsule (200 mg total) by mouth daily. 90 capsule 3 11/18/2023 cholecalciferol (VITAMIN D3) 125 mcg (5,000 Unit) capsule Take 125 mcg by mouth once a week. DME CPAPIndications:O bstructive Sleep Apnea Adult DME Order 1 each 04/25/2024 metoprolol succinate (Toprol XL) 50 mg 24 hr tabletIndications :Hypertension Essential Primary Take 1.5 tablets (75 mg total) by mouth daily. 90 tablet 3 06/28/2024 rosuvastatin (Crestor) 5 mg tabletIndications :Hyperlipidemia Take 1 tablet (5 mg total) by mouth daily. 90 tablet 3 06/28/2024 senna 8.6 mg tablet Take 8.6 mg by mouth daily. 01/21/2024 nitrofurantoin monohydrate (Macrobid) 100 mg capsuleIndication s:Acute Cystitis Without Hematuria Take 1 capsule (100 mg total) by mouth 2 (two) times a day. 14 capsule 06/28/2024 06/30/2024 documented as of this encounter Plan of Treatment Upcoming Encounters Date Type Department Care Team (Late st Contact Info) Description 08/16/2024 8:45 AM CDT Office Visit Department of Otorhinolaryngology in [place], [place] [address] [place] [address] Filiberto Rojas M.D. [address] [place] [address] 08/19/2024 12:00 PM CDT Appointment Department of Laboratory Medicine in [place], [place] [address] [place] [address] Gin Salgado APRN, C.N.P., D.N.P. [address] [place] [phone] documented as of this encounter Procedures Procedure Name Priority Date/Time Associated Diagnosis Comments VITAMIN D, IMMUNOASSAY, TOTAL, S Routine 06/28/2024 6:24 PM CDT Deficiency Vitamin D IRON AND TOT IRON-BINDING CAPACITY, S/P Routine 06/28/2024 6:24 PM CDT Anemia CBC WITH DIFFERENTIAL, B Routine 06/28/2024 6:24 PM CDT Anemia HEMOGLOBIN A1C, B Routine 06/28/2024 6:2 4 PM CDT PreDiabetes FERRITIN, S Routine 06/28/2024 6:24 PM CDT Anemia VITAMIN B12 ASSAY, S Routine 06/28/2024 6:24 PM CDT Anemia COMPREHENSIVE METABOLIC PANEL, S/P Routine 06/28/2024 6:24 PM CDT Hypertension Essential Primary documented in this encounter Results * (ABNORMAL) Comprehensive Metabolic Panel (06/28/2024 6:24 [...] D.N.P. LAB BLOOD A DD-ON Final Result [facility] [address] [place] [address], [facility] RDWG [facility] [place] [address] [place] [phone] * Hemoglobin A1c (06/28/2024 6:24 PM CDT) Hemoglobin A1c, B 5.3 4.2 - 5.6 % 06/28/2024 6:44 PM CDT [facility] Blood (Blood, Venous) 06/28/2024 6:24 PM CDT 06/28/2024 6:25 PM CDT Gin Salgado RECONNAISSANCE CREWMEMBER, C.N.P., D.N.P. LAB BLOOD A DD-ON Final Result [facility] [address] [place] [address], [facility] [place] [address] [place] [address] * Vitamin D, Immunoassay, Total, Serum (06/28/2024 6:24 PM CDT) Vitamin D, Immunoassay, Total, S 24 20 - 80 ng/mL 06/29/2024 11:30 AM CDT ECLR Comment: Optimum levels within the healthy population are 20-50, patients with bone disease may benefit from high levels within this range Blood (Blood, Venous) 06/28/2024 6:24 PM CDT 06/29/2024 10:51 AM CDT Gin Vanessa Keys APRN.N.P., D.N.P. LAB BLOOD A DD-ON Final Result Performing Organization Address City/[facility] [address]/[facility] Co de Phone Number [facility] [address] [place] [address], [facility] ECLR [facility] [place] [address] * Vitamin B12 Assay (06/28/2024 6:24 PM CDT) Vitamin B12 Assay, S 705 232 - 1245 ng/L 06/29/2024 11:30 AM CDT ECLR Comment: Biotin has been identified by the high density finishing operator as a potential interfering substance. Higher concentrations of biotin may be found in multivitamins, hair/nail supplements, and workout supplements. If the result does not match clinical observations, repeat testing after patient refrains from the use of supplements for at least 12 hours. Blood (Blood, Venous) 06/28/2024 6:24 PM CDT 06/29/2024 10:51 AM CDT Vanessa Forman APRN.N.P., D.N.P. LAB BLOOD A DD-ON Final Result Performing Organization Address City/[facility] [address]/ZIP Co de Phone Number [facility] [address] [place] [address], [facility] ECLR [facility] in [place] [address] [place] [address] * Ferritin (06/28/2024 6:24 PM CDT) Ferritin, S 25 11 - 328 mcg/L 06/28/2024 7:43 PM CDT [facility] Comment: Biotin has been identified by the high density finishing operator as a potential interfering substance. Higher concentrations of biotin may be found in multivitamins, hair/nail supplements, and workout supplements. If the result does not match clinical observations, repeat testing after patient refrains from the use of supplements for at least 12 hours. Blood (Blood, Venous) 06/28/2024 6:24 PM CDT 06/28/2024 6:25 PM CDT Vanessa Forman APRN.N.P., D.N.P. LAB BLOOD A DD-ON Final Result [facility] [address] [place] [address], [facility] RDW[facility] [place] [address] [place] [phone] * (ABNORMAL) Iron and Total Iron-Binding Capacity (06/28/2024 6:24 PM CDT) Iron 47 35 - 145 mcg/dL 06/28/2024 8:12 PM CDT RDW[facility] Total Iron Binding Capacity 372 250 - 400 mcg/dL 06/28/2024 8:12 PM CDT [facility] Percent Saturation 13(L) 14 - 50 % 06/28/2024 8:12 PM CDT [facility] Blood (Blood, Venous) 06/28/2024 6:24 PM CDT 06/28/2024 6:25 PM CDT us Gary Forman APRNNSaulP., D.N.P. LAB BLOOD A DD-ON Final Result [facility] [address] [place] [address], [facility] R[facility] [place] [address] [facility] [place] [address] * (ABNORMAL) CBC with Differential, Blood (06/28/2024 6:24 PM CDT) Hemoglobin 10.5(L) 11.6 - 15.0 g/dL 06/28/2024 [...] D.N.P. LAB BLOOD A DD-ON Final Result [facility] [address] [place] [address], [facility] [place] [address] Hospital[facility] [address] documented in this encounter Visit Diagnoses Diagnosis Anemia Deficiency Vitamin D PreDiabetes Hypertension Essential Primary documented in this encounter Additional Health Concerns Assessment Noted Time PHQ-9 Depression Total Score: 10 024 12:59 PM CDT documented as of this encounter Care Teams Seating And Mobility Technologist Relationship Specialty Start Date End Date Gin Salgado APRN, C.N.P., D.N.P. [address] [place] [address] [place] [phone] PCP - General Internal Medicine 10/26/23 documented as of this encounter
--- OUTSIDE RECORDS SUMMARY | 2024-08-11 06:16 | XMS_ITS | Clinical Summary ---
Author Organization [facility] Address [address] [place] [address] Care Team Providers Care Wood Heel Flap Inserter Name Role Phone NaomiGin APRN C.N.P., D.N.P. Primary Ca re Provider Source Comments Patient records contain information from all sites at [facility]. For routine questions regarding patient records, call [phone] during business hours, M-F 8:00 AM - 5:00 PM Central Time. 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 Kirstin Bartlett L.P.N. Nurse Visit (Blood pressure check ) Discharge Disposition: Home or Self Care 07/05/2024 10:45 AM CDT Office Visit [facility] in [place], [place] [address] [place] [phone] Orion Morrow D.O., M.S. Obstructive Sleep Apnea Adult (Primary Dx) 07/05/2024 10:45 AM CDT Telemedicine [facility] in [place], [place] [address] [place] [phone] Lion Patricio APRN, C.N.P., M.S.N. Abby Atkins, R.N. Obstructive Sleep Apnea Adult (Primary Dx) 06/30/2024 Clinical Communication Department of Internal Medicine in [address] [phone] Gin Salgado APRN, C.N.P., D.N.P. 06/28/2024 6:16 PM CDT - 06/28/2024 11:59 PM CDT Hospital Encounter Department of Laboratory Medicine in [address] [phone] Gin Salgado APRN C.N.P., D.N.P. Anemia; Deficiency Vitamin D; PreDiabetes; Hypertension Essential Primary Discharge Disposition: Home or Self Care 06/28/2024 6:15 PM CDT Hospital Encounter Department of Laboratory Medicine in [address] [phone] Naomi, Gin L, HAND BULLDOZER, C.N.P., D.N.P. Frequency Urinary Discharge Disposition: Home or Self Care 06/28/2024 5:40 PM CDT Office Visit Department of Internal Medicine in [address] [phone] Gin Salgado APRN C.N.P., D.N.P. Hypertension Essential Primary (Primary Dx); Hyperlipidemia; Apnea Sleep Obstructive; Frequency Urinary; Vertigo; Stenosis Spinal Lumbar With Neurogenic Claudication; Anemia; PreDiabetes; Carpal Tunnel Syndrome Bilateral; Deficiency Vitamin D; Atrial Fibrillation Paroxysmal (HCC); Maintenance Health Adult; Acute Cystitis Without Hematuria Discharge Disposition: Home or Self Care 06/23/2024 CPAP Download Remote Patient Monitoring [facility] [address] [place] [address] [facility], ProviderMD 05/31/2024 Orders Only Department of Otorhinolaryngology in [place], [place] [address] [place] [address] Beto Gamino M.D. 05/23/2024 CPAP Download Remote Patient Monitoring [facility] [address] [place] [address] [facility], ProviderMD from Last 3 Months Immunizations Name Administration Dates Next Due HZV (ZOSTAVAX) 09/15/2013 Influenza high dose QV(65 years or older) (PF) 1 12/07/2021 Influenza, Unspecified 08/09/2020 SARS-COV-2 (COVID-19) - MODE RNA (12 YEARS AND OLDER) Fall Seasonal 10/27/2023 SARS-COV-2 (COVID-19) - MODERNA(Discontinued) Td Preservative Free (TENIVAC, DECAVAC) 05/08/20 08 Tdap 02/03/2017 Family History Medical History Relation Name Comments Diabetes Brother 1 Valentin Heart disease Brother 1 Valentin Fibromyalgia Brother 2 David Hypertension Brother 2 David Diabetes Father Asthma Maternal Grandmother Breast cancer Mother Lucille Breast cancer Mother's Sister A few sisters Diabetes Sister 1 Linda Fibromyalgia Sister 1 Linda Heart valve replacement - prosthesis Sister 1 Baljeet ne Chronic back pain Sister 2 Mary Ellen Smoker Sister 2 Mary Ellen Hip replacement Sister 3 Kelly Ovarian cancer Sister 3 Kelly Relation Name Status Comments Brother 1 Valentin Alive Brother 2 David Alive Father Maternal Grandmother Mother Lucille Mother's Sister A few sisters Sister 1 Linda Sister 2 Mary Ellen Alive Sister 3 Kelly Alive Sister 4 Alive Social History Tobacco Use Types Packs/Day [...] your living situation today? I have a [facility] place to live 06/29/2023 Comments [...] CDT Office Visit Department of Otorhinolaryngology in [place], [place] [address] [place] [address] Filiberto Rojas M.D. [address] [place] [address] 08/19/2024 12:00 PM CDT Appointment Department of Laboratory Medicine in [place], [place] [address] [place] [address] Gin Salgado APRN, C.N.P., D.N.P. [address] [place] [phone] Health Maintenance Due Date Last Done Comments CT Colonography 1950 Cologuard 1950 Hepatitis C Screening 1950 Zoster Vaccines (2 of 3) 11/10/2013 09/15/2013 Pneumococcal vaccine (65+ years) (1 of 1 - PCV) 2014 RSV vaccine - (32-36 weeks) or 60+ years (1 - 1-dose 75+ series) 2024 COVID-19 Vaccine ( - season) 2024 10/27/2023, 10/27/2023, 08/28/2022, Additional history exists Influenza Vaccine (#1) 2024 10/06/2022, 2019 Mammogram 10/29/2024 10/29/2023, 12/17, 11/21/2019, Additional history exists Depression Monitoring (PHQ-9) 12/06/2024 08/05/2024 Visit: Medicare Annual Wellness 03/11/2025 03/10/2024 Fasting Glucose for Diabetes Screening 06/28/2025 06/28/2024, 06/28/2024, 01/11/2024, Additional history exists Visit: Chronic Disease, age 18+ 06/28/2025 06/28/2024 Office Visit for Blood Pressure Check / Re-check 07/12/2025 07/12/2024 DTaP,Tdap,and Td Vaccines (2 - Td or Tdap) 02/03/2027 02/03/2017, 05/08/2008 Colonoscopy 11/02/2028 11/02/2023 Colorectal Cancer Surveillance 11/02/2028 Lipid (Cholesterol) Screening 04/07/2029 04/07/2024 Bone Density Scan (Osteoporosis Screen) Addressed 04/15/2023 (Performed elsewhere), 06/29/2018 (Performed elsewhere) Overridden with the intention of not completing the topic Fall Risk Screen (Annual) Completed 03/10/2024 Procedures Procedure Name Priority Date/Time Associated Diagnosis [...] inpatients and all outpatients) 10/29/2023 11:43 AM FORCE ADJUSTMENT SUPERVISOR Screening Mammogram Breast Cancer from Last 3 [...] 8.0 06/28/2024 6:39 PM CDT [facility] Specific [place] 1.022 1.001 - 1.035 06/28/2024 6:39 PM CDT [facility] Urobilinogen 1.0 0.2 - 1.0 mg/dL 06/28/2024 6:39 PM CDT [facility] Urine (Urine, Midstream) 06/28/2024 6:29 PM CDT 06/28/2024 6:29 PM CDT Gin Salgado APRN, C.N.P., D.N.P. LAB URINE O RDERABLES Final Result [facility] [address] [place] [address], [facility] RDW[facility] in [place] [address] [place] [phone] * (ABNORMAL) Microscopic Automated (06/28/2024 6:29 PM [...] 6:29 PM CDT 06/28/2024 6:29 PM CDT us Gin Salgado APRN, C.N.P., D.N.P. LAB URINE O RDERABLES Final Result [facility] [address] [place] [address], [facility] in [place] [address] [place] [phone] * (ABNORMAL) Bacterial Culture, Aerobic + Susceptibility, [...] LAB MICROBIOLOGY - GENERAL ORDERABLES Final Result [facility] [address] [place] [address], [facility] ECL[facility] [place] [address] * Vitamin D, Immunoassay, Total, Serum (06/28/2024 6:24 PM CDT) [facility] Vitamin D, Immunoassay, Total, S 24 20 - 80 ng/mL 06/29/2024 11:30 AM CDT ECLR Comment: Optimum levels within the healthy population are 20-50, patients with bone disease may benefit from high levels within this range Blood (Blood, Venous) 06/28/2024 6:24 PM CDT 06/29/2024 10:51 AM CDT Gin Salgado APRN, C.N.P., D.N.P. LAB BLOOD A DD-ON Final Result Performing Organization Address City/[facility]/ZIP Co de Phone Number [facility] [address] [place] [address], [facility] ECL[facility] in [place] [address] [place] [address] * (ABNORMAL) Iron and Total Iron-Binding Capacity (06/28/2024 6:24 PM CDT) Iron 47 35 - 145 mcg/dL 06/28/2024 8:12 PM CDT R[facility] Total Iron Binding Capacity 372 250 - 400 mcg/dL 06/28/2024 8:12 PM CDT [facility] Percent Saturation 13(L) 14 - 50 % 06/28/2024 8:12 PM CDT [facility] Blood (Blood, Venous) 06/28/2024 6:24 PM CDT 06/28/2024 6:25 PM CDT Gary Forman APRNNRandy, D.N.P. LAB BLOOD A DD-ON Final Result Performing Organization Address City/[facility]/ZIP Co de Phone Number [facility] [address] [place] [address], [facility] in [place] [address] [place] [phone] * (ABNORMAL) CBC with Differential, Blood (06/28/2024 [...] CDT 06/28/2024 6:25 PM CDT Gin Salgado APRN C.N.P., D.N.P. LAB BLOOD A DD-ON Final Result [facility] [address] [facility] [place] [place] [address], [facility] in [place] [address] [facility] [place] [place] [address] * Hemoglobin A1c (06/28/2024 6:24 PM CDT) Hemoglobin A1c, B 5.3 4.2 - 5.6 % 06/28/2024 6:44 PM CDT [facility] Blood (Blood, Venous) 06/28/2024 6:24 PM CDT 06/28/2024 6:25 PM CDT Vanessa Forman APRN.N.P., D.N.P. LAB BLOOD A DD-ON Final Result Performing Organization Address City/[facility]/ZIP Co de Phone Number [facility] [address] [address], [facility] [place] [address] * Ferritin (06/28/2024 6:24 PM CDT) Ferritin, S 25 11 - 328 mcg/L 06/28/2024 7:43 PM CDT [facility] Comment: Biotin has been identified by the director of technology as a potential interfering substance. Higher concentrations of biotin may be found in multivitamins, hair/nail supplements, and workout supplements. If the result does not match clinical observations, repeat testing after patient refrains from the use of supplements for at least 12 hours. Blood (Blood, Venous) 06/28/2024 6:24 PM CDT 06/28/2024 6:25 PM CDT Gin Salgado APRN, Vanessa.N.P., D.N.P. LAB BLOOD A DD-ON Final Result Performing Organization Address City/[facility] Co de Phone Number [facility] [address] [place] [address], [facility] in [place] [address] [place] [address] * Vitamin B12 Assay (06/28/2024 6:24 PM CDT) Vitamin B12 Assay, S 705 232 - 1245 ng/L 06/29/2024 11:30 AM CDT ECLR Comment: Biotin has been identified by the director of technology as a potential interfering substance. Higher concentrations of biotin may be found in multivitamins, hair/nail supplements, and workout supplements. If the result does not match clinical observations, repeat testing after patient refrains from the use of supplements for at least 12 hours. Blood (Blood, Venous) 06/28/2024 6:24 PM CDT 06/29/2024 10:51 AM CDT Gin Warren Vanessa Salgado APRN.NSaulP., D.N.P. LAB BLOOD A DD-ON Final Result [facility] [address] [place] [address], [facility] ECL[facility] in [address] [address] * (ABNORMAL) Comprehensive Metabolic Panel (06/28/2024 6:24 [...] D.N.P. LAB BLOOD A DD-ON Final Result [facility] [address] [place] [address], [facility] in [place] [address] [place] [address] * (ABNORMAL) Lipid Panel (04/07/2024 12:57 PM [...] 12:57 PM CDT 04/07/2024 12:58 PM CDT us Gin Salgado APRN, C.N.P., D.N.P. LAB BLOOD A DD-ON Final Result [facility] [address] [place] [address], [facility] in [place] [address] [place] [phone] * Colonoscopy (11/02/2023) EXT Colonoscopy Normal - See Scanned Report for Details Normal - See Scanned Report for Details, HIMS - Report Received and Scanned us Historical Provider GI PROCEDURE ORDERABLES Taylor warren Result * BI Breast Screening Bilateral with Tomosynthesis (10/29/2023 11:43 AM FORCE ADJUSTMENT SUPERVISOR) Anatomical Region Laterality Modality Breast, Breast Imaging RST L OS, Breast Imaging ARZ LOS, Breast Imaging FLA LOS Bilateral Mammography Impressions 10/30/2023 1:31 PM FORCE ADJUSTMENT SUPERVISOR Negative. RECOMMENDATION: ??Annual Screening Mammogram ASSESSMENT: ??BI-RADS: 1: Negative. Narrative 10/30/2023 1:31 PM FORCE ADJUSTMENT SUPERVISOR EXAM: ??BI BREAST SCREENING BILATERAL WITH TOMOSYNTHESIS [...] 1: Negative. Gin Salgado APRN, C.N.P., D.N.P. [facility] PROC EDURES Final Result from Last 3 Months or Most Recently Relevant to Health Maintenance Insurance [facility] Advance Directives For more information, please contact: [phone] Documents on File Type Date Recorded Patient Fuel Cell Assembler Expl anation Advance Directives 08/03/2023 8:40 AM Yeny Mittal HCPOA/ADVOCATE/AGENT/ OYSTER FLOATER/SURROG ATE Healthcare Agents on File Name Relationship Healthcare Agent Relationship Communication Yeny Jordan Daughter Health Care Agent Clayton Mittal Son First Alternate Health Care Agent Care Teams Wood Heel Flap Inserter Relationship Specialty Start Date End Date Gin Salgado APRN, C.N.P., D.N.P. [address] [place] [address] PCP - General Internal Medicine 10/26/23
--- OUTSIDE RECORDS SUMMARY | 2024-08-11 06:16 | XMS_ITS | Encounter Summary ---
Author Organization [facility] Address [address] [place] [phone] Care Team Providers Care Manager Telecom Name Role Phone Naomi, Gin Stone APRN C.N.P., D.N.P. Primary Ca Provider Reason for Referral * Outpatient (Routine) - Authorized Specialty Diagnoses / Procedures Referred By Contac t Referred To Contact Sleep Medicine Orion Morrow D.O., M.S. [address] [place] [phone] Phone: tel: fax: [facility] Referral ID Status Reason Start Date Expiration Date V isits Requested Visits Authorized [id number] Authorized 07/05/2024 01/04/2026 1 1 Reason for Visit * Outpatient (Routine) - Closed Specialty Diagnoses / Procedures Referred By Contac t Referred To Contact Sleep Medicine Lion Patricio APRN, C.N.P., M.S.N. [address] [place] [phone] Phone: tel: fax: [facility] Referral ID Status Reason Start Date Expiration Date Visits Re quested Visits Authorized [id number] Closed 04/25/2024 10/25/2025 1 1 Encounter Details Date Type Department Care Team (Late st Contact Info) Description 07/05/2024 10:45 AM CDT Telemedicine Center for [facility] Medicine in [place], [place] [address] [place] [phone] Lion Patricio APRN, C.N.P., M.S.N. [address] [place] [phone] Abby Atkins R.N. [address] [place] [phone] Obstructive Sleep Apnea Adult (Primary Dx) Social History Tobacco Use Types [...] your living situation today? I have a [facility] place to live 06/29/2023 Comments No Sex and Gender Information Value Date Recorded Sex Assigned at Female 06/29/2023 9:11 PM CDT Legal Sex Female 7:02 AM CDT Gender Identity Female 06/29/2023 9:11 PM CDT Sexual Orientation Straight 06/29/2023 9: 11 PM CDT documented as of this encounter Progress Notes * Abby Atkins R.N. - 07/05/2024 10:45 AM CDT Images from the original note were not included. REASON FOR VISIT Consult conducted via real-time audio/video technology by Abby Atkins R.N. in [facility] to the patient in Patient's Home Caron Mittal presents to complete 31-90 day PAP assessment. Polysomnography was completed on 06/27/2008, which showed an AHI of 20. Her weight at the time of testing was 108 kg. She had a home sleep study on 04/20/24, which showed AHI of 73. Her weight at that time was 97.9. SUBJECTIVE Caron Mittal currently does report subjective benefit from the use of PAP therapy. Caron Mittal does understand the potential health benefits of PAP therapy. Improvements related to PAP usage: better sleep quality, fewer awakenings, and needing less naps during the day . Current concerns/challenges about treatment: She has felt excess pressure and leaking in the middleof the night approximately 3 times since starting CPAP. She can adjust her mask, and the pressure feels better. She says nasal stuffiness and congestion are better with this CPAP device compared to when she used CPAP in the past. She occasionally will run out of water in the cannister before morning. She states she gets milan on her face from the headgear straps. Denies the following with PAP: pressure too low, tangles with air hose with position changes, air hunger, and water in hose (rainout). Snoring: No Snort Arousals: No Morning Headaches: No [place] Score: 3 (07/01/24 1100 : Patient, Online Services) PROMIS Adult Short Form-Global Health Score (Mental): 9 (07/01/24 1059 : Patient, Online Services) PROMIS Adult Short Form-Global Health Score (Physical): 11 (07/01/24 1059 : Patient, Online Services) Caron Mittal reports a regular sleep schedule. Typically going to bed around midnight and rising around 10 a.m. without an alarm feeling unrefreshed by sleep. She states feeling unrefreshed after sleeping has been longstanding for her, though she states she needs to nap less often since restarting PAP therapy. I reviewed and discouraged Caron Mittal from sleepy, drowsy, or tired driving. Caron Mittal verbalized understanding. 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 PAP therapy prescribed at: 5-15 cmH2O. Downloaded compliance indicates usage for 28 of 30 days, and average usage of 6 hours and 31 minutes nightly. Nightly use exceeded 4 hours for 90% of the time. The estimated apnea-hypopnea index on treatment is 2.8/hr. 95% estimated mask leak was 32.0 and maximum mask leak was 52.3. The interface is a small full face mask. Heated humidity is set at 4, and heated hose has been set at auto. Vendor: [employer] [place] VITAL SIGNS: Blood Pressure: 145/77 (06/28/2024 5:42 PM) Temperature: 36.5 ??C (06/28/2024 5:41 PM) Temp Source: Temporal (06/28/2024 5:41 PM) Pulse Rate: 64 (06/28/2024 5:42 PM) Weight: 101 kg (06/28/2024 5:41 PM) ASSESSMENT / PLAN This return visit was reviewed in detail with Harris Morrow M.D. who saw the patient face to face Updated plan of care and treatment recommendations provided as a result of today's visit include: 1. Continue PAP therapy at 5-15 cm H2O. Prescription was renewed by protocol [id number] and provided to the patient. 2. Congratulated patient on excellent use of the CPAP machine and encouraged use for entire duration of sleep each night. 3. Caron's use of CPAP has met compliance for insurance purposes. 4. Caron will continue to utilize the small full face mask interface. She will [facility] to have them assess the fit of her mask to help with any leaking. We discussed that the milan on her face could mean that the mask is too tight, which can also cause leaking, and this can be evaluated at the [facility] in [place] as well. 5. We discussed keeping a bottle of distilled water at the bedside and adding water to the cannister when she gets up to use the restroom. We also discussed adding a small humidifier to her room instead, which she says she will do. 6. We discussed increasing humidity if she has nasal congestion or dry mouth. She can bring her device to the [facility] in [place] if she needs assistance with adjusting heat or humidity. 7. rat exterminator management of the sleep treatment plan was reviewed with instruction on the focus thatthis is a chronic medical condition that requires ongoing assessment. Follow-up recommendation is for 1 year. Caron Mtital should bring their PAP equipment to any appointments scheduled here. 8. Healthy lifestyle: Deferred Comprehensive education was provided regarding Positive Airway Pressure Therapy (PAP). Common problems encountered when utilizing PAP were reviewed in detail including vasomotor rhinitis, dry mouth, and congestion. Instruction regarding how to change the heated humidity and heated hose was provided. Proper care of PAP equipment and intervals for replacing supplies was provided. Reinforcement of the importance of properly cleaning the humidifier and empty the water daily was provided. The impactof weight loss in relationship to sleep disordered breathing was reviewed and weight loss encouraged. Discussion of the health risks of untreated obstructive sleep apnea was reviewed. Encouragement and reinforcement to wear PAP for the duration of sleep was provided. I reinforced importance in obtaining adequate total sleep time of 7-8 hours daily. The patient verbalized understanding of diagnosis and sleep treatment plan and was able to teach back concepts reviewed today. documented in this encounter Plan of Treatment Upcoming Encounters Date Type Department Care Team (Late st Contact Info) Description 08/16/2024 8:45 AM CDT Office Visit Department of Otorhinolaryngology in [place], [place] [address] [place] [phone] Filiberto Rojas M.D. [address] [place] [phone] 08/19/2024 12:00 PM CDT Appointment Department of Laboratory Medicine in [place], [place] [address] [place] [phone] Gin Salgado APRN, C.N.P., D.N.P. [address] [place] [phone] Scheduled Referrals Name Type Priority Associated Diagnoses Orde r Schedule Sleep Medicine nurse visit (clinic) Outpatient Referral Routine Expected: 07/05/2025 (Approximate), Expires: 10/04/2025 documented as of this encounter Visit Diagnoses Diagnosis Obstructive Sleep Apnea Adult- Primary documented in this encounter Additional Health Concerns Assessment Noted Time PHQ-9 Depression Total Score: 024 12:59 PM CDT documented as of this encounter Care Teams Manager Telecom Relationship Specialty Start Date End Date Gin Salgado APRN, C.N.P., D.N.P. [address] [place] [phone] PCP - General Internal Medicine 10/26/23 documented as of this encounter
--- OUTSIDE RECORDS SUMMARY | 2024-08-11 06:16 | XMS_ITS | Continuity of Care Document ---
Author Organization [place] - [facility], [facility] Address [address] [place] [phone] Care Team Providers Care Soft Top Installer Name Role Phone ERIKA ROWLAND Primary Care Provider Assessment Encounter Date Assessment Date Assessment LastModified by Organization Details LastModified Time 07/11/2024 07/11/2024 Assessment Multilevel Spondylosis Poss SIJ Dysfunction R>L L4-L5 Spondylolisthesis ??? Plan: -Discussed the patient's physical exam and reviewed their imaging - Discussed all treatment options and agreed upon the following: - All questions answered to the patient's satisfaction - They will call the clinic or return if they have any interim concerns - Pain control: recommended course of OTC NSAIDs and tylenol if no medical contraindications - R SIJ Inj x1 (standing Order) - SIJ/L PT - FU: Patient to return to the clinic w/ LLUVIA in 2mo or PRN ahaberer Not available 07/11/2024 17:15:42 Plan of Treatment Reminders Order Date Submit Date Provider Last Modified By Organization Details Last Modified Time Details Appointments None record ed. Lab None record ed. Referral None record ed. Procedures None record ed. Surgeries None record ed. Imaging None record ed. Medication Orders None record ed. Patient TargetsNo targets recorded. Patient Instructions Encounter Date Encounter Id Patient Instructions Last Modified By Organization Details Last Modified Time 07/11/2024 [id number] Discussion: I discussed the clinical findings with the patient. All questions were answered. Risk factors reviewed with the patient and a R SIJ Inj x1 (standing Order), SIJ/L PT was ordered. Synopsis: 07/11/24, , GERTRUDIS: L/P CT w/o (07/11/24) at GERTRUDIS: Multilevel Spondylosis, Poss SIJ Dysfunction R>L, L4-L5 Spondylolisthesis : R SIJ Inj x1 (standing Order), SIJ/L PT, f/u w/ LLUVIA in 2mo or PRN if needed ahaberer Not available 07/11/2024 17:16:41 Reason for Referral None Reported. Results Created Date Observation Date Name Description Value Unit Range Abnormal Flag Note LastModifiedBy Organization Detail LastModifiedTime 07/19/2007/11/2024 CT, lumba r spine , w/o contr ast No observ ation record ed. MANDA Not Available 2023 11:40:35 07/19/2007/11/2024 CT, pelvi s, w/o contr ast No observ ation record ed. MANDA Not Available 2023 11:41:38 Result Notes None recorded. Procedures Surgical History Date Name Laterality Status Provider Name and Address Organization Details Recorded Time 08/18/20 total knee replacement completed [facility] 06/27/2024 14:13:03 Hysterectomy completed [facility] 06/27/2024 14:11:49 cholecystectomy completed [facility] 06/27/2024 14:12:31 total knee replacement completed [facility] 06/27/2024 14:13:27 procedure on ear completed [facility] 06/27/2024 14:13:54 Imaging Results None recorded. Procedure Notes None recorded. Medical Equipment None Reported. Allergies No known drug allergies Medications Name Sig Start Date Stop Date Status Note LastModified by Organization Details LastModified Time celecoxib 200 mg capsule active Not Available Not Available N ot Available acetaminophen 325 mg tablet active Not Available Not Availabl e Not Available metoprolol succinate ER 50 mg tablet,extended release 24 hr Take 1 tablet every day by oral route. active Not Available Not Available No t Available senna 8.6 mg tablet active Not Available Not Available Not Available aspirin 81 mg chewable tablet active Not Available Not Availa ble Not Available cefdinir 300 mg capsule active Not Available Not Available Not Available oxycodone 5 mg tablet active Not Available Not Available Not Available rosuvastatin 5 mg tablet active Not Available Not Available No t Available bupropion HCl XL 300 mg 24 hr tablet, extended release TAKE 1 TABLET BY MOUTH EVERY MORNING active Not Available Not Available No t Available nitrofurantoin monohydrate/mac rocrystals 100 mg capsule active Not Available Not Available N ot Available GaviLyte-G 236 gram-22.74 gram-6.74 gram-5.86 gram oral solution active Not Available Not Availabl e Not Available Vitamin D3 125 mcg (5,000 unit) tablet Take by oral route. active Not Available Not Available No t Available Vitals Date Recorded Body height Heart rate Body temperature Body mass index (BMI) Body weight Oxygen saturation Oxygen saturation in Arterial blood by Pulse oximetry Provider Name and Address Organization Details Last Updated DateTime 162.56 cm 66 /min 98.2 [degF] 39.5 kg/m2 770225. 25 g 95 % 95 % [facility] 16:34:20 Social History Question Answer Notes LastModified by Organizat ion Details LastModified Time Tobacco Smoking Status Never Smoker Roxana hankins, [place] - [facility] 06/27/2024 14:14:31 What Is Your Level Of Alcohol Consumption? Occasional [email or web address] Information not available 06/27/2024 How Many Times Per Week Do You Consume Alcohol? Less Than 1 Time Per Week [email or web address] Information not available 06/27/2024 What Was The Date Of Your Most Recent Tobacco Screening? 07/11/2024 Information not available 07/11/2024 Do You Use Any Illicit Or Recreational Drugs? No Information not available 07/11/2024 Has Tobacco Cessation Counseling Been Provided? No Information not available 07/11/2024 Do You Or Have You Ever Used Any Other Forms Of Tobacco Or Nicotine? No Information not available 07/11/2024 Sex: Unknown Functional Status None recorded. Mental Status None recorded. Family History Relationship Description Onset Age of this Age Resolved Age Notes LastModified by Organization Details LastModified Time Maternal Grandmother Asthma [email or web address] Not available 06/2024 14:14:57 Brother Diabetes mellitus [email or web address] Not available 06/27 14:15:13 Sister Diabetes mellitus [email or web address] Not available 06/27 14:15:13 Father Diabetes mellitus [email or web address] Not available 06/27 14:15:13 Medical History Condition Response Gout N Blood Diseases N MRSA N Blood Transfusion N Head Trauma/Injury N Hernia N COPD N Depression Y Lung Disease N Developmental or Behavioral Disorders N Pacemaker N Difficulty Swallowing N Anesthesia Complications N Anxiety Disorder N Cystic Fibrosis N Muscle, Joint, or Bone Problems Y Obesity Y Vision or Eye Problems Y Arthritis Y Blood Clot N Stroke N Bladder or Kidney Problems N High Cholesterol N Fibromyalgia Y Headaches N Allergies/Hayfever N Parkinson's Disease N Ear or Hearing Problems Y Hospitalizations N GI Problems N ADD/ADHD N Skin Problems N PTSD N Anemia N Multiple Sclerosis N Meningitis N Heart Attack ([place]) N Diabetes N Immunocompromised N Hepatitis/Liver Disease N Bleeding Disorder N Cancer/Tumors N Heart Murmur Y Cerebral Palsy N AIDS/HIV Y Congestive Heart Failure (CHF) N Abuse/Domestic Violence N Asthma N Seizures N Peripheral Vascular Disease N Epilepsy/Seizures N AFib N Reflux/GERD N Sleep Apnea Y Thyroid Disorder N Aneurysm N Neuropathy N Pulmonary Embolism N Hypertension N Osteoporosis N Autism Spectrum Disorder (ASD) N Gynecological HistoryNo gynecological history recorded. Obstetrics History GPAL:G 0 P 0 0 0 0 Past Encounters Encounter ID Performer Location Encounter Start Date Encounter Closed Date Diagnosis/Indication Diagnosis SNOMED-CT Code Diagnosis ICD10 Code [id number] KIM GALVEZ PA-C [facility] e [address] [phone] 06/27/2024 14:01:31 07/08/2024 12:47:04 Chronic low back pain 706575979 M54.50 Sacroiliac joint pain 20 2539104 M53.3 [id number] KIM GALVEZ PA-C [facility] [address] [place] [phone] 07/11/2024 16:01:12 07/12/2024 13:31:39 Chronic low back pain 917676685 M54.50 Sacroiliac joint pain 20 8274349 M53.3 Lumbar spondylosis 12359 0009 M47.896 Lumbar spondylolisthesis 0806841717 03464 M43.16 Health Concerns Section Related Observation LastModified by Organization Detai ls LastModified Time None Recorded Concern Status LastModified by Organization Details LastModified Time None Recorded Payers Encounter Date Sequence Insurance Name Policy Number Policy Rojas Covered Member ID Rojas Member ID Guarantor Name 07/11/2024 1 [place] (MEDICARE REPLACEMENT/A DVANTAGE - HMO) [id number] Caron Mittal [id number] Caron Mittal Notes Date Note Type Note Provider Name and Address Organization Details Recorded Time 07/11/2024 text/html Chief Complaint: HPI:Caron is a 74-year-old female who presents today for a follow-up visit alongside her daughter after an initial care visit. At that time, we decided to update her lumbar and pelvic CT.Today, we reviewed her new imaging, which revealed multi-level spondylosis with one level of spondylolisthesis and arthritis in her sacroiliac joints (SIJs) bilaterally. Despite these findings, I emphasized to Caron that she is not defined by her CT reports. She reports her pain at a 3 out of 10, indicating that her pain has improved since our last visit. She also notes better gait and mobility, which have improved with time. I commended her progress and encouraged the continuation of her at-home exercises.During our discussion, both her daughter and I agreed that attending in-house physical therapy for further evaluation and treatment would be beneficial. While acknowledging that physical therapy may not resolve the arthritis itself, I explained that it could help alleviate her symptoms and strengthen muscles to enhance her quality of life. We considered physical therapy specifically for pelvic floor and glute muscle exercises.Additionally , we discussed a standing order for a right SIJ injection to pinpoint the core area of pain, whether it stems from an SIJ or lumbar issue. We had an in-depth discussion about the purpose and expectations of this injection.Caron and her daughter are in agreement with maintaining the standing order for the SIJ injection, with instructions for Caron to call in if or when her pain increases. We plan to follow up in approximately two months to reassess her condition or sooner if her symptoms necessitate. Pain level right now: 3/10Pain range: 8/10 *Previous HPIs-06/27/24, AH, GERTRUDIS: No Recent Img: Chronic low back pain, Poss SIJ Dysfunction: L & P CT w/o, f/u w/ LLUVIA after CTsCaron is a 74-year-old female who presents today to establish care with the [facility] team, accompanied by her daughter. She reports a longstanding history of back pain, which has persisted for approximately 30 years.Despite this chronic condition, she notes an improvement in her back pain following her second knee surgery. She has undergone bilateral knee replacements within the last year, with the right knee being the most recent. She experiences the majority of her symptoms on the right side of her body, including some low back pain, which she currently rates as a 3 out of 10 in intensity. 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 Her medical history is significant for arthritis in her knees, hips and back, as well as fibromyalgia.For pain management, she takes Celebrex and Tylenol. Although she has not engaged in physical therapy specifically for her low back pain, she did participate in physical therapy for her knee and continues to perform the prescribed exercises. However, her daughter expresses concern about Caron's reliability in following the exercise regimen.During our consultation, we reviewed her previous treatments, including injections received about five years ago. We discussed the potential for further injections as part of a conservative management approach but acknowledged the need for updated imaging before proceeding. The patient does not currently favor surgical intervention; therefore, we agreed to order a lumbar and pelvic CT for further evaluation. We will defer additional treatment protocols until the next follow-up appointment after reviewing the imaging results. Both the patient and her daughter concur with this plan. KIM GALVEZ PA-C [address], [place], [phone], [facility] - [facility] 07/11/2024 17:16:53 OBGyn Episode No OBEpisode recorded.
--- OUTSIDE RECORDS SUMMARY | 2024-08-11 06:16 | XMS_ITS | Encounter Summary ---
Author Organization [facility] Address [address] [place] [phone] Care Team Providers Care Hot Walker Name Role Phone NaomiGin APRN C.N.P., D.N.P. Primary Ca re Provider Encounter Details Date Type Department Care Team (Late st Contact Info) Description 07/05/2024 10:45 AM CDT Office Visit Center for Sleep Medicine in [place], [place] [address] [place] [phone] Orion Morrow D.O., M.S. [address] [place] [phone] Obstructive Sleep Apnea Adult (Primary Dx) Social [...] your living situation today? [facility] 06/29/2023 Comments No Sex and Gender Information Value Date Recorded Sex Assigned at Female 06/29/2023 9:11 PM CDT Legal Sex Female 7:02 AM CDT Gender Identity Female 06/29/2023 9:11 PM CDT Sexual Orientation Straight 06/29/2023 9: 11 PM CDT documented as of this encounter Progress Notes * Orion Morrow D.O., M.S. - 07/05/2024 10:45 AM CDT SUBJECTIVE I saw the patient virtually in conjunction with Abby Atkins R.N.. Refer to her note for full details. Mrs. Mittal is having a much better experience this time around with PAP therapy. Download shows nightly usage for an average of 6.5 hours. Residual AHI is less than three. ASSESSMENT / PLAN #1 Obstructive sleep apnea, doing well with auto PAP documented in this encounter Plan of Treatment Upcoming Encounters Date Type Department Care Team (Late st Contact Info) Description 08/16/2024 8:45 AM CDT Office Visit Department of Otorhinolaryngology in [place], [place] [address] [place] [address] Filiberto Rojas M.D. [address] [place] [phone] 08/19/2024 12:00 PM CDT Appointment Department of Laboratory Medicine in [address] [phone] Gin Salgado APRN, C.N.P., D.N.P. [address] [place] [phone] documented as of this encounter Visit Diagnoses Diagnosis Obstructive Sleep Apnea Adult- Primary documented in this encounter Additional Health Concerns Assessment Noted Time PHQ-9 Depression Total Score: 10 024 12:59 PM CDT documented as of this encounter Care Teams Hot Walker Relationship Specialty Start Date End Date Gin Salgado APRN, C.N.P., D.N.P. [address] [place] [phone] PCP - General Internal Medicine 10/26/23 documented as of this encounter
--- OUTSIDE RECORDS SUMMARY | 2024-08-11 06:16 | XMS_ITS | Continuity of Care Document ---
Author Organization [place] - [facility], [facility] Address [address] [place] [id number] Care Team Providers Care Merchandise Processor Name Role Phone ERIKA ROWLAND Primary Care Provider [phone] Assessment Encounter Date Assessment Date Assessment LastModified by Organization Details LastModified Time 06/27/2024 06/27/2024 Assessment Chronic low back pain Poss SIJ Dysfunction ??? Plan: -Discussed the patient's physical exam and reviewed their imaging - Discussed all treatment options and agreed upon the following: - All questions answered to the patient's satisfaction - They will call the clinic or return if they have any interim concerns - Imaging: L & P CT w/o of spine ordered - Pain control: recommended course of OTC NSAIDs and tylenol if no medical contraindications - FU: Patient to return to the clinic w/ [facility] after CTs ahaberer Not available 06/27/2024 15:37:15 Plan of Treatment Reminders Order Date Submit [...] Modified By Organization Details Last Modified Time 06/27/2024 [id number] Discussion: I discussed the clinical findings with the patient. All questions were answered. Risk factors reviewed with the patient and a L & P CT w/o was ordered. Synopsis: 06/27/24, ZACH, GERTRUDIS: No Recent Img: Chronic low back pain, Poss SIJ Dysfunction: L & P CT w/o, f/u w/ [facility] after CTs ahaberer Not available 06/27/2024 15:37:46 Reason for Referral None Reported. Results Created Date Observation Date Name Description Value Unit Range Abnormal Flag Note LastModifiedBy Organization Detail LastModifiedTime 07/19/20 24 07/11/2024 CT, lumba r spine , w/o contr ast No observ ation record ed. MANDA Not Available 2023 11:40:35 07/19/20 24 07/11/2024 CT, pelvi s, w/o contr ast No observ ation record ed. MANDA Not Available 2023 11:41:38 Result Notes None recorded. Procedures Surgical History Date Name Laterality Status Provider Name and Address Organization Details Recorded Time 08/18/20 total knee replacement completed [facility] 06/27/2024 14:13:03 Hysterectomy completed [facility] 06/27/2024 14:11:49 cholecystectomy completed [employer] [facility] 06/27/2024 14:12:31 total knee replacement completed [facility] 06/27/2024 14:13:27 procedure on ear completed [facility] 06/27/2024 14:13:54 Imaging Results None recorded. Procedure [...] t Available Vitals Date Recorded Body height Body mass index (BMI) Body weight Heart rate Body temperature Oxygen saturation Oxygen saturation in Arterial blood by Pulse oximetry Provider Name and Address Organization Details Last Updated DateTime 162.56 cm 39.3 kg/m2 187748. 65 g 62 /min 97.1 [degF] 98 % 98 % Roxana Oswald [place] - [facility] 14:19:35 Social History Question Answer Notes LastModified by Organizat ion Details LastModified Time Tobacco Smoking Status Never Smoker Roxana Oswalddavid hankins [place] - [facility] 06/27/2024 14:14:31 What Is Your Level Of Alcohol Consumption? Occasional [email or web address] Information not available 06/27/2024 How Many Times Per Week Do You Consume Alcohol? Less Than 1 Time Per Week [email or web address] Information not available 06/27/2024 What Was The [...] Organization Details LastModified Time Maternal Grandmother Asthma [email or web address] Not available 06/2024 14:14:57 Brother Diabetes mellitus [email or web address] Not available 06/27 14:15:13 Sister Diabetes mellitus [email or web address] Not available 06/27 14:15:13 Father Diabetes mellitus Not available 06/27 14:15:13 Medical History Condition Response Gout N Blood Diseases N MRSA N Blood Transfusion N Head Trauma/Injury N COPD N Depression Y Anxiety Disorder N Muscle, Joint, or Bone Problems Y Obesity Y Vision or Eye Problems Y Arthritis Y Blood Clot N Stroke N Fibromyalgia Y Headaches N Ear or Hearing Problems Y Hospitalizations N Skin Problems N PTSD N Meningitis N Immunocompromised N Hepatitis/Liver Disease N Bleeding Disorder N Cerebral Palsy N AIDS/HIV Y Asthma N Seizures N Peripheral Vascular Disease N Thyroid Disorder N Neuropathy N Pulmonary Embolism N Autism Spectrum Disorder (ASD) N Hernia N Lung Disease N Developmental or Behavioral Disorders N Pacemaker N Difficulty Swallowing N Anesthesia Complications N Cystic Fibrosis N Bladder or Kidney Problems N High Cholesterol N Allergies/Hayfever N Parkinson's Disease N GI Problems N ADD/ADHD N Anemia N Multiple Sclerosis N Heart Attack ([place]) N Diabetes N Cancer/Tumors N Heart Murmur Y Congestive Heart Failure (CHF) N Abuse/Domestic Violence N Epilepsy/Seizures N AFib N Reflux/GERD N Sleep Apnea Y Aneurysm N Hypertension N Osteoporosis N Gynecological HistoryNo gynecological history recorded. Obstetrics History GPAL:G 0 P 0 0 0 0 Past Encounters Encounter ID Performer Location Encounter Start Date Encounter Closed Date Diagnosis/Indication Diagnosis SNOMED-CT Code Diagnosis ICD10 Code [id number] KIM GALVEZ PA-C [facility] [address],[facility] [address] [facility] [place] [phone] 06/27/2024 14:01:31 07/08/2024 12:47:04 Chronic low back pain 633190702 M54.50 Sacroiliac joint pain 20 7224373 M53.3 Health Concerns Section Related Observation LastModified by Organization Detai ls LastModified Time None Recorded Concern Status LastModified by Organization Details LastModified Time None Recorded Payers Encounter Date Sequence Insurance Name Policy Number Policy Rojas Covered Member ID Rojas Member ID Guarantor Name 06/27/2024 1 [place] (MEDICARE REPLACEMENT/A DVANTAGE - HMO) [id number] Caron Mittal [id number] Caron Mittal Notes Date Note Type Note Provider Name and Address Organization Details Recorded Time 06/27/2024 text/html Chief Complaint: HPI:Caron is a 74-year-old female who presents today to establish care with the [facility] team, accompanied by her daughter. 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 Her medical history is significant for arthritis [...] and her daughter concur with this plan. Pain level right now: 3/10Pain range: 3/10 KIM GALVEZ PA-C [address], [place], [address], [facility] - [facility] 06/27/2024 15:37:58 OBGyn Episode No OBEpisode recorded.
--- OUTSIDE RECORDS SUMMARY | 2024-08-11 06:16 | XMS_ITS | Encounter Summary ---
Author Organization [facility] Address [address] [place] [address] Care Team Providers Care Erp Implementation Consultant Name Role Phone Erika Harmon APRN, C.N.P., D.N.P. Primary Ca re Provider Reason for Referral * Outpatient (Routine) - Authorized Specialty Diagnoses / Procedures Referred By Kimberly chiang Referred To Contact [facility] Erika Harmon APRN, C.N.P., D.N.P. [address] [place] [address] Phone: tel: fax: [facility] Referral ID Status Reason Start Date Expiration Date V isits Requested Visits Authorized [id number] Authorized 06/28/2024 12/28/2025 1 1 * Outpatient (Routine) - Authorized Specialty Diagnoses / Procedures Referred By Contfran chiang Referred To Contact Diagnoses Hypertension Essential Primary Erika Harmon APRN, C.N.P., D.N.P. [address] [place] [address] Phone: tel: fax: [facility] [place] [facility] Referral ID Status Reason Start Date Expiration Date V isits Requested Visits Authorized [id number] Authorized 06/28/2024 12/28/2025 1 1 Reason for Visit * Reason Comments Follow-up * Outpatient (Routine) - Closed Specialty Diagnoses / Procedures Referred By Kimberly chiang Referred To Contact [facility] Diagnoses Hypertension Essential Primary Erika Harmon APRN, C.N.P., D.N.P. [address] [place] [address] Phone: tel: fax: [facility] Referral ID Status Reason Start Date Expiration Date Visits Re quested Visits Authorized [id number] Closed 12/07/2023 06/07/2025 1 1 Encounter Details Date Type Department Care Team (Late st Contact Info) Description 06/28/2024 5:40 PM CDT Office Visit Department of Internal Medicine in [place], [place] [address] [place] [address] Erika Harmon APRN, C.N.P., D.N.P. [address] [place] [address] Hypertension Essential Primary (Primary Dx); Hyperlipidemia; Apnea Sleep Obstructive; Frequency Urinary; Vertigo; Stenosis Spinal Lumbar With Neurogenic Claudication; Anemia; PreDiabetes; Carpal Tunnel Syndrome Bilateral; Deficiency Vitamin D; Atrial Fibrillation Paroxysmal (HCC); Maintenance Health Adult; Acute Cystitis Without Hematuria Discharge Disposition: Home or Self Care Social [...] [facility] live 06/29/2023 Comments No Sex and Gender Information Value Date Recorded Sex Assigned at Female 06/29/2023 9:11 PM CDT Legal Sex Female 7:02 AM CDT Gender Identity Female 06/29/2023 9:11 PM CDT Sexual Orientation Straight 06/29/2023 9: 11 PM CDT documented as of this encounter Last Filed Vital Signs Vital Sign Reading Time Taken Comments Blood Pressure 145/77 06/28/2024 5:42 PM CDT Pulse 64 06/28/2024 5:42 PM CDT Temperature 36.5 ??C (97.7 ??F) 06/28/2024 5:41 PM CD T Respiratory Rate - - Oxygen Saturation - - Inhaled Oxygen Concentration - - Weight 101 kg (222 lb 10.6 oz) 06/28/2024 5:41 P M CDT Height - - Body Mass Index 39.01 03/10/2024 1:13 PM CDT documented in this encounter Progress Notes * Erika Harmon APRN, C.N.P., D.N.P. - 06/28/2024 5:40 PM CDT SUBJECTIVE CHIEF COMPLAINT/REASON FOR VISIT Follow-up. HISTORY OF PRESENT ILLNESS Caron is a very pleasant 74 y.o. female who presents for evaluation of Follow-up. Acute concerns: Urinary complaint Onset: off and on since February Progression: Characteristics: Dysuria - None Increase frequency - yes Increased urgency - no Odor - yes Medications/treatments tried: Treated in Oct for e coli UTI History of UTI: last positive culture in october Related symptoms Abdominal pain - None Bowel changes - None, using stool softeners Nausea/vomiting - None Back/flank pain - None Fever - None Hematuria- None Gait instability: When she was traveling recently had some vertigo symptoms when laying down. Had some gait instability. Has had some tingling in her right leg. Symptoms have improved and results. Known history of spinal stenosis. Recently seen by a presentation specialist. Spine symptoms are much better than they were before she had knee surgery. Using celebrex and tylenol once daily. History of ear vi michaela. Drains on occasion Carpel tunnel: getting worse. EMG done in November. Looking into seeing ortho in [place] for this. Chronic conditions: Hypertension Blood pressure today: BP 145/77 Home blood pressures: Not checking Medication adherence: Metoprolol Side effects to medications: none Renal function: Normal in December Anemia Most recent hemoglobin: 10.3 on 01/13/2024 Hemoglobin trend: Prior to that was 10.1 MCV: Normal Blood thinner: Aspirin CKD: No history Liver function: no history Thyroid function: normal in December Symptoms: Shortness of breath: None Bleeding: None Abdominal symptoms/absorptive issues: History of anemia: Current treatments: started multivitamin. Did not tolerate iron supplement. Hyperlipidemia Medication: none LDL: 136 on 04/07 ASCVD 10 year risk: 19% Vit D: Concerned about deficiency. Reports history of this. Taking a supplement A FIB: Saw Cardiology 04/18/2024. Discussed anticoagulation she declined. Continues Sleep apnea CPAP: Recently started this again Symptoms: Feels more rested now that she is using her machine Supplies: Full face mask Supplier: [place] [employer] Sleep study: AHI: 2.7 Use: 90% Health maintenance needs: AWV: Due 03/11/2025 Colon cancer screening: due 2028 Mammogram: Due october SOCIAL HISTORY Denies tobacco use. No concern for excessive alcohol use. Lives independently ALLERGIES/CONTRAINDICATIONS Allergies Allergen Reactions Ciprofloxacin Other (see comments) Fluoxetine Rash watery eyes Duloxetine Rash Watery eyes Sertraline Itching REVIEW OF SYSTEMS REVIEW OF SYSTEMS Pertinent positives as per HPI. Otherwise, comprehensive review of systems performed and negative. OBJECTIVE VITAL SIGNS BP 145/77 Pulse 64 Temp 36.5 ??C (Temporal) Wt 101 kg BMI 39.01 kg/m?? PHYSICAL EXAMINATION Constitutional General: She is not in acute distress. Appearance: She is well-developed. She is not diaphoretic. HENT Head: Normocephalic and atraumatic. Eyes Conjunctiva/sclera: Conjunctivae normal. Pupils: Pupils are equal, round, and reactive to light. Pulmonary Effort: Pulmonary effort is normal. No respiratory distress. Musculoskeletal General: Normal range of motion. Cervical back: Normal range of motion. Skin General: Skin is warm and dry. Neurological Mental Status: She is alert and oriented to person, place, and time. Psychiatric Behavior: Behavior normal. ASSESSMENT / PLAN #1 Hypertension Essential Primary Blood pressure slightly above goal at 142/77. Recommended increasing metoprolol to 75 mg daily. Parker let me know if she has any side effects associated with this dose adjustment. Plan to update blood pressure with nurse visit in 2 weeks. If not improving to goal could consider adding DARLEEN inhibitor or calcium channel stephanie. - Comprehensive Metabolic Panel; Future; Expected date: 06/28/2024 - [facility] office visit (clinic) - metoprolol succinate (Toprol XL) 50 mg 24 hr tablet; Take 1.5 tablets (75 mg total) by mouth daily., Starting Thu06/28/2024, Normal - Primary care hypertension nurse visit (clinic); Future; Expected date: 07/12/2024 #2 Hyperlipidemia Reviewed her recent lipid panel. ASCVD 10 year risk greater than 20%. Recommended starting statin therapy and she was agreeable. Rosuvastatin sent. She will let me know if she has any side effects associated with this. Plan to recheck lipid panel in 2 months. - rosuvastatin (Crestor) 5 mg tablet; Take 1 tablet (5 mg total) by mouth daily., Starting 06/28/2024, Normal - Lipid Panel; Future; Expected date: 08/28/2024 - Hepatic Function Panel; Future; Expected date: 08/27/2024 #3 Apnea Sleep Obstructive She has started using her CPAP and is tolerating well. Reports fatigue has improved since she has been using it consistently. We did review her download today which showed over 90% compliance. AHI less than 3. Continues to benefit from nightly CPAP use. #4 Frequency Urinary She has been experiencing more urinary frequency. Symptoms have been off and on since her UTI in October. Recommended UA today to rule out recurrent infection. If negative could consider referral to urogynecology for further evaluation. Addendum: UA consistent with UTI. Prescribed Macrobid for treatment. Culture pending. - Urinalysis with Microscopic if Indicated; Future; Expected date: 06/28/2024 - Bacterial Culture, Aerobic + Susceptibility, Urine; Future; Expected date: 06/28/2024 #5 Vertigo She recently had an episode where she was feeling unsteady on her feet and listing to the right. She does have a history of ear surgery in his seeing ENT in the near future about this. Had sensation of the room spinning when she laid down. Reports symptoms have completely resolved. She was concerned about potential MS diagnosis. Symptoms do not sound consistent with this. Advised her if symptoms do recur or she is having episodes of falling over or instability she should let me know and we can re-evaluate. We did discuss potentially doing PT vestibular therapy but she declined for now. #6 Stenosis Spinal Lumbar With Neurogenic Claudication She has been seeing a spine specialists and reports overall symptoms are much better since she had her knee surgery. She does have some occasional numbness and tingling in her right leg but this comes and goes. Using Celebrex once daily and this seems to help as well. #7 Anemia Reports she tried doing an oral iron supplement and did not tolerate it. Has started a multivitaminwith iron and doing well with this. Recommended updating iron studies today. - CBC with Differential, Blood; Future; Expected date: 06/28/2024 - Iron and Total Iron-Binding Capacity; Future; Expected date: 06/28/2024 - Ferritin; Future; Expected date: 06/28/2024 - Vitamin B12 Assay; Future; Expected date: 06/28/2024 #8 PreDiabetes A1c updated today. - Hemoglobin A1c; Future; Expected date: 06/28/2024 #9 Carpal Tunnel Syndrome Bilateral EMG done in November showed bilateral carpal tunnel with left worse than right. Symptoms have progressed. She plans to follow up with an orthopedist in [place]. #10 Deficiency Vitamin D Reports history vitamin-D deficiency. Currently taking a vitamin-D supplement. Vitamin-D level updated today. - Vitamin D, Immunoassay, Total, Serum; Future; Expected date: 06/28/2024 #11 Atrial Fibrillation Paroxysmal (HCC) Continues to decline anticoagulation. We again reviewed risks of this. She is primarily concerned about risk for bleeding with anticoagulation as she does not accept blood products due to her methodist. We did review that we would hold any anticoagulation prior to any procedures which would reduce risk for bleeding. She is going to continue to consider it and let me know if she changes her mind. #12 Maintenance Health Adult AWV: Due 03/11/2025 Colon cancer screening: due 2028 Mammogram: Due october Recommended Caron follow up in 6 months. Follow up sooner for any new or worsening symptoms. Caron verbalized understanding of the plan of care and was in agreement. All questions were answered today. Total time spent on visit: 40 minutes documented in this encounter Miscellaneous Notes * Addendum Note - Erika Harmon APRN, C.N.PSaul, D.N.P. - 06/28/2024 5:40 PM CDTAddended by: ERIKA HARMON on: 06/28/2024 06:53 PM Modules accepted: Orders * Addendum Note - Erika Harmon APRN C.N.P., D.N.P. - 06/28/2024 5:40 PM CDTAddended by: ERIKA HARMON on: 06/30/2024 07:52 AM Modules accepted: Orders documented in this encounter Plan of Treatment Upcoming Encounters Date Type Department Care Team (Late st Contact Info) Description 08/16/2024 8:45 AM CDT Office Visit Department of Otorhinolaryngology in [place], [place] [address] [place] [address] Filiberto Rojas M.D. [address] [place] [address] 08/19/2024 12:00 PM CDT Appointment Department of Laboratory Medicine in [address] [phone] Erika Harmon APRN, C.N.P., D.N.P. [address] [place] [phone] Scheduled Orders Name Type Priority Associated Diagnoses Orde r Schedule Lipid Panel Lab Routine Hyperlipidemia Expected: 08/28/2024, Expires: 09/27/2025 Hepatic Function Panel Lab Routine Hyperlipidemia Expected: 08/27/2024, Expires: 09/27/2025 CBC with Differential, Blood Lab Routine Anemia Expected: 08/11/2024, Expires: 09/29/2025 Iron and Total Iron-Binding Capacity Lab Routine Anemia Expected: 08/11/2024, Expires: 09/29/2025 Scheduled Referrals Name Type Priority Associated Diagnoses Order Schedule Primary care hypertension nurse visit (clinic) Outpatient Referral Routine Hypertension Essential Primary Expected: 07/12/2024, Expires: 09/27/2025 [facility] office visit (clinic) Outpatient Referral Routine Expected: 12/26/2024 (Approximate), Expires: 09/27/2025 documented as of this encounter Results * (ABNORMAL) Bacterial Culture, Aerobic + Susceptibility, [...] Sulfamethoxazole SUSCEPTIBILITY, CARMELITA (MCG/ML) <=20 mcg/mL: Susceptible Erika Bertha Harmon APRN C.N.P. , D.N.P. LAB MICROBIOLOGY - GENERAL ORDERABLES Final Result [facility] [address] [place] [address], [facility] ECLR [facility] in [address] [address] * (ABNORMAL) Urinalysis with Microscopic if Indicated [...] 8.0 06/28/2024 6:39 PM CDT [facility] Specific [place] 1.022 1.001 - 1.035 06/28/2024 6:39 PM CDT [facility] Urobilinogen 1.0 0.2 - 1.0 mg/dL 06/28/2024 6:39 PM CDT [facility] Urine (Urine, Midstream) 06/28/2024 6:29 PM CDT 06/28/2024 6:29 PM CDT us Erika Harmon APRN, C.N.P., D.N.P. LAB URINE O RDERABLES Final Result [facility] [address] [facility] [place] [address], [facility] in [place] [address] [place] [address] * (ABNORMAL) Comprehensive Metabolic Panel (06/28/2024 6:24 [...] 6:24 PM CDT 06/28/2024 6:25 PM CDT Erika Harmon APRN, C.N.P., D.N.P. LAB BLOOD A DD-ON Final Result [facility] [address] [place] [address], [place] [address], [facility] in [address] [place] [address] * Hemoglobin A1c (06/28/2024 6:24 PM CDT) Hemoglobin A1c, B 5.3 4.2 - 5.6 % 06/28/2024 6:44 PM CDT [facility] Blood (Blood, Venous) 06/28/2024 6:24 PM CDT 06/28/2024 6:25 PM CDT Erika Harmon APRN, C.N.P., D.N.P. LAB BLOOD A DD-ON Final Result [facility] [address] [place] [address], [facility] in [place] [address] [address] * Vitamin D, Immunoassay, Total, Serum (06/28/2024 [...] A DD-ON Final Result Performing Organization Address [facility] Co de Phone Number [facility] [address] [place] [address], [facility] ECL[facility] [place] [address] * Vitamin B12 Assay (06/28/2024 6:24 PM CDT) Pathologist [facility] Vitamin B12 Assay, S 705 232 - 1245 ng/L 06/29/2024 11:30 AM CDT [facility] Comment: Biotin has been identified by the stage driver as a potential interfering substance. Higher concentrations of biotin may be found in multivitamins, hair/nail supplements, and workout supplements. If the result does not match clinical observations, repeat testing after patient refrains from the use of supplements for at least 12 hours. Blood (Blood, Venous) 06/28/2024 6:24 PM CDT 06/29/2024 10:51 AM CDT Erika Harmon APRN C.N.P., D.N.P. LAB BLOOD A DD-ON Final Result Performing Organization Address [facility]/ZIP Co de Phone Number [facility] [address] [place] [address], [facility] ECLR [facility] in [place] [address] [place] [address] * Ferritin (06/28/2024 6:24 PM CDT) Ferritin, S 25 11 - 328 mcg/L 06/28/2024 7:43 PM CDT [facility] Comment: Biotin has been identified by the stage driver as a potential interfering substance. Higher concentrations of biotin may be found in multivitamins, hair/nail supplements, and workout supplements. If the result does not match clinical observations, repeat testing after patient refrains from the use of supplements for at least 12 hours. Blood (Blood, Venous) 06/28/2024 6:24 PM CDT 06/28/2024 6:25 PM CDT Vanessa Forman APRN.N.P., D.N.P. LAB BLOOD A DD-ON Final Result [facility] [address] [place] [address], [facility] in [address] [phone] * (ABNORMAL) Iron and Total Iron-Binding Capacity (06/28/2024 6:24 PM CDT) Iron 47 35 - 145 mcg/dL 06/28/2024 8:12 PM CDT [facility] Total Iron Binding Capacity 372 250 - 400 mcg/dL 06/28/2024 8:12 PM CDT [facility] Percent Saturation 13(L) 14 - 50 % 06/28/2024 8:12 PM CDT [facility] Blood (Blood, Venous) 06/28/2024 6:24 PM CDT 06/28/2024 6:25 PM CDT Erika Harmon APRN, C.N.P., D.N.P. LAB BLOOD A DD-ON Final Result [facility] [address] [place] [address], [facility] in [place] [address] [place] [address] * (ABNORMAL) CBC with Differential, Blood (06/28/2024 6:24 PM CDT) [facility] Hemoglobin 10.5(L) 11.6 - 15.0 g/dL 06/28/2024 [...] CDT 06/28/2024 6:25 PM CDT Gary Forman APRNN.PSaul, D.N.P. LAB BLOOD A DD-ON Final Result [facility] [address] [place] [place] [address], [facility] in [place] [address] [place] [address] documented in this encounter Visit Diagnoses Diagnosis Hypertension Essential Primary- Primary Hyperlipidemia Apnea Sleep Obstructive Frequency Urinary Vertigo Stenosis Spinal Lumbar With Neurogenic Claudication Anemia PreDiabetes Carpal Tunnel Syndrome Bilateral Deficiency Vitamin D Atrial Fibrillation Paroxysmal (HCC) Maintenance Health Adult Acute Cystitis Without Hematuria documented in this encounter Additional Health Concerns Assessment Noted Time PHQ-9 Depression Total Score: 10 024 12:59 PM CDT documented as of this encounter Care Teams Erp Implementation Consultant Relationship Specialty Start Date End Date Erika Harmon APRN, C.N.P., D.N.P. [address] [place] [phone] PCP - General Internal Medicine 10/26/23 documented as of this encounter
--- OUTSIDE RECORDS SUMMARY | 2024-08-11 06:16 | XMS_ITS | Encounter Summary ---
Author Organization [facility] Address [address] [place] [address] Care Team Providers Care Feed Handler Name Role Phone Gin Salgado APRN, C.N.P., D.N.P. Primary Ca re Provider Encounter Details Date Type Department Care Team (Latest Contact Info) Description 06/28/2024 6:15 PM CDT Hospital Encounter Department of Laboratory Medicine in [place], [place] [address] [place] [address] Gin Salgado APRN, C.N.P., D.N.P. [address] [place] [address] Frequency Urinary Discharge Disposition: Home or Self Care Social [...] your living situation today? [facility] 06/29/2023 Comments No [...] Take 8.6 mg by mouth daily. 01/21/2024 documented as of this encounter Plan of Treatment Upcoming Encounters Date Type Department Care Team (Late st Contact Info) Description 08/16/2024 8:45 AM CDT Office Visit Department of Otorhinolaryngology in [place], [place] [address] [place] [address] Filiberto Rojas M.D. [address] [place] [address] 08/19/2024 12:00 PM CDT Appointment Department of Laboratory Medicine in [address] [phone] Gin Salgado APRN, C.N.P., D.N.P. [address] [place] [phone] documented as of this encounter Procedures Procedure Name Priority Date/Time Associated Diagnosis Comments URINALYSIS WITH MICROSCOPIC IF INDICATED, U Routine 06/28/2024 6:29 PM CDT Frequency Urinary HC URINALYSIS AUTO WO MICRO Routine 06/28/2024 6:29 PM CDT BACTERIAL CULTURE, AEROBIC + SUSC, URINE Routine 06/28/2024 6:29 PM CDT Frequency Urinary documented in this encounter Results * (ABNORMAL) Microscopic Automated (06/28/2024 6:29 PM [...] D.N.P. LAB URINE O RDERABLES Final Result [facility] [address] [place] [address], [facility] RDW[facility] in [place] [address] [place] [phone] * (ABNORMAL) Bacterial Culture, Aerobic + Susceptibility, [...] Intermediate Klebsiella pneumoniae Trimethoprim + Sulfamethoxazole SUSCEPTIBILITY, CAMRELITA (MCG/ML) <=20 mcg/mL: Susceptible Gin Salgado APRN, C.N.P. , D.N.P. LAB MICROBIOLOGY - GENERAL ORDERABLES Final Result [facility] [address] [place] [address], [facility] ECLR [facility] in [address] [address] * (ABNORMAL) Urinalysis with Microscopic if Indicated [...] 8.0 06/28/2024 6:39 PM CDT [facility] Specific [place] 1.022 1.001 - 1.035 06/28/2024 6:39 PM CDT [facility] Urobilinogen 1.0 0.2 - 1.0 mg/dL 06/28/2024 6:39 PM CDT [facility] Urine (Urine, Midstream) 06/28/2024 6:29 PM CDT 06/28/2024 6:29 PM CDT Gin Salgado APRN, C.N.P., D.N.P. LAB URINE O RDERABLES Final Result [facility] [address] [place] [address], [facility] in [place] [address] [place] [address] documented in this encounter Visit Diagnoses Diagnosis Frequency Urinary documented in this encounter Additional Health Concerns Assessment Noted Time PHQ-9 Depression Total Score: 024 12:59 PM CDT documented as of this encounter Care Teams Feed Handler Relationship Specialty Start Date End Date Gin Salgado APRN, C.N.P., D.N.P. [address] [place] [phone] PCP - General Internal Medicine 10/26/23 documented as of this encounter
--- OUTSIDE RECORDS SUMMARY | 2024-08-11 06:16 | XMS_ITS | Data Portability ---
Author Organization [place] - [facility], [facility] - OP Address [address] [place] [address] Care Team Providers Care Refractory Manager Name Role Phone ERIKA ROWLAND Primary Care [...] after CTs ahaberer Not available 06/27/2024 15:37:15 07/11/2024 07/11/2024 Assessment Multilevel Spondylosis Poss SIJ [...] By Organization Details Last Modified Time 06/27/2024 [id number] Discussion: I discussed the clinical findings with the patient. All questions were answered. Risk factors reviewed with the patient and a L & P CT w/o was ordered. Synopsis: 06/27/24, ZACH, GERTRUDIS: No Recent Img: Chronic low back pain, Poss SIJ Dysfunction: L & P CT w/o, f/u w/ [facility] after CTs ahaberer Not available 06/27/2024 15:37:46 07/11/2024 [id number] Discussion: I discussed the clinical findings with the patient. All questions were answered. Risk factors reviewed with the patient and a R SIJ Inj x1 (standing Order), SIJ/L PT was ordered. Synopsis: 07/11/24, AZCH, GERTRUDIS: L/P CT w/o (07/11/24) at GERTRUDIS: [...] Recorded Time 08/18/20 total knee replacement completed [facility] 06/27/2024 14:13:03 Hysterectomy completed [facility] 06/27/2024 14:11:49 cholecystectomy completed [facility] 06/27/2024 14:12:31 total knee replacement completed [facility] 06/27/2024 14:13:27 procedure on ear completed Roxana Oswald [place] - [facility] 06/27/2024 14:13:54 Imaging Results Imaging Date Name Status LastModified by Organiz ation Details LastModified Time 07/11/2024 CT, lumbar spine, w/o contrast completed MANDA Information not available 07/19/2024 11:40:35 07/11/2024 CT, pelvis, w/o contrast completed MANDA Information not available 07/19/2024 11:41:38 Procedure Notes None recorded. Medical Equipment None [...] and Address Organization Details Last Updated DateTime 4 162.56 cm 39.3 kg/m2 897908. 65 g 62 /min 97.1 [degF] 98 % 98 % Roxana Oswald [place] - [facility] 4 14:19:35 Date Recorded Body height Heart rate Body temperature Body mass index (BMI) Body weight Oxygen saturation Oxygen saturation in Arterial blood by Pulse oximetry Provider Name and Address Organization Details Last Updated DateTime 162.56 cm 66 /min 98.2 [degF] 39.5 kg/m2 763088. 25 g 95 % 95 % Malik Guevara n [place] - [facility] 16:34:20 Social History Question Answer Notes LastModified by Organizat ion Details LastModified Time Tobacco Smoking Status Never Smoker Roxana Margret [place], [place] - [facility] 06/27/2024 14:14:31 What Is Your Level Of Alcohol Consumption? Occasional [email or web address] Information not available 06/27/2024 How Many Times Per Week Do You Consume Alcohol? Less Than 1 Time Per Week Information not available 06/27/2024 What Was The [...] Organization Details LastModified Time Maternal Grandmother Asthma [email or web address] Not available 06/2024 14:14:57 Brother Diabetes mellitus [email or web address] Not available 06/27 14:15:13 Sister Diabetes mellitus [email or web address] Not available 06/27 14:15:13 Father Diabetes mellitus [email or web address] Not available 06/27 14:15:13 Medical History Condition Response Gout N Blood Diseases N MRSA N Blood Transfusion N Hernia N Head Trauma/Injury N Lung Disease N Depression Y COPD N Developmental or Behavioral Disorders N Pacemaker N Difficulty Swallowing N Anesthesia Complications N Cystic Fibrosis N Anxiety Disorder N Muscle, Joint, or Bone Problems Y Obesity Y Vision or Eye Problems Y Arthritis Y Blood Clot N Stroke N Bladder or Kidney Problems N High Cholesterol N Headaches N Fibromyalgia Y Allergies/Hayfever N Parkinson's Disease N Ear or Hearing Problems Y Hospitalizations N GI Problems N ADD/ADHD N Skin Problems N PTSD N Anemia N Multiple Sclerosis N Meningitis N Heart Attack (MA) N Diabetes N Immunocompromised N Hepatitis/Liver Disease [...] Diagnosis/Indication Diagnosis SNOMED-CT Code Diagnosis ICD10 Code [id number] KIM GALVEZ PA-C [facility] [place] [facility] [address] [place] [address] [place] [address] 06/27/2024 14:01:31 07/08/2024 12:47:04 Chronic low back pain 017481435 M54.50 Sacroiliac joint pain 20 0309510 M53.3 [id number] KIM GALVEZ PA-C [facility] [place] [facility] [address] [place] [address] [place] [address] 07/11/2024 16:01:12 07/12/2024 13:31:39 Chronic low back pain 068600949 M54.50 Sacroiliac joint pain 20 1238455 M53.3 Lumbar spondylosis 39487 0009 M47.896 Lumbar spondylolisthesis [id number] 65874 M43.16 Health Concerns Section Related Observation LastModified by Organization Detai ls LastModified Time None Recorded Concern Status LastModified by Organization Details LastModified Time None Recorded Advance Directives Directive None Recorded Payers Encounter Date Sequence Insurance Name Policy Number Policy Rojas Covered Member ID Rojas Member ID Guarantor Name 06/27/2024 1 [place] (MEDICARE REPLACEMENT/A DVANTAGE - HMO) [id number] Caron Bertha Mittal [id number] Caron Mittal 07/11/2024 1 [place]MEDICARE REPLACEMENT/A DVANTAGE - HMO) [id number] CaronYanira Mittal [id number] Caron Mittal Notes Date Note Type Note Provider Name and Address Organization Details Recorded Time 06/27/2024 text/html Chief Complaint: HPI:Caron is a 74-year-old female who presents today to establish care with the [facility] team, accompanied by her daughter. 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 Her medical history is significant for arthritis [...] GALVEZ PA-C [address], [place], [address], [facility] 06/27/2024 15:37:58 07/11/2024 text/html Chief Complaint: HPI:Caron is a [...] presents today to establish care with the [facility] team, accompanied by her daughter. 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 Her medical history is significant for arthritis [...] GALVEZ PA-C [address], [place], [address], [facility] - [facility] 07/11/2024 17:16:53 OBGyn Episode No OBEpisode recorded.
--- OUTSIDE RECORDS SUMMARY | 2024-08-11 06:16 | XMS_ITS ---
Author Organization [facility] Address [address] [place] [address] Care Team Providers Care Finance Lecturer Name Role Phone Unavailable Unavailable Unavailable Surgery Details Not on file Complications Check Surgery Details section. Procedure Estimated Blood Loss Check Surgery Details section. Procedure Findings Check Surgery Details section. Procedure Specimens Taken Check Surgery Details section.
--- OUTSIDE RECORDS SUMMARY | 2024-08-11 06:17 | XMS_ITS | Continuity of Care Document ---
Author Organization [facility] Address [address] [place] [address] Phone Care Team Providers Care Laminator Name Role Phone Jem Lemos MD Unavailable [...] Available - Active Procedures Procedure Date Office/Outpatient Visit,[facility] 2019 Office/Outpatient Visit,[facility] 2012 Advance Directives Directive Yes / No Effective Date File Name No Information Encounters Encounter Description Practice Location Reason(s) For Visit Diagnoses Date Provider Providers Copied on Encounter [facility], [address], [place], [place], [id number], [place] [phone] [facility] No Information 0 Mehbod Amir. [facility] [place], [address] [place] [address], [id number] , [place]. [phone] Office/Outpat ient Visit,[facility], [address], [place], [place], [id number], [phone] [facility] No Information 0 Mehbod Amir. [facility], [address], [place], [place], [id number] , [place]. tel:[phone] Referring Provider: Michael Townsend, [facility] And [address], [address]. tel:[phone] Office/Outpat ient Visit,[place], [place] [facility], [address] [place] [address] [place], [place] [address], [place], [address], [place] tel:[phone] [facility] Depression 3 Mehbod Amir. [facility], [address], [place], [place], [id number] , [place]. tel:[phone] Family History Family Member Type Diagnosis Age At Onset Problem (finding) Problem (finding) Problem (finding) Problem (finding) Problem (finding) Problem (finding) Problem (finding) Problem (finding) Payers Payer name Insurance type Covered libertarian ID [place]ale[place]) [id number] Medicare [facility] [id number] 1 Social History Type Description Quantity Date [...]
--- OUTSIDE RECORDS SUMMARY | 2024-08-11 06:17 | XMS_ITS | Encounter Summary ---
Author Organization [facility] Address [address] [place] [address] Care Team Providers Care Collections Specialist Name Role Phone Naomi, Gin Stone APRN C.N.P., D.N.P. Primary Ca re Provider Reason for Referral * Outpatient (Routine) - Authorized Specialty Diagnoses / Procedures Referred By Contfran t Referred To Contact Otorhinolaryngology Beto Gamino M.D. [address] [place] [phone] Phone: tel: fax: [facility] Referral ID Status Reason Start Date Expiration Date V isits Requested Visits Authorized [id number] Authorized 05/31/2024 11/30/2025 1 1 Scheduling Instructions To see Dr Rojas next available Encounter Details Date Type Department Care Team (Late st Contact Info) Description 05/31/2024 Orders Only Department of Otorhinolaryngology in [place], [place] [address] [place] [phone] Beto Gamino M.D. [address] [place] [phone] Social History Tobacco Use Types Packs/Day Years [...] your living situation today? I have a [facility] place to live 06/29/2023 Comments [...] CDT Office Visit Department of Otorhinolaryngology in [place], [place] [address] [place] [address] Filiberto Rojas M.D. [address] [place] [address] 08/19/2024 12:00 PM CDT Appointment Department of Laboratory Medicine in [place], [place] [address] [place] [phone] Gin Salgado APRN, C.N.P., D.N.P. [address] [place] [phone] Scheduled Referrals Name Type Priority Associated Diagnoses Order Schedule Otorhinolaryngology office visit (clinic) Outpatient Referral Routine Expected: 05/31/2024, Expires: 08/31/2025 documented as of this encounter Visit Diagnoses Not on filedocumented in this encounter Additional Health Concerns Assessment Noted Time PHQ-9 Depression Total Score: 10 024 12:59 PM CDT documented as of this encounter Care Teams Collections Specialist Relationship Specialty Start Date End Date Gin Salgado APRN, C.N.P., D.N.P. [address] [place] [phone] PCP - General Internal Medicine 10/26/23 documented as of this encounter
--- OUTSIDE RECORDS SUMMARY | 2024-08-11 06:17 | XMS_ITS | Encounter Summary ---
Author Organization [facility] Address [address] [place] [address] Care Team Providers Care Inspector Eyeglass Frames Name Role Phone NaomiGin APRN, C.N.P., D.N.P. Primary Ca re Provider Encounter Details Date Type Department Care Team (Late st Contact Info) Description 05/23/2024 CPAP Download Remote Patient Monitoring [facility] [address] [place] [address] [facility], Provider, Social History Tobacco Use Types Packs/Day [...] your living situation today? I have a [facility] place to live 06/29/2023 Comments No [...] CDT Office Visit Department of Otorhinolaryngology in [place], [place] [address] [place] [phone] Filiberto Rojas M.D. [address] [place] [phone] 08/19/2024 12:00 PM CDT Appointment Department of Laboratory Medicine in [address] [phone] Gin Salgado APRN, C.N.P., D.N.P. [address] [place] [phone] documented as of this encounter Visit Diagnoses Not on filedocumented in this encounter Additional Health Concerns Assessment Noted Time PHQ-9 Depression Total Score: 10 024 12:59 PM CDT documented as of this encounter Care Teams Inspector Eyeglass Frames Relationship Specialty Start Date End Date Gin Salgado APRN, C.N.P., D.N.P. [address] [place] [phone] PCP - General Internal Medicine 10/26/23 documented as of this encounter
--- OUTSIDE RECORDS SUMMARY | 2024-08-11 06:17 | XMS_ITS | Clinical Summary ---
Author Organization [facility] Address [place], [place] [address] Care Team Providers Care Marketing Operations Consultant Name Role Phone Patricia Lindsey MD Unavailable [...] tablet by mouth once daily. 30 tablet 10/07/2019 Active buPROPion (WELLBUTRIN XL) 300 mg Extended-Release tablet Take 300 mg by mouth once daily in the afternoon. 12/13/2021 Active celecoxib (CELEBREX) 200 mg capsule 12/13/2021 Active acetaminophen (TYLENOL) 325 mg tablet Take 2 Tablets (650 mg) by mouth every 4 hours if needed for Pain. Max acetaminophen dose: 4000mg in 24 hrs. 08/21/2023 Active ciprofloxacin-hydr ocortisone (CIPRO-HC) 0.2%-1% otic suspension Place 4 Drops into both ears two times daily. 08/21/2023 Active oxyCODONE (ROXICODONE) 5 mg immediate release tabletIndications: Acute pain of right knee Take 1 Tablet (5 mg) by mouth every 4 hours if needed for Pain. 15 Tablet 08/31/2023 Active Active Problems Patient Care Coordination No te Formatting of this note migh t be different from the original. HF/Structural/Prevention Research Eligibility Review Date: 12/07/19 Upcoming Visit Location: Outreach Age: 69 y.o. 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 Stenosis, spinal, lumbar 03/10/2013 Displacement of lumbar inter vertebral disc without myelopathy 03/10/2013 Colon adenoma 06/06/2010 Overview (06/06/2010): Colonoscopy 05/2010 polyp repeat in 5 years Depression, recurrent 07/26/2008 sleep apnea 06/27/2008 AHI- 20, positional 008 Chronic fatigue syndrome 01/20/2007 Fibromyalgia Resolved Problems Problem Noted Date Diagnosed Date Resolved Date Depressive disorder, not elsewhere classified 01/21/20 07 07/26/2008 Encounters Date Type Department Care Team Description 05/11/2024 Telephone [facility] [address] [place] [address] Alfa Sweet MD Questions from Last 3 Months Immunizations Name Administration Dates Next Due Influenza, High-dose Quadrivalent Inactivated Td, Preservative Free (age >= 7 Years) 8 Tdap 02/03/2017 Zoster (Zostavax-ZVL, live) 09/15/2013 Family History Medical History Relation Name Comments Hypertension Brother Diabetes Father Heart Disease Father [place] Alcohol/Drug Maternal Aunt 1 Alcohol/Drug Maternal Aunt [...] Outcome GA Total Labor Labor/2nd/3rd Weight Sex Type Anes PTL Desi A1 A5 Name Clin Term Term Term Last Filed Vital Signs [...] PCV) 2014 Medicare Wellness for age 65+ 04/27/2016 04/27/2015 BMI (ht and wt on same day) for age 18+ 02/24/2020 02/23/2019, 02/12/2019, 02/20/2018, Additional history exists Lipids for age 45-75 04/27/2020 04/27/2015, 03/20/2010, 08/04/2007 Colonoscopy through age 75 06/06/2020 06/06/2010, Depression screening for age 12+ 03/21/2023 03/21/2022, 11/12/2018, 08/10/2017 RSV vaccine for adults or (1 - 1-dose 75+ series) 2024 COVID-19 vaccine series ( season) 2024 10/27/2023, 08/28/2022, 09/10/2021, Additional history exists Influenza for age 65+ 06/19/2024 10/06/2022 Tetanus booster 02/03/2027 02/03/2017, 05/08/2008 Tdap Completed 02/03/2017 DEXA/DXA scan for age 65+ Completed 06/29/2018, 12/2009 Procedures Procedure Name Priority Date/Time Associated Diagnosis Comments XR DXA BONE DENSITY 2 SITES AXIAL Routine 06/29/2018 3:10 PM CDT Menopause LIPID PANEL W REFLEX MEASURED LDL Routine 04/27/2015 12:03 PM CDT Screening for cardiovascular condition from Last 3 Months or Most Recently Relevant to Health Maintenance Results * XR DXA BONE DENSITY 2 SITES AXIAL (06/29/2018 3:10 PM CDT) Anatomical Region Laterality Modality Spine, HIPS, HIPL, HIPR Other Narrative 06/30/2018 2:07 PM CDT Please see scanned document for results of this study. Andree Pepper MD DEXA * (ABNORMAL) Lipid panel w/ reflex measured LDL ([id number]) (04/27/2015 12:03 PM CDT) [facility] CHOLESTEROL,TOTAL 231(H) 100 - 199 mg/dL 04/27/2015 12:39 PM CDT [facility] TRIGLYCERIDES 138 <150 mg/dL 04/27/2015 12:39 PM CDT [facility] HDL CHOLESTEROL 41 >40 mg/dL 5 12:39 PM CDT [facility] NON-HDL CHOLESTEROL 190(H) <145 mg/dl 04/27/2015 12:39 PM CDT [facility] CHOL/HDL RATIO 5.63(H) <4.50 04/27/2015 12:39 PM CDT [facility] LDL CHOLESTEROL 162(H) <=130 mg/dL 04/27/2015 12:39 PM CDT [facility] PATIENT STATUS FASTING 04/27/2015 12:39 PM CDT [facility] Blood specimen (specimen) BLOOD SPECIMEN / Unknown Venipuncture / Unknown 04/27/2015 12:03 PM CDT 04/27/2015 12:03 PM CDT Andree Pepper MD CHEMISTRY [facility] [address] [place] [address], [place] [phone] from Last 3 Months or Most Recently Relevant to Health Maintenance Advance Directives * Full Code (Latest Code Status on File) Date Activated Date Inactivated Comments 02/20/2017 6:01 AM 02/20/2017 5:41 PM Care Teams Marketing Operations Consultant Relationship Specialty Start Date End Date Michael Townsend MD [address] [place] [address] PCP - General Family Practice 01/28/22 Patricia Lindsey MD [address] [place] [address] Dermatology Dermatology 05/06/11
--- OUTSIDE RECORDS SUMMARY | 2024-08-11 06:17 | XMS_ITS | Encounter Summary ---
Author Organization [facility] Address [address] [place] [address] Care Team Providers Care Blocker Hand Name Role Phone NaomiGin APRN, C.N.P., D.N.P. Primary Ca re Provider Encounter Details Date Type Department Care Team (Late st Contact Info) Description 06/23/2024 CPAP Download Remote Patient Monitoring [facility] [address] [place] [address] [facility], Provider, Social History Tobacco Use Types Packs/Day [...] CDT Office Visit Department of Otorhinolaryngology in [place], [place] [address] [place] [phone] Filiberto Rojas M.D. [address] [place] [phone] 08/19/2024 12:00 PM CDT Appointment Department of Laboratory Medicine in [address] [phone] Gin Salgado APRN, C.N.P., D.N.P. [address] [place] [phone] documented as of this encounter Visit Diagnoses Not on filedocumented in this encounter Additional Health Concerns Assessment Noted Time PHQ-9 Depression Total Score: 10 024 12:59 PM CDT documented as of this encounter Care Teams Blocker Hand Relationship Specialty Start Date End Date Gin Salgado APRN, C.N.P., D.N.P. [address] [place] [phone] PCP - General Internal Medicine 10/26/23 documented as of this encounter
--- OUTSIDE RECORDS SUMMARY | 2024-08-11 06:17 | XMS_ITS | Encounter Summary ---
Author Organization [facility] Address [address] [place] [address] Care Team Providers Care Freight Engineer Name Role Phone Naomi, Gin Stone APRN, C.N.P., D.N.P. Primary Ca re Provider Encounter Details Date Type Department Care Team (Latest Contact Info) Description 04/18/2024 Clinical Communication Department of Cardiovascular Diseases in [place], [place] [address] [place] [address] Vignesh Mason APRN, C.N.P. [address] [place] [address] Social History Tobacco Use Types [...] your living situation today? I have a [facility] place to live 06/29/2023 Comments No [...] CDT Office Visit Department of Otorhinolaryngology in [place], [place] [address] [place] [address] Filiberto Rojas M.D. [address] [place] [address] 08/19/2024 12:00 PM CDT Appointment Department of Laboratory Medicine in [place], [place] [address] [place] [phone] Gin Salgado APRN, C.N.P., D.N.P. [address] [place] [phone] documented as of this encounter Visit Diagnoses Not on filedocumented in this encounter Additional Health Concerns Assessment Noted Time PHQ-9 Depression Total Score: 10 024 12:59 PM CDT documented as of this encounter Care Teams Freight Engineer Relationship Specialty Start Date End Date Gin Salgado APRN, C.N.P., D.N.P. [address] [place] [phone] PCP - General Internal Medicine 10/26/23 documented as of this encounter
[2024-08-11] MEDS: BUPIVACAINE 0.5 %/EPI 1:200K INJECTION (07:05)
--- NOTE | 2024-08-11 07:08 | SUR.PREOP ---
SAME DAY SURGERY LOCAL INJECTION SITE VERIFICATION WAS PERFORMED BY SURGEON/PA AND PATIENT PRIOR TO LOCAL ANESTHETIC BEING INJECTED TO OPERATIVE SITE.
[2024-08-11] MEDS: LIDOCAINE 1%-EPI 1:100,000 20 ML INFILTRATI (07:10)
--- NOTE | 2024-08-11 07:41 | P.ORPRC_ITS ---
Procedure Note Date of procedure: 08/11/24 Procedure: Preop diagnosis: Left upper extremity carpal tunnel syndrome Postop diagnosis: Left upper extremity carpal tunnel syndrome Procedure: Left upper extremity carpal tunnel release Anesthesia: Local Surgeon: Narciso Davis MD administrative library assistant: Roxann Allen PA-C EBL: 2 mL Complications: None Specimens: None Drains: None Indications: The patient has a history of left upper extremity carpal tunnel syndrome sym ptoms. Despite appropriate nonoperative management consisting of nighttime bracing and occupational therapy they continue to have symptoms. Operative intervention was recommended. The risks, benefits alternatives and expected outcomes were discussed in detail. These included but were not limited to: Infection, bleeding, injury to blood vessel or nerve, venous thromboembolism. All questions were answered to their satisfaction. The patient was placed supine on the operating room table. Local anesthesia was established with 0.5% Marcaine with epinephrine and 2% lidocaine with epinephrine. The hand was prepped and draped in usual sterile fashion. A longitudinal incision was made centered over the radial border of the ring finger at the base of the palm. Subcutaneous dissection was sharply taken through the palmar fascia and the palmaris brevis to the transverse carpal ligament. The ligament was divided in line with the incision. Proximal and distal dissection was carried with tenotomy and Metzenbaum scissors for a wide decompression of the carpal tunnel. The wound was closed with a 3-0 nylon. A bulky dry dressing was applied, sponge and needle counts were correct x 2. The patient tolerated the procedure well, there were no apparent complications. They were sent to same day surgery in satisfactory condition. Plan: Use of the hand as tolerates. Discontinue the intraoperative dressing on postoperative day 3 and may get the wound wet as tolerates. Follow up in the office in 2 weeks for a wound check and suture removal.
== END 2024-08-11 08:27 | disposition home or self-care (01) ==
LOC: OR 06:13
PROVIDERS: Visit Provider Orthopaedic Surgery
PROC: (CPT 64721; principal; 2024-08-11 07:15)
DX: G56.02 Carpal tunnel syndrome, left upper limb (principal)
CPT/HCPCS: 64721; J3490